=== PATIENT | female | born 1965 | race Caucasian/White ===

== ENCOUNTER → 2017-04-29 11:29 | Outpatient (CLI) | payer BC, SELFPAY ==
[2017-04-29 10:14] VITALS: BP 145/86; BMI 26.0
[2017-04-29 11:47] LABS: Absolute Lymphocyte Count 0.69 X10^3/ul (0.83-4.51); Absolute Neutrophil Count 10.1 X10^3/uL (2.0-7.7); Basophil# 0.04 X10^3/uL; Basophil% 0.4 % (0-1); Eosinophil# 0.02 X10^3/uL; Eosinophils% 0.2 % (0-5); Hematocrit 46.9 % (37-47); Hemoglobin 16.4 g/dl (12.0-15.0); Lymphocyte # 0.69 X10^3/ul (4.0); Lymphocyte % 6.1 % (19-41); Mean Corpuscular Hgb 31.4 pg (27.0-32.0); Mean Corpuscular Volume 89.7 fL (81-99); Mean Platelet Vol. 9.6 fl (6.2-12.0); Monocyte# 0.37 X10^3/uL; Monocyte% 3.3 % (0-10); Neutrophil # 10.08 X10^3/uL (2.7-7.7); Neutrophil % 89.4 % (47-70); Platelet Count 272 K/mm3 (150-450); RBC Distribution Width CV 12.5 % (11.6-14.6); RBC Distribution Width SD 41.2 fl (35.1-43.9); Red Blood Count 5.23 M/mm3 (4.2-5.4); White Blood Count 11.3 K/mm3 (4.4-11.0)
[2017-04-29 11:48] LABS: POSITIVE COUNT NO; POSITIVE DIFFERENTIAL NO; POSITIVE MORPHOLOGY NO
[2017-05-05 14:53] LABS: Immunoglobulin E 17 IU/mL (0-100)
== END ==
LOC: ONC 11:31 → LAB 11:39 → ONC 11:45
PROVIDERS: Family Provider Internal Medicine; PCP Internal Medicine; Visit Provider Internal Medicine Critical Care Medicine
DX: J45.50 Severe persistent asthma, uncomplicated (principal)
CPT/HCPCS: 36415; 82785; 85025

== ENCOUNTER → 2017-11-25 06:25 | Outpatient (CLI) | payer BC, SELFPAY ==
--- NOTE | 2017-11-25 09:35 | STRESSREP ---
Stress Test Report Date: 11/25/2017 Procedure: Exercise tolerance test/imaging study Indications: Chest pain Consent: Per the patient Procedure: The patient exercised on a Jean-Paul protocol for 8 minutes completing Stage II and 2 minutes of Stage III achieving a peak heart rate of 166 bpm (100 % predicted maximal heart rate) with a peak blood pressure 146/74 mmHg and a peak MET capacity of 9 METs. The baseline ECG demonstrated normal sinus rhythm. The peak exercise ECG demonstrated no obvious ECG changes. There were no cardiac dysrhythmias pretest, during exercise, or recovery. The functional capacity was considered good. There was no complaint of chest discomfort during exercise or recovery. The examination was discontinued secondary to leg discomfort. Impression: 1. Technically adequate (percent predicted maximal heart rate greater than 85%) exercise tolerance test 2. Peak exercise ECG demonstrated no obvious ECG changes 3. There were no cardiac dysrhythmias pretest, during exercise, or recovery. 4. Nuclear images pending Myocardial perfusion imaging study: Technique: The patient was injected with 11.3 mCi of technetium 99m Cardiolite and subsequently rest SPECT Cardiolite nuclear imaging was obtained in the horizontal long, vertical long, and short axis views. The patient exercised on a Jean-Paul protocol for 8 minutes completing Stage II and 2 minutes of Stage III achieving a peak heart rate of 166 bpm (100 % predicted maximal heart rate) with a peak blood pressure 146/74 mmHg and a peak MET capacity of 9 METs. The patient was injected with 32.9 mCi of technetium 99m Cardiolite and subsequently stress SPECT Cardiolite nuclear imaging was obtained in the horizontal long, vertical long, and short axis views. A gated Cardiolite study at peak stress was obtained. Interpretation: Rest and stress SPECT Cardiolite nuclear imaging status post realignment, normalization, and attenuation correction, demonstrates the appearance of extracardiac/gastrointestinal tracer uptake near the inferior segments at rest, otherwise, there appears to be relative uniform tracer uptake and myocardial perfusion appearing within normal limits. There is end systolic thickening and brightening. The gated Cardiolite study demonstrates myocardial thickening and inward wall motion. The reported LVEF is 78 %. Impression: 1. Rest and stress SPECT Cardiolite nuclear imaging demonstrate relative uniform tracer uptake and myocardial perfusion appearing within normal limits. 2. The gated Cardiolite study reports an LVEF of 78 %. This note was generated with [employer] software. It may contain incorrect words, spelling, and punctuation that were not noted in checking the note before signing.
== END ==
PROVIDERS: Family Provider Internal Medicine; PCP Internal Medicine; Visit Provider Internal Medicine Cardiovascular Disease
DX: R07.9 Chest pain, unspecified (principal)
CPT/HCPCS: 78452; 93017; 93306; A9500; A4216

== ENCOUNTER → 2018-09-14 | Outpatient (CLI) | payer BC, SELFPAY ==
--- NOTE | 2018-09-14 | LES_PTH ---
PATIENT: JOSE HOOD LOC: [facility] U#:[id number] AGE/SX: 52/F ROOM: RE09/14/[address]: JOSELYN Ortiz : 1965 BED: DIS: 09/14/2018 SPEC #: [id number] RECD: 09/14/18 14:24 STATUS: DONNA REBennie #: [id number] ELIO: 09/14/18 00:[address]: Luann Danielson NP DEPT: SURGICAL PATHOLOGY RECD BY: Aakash Nair ENTERED: 09/14/18 14:24 SP TYPE: Lesion OTHR DR: Dr. Cecilia Potter MD Tissues: Skin appendage, NOS Procedures: Surgery Specimen Level IV HEADER OPERATION: Skin tag removal PRE-OP DIAGNOSIS: Skin tag removal TISSUE SUBMITTED: Skin tag MICROSCOPIC DIAGNOSIS Skin tag, excision: Fibroepithelial papilloma. CE:mena 09/15/18 MICROSCOPIC DESCRIPTION Slides are reviewed. GROSS DESCRIPTION Received in fixative is one container labeled with the patient's name and designated skin tag. The specimen consists of a 0.2 x 0.2 x 0.2 cm portion of gallegos soft tissue/ski. The specimen is totally submitted in one cassette. / CE:mena 09/14/18 TC:1 CPT: 04516
[2018-09-14 10:51] VITALS: BMI 25.3
== END | disposition home or self-care (01) ==
LOC: LABSPEC 13:40
PROVIDERS: Family Provider Internal Medicine; PCP Internal Medicine; Referring Provider Nurse Practitioner Women's Health; Visit Provider Nurse Practitioner Women's Health
DX: L91.8 Other hypertrophic disorders of the skin (principal)
CPT/HCPCS: 88305

== ENCOUNTER 2018-11-13 05:40 | Inpatient (IN) | payer BC, SELFPAY ==
[2018-09-14 10:51] VITALS: BMI 25.3
[2018-11-13] VITALS (11 sets, daily range): BP systolic 121–154; BP diastolic 67–78; PULSE 78–114; RESP 16–24; TEMP 36.6–38.1; O2SAT 94–97; BMI 25.9; BMI 26.0
--- NOTE | 2018-11-13 06:00 | EKG12_ITS ---
Test Reason : CP Blood Pressure : / mmHG Vent. Rate : 106 BPM Atrial Rate : 106 BPM P-R Int : 130 ms QRS Dur : 062 ms QT Int : 312 ms P-R-T Axes : 063 063 069 degrees QTc Int : 414 ms Sinus tachycardia Possible Left atrial enlargement Septal infarct , age undetermined Abnormal ECG Confirmed by TATIANA HILARIO, MADELYN ([id number]), film editor FLACA KENNEDY ([id number]) on 11/15/2018 1:25:59 PM Referred By: MANUEL Confirmed By:MADELYN SIMPSON MD
--- NOTE | 2018-11-13 06:00 | RAD_ITS ---
STUDY: X-RAY CHEST REASON FOR EXAM: Female, 53 years old. Arm pain. Leg pain. Chills. TECHNIQUE: Single AP portable view of the chest. COMPARISON: None. FINDINGS: Ill-defined alveolar opacity is seen in the right lower lobe and right upper lobe suggesting pneumonia. There is no demonstrated pleural abnormality. Normal size heart. Normal mediastinum and fernando. Normal visualized pulmonary arteries. Normal visualized aortic arch and descending thoracic aorta. Normal visualized thoracic spine. Normal visualized ribs, clavicles, and shoulders. There is no demonstrated abnormality of the visualized soft tissue structures of the upper abdomen. RAD/Chest 1 View (Portable) IMPRESSION: Right upper lobe and right lower lobe pneumonia. Electronically Signed: Saira Woods, at 6:44 EDT Tel , Service support ,
--- NOTE | 2018-11-13 06:01 | ED.DCSUM_ITS ---
History of Present Illness Chief Complaint: General Illness Detail of Chief Complaint: chest/back pain Informant: Patient, Significant Other Onset: Hours - 2-3 Context: Sudden Onset - awoke from sleep Timing: Continuous Current Severity: Severe Maximum Severity: Severe Narrative: Patient presents complaining of severe pain throughout her entire back, upper and lower, her left arm, and down both of her legs all the way to her feet, although my feet do not hurt. Her next statement is that Dr. Dutton told her to come right to the emergency room if she ever had chest pain. When asked if she is having chest pain right now, she states yes. She describes it as inferior retrosternal, feels like somebody put something sharp in her and then took it out. She denies tearing sensation. She denies any abdominal pain. Her initial symptom was nausea, followed by the rest of all of these areas hurting simultaneously she thinks. She denies any lightheadedness or near syncope. She denies having any numbness or weakness anywhere. No recent injury. States she saw cardiology recently because of palpitations, she had a stress test that was unremarkable, and then a 30-day Holter monitor, she is due to follow-up after that but knows that PVCs/PACs were found on her stress test. - Past Medical History (1) Acute gastritis without mention of hemorrhage Status: Chronic (2) Benign neoplasm of colon Status: Chronic (3) Interstitial cystitis Status: Chronic (4) Vestibular neuronitis Status: Chronic (5) Anxiety Status: Chronic (6) Asthma Status: Chronic (7) Chronic sinusitis Status: Chronic (8) GERD (gastroesophageal reflux disease) Status: Chronic (9) Hypolipidemia Status: Chronic (10) IBS (irritable bowel syndrome) Status: Chronic (11) Lumbago Status: Chronic (12) Osteopenia Status: Chronic (13) PTSD (post-traumatic stress disorder) Status: Chronic (14) Steroid long-term use Status: Chronic (15) Urethrocele Status: Chronic (16) Xerosis cutis Status: Chronic Past Medical History - Allergies and Home Meds Allergies/Adverse Reactions: Allergies alendronate sodium [From Fosamax] Allergy (Mild, Verified 11/13/18 05:48) Unknown beclomethasone [From Qvar] Allergy (Mild, Verified 11/13/18 05:48) Unknown doxycycline Allergy (Mild, Verified 11/13/18 05:48) unknown epinephrine Allergy (Mild, Verified 11/13/18 05:48) unknown erythromycin base Allergy (Mild, Verified 11/13/18 05:48) Unknown formoterol [From Dulera] Allergy (Mild, Verified 11/13/18 05:48) Unknown Iodine and Iodide Containing Produc Allergy (Mild, Verified 09/14/18 11:00) Unknown levofloxacin [From Levaquin] Allergy (Mild, Verified 11/13/18 05:48) Unknown mometasone furoate [From Dulera] Allergy (Mild, Verified 11/13/18 05:48) Unknown omalizumab [From Xolair] Allergy (Mild, Verified 11/13/18 05:48) Unknown psyllium [From Metamucil] Allergy (Mild, Verified 09/14/18 11:00) Unknown sulfasalazine [From Sulfazine] Allergy (Mild, Verified 09/14/18 11:00) Unknown amoxicillin trihydrate [From Augmentin] Allergy (Verified 09/14/18 11:00) Swelling potassium clavulanate [From Augmentin] Allergy (Verified 09/14/18 11:00) Swelling Sulfa (Sulfonamide Antibiotics) Allergy (Verified 09/14/18 11:00) Hives Primary Care Physician: Cecilia Potter MD [Primary Care Provider] - Lives: Spouse/ Significant Other Smoking Status: Never smoker Drugs: None - No IV drug use Review of Systems General: Reports: Malaise. Denies: Chills, Fever, Sweats Eyes: Denies: Visual changes - bilaterally, Diplopia ENT: Denies: Rhinorrhea, Sore throat Cardiovascular: Reports: Chest pain - Nonpleuritic. Denies: Palpitations Respiratory: Reports: Dyspnea, Cough. Denies: Sputum, Dyspnea on exertion Gastrointestinal: Reports: Nausea. Denies: Abdominal pain, Vomiting, Diarrhea, Melena, Hematochezia Genitourinary: Denies: Dysuria, Hematuria, Frequency Musculoskeletal: Reports: Back pain, Extremity Pain. Denies: Swelling Skin: Denies: Rash, Wounds Neurological: Denies: Headache, Weakness, Numbness Psych: Reports: Anxiety Physical Exam Vital Signs/Narrative: Vital Signs Temp Pulse Resp BP Pulse Ox 11/13/18 05:41 99.0 F 114 H 24 H 154/76 H 97 Inital Vital Signs reviewed: Yes General: Well nourished, Well developed, Acute Distress Head: Normocephalic, Atraumatic Eyes: Perrl, EOMI ENT: Moist mucous membranes, No rhinorrhea Neck: Supple, Nontender Cardiovascular: Regular rate, Regular rhythm, No murmurs, Tachycardia Respiratory: No distress, CTA bilaterally, Chest nontender Abdomen: Soft, Nontender, Nondistended, Normal bowel sounds. Negative for: Pulsatile mass Back: Nontender, Normal Inspection. Negative for: CVA tenderness Extremities: Nontender, No edema Skin: Normal color, No rash, No Trauma Neurological: Alert, Oriented x3, Cranial nerves II-XII grossly intact, Normal Strength, Normal Sensation, - - Antalgic gait, able Psychological: - - Very anxious Diagnostic/Tx/Re-eval Impressions Chest X-Ray 11/13/18 06:00 IMPRESSION: Right upper lobe and right lower lobe pneumonia. Electronically Signed: Saira Woods, at 6:44 EDT Tel , Service support , Abdomen/Pelvis CTA 11/13/18 06:24 IMPRESSION: Normal abdominal aorta without a hemodynamically significant stenosis or dissection. Electronically Signed: Saira Woods, at 8:00 EDT Tel , Service support , Chest CTA 11/13/18 06:24 IMPRESSION: No demonstrated pulmonary embolism or arterial dissection. Right upper lobe pneumonia. Electronically Signed: Saira Woods, at 7:52 EDT Tel , Service support , 11/13/18 06:00 Chest 1 View (Portable) [RAD] Stat 11/13/18 06:24 CT ANGIO ABD&PEL W/O&W/DYE [CT] Stat CTA Chest W/WO Contrast [CT] Stat Laboratory Results 11/13/18 11/13/18 11/13/18 05:40 05:40 07:30 WBC 15.7 H RBC 4.71 Hgb 14.4 Hct 42.3 MCV 89.8 MCH 30.6 MCHC 34.0 RDW Std Deviation 39.8 RDW Coeff of Suresh 12.0 Plt Count 269 MPV 9.9 Immature Gran % (Auto) 0.400 Neut % (Auto) 78.0 H Lymph % (Auto) 15.4 L Wilkinson % (Auto) 4.7 Eos % (Auto) 1.1 Baso % (Auto) 0.4 Absolute Neuts (auto) 12.2 H Absolute Lymphs (auto) 2.41 Nucleated RBC % 0 Sodium 144 Potassium 3.5 Chloride 107 Carbon Dioxide 30.0 Anion Gap 7 BUN 17 Creatinine 1.01 Estim Creat Clear Calc 47.49 Est GFR (MDRD) Af Amer 73 Est GFR (MDRD) Non-Af 61 BUN/Creatinine Ratio 16.8 Glucose 103 Lactic Acid 1.6 Calcium 8.5 Total Bilirubin 0.40 AST 18 ALT 21 Alkaline Phosphatase 97 Troponin I < 0.015 Total Protein 6.7 Albumin 3.4 Globulin 3.3 Albumin/Globulin Ratio 1.0 Lipase 193 - Rhythm Strip Rhythm Strip: Sinus Tach Rate: 110 Ectopy: None - EKG Initial EKG Interpretation: No Acute Injury Pattern, Sinus Tachycardia Prior: Unchanged - Medical Decision Making Portable chest x-ray shows significant right-sided pneumonia, she has a leukocytosis and vital signs to qualify her for sepsis. Her lactate is within normal limits. Given her concerning history I proceeded with CT angiography of her aorta which was unremarkable. There were no other abnormal findings on imaging. Given all of this and her condition, she will be admitted to the hospital. She has a long list of antibiotic allergies. I am very limited with what I can give her to cover her for community-acquired pneumonia. At this time she is getting aztreonam without reaction. She is feeling better. She has allergies to penicillins, macrolides, Levaquin. ED Disposition - Plan for ED Patient: Disposition: Acute Care Hospital [facility] Diagnosis: Sepsis due to pneumonia, Community acquired pneumonia Referrals: Cecilia Potter MD [Primary Care Provider] -
[2018-11-13] MEDS: Morphine 4 MG/ML Syringe IV (06:03)
[2018-11-13] MEDS: Ondansetron 4 MG/2 ML Vial IV (06:04)
[2018-11-13 06:22] LABS: Absolute Lymphocyte Count 2.41 X10^3/uL (0.83-4.51); Absolute Neutrophil Count 12.2 X10^3/uL (2.0-7.7); Basophil# 0.06 X10^3/uL; Basophil% 0.4 % (0-1); Eosinophil# 0.17 X10^3/uL; Eosinophils% 1.1 % (0-5); Hematocrit 42.3 % (37-47); Hemoglobin 14.4 g/dL (12.0-15.0); Lymphocyte # 2.41 X10^3/ul (4.0); Lymphocyte % 15.4 % (19-41); Mean Corpuscular Hgb 30.6 pg (27.0-32.0); Mean Corpuscular Volume 89.8 fL (81-99); Mean Platelet Vol. 9.9 fl (6.2-12.0); Monocyte# 0.74 X10^3/uL; Monocyte% 4.7 % (0-10); NRBC Flagged by Analyzer 0 % (0-5); Neutrophil # 12.22 X10^3/uL (2.7-7.7); Platelet Count 269 K/mm3 (150-450); RBC Distribution Width SD 39.8 fl (35.1-43.9); Red Blood Count 4.71 M/mm3 (4.2-5.4); White Blood Count 15.7 K/mm3 (4.4-11.0)
--- NOTE | 2018-11-13 06:24 | CT_ITS ---
STUDY: CTA OF THE ABDOMINAL AORTA REASON FOR EXAM: Female, 53 years old. CHEST/BACK/BLE PAIN, BACK, LEG, ARM PAIN THAT STARTED AT 2315, 0315 WOKE UP WITH CHILLS RADIATION DOSAGE (If Supplied By Facility): CTDIvol = ( 13.21 ) mGy, DLP = ( 794.91 ) mGycm TECHNIQUE: Axial CT angiography multi-detector data acquisition was obtained from the to the following intravenous administration of 100 ml of Isovue 370 contrast. Axial images and MIP images were reconstructed from the axial data set. Post-processing of the angiographic images was performed, with multiplanar reformation and 3D reconstruction. Individualized dose optimization techniques were used for this CT. TECHNICAL QUALITY: Good COMPARISON: None. Descriptors of Narrowing: None (0%) Mild (< 50%) Moderate (50-70%) Severe (70-90%) Subtotal/Total Occlusion (90-100%) Non-Evaluable (technically non-diagnostic FINDINGS: Abdominal aorta: No demonstrated narrowing. Celiac and superior mesenteric arteries: No demonstrated narrowing. Inferior mesenteric artery: No demonstrated narrowing. Right renal artery(arteries): No demonstrated narrowing. Left renal artery(arteries): No demonstrated narrowing. Right common iliac artery: No demonstrated narrowing. Right external iliac artery: No demonstrated narrowing. Right internal iliac artery: No demonstrated narrowing. Left common iliac artery: No demonstrated narrowing. Left external iliac artery: No demonstrated narrowing. Left internal iliac artery: No demonstrated narrowing. The visualized lung bases are unremarkable. The visualized portions of the heart are within normal limits. Normal liver. There are surgical clips in the gallbladder fossa consistent with a prior cholecystectomy. Normal spleen. Normal pancreas. Normal bilateral adrenal glands. Normal right kidney. Normal left kidney. Normal visualized stomach. Normal small intestine. Normal colon. The appendix is visualized and appears normal. Normal abdominal aorta. Normal inferior vena cava. Normal retroperitoneum. Normal urinary bladder. Normal abdominal wall. There are diffuse degenerative changes of the visualized lumbar spine. CT/CT ANGIO ABD&PEL W/O&W/DYE IMPRESSION: Normal abdominal aorta without a hemodynamically significant stenosis or dissection. Electronically Signed: Saira Woods, at 8:00 EDT Tel , Service support ,
--- NOTE | 2018-11-13 06:24 | CT_ITS ---
STUDY: CTA CHEST REASON FOR EXAM: Female, 53 years old. CHEST/BACK/BLE PAIN, BACK, LEG, ARM PAIN THAT STARTED AT 2315, 0315 WOKE UP WITH CHILLS. RADIATION DOSAGE (If Supplied By Facility): CTDIvol = ( 13.21 ) mGy, DLP = ( 794.91 ) mGycm TECHNIQUE: The examination was performed with the intravenous administration of 100 IV Isovue 370. Post-processing of the angiographic images was performed, with multiplanar reformation and 3D reconstruction. Individualized dose optimization techniques were used for this CT. COMPARISON: None. FINDINGS: There is a nonspecific nodule in the right thyroid lobe measures 1.2 cm. Normal enhancement of the main pulmonary artery and right and left pulmonary arteries. Normal enhancement of the bilateral peripheral pulmonary arteries. There is no demonstrated pulmonary embolism. Normal thoracic aorta and visualized great vessels. There is no demonstrated aortic dissection. Normal heart and pericardium. Normal mediastinum. Normal hilar regions. Normal visualized trachea and bronchi. Confluent alveolar opacities are seen in the right upper lobe anterior segment and posterior segment consistent with pneumonia. Normal pleura. Normal chest wall structures. There are degenerative changes of thoracic spine. Normal visualized upper abdomen. CT/CTA Chest W/WO Contrast IMPRESSION: No demonstrated pulmonary embolism or arterial dissection. Right upper lobe pneumonia. Electronically Signed: Saira Woods, at 7:52 EDT Tel , Service support ,
[2018-11-13 06:45] LABS: AST(SGOT) 18 U/L (15-37); Alanine Aminotransfer ALT/SGPT 21 U/L (13-56); Albumin, Serum 3.4 g/dL (3.2-5.0); Alkaline Phosphatase 97 U/L (45-117); Anion Gap 7 (5-15); BUN 17 mg/dL (7-18); BUN/Creat Ratio 16.8 RATIO (10-20); Calcium,Total 8.5 mg/dL (8.5-10.1); Chloride 107 mmol/L (98-107); Creatinine, Serum 1.01 mg/dL (0.55-1.02); EST Glomerular Filtration Rate 61 mL/min (>60); Est Glom Filt Rate - Afr Amer 73 mL/min (>60); Estimated Creatinine Clearance 47.49 ml/min; Globulin 3.3 g/dL (2.2-4.2); Glucose 103 mg/dL (74-106); Lipase 193 U/L (73-393); Potassium 3.5 mmol/L (3.5-5.1); Protein, Total 6.7 g/dL (6.4-8.2); Sodium Level 144 mmol/L (136-145)
[2018-11-13] MEDS: 0.9% Normal Saline 1,000 ML 999 ML IV (07:30)
[2018-11-13 08:09] LABS: Lactic Acid 1.6 mmol/L (0.4-2.0)
--- NOTE | 2018-11-13 08:27 | PCM.HP.STD ---
Problem List (1) Sepsis due to pneumonia Status: Acute (2) Community acquired pneumonia Status: Acute (3) Chest pain Status: Acute Qualifiers: Chest pain type: unspecified Qualified Code(s): R07.9 - Chest pain, unspecified (4) Asthma Status: Chronic Qualifiers: Asthma severity: severe Asthma persistence: persistent Asthma complication type: uncomplicated Qualified Code(s): J45.50 - Severe persistent asthma, uncomplicated (5) PTSD (post-traumatic stress disorder) Status: Chronic (6) Asthma with COPD Status: Chronic (7) Vestibular neuronitis Status: Chronic (8) Urethrocele Status: Chronic (9) Lumbago Status: Chronic (10) Osteopenia Status: Chronic (11) Interstitial cystitis Status: Chronic (12) Anxiety Status: Chronic (13) IBS (irritable bowel syndrome) Status: Chronic Qualifiers: Irritable bowel syndrome type: unspecified Qualified Code(s): K58.9 - Irritable bowel syndrome without diarrhea (14) GERD (gastroesophageal reflux disease) Status: Chronic (15) Xerosis cutis Status: Chronic (16) Hypolipidemia Status: Chronic (17) Chronic sinusitis Status: Chronic (18) Steroid long-term use Status: Chronic History of Present Illness Date of Admission: 11/13/18 Chief Complaint: Leg back and chest pain The patient is a 53 year old F multiple comorbidities including anxiety disorder, irritable bowel syndrome, bronchial asthma who presented to the emergency department with leg back and chest pain. Patient symptoms started around 2 AM on the morning of her admission. The symptoms were sudden in onset. She however went back to sleep woke up with a feeling of chest discomfort. She states that she thought she had threw up on herself however did not find any vomitus. Patient described not feeling well. She finally presented to the emergency department underwent extensive work-up which revealed presence of right upper lobe pneumonia. Patient was started on antibiotics (Azactam) and admitted to regular nursing floor for further management Past Medical History Past Medical History (Chronic Problems): Chronic Problems (Last Reviewed 09/14/18 @ 10:51 by Carolina Ferrer) Asthma (Chronic) PTSD (post-traumatic stress disorder) (Chronic) Asthma with COPD (Chronic) Vestibular neuronitis (Chronic) Urethrocele (Chronic) Lumbago (Chronic) Osteopenia (Chronic) Interstitial cystitis (Chronic) Anxiety (Chronic) IBS (irritable bowel syndrome) (Chronic) GERD (gastroesophageal reflux disease) (Chronic) Xerosis cutis (Chronic) Hypolipidemia (Chronic) Chronic sinusitis (Chronic) Steroid long-term use (Chronic) Medical History: Medical History (Last Reviewed 11/13/18 @ 10:48 by Harmeet Monk MD) PTSD (post-traumatic stress disorder) (Chronic) F43.10 Asthma with COPD (Chronic) J44.9 Vestibular neuronitis (Chronic) H81.20 Lesion of plantar nerve (Resolved) G57.60 Urethrocele (Chronic) N81.0 Lumbago (Chronic) M54.5 Acute gastritis without mention of hemorrhage (Resolved) K29.00 Osteopenia (Chronic) M85.80 Benign neoplasm of colon (Resolved) D12.6 Interstitial cystitis (Chronic) N30.10 Anxiety (Chronic) F41.9 Abnormal mammogram (Resolved) R92.8 IBS (irritable bowel syndrome) (Chronic) K58.9 GERD (gastroesophageal reflux disease) (Chronic) K21.9 Capsulitis (Resolved) M77.9 Intermittent left lower quadrant abdominal pain (Resolved) R10.32 Xerosis cutis (Chronic) L85.3 Hypolipidemia (Chronic) E78.6 Chronic sinusitis (Chronic) J32.9 Steroid long-term use (Chronic) Lactose intolerance E73.9 History of wisdom tooth extraction K08.409 Diarrhea (Inactive) R19.7 Allergies alendronate sodium [From Fosamax] Allergy (Mild, Verified 11/13/18 05:48) Unknown beclomethasone [From Qvar] Allergy (Mild, Verified 11/13/18 05:48) Unknown doxycycline Allergy (Mild, Verified 11/13/18 05:48) unknown epinephrine Allergy (Mild, Verified 11/13/18 05:48) unknown erythromycin base Allergy (Mild, Verified 11/13/18 05:48) Unknown formoterol [From Dulera] Allergy (Mild, Verified 11/13/18 05:48) Unknown Iodine and Iodide Containing Produc Allergy (Mild, Verified 09/14/18 11:00) Unknown levofloxacin [From Levaquin] Allergy (Mild, Verified 11/13/18 05:48) Unknown mometasone furoate [From Dulera] Allergy (Mild, Verified 11/13/18 05:48) Unknown omalizumab [From Xolair] Allergy (Mild, Verified 11/13/18 05:48) Unknown psyllium [From Metamucil] Allergy (Mild, Verified 09/14/18 11:00) Unknown sulfasalazine [From Sulfazine] Allergy (Mild, Verified 09/14/18 11:00) Unknown amoxicillin trihydrate [From Augmentin] Allergy (Verified 09/14/18 11:00) Swelling potassium clavulanate [From Augmentin] Allergy (Verified 09/14/18 11:00) Swelling Sulfa (Sulfonamide Antibiotics) Allergy (Verified 09/14/18 11:00) Hives Home Medications: Ambulatory Orders Medication Instructions Recorded albuterol sulfate HFA 90 2 puff INHALATION Q2H PRN g 04/19/17 mcg/actuation aerosol inhaler alprazolam 0.5 mg tablet 0.5 mg PO BID PRN tab 04/19/17 amitriptyline 25 mg tablet 50 mg PO QHS tab 04/19/17 omeprazole 40 mg capsule,delayed 40 mg PO ONCE 04/19/17 release promethazine 25 mg rectal 25 mg RC Q6H PRN supp 04/19/17 suppository ranitidine 300 mg tablet 300 mg PO QHS PRN 04/19/17 rizatriptan 10 mg tablet 10 mg PO ONCE PRN 04/19/17 temazepam 7.5 mg capsule 7.5 mg PO QHS 04/19/17 triamcinolone acetonide 55 mcg 2 spray INTRANASAL QDAY 04/19/17 nasal spray aerosol albuterol sulfate 2.5 mg/3 mL 2.5 mg INHALATION Q4H PRN #180 vial 05/03/17 (0.083 %) solution for nebulization ipratropium bromide 0.02 % 0.5 mg INHALATION Q4H PRN #120 vial 05/03/17 solution for inhalation chlordiazepoxide-clidinium 5 4 cap PO QACHS cap 11/18/17 mg-2.5 mg capsule dicyclomine 10 mg capsule 10 mg PO Q6H cap 11/18/17 meclizine 12.5 mg tablet 12.5 mg PO DAILY PRN tab 11/18/17 nefazodone 100 mg tablet 100 mg PO QDAY tab 11/18/17 prednisone 10 mg tablet 10 mg PO DAILY 02/02/18 metoprolol succinate ER 25 mg 25 mg PO DAILY #30 tab 10/28/18 tablet,extended release 24 hr Acetylcysteine [Mucomyst] 800 mg INHALATION Q6H.RT PRN 11/13/18 Surgical History: Surgical History (Last Reviewed 11/13/18 @ 10:48 by Harmeet Monk MD) Dysplasia, cervix uteri N87.9 H/O section Z98.891 History of breast biopsy Z98.890 History of bunionectomy Z98.890 History of cholecystectomy Z90.49 History of colonoscopy Z98.890 History of cystoscopy Z98.890 History of esophagogastroduodenoscopy Z98.890 History of hernia repair Z98.890, Z87.19 History of sigmoidoscopy Z98.890 History of sinus surgery Z98.890 History of tubal ligation Z98.51 History of vaginal hysterectomy Z90.710 Lives: Spouse/ Significant Other Smoking Status: Never smoker Drugs: None - No IV drug use - *Family History Paternal Family History: Family History (Last Reviewed 09/14/18 @ 10:51 by Carolina Ferrer) Father Hypertension Diabetes Seizures Alzheimer disease CAD (coronary artery disease) Myocardial infarction, Onset Age: 35 Mother Hypertension Atrial fibrillation CHF (congestive heart failure) Grandfather CAD (coronary artery disease) Myocardial infarction Grandmother CAD (coronary artery disease) Myocardial infarction Grandfather CAD (coronary artery disease) Myocardial infarction Review of Systems Constitutional: Reports: Malaise HEENT: Denies: Head Aches, Sinus Congestion, Sinus Drainage Cardiovascular: Reports: Chest Pain. Denies: Orthopnea, Palpitations, Paroxysmal Noc. Dyspnea Respiratory: Denies: Shortness of Breath Gastrointestinal: Reports: Abdominal Pain Genitourinary: Denies: Dysuria, Frequency, Hematuria, Urgency Musculoskeletal: Denies: Joint Pain, Joint Tenderness Skin: Denies: Rash Neurological: Denies: Focal weakness, Numbness, Tingling Psychiatric: Reports: Anxiety Hematologic/ Lymphatic: Denies: Easy Bruising, Easy Bleeding VTE Information - Inpt Only VTE Present on Admission: No VTE Mechan Device Prophylaxis: None VTE Pharm Prophylaxis ordered?: Yes Patient Problems: Active and Suspected Problems (Last Reviewed 09/14/18 @ 10:51 by Carolina Ferrer) Sepsis due to pneumonia (Acute) Community acquired pneumonia (Acute) Objective: GENERAL: cooperative HEENT: Atraumatic; EYES; Anicteric, NECK; supple, normal thyroid, RESPIRATORY: Diminished to auscultation CARDIOVASCULAR: Regular S1 S2, GI: soft, non-tender, normoactive bowel sounds, : No Renal angle tenderness; EXTREMITIES: No edema, no clubbing, MUSCULOSKELETAL: No Joint Tenderness; NEURO: Awake; no lateralizing signs. SKIN: Rosacea on the face PSYCH; Normal affect - Physical Exam Vital Signs Temp Pulse Resp BP Pulse Ox 99.0 F 100 17 129/76 H 97 11/13/18 05:41 11/13/18 07:43 11/13/18 07:43 11/13/18 07:43 11/13/18 07:43 Oxygen Delivery Method Room Air Weight: 62.4 kg Body Mass Index (BMI) 25.9 Laboratory Tests Past 24 Hrs 11/13/18 11/13/18 11/13/18 05:40 05:40 07:30 WBC 15.7 H RBC 4.71 Hgb 14.4 Hct 42.3 MCV 89.8 MCH 30.6 MCHC 34.0 RDW Std Deviation 39.8 RDW Coeff of Suresh 12.0 Plt Count 269 MPV 9.9 Immature Gran % (Auto) 0.400 Neut % (Auto) 78.0 H Lymph % (Auto) 15.4 L [place] % (Auto) 4.7 Eos % (Auto) 1.1 Baso % (Auto) 0.4 Absolute Neuts (auto) 12.2 H Absolute Lymphs (auto) 2.41 Nucleated RBC % 0 Sodium 144 Potassium 3.5 Chloride 107 Carbon Dioxide 30.0 Anion Gap 7 BUN 17 Creatinine 1.01 Estim Creat Clear Calc 47.49 Est GFR (MDRD) Af Amer 73 Est GFR (MDRD) Non-Af 61 BUN/Creatinine Ratio 16.8 Glucose 103 Lactic Acid 1.6 Calcium 8.5 Total Bilirubin 0.40 AST 18 ALT 21 Alkaline Phosphatase 97 Troponin I < 0.015 Total Protein 6.7 Albumin 3.4 Globulin 3.3 Albumin/Globulin Ratio 1.0 Lipase 193 Assessment/Plan All Active Problems (Last Reviewed 09/14/18 @ 10:51 by Carolina Ferrer) Sepsis due to pneumonia (Acute) Community acquired pneumonia (Acute) Chest pain (Acute) Lesion of plantar nerve (Resolved) Acute gastritis without mention of hemorrhage (Resolved) Benign neoplasm of colon (Resolved) Abnormal mammogram (Resolved) Capsulitis (Resolved) Intermittent left lower quadrant abdominal pain (Resolved) Patient is a 53-year-old lady with multiple comorbidities presented with pain involving the back legs as well as chest. Underwent extensive work-up in the ED. Her assessment was consistent with sepsis secondary to right upper lobe community-acquired pneumonia. Patient has multiple antibiotic allergies started on Azactam and admitted to regular nursing floor for further management 1. Sepsis secondary to community-acquired pneumonia imaging studies demonstrated right upper lobe infiltrate. Patient was also tachycardic febrile with elevated white cell count. She did receive Azactam in the ER. Upon further interview patient admitted to having used Z-Aries as well as cephalosporins in the past. Was subsequently initiated on Rocephin and p.o. azithromycin. Was also placed on oxygen titrated to keep oxygen saturation greater than 90. Blood and sputum cultures were sent 2. Moderate intermittent asthma patient is on albuterol as well as chronic steroid did continue 3. Irritable bowel syndrome patient is apparently on Librax for that did discuss with patient regarding her medication she is apparently also on temazepam as well as Xanax informed patient via all benzo diazepam she was advised to follow-up with her primary care physician for medication adjustment 4. Vestibular neuronitis patient is on meclizine as needed 5. GERD on PPI 6. Chronic migraine headaches patient is on Maxalt as needed 7. Anxiety disorder patient is on benzos 8. DVT prophylaxis SC Lovenox Clinical Impression(s) from Imaging Studies Chest X-Ray 11/13/18 06:00 IMPRESSION: Right upper lobe and right lower lobe pneumonia. Electronically Signed: Saira Woods, at 6:44 EDT Tel , Service support , Abdomen/Pelvis CTA 11/13/18 06:24 IMPRESSION: Normal abdominal aorta without a hemodynamically significant stenosis or dissection. Electronically Signed: Saira Woods, at 8:00 EDT Tel , Service support , Chest CTA 11/13/18 06:24 IMPRESSION: No demonstrated pulmonary embolism or arterial dissection. Right upper lobe pneumonia. Electronically Signed: Saira Woods, at 7:52 EDT Tel , Service support , Code Visit Inpatient E&M: 10467 Init Hosp L3
[2018-11-13] MEDS: 0.9% Normal Saline 1,000 ML 150 ML IV ×2 (09:35→16:47)
[2018-11-13] MEDS: Enoxaparin 40 MG/0.4 ML Syringe SC (09:42)
[2018-11-13] MEDS: Acetylcysteine 800 MG/4 ML VIAL.NEB. INHALATION ×2 (11:19→20:56)
[2018-11-13] MEDS: Albuterol 2.5 MG/3 ML VIAL.NEB. INHALATION ×2 (11:19→20:55)
[2018-11-13] MEDS: Azithromycin 250 MG Tablet 500 MG PO (12:09)
[2018-11-13] MEDS: Dicyclomine 10 MG Capsule PO ×3 (12:11→22:06)
[2018-11-13] MEDS: Metoprolol(XL)Succ 25 MG Tablet PO (14:55)
[2018-11-13] MEDS: predniSONE 10 MG Tablet PO (14:56)
[2018-11-13] MEDS: Acetaminophen 325 MG Tablet 650 MG PO (14:56)
[2018-11-13] MEDS: Amitriptyline 25 MG Tablet 50 MG PO (22:06)
[2018-11-13] MEDS: Zolpidem Tartrate 5 MG Tablet PO (22:06)
[2018-11-14] VITALS (9 sets, daily range): BP systolic 124–128; BP diastolic 68–74; PULSE 71–89; RESP 16–20; TEMP 36.6–37.7; O2SAT 92–98
[2018-11-14] MEDS: Enoxaparin 40 MG/0.4 ML Syringe SC (05:50)
[2018-11-14] MEDS: Dicyclomine 10 MG Capsule PO ×4 (05:50→21:27)
[2018-11-14 06:15] LABS: Absolute Lymphocyte Count 1.62 X10^3/uL (0.83-4.51); Absolute Neutrophil Count 10.3 X10^3/uL (2.0-7.7); Basophil# 0.05 X10^3/uL; Basophil% 0.4 % (0-1); Eosinophil# 0.15 X10^3/uL; Eosinophils% 1.1 % (0-5); Hematocrit 38.2 % (37-47); Lymphocyte # 1.62 X10^3/ul (4.0); Lymphocyte % 12.2 % (19-41); Mean Corpuscular Hgb 31.1 pg (27.0-32.0); Mean Corpuscular Volume 91.4 fL (81-99); Mean Platelet Vol. 10.1 fl (6.2-12.0); Monocyte# 0.98 X10^3/uL; Monocyte% 7.4 % (0-10); NRBC Flagged by Analyzer 0 % (0-5); Neutrophil # 10.34 X10^3/uL (2.7-7.7); Neutrophil % 78.2 % (47-70); Platelet Count 206 K/mm3 (150-450); RBC Distribution Width CV 12.2 % (11.6-14.6); RBC Distribution Width SD 40.9 fl (35.1-43.9); Red Blood Count 4.18 M/mm3 (4.2-5.4); White Blood Count 13.2 K/mm3 (4.4-11.0)
[2018-11-14 06:29] LABS: Anion Gap 5 (5-15); BUN 11 mg/dL (7-18); BUN/Creat Ratio 13.1 RATIO (10-20); Calcium,Total 8.2 mg/dL (8.5-10.1); Chloride 114 mmol/L (98-107); Creatinine, Serum 0.84 mg/dL (0.55-1.02); EST Glomerular Filtration Rate 75 mL/min (>60); Est Glom Filt Rate - Afr Amer 90 mL/min (>60); Glucose 87 mg/dL (74-106); Magnesium 2.1 mg/dL (1.6-2.6); Potassium 4.1 mmol/L (3.5-5.1); Sodium Level 145 mmol/L (136-145)
[2018-11-14] MEDS: Acetylcysteine 800 MG/4 ML VIAL.NEB. INHALATION ×2 (06:37→12:00)
[2018-11-14] MEDS: Albuterol 2.5 MG/3 ML VIAL.NEB. INHALATION ×3 (06:37→19:49)
[2018-11-14] MEDS: predniSONE 10 MG Tablet PO (09:09)
[2018-11-14] MEDS: Azithromycin 250 MG Tablet 500 MG PO (09:09)
[2018-11-14] MEDS: Metoprolol(XL)Succ 25 MG Tablet PO (09:09)
[2018-11-14] MEDS: 0.9% NaCl Peripheral Flush Adult/Peds IV (09:18)
[2018-11-14] MEDS: Pantoprazole Sodium 40 MG Tablet PO (09:22)
--- NOTE | 2018-11-14 10:20 | CASEMGMT ---
Social Work Note Per civil engineering project manager questions, pt has completed HCPOA and LW but hasn't provided copies to [facility]. Valeria Horan TAX CREDIT LEASING CONSULTANT, PROGRAM PRODUCTION SPECIALIST
--- NOTE | 2018-11-14 11:05 | CASEMGMT ---
RN CM Face to Face with patient for initial transition planning/care coordination assessment. RN CM introduced self and role at [facility]. Patient lying in bed, alert and oriented. Patient willing to participate in assessment and is able to answer all questions appropriately. Care providers, pharmacy, and demographics verified. Patient wishes to discharge home, denies need for home health at this time. Patient states she has no further needs or concerns at this time. CM to follow for discharge planning needs that may arise. PCP: Tariq Specialists: Marija, insert cutter; Calvin, furnace cleaner; Marcanthony, RAILROAD BAG[employer]TER Preferred Pharmacy: [facility] Insurance: [employer] Prescription Benefit: yes Living Will/HPOA: yes, Ramiro Macdonald LNOK: Living Arrangements: Patient lives with in 2 story home. Patient is independent and is able to navigate stairs. Transportation: self/ DME/HHC: Patient states she has grab bars and nebulizer. Denies previous HHC or SNF Disposition Plan: Patient to discharge home with family support and follow-up plans in place. Valeria AKERS, RN, CM
--- NOTE | 2018-11-14 15:34 | PN_ITS ---
Patient Problems: Active and Suspected Problems (Last Reviewed 11/13/18 @ 10:48 by Harmeet Monk MD) Sepsis due to pneumonia (Acute) Community acquired pneumonia (Acute) Subjective: The patient is a 53-year-old female with a past medical history of PTSD, COPD with asthma, vertigo, urethrocele, chronic back pain, interstitial cystitis, irritable bowel syndrome, GERD and long-term steroid use who presented to the emergency room at [facility] on 11/13/2018 planing of leg, back and chest pain. Vital signs at presentation to the emergency room were temperature 99, pulse rate 114, blood pressure 154/76, respiratory rate 24 and she was 97% saturated on room air. CBC was significant for a white blood cell count of 15.7 with 78% neutrophils. CMP was unremarkable and troponin was less than 0.015. A AP chest showed right upper lobe and right lower lobe pneumonia. A CTA scan of the abdomen and pelvis showed a normal abdominal aorta without a hemodynamically significant stenosis or dissection. CTA of the chest showed no demonstrated pulmonary embolism or arterial dissection. There was right upper lobe pneumonia present. She was admitted to the hospital with a diagnosis of sepsis secondary to community-acquired pneumonia and started on Rocephin and azithromycin. Legionella and streptococcal antigens were negative. A sputum Gram stain showed no organisms. There were no white blood cells mentioned. Continues to have low-grade fever with a temp of 99.8 this afternoon. White blood cell count is 13.2 with 78% neutrophils. She is 96 to 97% saturated on room air. She did not cough while I was in the room. cough was not her complaint at admission. The main complaint was back, thigh and chest pain. She describes it as the worst pain she has ever had. W/U is negative for a cause. Denies sore throat, rhinorrhea, itchy watery eyes. she seems very anxious. She is on multiple psychiatric medications. Takes 3 different benzodiazepines....Xanax, Librax and Restoril. In addition to that she is on amitriptyline and nefazodone at night. He also has prescriptions for meclizine, promethazine and Bentyl. She has been taking prednisone 10 mg daily for 25 years for asthma. She follows up with Dr. Jean-Paul Simpson in the office and could not even tolerate decreasing the prednisone to 9 mg daily without complaining of not being able to breathe. I suspect there may be a strong psychosocial component to her sx. - Physical Exam General: Alert, Oriented x3, Cooperative, No apparent distress, - - Pressured speech, very anxious HEENT: Atraumatic, PERRLA, EOMI, Normocephalic Oral: Moist Mucosa, No Gingival or Mucosal Lesions/ Ulcerations Neck: Supple, No JVD Lungs: Clear to auscultation, Normal air movement, No rhonchi, No wheeze, No rales Cardiovascular: Regular rate, Regular Rhythm, Normal S1, Normal S2, No murmurs, No rub noted, No Gallop Abdomen: Bowel Sounds Present, Soft, Non Tender, Non-Distended Extremities: No clubbing, No cyanosis, No edema Skin: No rashes Neurological: Cranial nerves II-XII grossly intact, Neuro grossly intact Psych/Mental Status: Anxious Vital Signs Temp Pulse Resp BP Pulse Ox 99.8 F H 89 20 H 127/73 H 92 11/14/18 09:30 11/14/18 12:00 11/14/18 12:00 11/14/18 09:30 11/14/18 12:00 Oxygen Delivery Method Room Air Weight: 137 lb 5.568 oz Body Mass Index (BMI) 25.9 Intake and Output for Last 24 Hours 11/12/18 11/13/18 11/14/18 23:59 23:59 23:59 Intake Total 2378 / 2378 100 / 100 Output Total 3400 / 3400 1000 / 1000 Balance -1022 / -1022 -900 / -900 Microbiology Past 72 Hours 11/14/18 12:21 Gram Stain - Final Sputum, Expectorated/Coughed 11/13/18 09:30 Streptococcus pneumoniae Antigen (M - Final Urine, Clean Catch 11/13/18 09:30 Legionella Antigen - Final Urine, Clean Catch Laboratory Tests Past 24 Hrs 11/14/18 11/14/18 05:44 05:44 WBC 13.2 H RBC 4.18 L Hgb 13.0 Hct 38.2 MCV 91.4 MCH 31.1 MCHC 34.0 RDW Std Deviation 40.9 RDW Coeff of Suresh 12.2 Plt Count 206 MPV 10.1 Immature Gran % (Auto) 0.700 Neut % (Auto) 78.2 H Lymph % (Auto) 12.2 L [place] % (Auto) 7.4 Eos % (Auto) 1.1 Baso % (Auto) 0.4 Absolute Neuts (auto) 10.3 H Absolute Lymphs (auto) 1.62 Nucleated RBC % 0 Sodium 145 Potassium 4.1 Chloride 114 H Carbon Dioxide 26.0 Anion Gap 5 BUN 11 Creatinine 0.84 Estim Creat Clear Calc 57.10 Est GFR (MDRD) Af Amer 90 Est GFR (MDRD) Non-Af 75 BUN/Creatinine Ratio 13.1 Glucose 87 Calcium 8.2 L Magnesium 2.1 Medical Necessity - Tobacco Use Smoking Status: Never smoker Assessment/Plan All Active Problems (Last Reviewed 11/13/18 @ 10:48 by Harmeet Monk MD) Sepsis due to pneumonia (Acute) Community acquired pneumonia (Acute) Chest pain (Acute) Lesion of plantar nerve (Resolved) Acute gastritis without mention of hemorrhage (Resolved) Benign neoplasm of colon (Resolved) Abnormal mammogram (Resolved) Capsulitis (Resolved) Intermittent left lower quadrant abdominal pain (Resolved) Impressions 1. Community-acquired right upper lobe pneumonia 2. Benzodiazepine dependence 3. PTSD/anxiety 4. Steroid-dependent - not on Vitamin D or calcium. If she has not already had a DEXA she should have one as an OP. 5. Irritable bowel syndrome 6. GERD 7. Chronic sinusitis 8. Vestibular neuronitis 9. Asthma 10. chronic back pain and chest pain......has seen Dr. Dutton for chest pain in the past. she has also had chronic tenderness in her abdomen. She lists 15 different allergies and 12 of them the reaction is unknown. In 2016 she had an EGD that showed erythema in the gastric antrum but was otherwise unremarkable. On colonoscopy she had a normal colon with a 6 mm colonic polyp in the ascending portion which was removed. H&E stains were compatible with H. pylori and she was treated. EKGs in 2016 and 2019 are normal. On physical examination and Dr. Dutton's office she had a grade 2/6 soft midsystolic murmur at the sternal notch. Nuclear stress test and the fall 2017 showed a 78% ejection fraction with no evidence of myocardial perfusion deficits. Echocardiogram showed an EF of 65% with trivial MR, trivial TR, trivial pulmonic valve insufficiency. Right ventricular systolic pressure was estimated to be 28 and this was in October 2017. She had an event monitor that showed the rhythm to be sinus with intermittent sinus tachycardia. There were occasional isolated atrial premature contractions and a few short atrial runs lasting less than 2 seconds with heart rates up to 210 bpm. There was no atrial fibrillation. She had occasional isolated PVCs and there were no pauses noted. She had 30 triggers for sx including rapid heart rate/palpitations/flutter/chest pain/lightheadedness and during these. She had isolated ectopy and short atrial runs but she also had symptoms when she was in sinus rhythm without ectopy. will check a respiratory panel in the AM ambulatory pulse ox on RA in the AM Probable DC in the AM. Check vitamin D levels We did discuss how addictive benzodiazepines are and that you can not suddenly stop them. she is taking a lot of medication at night to help her sleep. Code Visit Inpatient E&M: 66769 Subs Hosp L2
[2018-11-14 17:53] LABS: Vitamin D,25 Hydroxy 12.7 ng/mL (29.95-100.01)
[2018-11-14] MEDS: Amitriptyline 25 MG Tablet 50 MG PO (21:26)
[2018-11-14] MEDS: Temazepam 15 MG Capsule PO (21:29)
[2018-11-15 02:45] VITALS: BP 142/75; PULSE 92; RESP 18; TEMP 37.2; O2SAT 96
[2018-11-15] MEDS: Dicyclomine 10 MG Capsule PO ×2 (05:16→11:45)
[2018-11-15] MEDS: Enoxaparin 40 MG/0.4 ML Syringe SC (05:16)
[2018-11-15 07:18] VITALS: PULSE 87; RESP 16; O2SAT 91
[2018-11-15] MEDS: Albuterol 2.5 MG/3 ML VIAL.NEB. INHALATION ×2 (07:18→11:21)
[2018-11-15] MEDS: predniSONE 10 MG Tablet PO (07:29)
[2018-11-15 08:39] VITALS: O2SAT 97
[2018-11-15 08:41] VITALS: BP 127/77; PULSE 94; RESP 18; TEMP 37.2; O2SAT 98
[2018-11-15 10:03] VITALS: PULSE 94
[2018-11-15] MEDS: Metoprolol(XL)Succ 25 MG Tablet PO (10:03)
[2018-11-15] MEDS: Pantoprazole Sodium 40 MG Tablet PO (10:03)
[2018-11-15] MEDS: 0.9% NaCl Peripheral Flush Adult/Peds IV (10:04)
[2018-11-15] MEDS: Azithromycin 250 MG Tablet 500 MG PO (10:04)
[2018-11-15 11:21] VITALS: PULSE 91; RESP 16
--- NOTE | 2018-11-15 11:54 | PCM.DC ---
- Discharge Diagnoses Current Active Problems: Current Active and Chronic Problems (Last Reviewed 11/13/18 @ 10:48 by Harmeet Monk MD) Sepsis due to pneumonia (Acute) Community acquired pneumonia (Acute) You will use the following diet at home:: Other - no caffeine. I recommend you try a gluten free diet for a few weeks to see if the irritable bowel symtoms improve. Your food should be the consistency of: Regular Your liquids should be the consistency of: Regular/Thin Discharge Activity: - - Avoid exposure to any strong smells such as bleach, cleaning products, strong colognes or perfumes, paint fumes and smoke of any kind. Avoid sudden exposure to cold air because this can cause bronchospasm. You may want to cover your mouth when you go outside in the winter. Avoid exposure to anyone who is sick with a cough or sore throat. Call your doctor if you observe: - - Call your PCP if severe diarrhea ( > 5 stools a day), painful sores in the mouth, painful swallowing, rash or itching. Taking a probiotic such as Lactobacillus or Kefir can help with loose stools while taking antibiotics. Instructions: Your Body's Response to Anxiety, Treating Anxiety Disorders with Therapy, Treating Anxiety Disorders with Medication, Treating Panic Disorder with Medication Additional Instructions: The sputum culture so far as only the normal bacteria that grow in your mouth. the viral panel was negative. You have no fever and you are not wheezing. You Will be fine. you have been on increased prednisone in the hospital and I want you to taper over the next 9 days. . 30 mg daily for 3 days and then 20 mg daily for 3 days and then a5 mg for 3 days and then resume 10 mg daily. I do not think that your severe anxiety is well managed. You are on 3 different Benzodiazepines and these are very addictive. I think you may do better on 1 benzodiazepine called Clonopin.....it is long acting and you take it every 12 hours......scheduled, not as needed. I also think you need to see a psychiatrist to manage the anxiety. You are taking all these meds now and you are still very anxious. Irritable bowel is very closely related to anxiety......so is pain perception. Please consider seeing a psychiatrist and having more therapy. You have been on Prednisone for 25 years......I spoke with Dr. Simpson and we both believe that you get more short of breath when the prednisone is tapered at all because you are anxious about your breathing getting worse. I think you are having panic attacks. I have given you some literature to read about panic attacks and how to manage anxiety with therapy and medication.......the best results are when both modalities are used together. Call me tomorrow afternoon at [phone] and I will give you the final results on the sputum culture. Steroids have many bad side effects......these include but are not limited to osteoporosis, catarracts, avascular necrosis of joints, severe muscle weakness, atherosclerosis, weight gain, high blood pressure, etc. It would be best for you to get off them. Your vitamin D level is low and I have given you a prescription for a Vitamin D supplement. The vitamin D level should be rechecked in 4-6 weeks. You should also be taking a calcium supplement....TUMS 500 mg Twice a day would work. If you have not had a bone density test in the past 2 years then you should ask your PCP about a DEXA to assess the bone density. Allergies/Adverse Reactions: Allergies alendronate sodium [From Fosamax] Allergy (Mild, Verified 11/13/18 05:48) Unknown beclomethasone [From Qvar] Allergy (Mild, Verified 11/13/18 05:48) Unknown doxycycline Allergy (Mild, Verified 11/13/18 05:48) unknown epinephrine Allergy (Mild, Verified 11/13/18 05:48) unknown erythromycin base Allergy (Mild, Verified 11/13/18 05:48) Unknown formoterol [From Dulera] Allergy (Mild, Verified 11/13/18 05:48) Unknown Iodine and Iodide Containing Produc Allergy (Mild, Verified 09/14/18 11:00) Unknown levofloxacin [From Levaquin] Allergy (Mild, Verified 11/13/18 05:48) Unknown mometasone furoate [From Dulera] Allergy (Mild, Verified 11/13/18 05:48) Unknown omalizumab [From Xolair] Allergy (Mild, Verified 11/13/18 05:48) Unknown psyllium [From Metamucil] Allergy (Mild, Verified 09/14/18 11:00) Unknown sulfasalazine [From Sulfazine] Allergy (Mild, Verified 09/14/18 11:00) Unknown amoxicillin trihydrate [From Augmentin] Allergy (Verified 09/14/18 11:00) Swelling potassium clavulanate [From Augmentin] Allergy (Verified 09/14/18 11:00) Swelling Sulfa (Sulfonamide Antibiotics) Allergy (Verified 09/14/18 11:00) Hives Medications to take at Discharge albuterol sulfate HFA 90 mcg/actuation aerosol inhaler 2 puff INHALATION Q2H PRN g 04/19/17 alprazolam 0.5 mg tablet 0.5 mg PO BID PRN tab 04/19/17 amitriptyline 25 mg tablet 50 mg PO QHS tab 04/19/17 omeprazole 40 mg capsule,delayed release 40 mg PO ONCE 04/19/17 promethazine 25 mg rectal suppository 25 mg RC Q6H PRN supp 04/19/17 ranitidine 300 mg tablet 300 mg PO QHS PRN 04/19/17 rizatriptan 10 mg tablet 10 mg PO ONCE PRN 04/19/17 temazepam 7.5 mg capsule 7.5 mg PO QHS 04/19/17 triamcinolone acetonide 55 mcg nasal spray aerosol 2 spray INTRANASAL QDAY 04/19/17 albuterol sulfate 2.5 mg/3 mL (0.083 %) solution for nebulization 2.5 mg INHALATION Q4H PRN #180 vial 05/03/17 ipratropium bromide 0.02 % solution for inhalation 0.5 mg INHALATION Q4H PRN #120 vial 05/03/17 chlordiazepoxide-clidinium 5 mg-2.5 mg capsule 4 cap PO QACHS cap 11/18/17 dicyclomine 10 mg capsule 10 mg PO Q6H cap 11/18/17 meclizine 12.5 mg tablet 12.5 mg PO DAILY PRN tab 11/18/17 nefazodone 100 mg tablet 100 mg PO QDAY tab 11/18/17 prednisone 10 mg tablet 10 mg PO DAILY 02/02/18 metoprolol succinate ER 25 mg tablet,extended release 24 hr 25 mg PO DAILY #30 tab 10/28/18 Acetylcysteine [Mucomyst] 800 mg INHALATION Q6H.RT PRN 11/13/18 Cefdinir [Omnicef [equiv]] 300 mg PO Q12H #8 cap 11/15/18 Cholecalciferol (VIT D3) [Vitamin D] 1,000 unit PO BID #60 tab 11/15/18 The following prescriptions were given: Cefdinir [Omnicef [equiv]] 300 mg PO Q12H #8 cap Transmission Status: Received by [facility] [place] [facility] Cholecalciferol (VIT D3) [Vitamin D] 1,000 unit PO BID #60 tab Transmission Status: Received by [facility] [place] [facility] Primary Care Physician: Cecilia Potter MD [Primary Care Provider] - Please follow up with your Primary Care Physician in: 1 -2 weeks Test Results: Test results from this visit will be discussed in further detail at your follow-up appointment, if applicable. Proposed Discharge Date: 11/15/18
--- NOTE | 2018-11-15 13:17 | CASEMGMT ---
Social Work Note Per physician pt has history of anxiety and PTSD. SW met with pt, introduced self and role at [facility]. Pt's present in room and pt gave this worker permission to speak to her in front of her guest. Pt confirms that she has a history of anxiety, depression and PTSD. Pt states that she is currently taking medications and states that her symptoms are well managed on the medication. Pt states that she used to be in counseling but denied currently receiving counseling services. Pt denied wanting additional resources at this time. Valeria Horan [employer], [employer]
--- NOTE | 2018-11-15 13:27 | PCM.DC.SUM ---
Discharge Date and Diagnosis Date of Admission: 11/13/18 Date of Discharge: 11/15/18 - Primary Discharge Diagnosis Active and Suspected Problems (Last Reviewed 11/13/18 @ 10:48 by Harmeet Monk MD) Community acquired pneumonia (Acute) RUL Chest pain - non-cardiac - Secondary Discharge Diagnosis Chronic Problems (Last Reviewed 11/13/18 @ 10:48 by Harmeet Monk MD) PTSD (post-traumatic stress disorder) (Chronic) Asthma with COPD (Chronic) Vestibular neuronitis (Chronic) Urethrocele (Chronic) Lumbago (Chronic) Osteopenia (Chronic) Interstitial cystitis (Chronic) Generalized anxiety with panic attacks (Chronic) IBS (irritable bowel syndrome) (Chronic) GERD (gastroesophageal reflux disease) (Chronic) Xerosis cutis (Chronic) Hyperlipidemia (Chronic) Chronic sinusitis (Chronic) Steroid long-term use (Chronic) Hospital Course and Treatment Imaging Results: Clinical Impression(s) from Imaging Studies Chest X-Ray 11/13/18 06:00 IMPRESSION: Right upper lobe and right lower lobe pneumonia. Electronically Signed: Saira Woods, at 6:44 EDT Tel , Service support , Abdomen/Pelvis CTA 11/13/18 06:24 IMPRESSION: Normal abdominal aorta without a hemodynamically significant stenosis or dissection. Electronically Signed: Saira Woods, at 8:00 EDT Tel , Service support , Chest CTA 11/13/18 06:24 IMPRESSION: No demonstrated pulmonary embolism or arterial dissection. Right upper lobe pneumonia. Electronically Signed: Saira Woods, at 7:52 EDT Tel , Service support , Laboratory Tests 11/14/18 11/14/18 11/14/18 Range/Units 17:05 05:44 05:44 WBC (4.4-11.0) K/mm3 RBC (4.2-5.4) M/mm3 Hgb (12.0-15.0) g/dL Hct (37-47) % MCV (81-99) fL MCH (27.0-32.0) pg MCHC (32-36) g/dL RDW Std Deviation (35.1-43.9) fl RDW Coeff of Suresh (11.6-14.6) % Plt Count (150-450) K/mm3 MPV (6.2-12.0) fl Immature Gran % (Auto) (0.0-0.9) % Neut % (Auto) (47-70) % Lymph % (Auto) (19-41) % Hudspeth % (Auto) (0-10) % Eos % (Auto) (0-5) % Baso % (Auto) (0-1) % Absolute Neuts (auto) (2.0-7.7) X10^3/uL Absolute Lymphs (auto) (0.83-4.51) X10^3/uL Nucleated RBC % (0-5) % Sodium 145 (136-145) mmol/L Potassium 4.1 (3.5-5.1) mmol/L Chloride 114 H (98-107) mmol/L Carbon Dioxide 26.0 (21.0-32.0) mmol/L Anion Gap 5 (5-15) BUN 11 (7-18) mg/dL Creatinine 0.84 (0.55-1.02) mg/dL Estim Creat Clear Calc 57.10 ml/min Est GFR (MDRD) Af Amer 90 (>60) mL/min Est GFR (MDRD) Non-Af 75 (>60) mL/min BUN/Creatinine Ratio 13.1 (10-20) RATIO Glucose 87 (74-106) mg/dL Lactic Acid (0.4-2.0) mmol/L Calcium 8.2 L (8.5-10.1) mg/dL Magnesium 2.1 (1.6-2.6) mg/dL Total Bilirubin (0.20-1.00) mg/dL AST (15-37) U/L ALT (13-56) U/L Alkaline Phosphatase (45-117) U/L Troponin I (<0.045) ng/mL Total Protein (6.4-8.2) g/dL Albumin (3.2-5.0) g/dL Globulin (2.2-4.2) g/dL Albumin/Globulin Ratio (0.9-2.4) RATIO Lipase (73-393) U/L Vitamin D 25-Hydroxy 12.7 L (29.95-100.01) ng/mL TSH 0.70 (0.358-3.74) uIU/mL 11/14/18 11/13/18 11/13/18 Range/Units 05:44 07:30 05:40 WBC 13.2 H (4.4-11.0) K/mm3 RBC 4.18 L (4.2-5.4) M/mm3 Hgb 13.0 (12.0-15.0) g/dL Hct 38.2 (37-47) % MCV 91.4 (81-99) fL MCH 31.1 (27.0-32.0) pg MCHC 34.0 (32-36) g/dL RDW Std Deviation 40.9 (35.1-43.9) fl RDW Coeff of Suresh 12.2 (11.6-14.6) % Plt Count 206 (150-450) K/mm3 MPV 10.1 (6.2-12.0) fl Immature Gran % (Auto) 0.700 (0.0-0.9) % Neut % (Auto) 78.2 H (47-70) % Lymph % (Auto) 12.2 L (19-41) % Hudspeth % (Auto) 7.4 (0-10) % Eos % (Auto) 1.1 (0-5) % Baso % (Auto) 0.4 (0-1) % Absolute Neuts (auto) 10.3 H (2.0-7.7) X10^3/uL Absolute Lymphs (auto) 1.62 (0.83-4.51) X10^3/uL Nucleated RBC % 0 (0-5) % Sodium 144 (136-145) mmol/L Potassium 3.5 (3.5-5.1) mmol/L Chloride 107 (98-107) mmol/L Carbon Dioxide 30.0 (21.0-32.0) mmol/L Anion Gap 7 (5-15) BUN 17 (7-18) mg/dL Creatinine 1.01 (0.55-1.02) mg/dL Estim Creat Clear Calc 47.49 ml/min Est GFR (MDRD) Af Amer 73 (>60) mL/min Est GFR (MDRD) Non-Af 61 (>60) mL/min BUN/Creatinine Ratio 16.8 (10-20) RATIO Glucose 103 (74-106) mg/dL Lactic Acid 1.6 (0.4-2.0) mmol/L Calcium 8.5 (8.5-10.1) mg/dL Magnesium (1.6-2.6) mg/dL Total Bilirubin 0.40 (0.20-1.00) mg/dL AST 18 (15-37) U/L ALT 21 (13-56) U/L Alkaline Phosphatase 97 (45-117) U/L Troponin I < 0.015 (<0.045) ng/mL Total Protein 6.7 (6.4-8.2) g/dL Albumin 3.4 (3.2-5.0) g/dL Globulin 3.3 (2.2-4.2) g/dL Albumin/Globulin Ratio 1.0 (0.9-2.4) RATIO Lipase 193 (73-393) U/L Vitamin D 25-Hydroxy (29.95-100.01) ng/mL TSH (0.358-3.74) uIU/mL 11/13/18 Range/Units 05:40 WBC 15.7 H (4.4-11.0) K/mm3 RBC 4.71 (4.2-5.4) M/mm3 Hgb 14.4 (12.0-15.0) g/dL Hct 42.3 (37-47) % MCV 89.8 (81-99) fL MCH 30.6 (27.0-32.0) pg MCHC 34.0 (32-36) g/dL RDW Std Deviation 39.8 (35.1-43.9) fl RDW Coeff of Suresh 12.0 (11.6-14.6) % Plt Count 269 (150-450) K/mm3 MPV 9.9 (6.2-12.0) fl Immature Gran % (Auto) 0.400 (0.0-0.9) % Neut % (Auto) 78.0 H (47-70) % Lymph % (Auto) 15.4 L (19-41) % Hudspeth % (Auto) 4.7 (0-10) % Eos % (Auto) 1.1 (0-5) % Baso % (Auto) 0.4 (0-1) % Absolute Neuts (auto) 12.2 H (2.0-7.7) X10^3/uL Absolute Lymphs (auto) 2.41 (0.83-4.51) X10^3/uL Nucleated RBC % 0 (0-5) % Sodium (136-145) mmol/L Potassium (3.5-5.1) mmol/L Chloride (98-107) mmol/L Carbon Dioxide (21.0-32.0) mmol/L Anion Gap (5-15) BUN (7-18) mg/dL Creatinine (0.55-1.02) mg/dL Estim Creat Clear Calc ml/min Est GFR (MDRD) Af Amer (>60) mL/min Est GFR (MDRD) Non-Af (>60) mL/min BUN/Creatinine Ratio (10-20) RATIO Glucose (74-106) mg/dL Lactic Acid (0.4-2.0) mmol/L Calcium (8.5-10.1) mg/dL Magnesium (1.6-2.6) mg/dL Total Bilirubin (0.20-1.00) mg/dL AST (15-37) U/L ALT (13-56) U/L Alkaline Phosphatase (45-117) U/L Troponin I (<0.045) ng/mL Total Protein (6.4-8.2) g/dL Albumin (3.2-5.0) g/dL Globulin (2.2-4.2) g/dL Albumin/Globulin Ratio (0.9-2.4) RATIO Lipase (73-393) U/L Vitamin D 25-Hydroxy (29.95-100.01) ng/mL TSH (0.358-3.74) uIU/mL Microbiology 11/14/18 12:21 Sputum, Expectorated/Coughed Gram Stain - Final 11/14/18 12:21 Sputum, Expectorated/Coughed Respiratory Culture - Final normal respiratory vivian 11/13/18 07:35 Blood Culture (Wb) - Right Hand Blood Culture - Preliminary No growth in 48 hours. 11/13/18 07:30 Blood Culture (Wb) - Anticubital Left Blood Culture - Preliminary No growth in 48 hours. 11/14/18 19:46 Mucosa - Nasopharyngeal Respiratory Panel (PCR) - Final negative 11/13/18 09:30 Urine, Clean Catch Streptococcus pneumoniae Antigen (M - Final negative 11/13/18 09:30 Urine, Clean Catch Legionella Antigen - Final negative none Operations: None Procedures: None Summary of Care Provided: The patient is a 53-year-old female with a past medical history of PTSD, COPD with asthma, vertigo, urethrocele, chronic back pain, interstitial cystitis, irritable bowel syndrome, GERD and long-term (25 years) steroid use who presented to the emergency room at [facility] on 11/13/2018 complaining of leg, back and chest pain. Vital signs at presentation to the emergency room were temperature 99, pulse rate 114, blood pressure 154/76, respiratory rate 24 and she was 97% saturated on room air. The temp later increased to 100.6F. CBC was significant for a white blood cell count of 15.7 with 78% neutrophils, but she is on Prednisone 10 mg daily. CMP was unremarkable and troponin was less than 0.015. A AP chest showed right upper lobe and right lower lobe pneumonia. A CTA scan of the abdomen and pelvis showed a normal abdominal aorta without a hemodynamically significant stenosis or dissection. CTA of the chest showed no demonstrated pulmonary embolism or arterial dissection. There was right upper lobe pneumonia present on the CT chest. Auscultation of her lungs by the hospitalist at admission revealed diminished breath sounds but no wheezes and no rales. She was admitted to the hospital with a diagnosis of sepsis secondary to community-acquired pneumonia and started on Rocephin and azithromycin. She was started on prednisone 20 mg twice daily. On 11/14/2018 at 09:30 she had a temp of 99.8 and thereafter was afebrile. CBC on 11/14 showed a white blood cell count of 13.2, down from 15.7 at admission. Legionella and streptococcal antigens in the urine were negative. Respiratory panel was negative. The sputum Gram stain reported no organisms and no white blood cells. Sputum culture grew normal respiratory vivian. On 11/14/2018 her lungs were clear to auscultation with normal air movement. On my physical examination she had pressured speech and was very anxious and restless. When I mentioned about possibly discharging in the AM she got more anxious and the RR increased. She asked what happens if I get worse at home. On 11/15 she was ambulated in the salas on RA and the pulse ox was 97%. She was not coughing and her lungs were CTA with good air exchange. I spoke to Dr. Simpson about her because she has seen him in the office and he is of the opinion that the anxiety is the cause of a lot of the SOB. When the prednisone was tapered by 0.5 mg she had increased SOB and when it was decreased to 9 mg she got very SOB and went back to 10 mg daily. She was discharged home on Omnicef on 11/15 and was instructed to follow up with Dr. Potter next week. Prior to DC I talked with Mallory and her and suggested that the SOB may improve with better control of her anxiety. I suggested she talk with Dr. Potter about starting Klonopin for better continuous relief of anxiety and she became very anxious. She said I guess I won't be going to my daughter's wedding next year because you are discontinuing my meds. I reassured her that I was not discontinuing any meds....I just made a suggestion and she would need to discuss this with Dr. Potter. I also discussed all the side effects of chronic steroid use and stated that maybe if the anxiety was better controlled she would be less anxious with a very slow prednisone taper and actually be able to get off prednisone. She and her got very upset and said that she had seen multiple psychiatrists and field laboratory operator and nothing helped. She tells me that she can not tolerate bisphosphonates and I asked if she has ever tried Evista or Miacalcin and her informed me that she is very sensitive to medications and most things make her nauseated. She was given a prescription for Omnicef and was placed on a steroid taper. she will need a follow up CXR in 4-6 weeks to document clearing of the PNA. - Physical Exam General: Alert, Oriented x3, Cooperative, No apparent distress, - - Pressured speech, very anxious HEENT: Atraumatic, PERRLA, EOMI, Normocephalic Oral: Moist Mucosa, No Gingival or Mucosal Lesions/ Ulcerations Neck: Supple, No JVD Lungs: Clear to auscultation, Normal air movement, No rhonchi, No wheeze, No rales Cardiovascular: Regular rate, Regular Rhythm, Normal S1, Normal S2, No murmurs, No rub noted, No Gallop Abdomen: Bowel Sounds Present, Soft, Non Tender, Non-Distended Extremities: No clubbing, No cyanosis, No edema Skin: No rashes Neurological: Cranial nerves II-XII grossly intact, Neuro grossly intact Psych/Mental Status: Anxious This note was generated with Intio dictation software. It may contain incorrect words, spelling, and punctuation that were not noted in checking the note before signing. - Physical Exam Vital Signs Temp Pulse Resp BP Pulse Ox 98.9 F 91 16 127/77 H 98 11/15/18 08:41 11/15/18 11:21 11/15/18 11:21 11/15/18 08:41 11/15/18 08:41 Oxygen Delivery Method Room Air Weight: 137 lb 5.568 oz Body Mass Index (BMI) 25.9 Intake and Output for Last 24 Hours 11/13/18 11/14/18 11/15/18 23:59 23:59 23:59 Intake Total 2378 / 2378 100 / 220 180 / 180 Output Total 3400 / 3400 1000 / 1000 Balance -1022 / -1022 -900 / -780 180 / 180 Microbiology Past 72 Hours 11/14/18 12:21 Gram Stain - Final Sputum, Expectorated/Coughed Respiratory Culture - Preliminary Appears to be normal respiratory vivian. Further studies to follow. 11/13/18 07:35 Blood Culture - Preliminary Blood Culture (Wb) - Right Hand No growth in 48 hours. 11/13/18 07:30 Blood Culture - Preliminary Blood Culture (Wb) - Anticubital Left No growth in 48 hours. 11/14/18 19:46 Respiratory Panel (PCR) - Final Mucosa - Nasopharyngeal 11/13/18 09:30 Streptococcus pneumoniae Antigen (M - Final Urine, Clean Catch 11/13/18 09:30 Legionella Antigen - Final Urine, Clean Catch Laboratory Tests Past 24 Hrs 11/14/18 11/14/18 05:44 17:05 Vitamin D 25-Hydroxy 12.7 L TSH 0.70 Discharge Activity: - - Avoid exposure to any strong smells such as bleach, cleaning products, strong colognes or perfumes, paint fumes and smoke of any kind. Avoid sudden exposure to cold air because this can cause bronchospasm. You may want to cover your mouth when you go outside in the winter. Avoid exposure to anyone who is sick with a cough or sore throat. Call your doctor if you observe: - - Call your PCP if severe diarrhea ( > 5 stools a day), painful sores in the mouth, painful swallowing, rash or itching. Taking a probiotic such as Lactobacillus or Kefir can help with loose stools while taking antibiotics. Home Medications: Medications to take at Discharge albuterol sulfate HFA 90 mcg/actuation aerosol inhaler 2 puff INHALATION Q2H PRN g 04/19/17 alprazolam 0.5 mg tablet 0.5 mg PO BID PRN tab 04/19/17 amitriptyline 25 mg tablet 50 mg PO QHS tab 04/19/17 omeprazole 40 mg capsule,delayed release 40 mg PO ONCE 04/19/17 promethazine 25 mg rectal suppository 25 mg RC Q6H PRN supp 04/19/17 ranitidine 300 mg tablet 300 mg PO QHS PRN 04/19/17 rizatriptan 10 mg tablet 10 mg PO ONCE PRN 04/19/17 temazepam 7.5 mg capsule 7.5 mg PO QHS 04/19/17 triamcinolone acetonide 55 mcg nasal spray aerosol 2 spray INTRANASAL QDAY 04/19/17 albuterol sulfate 2.5 mg/3 mL (0.083 %) solution for nebulization 2.5 mg INHALATION Q4H PRN #180 vial 05/03/17 ipratropium bromide 0.02 % solution for inhalation 0.5 mg INHALATION Q4H PRN #120 vial 05/03/17 chlordiazepoxide-clidinium 5 mg-2.5 mg capsule 4 cap PO QACHS cap 11/18/17 dicyclomine 10 mg capsule 10 mg PO Q6H cap 11/18/17 meclizine 12.5 mg tablet 12.5 mg PO DAILY PRN tab 11/18/17 nefazodone 100 mg tablet 100 mg PO QDAY tab 11/18/17 prednisone 10 mg tablet 10 mg PO DAILY 02/02/18 metoprolol succinate ER 25 mg tablet,extended release 24 hr 25 mg PO DAILY #30 tab 10/28/18 Acetylcysteine [Mucomyst] 800 mg INHALATION Q6H.RT PRN 11/13/18 Cefdinir [Omnicef [equiv]] 300 mg PO Q12H #8 cap 11/15/18 Cholecalciferol (VIT D3) [Vitamin D] 1,000 unit PO BID #60 tab 11/15/18 Following Prescrptions Were Given to Patient: Cefdinir [Omnicef [equiv]] 300 mg PO Q12H #8 cap Transmission Status: Received by [facility] [place] [facility]30 Cholecalciferol (VIT D3) [Vitamin D] 1,000 unit PO BID #60 tab Transmission Status: Received by [facility] [place] [facility] Primary Care Physician: Cecilia Potter MD [Primary Care Provider] - Please follow up with your Primary Care Physician in: 1 -2 weeks Patient Instructions: Your Body's Response to Anxiety, Treating Anxiety Disorders with Therapy, Treating Anxiety Disorders with Medication, Treating Panic Disorder with Medication Disposition: Home Minutes spent on discharge:: 40 Patient Condition:: Stable Medical Necessity - Tobacco Use Smoking Status: Never smoker Tobacco Use: Non-smoker Meaningful Use Info Meaningful Use Diagnoses (Choose all that apply): None applicable Code Visit Inpatient E&M: 59537 Disch Hosp
--- NOTE | 2018-11-16 14:10 | CASEMGMT ---
GUSTAVO STORY DC PHONE CALL DC DATE: 11.15.18 DC Disposition: Home Diagnosis on Discharge: Sepsis, pneumonia LACE/STRATA: 12/29 Intro role of CM to patient via phone. Pt states she felt she was released too early. Pt stated she had fever of 101.8 x 2 overnight and this am. Pt made appt for f/u with Dr. Potter for next . Pt is taking antibiotic as prescribed. Pt states she has mild shortness of breath and cough after nebulizer treatment. GUSTAVO STORY recommended patient contact nurse for Dr. Potter's office, review symptoms and have f/u appointment scheduled sooner. Also let pt know if symptoms of shortness of breath or fever worsen prior to seeing PCP, pt should be seen in ER. Pt is agreeable and is able to make call to PCP. Mingo RAEN RN ACM
== END 2018-11-15 14:53 | disposition home or self-care (01) | DRG 871 ==
LOC: ED 08:28 → MS3 11:40
PROVIDERS: Emergency Medicine; Admitting Provider Internal Medicine; Emergency Provider Emergency Medicine; Family Provider Internal Medicine; PCP Internal Medicine; Visit Provider Internal Medicine
DX: A41.9 Sepsis, unspecified organism (principal); J18.1 Lobar pneumonia, unspecified organism; J44.0 Chronic obstructive pulmonary disease with (acute) lower respiratory infection; F13.20 Sedative, hypnotic or anxiolytic dependence, uncomplicated; F43.12 Post-traumatic stress disorder, chronic; H81.20 Vestibular neuronitis, unspecified ear; F41.1 Generalized anxiety disorder; F41.0 Panic disorder [episodic paroxysmal anxiety]; K21.9 Gastro-esophageal reflux disease without esophagitis; Z79.52 Long term (current) use of systemic steroids; Z85.038 Personal history of other malignant neoplasm of large intestine; J45.50 Severe persistent asthma, uncomplicated; E78.6 Lipoprotein deficiency; E78.5 Hyperlipidemia, unspecified; K58.9 Irritable bowel syndrome, unspecified; L85.3 Xerosis cutis; Z79.51 Long term (current) use of inhaled steroids; Z79.899 Other long term (current) drug therapy; G43.909 Migraine, unspecified, not intractable, without status migrainosus; J32.9 Chronic sinusitis, unspecified; G89.29 Other chronic pain; M54.5 Low back pain
CPT/HCPCS: 36415; 71045; 71275; 74174; 80048; 80053; 82306; 83605; 83690; 83735; 84443; 84484; 85025; 87040; 87070; 87205; 87449; 87633; 93005; 94640; 94667; 94668; 99251; 99285; J7030; Q9967; A4216; G0463; J2405

== ENCOUNTER → 2018-12-07 | Outpatient (CLI) | payer BC, SELFPAY ==
[2018-11-22 15:35] VITALS: BMI 25.3
[2018-12-01 14:00] VITALS: BMI 25.3
--- NOTE | 2018-12-07 13:37 | ECHOD_ITS ---
Reason For Study: Chest Pain Procedure This was a 2D Doppler, Color Flow transthoracic echocardiogram. Exam performed in department. Left Ventricle Normal LV size. Left ventricular systolic function is normal. The estimated ejection fraction is 70 %. Transmitral doppler flow suggestive of impaired relaxation of left ventricle. No regional wall motion abnormalities noted. Right Ventricle Normal RV size. Normal systolic function. Atria Normal left atrium. Normal right atrium. No doppler evidence for ASD. Bubble contrast study negative for right to left interatrial shunt. Mitral Valve There is no mitral annular calcification. Normal mitral valve. Trivial mitral valve insufficiency. Tricuspid Valve Normal tricuspid valve. Trivial tricuspid valve insufficiency. Right ventricular systolic pressure estimated to be 26 mmHg. Aortic Valve Trisinus/trileaflet aortic valve. Normal aortic valve. Pulmonic Valve The pulmonic valve is not well visualized. Mild (1+) pulmonic valve insufficiency. Great Vessels Normal sized aortic root. Pericardium/Pleural No pericardial effusion. Medication Performed a rapid injection of agitated mix of 9 cc saline and 1cc air to assess for atrial septal defect. MMode/2D Measurements & Calculations LVIDd: 3.4 cm IVSd: 1.1 cm Ao root diam: 3.0 cm LVIDs: 1.8 cm LVPWd: 0.96 cm RVDd: 1.8 cm FS: 48.2 % LAV(MOD-bp): 18.8 ml LVAd ap4: 17.9 cm2 SV(MOD-sp4): 28.1 ml LAV(MOD-bp) Indexed: 11.8 ml/m2 EDV(MOD-sp4): 38.7 ml LAV(MOD-sp2): 22.9 ml EDV(sp4-el): 39.0 ml LAV(MOD-sp4): 14.9 ml LVAs ap4: 7.8 cm2 ESV(MOD-sp4): 10.6 ml ESV(sp4-el): 9.4 ml EF(MOD-sp4): 72.6 % EF(sp4-el): 75.8 % SV(sp4-el): 29.6 ml LA A4 area: 9.2 cm2 LA dimension(2D): 2.9 cm RA A4 area: 10.1 cm2 Doppler Measurements & Calculations MV E max elia: 57.3 cm/sec Lat Peak E' Elia: 7.6 cm/sec Med Peak E' Elia: 5.7 cm/sec MV A max elia: 88.0 cm/sec E/E' lat: 7.6 E/E' med: 10.0 MV E/A: 0.65 Ao V2 max: 176.3 cm/sec LV V1 max: 135.9 cm/sec PA V2 max: 95.3 cm/sec Ao max P.4 mmHg LV V1 max P.4 mmHg Ao V2 mean: 124.8 cm/sec Ao mean P.8 mmHg Ao V2 VTI: 28.2 cm TR max elia: 233.4 cm/sec TR max P.8 mmHg Interpretation Summary Left ventricular systolic function is normal. The estimated ejection fraction is 70 %. Trivial mitral valve insufficiency. Trivial tricuspid valve insufficiency. Mild (1+) pulmonic valve insufficiency. Right ventricular systolic pressure estimated to be 26 mmHg. Ordering Physician: Aakash Dutton Referring Physician: Cecilia Potter Performed By: Kristin Ramirez, RDCS, RVT
== END | disposition home or self-care (01) ==
PROVIDERS: Family Provider Internal Medicine; PCP Internal Medicine; Referring Provider Internal Medicine Cardiovascular Disease; Visit Provider Internal Medicine Cardiovascular Disease
DX: R06.02 Shortness of breath (principal); R07.9 Chest pain, unspecified; R94.31 Abnormal electrocardiogram [ECG] [EKG]
CPT/HCPCS: 93306; A4216

== ENCOUNTER → 2018-12-09 | Outpatient (CLI) | payer BC, SELFPAY ==
[2018-12-01 14:00] VITALS: BMI 25.3
--- NOTE | 2018-12-09 13:29 | US_ITS ---
STUDY: ULTRASOUND BREAST - LEFT REASON FOR EXAM: Female, 53 years old. Palpable lump left breast. TECHNIQUE: Axial and longitudinal images of the LEFT breast were performed with a high resolution ultrasound transducer. COMPARISON: Comparison is made with prior mammogram done earlier today. FINDINGS: LEFT Breast: The lateral half of the left breast was examined by ultrasound. No solid or cystic mass lesion is seen. US/Breast Limited Unilateral IMPRESSION: Unremarkable ultrasound examination of the lateral aspect of the breast. ASSESSMENT CATEGORY: BIRADS Category 1: Negative. A letter regarding these results will be sent to the patient by the facility within 30 days. Electronically Signed: Sam Gomez, at 15:03 EDT , Service support ,
--- NOTE | 2018-12-09 13:29 | BI_ITS ---
MAMMOGRAPHY - UNILATERAL DIAGNOSTIC: LEFT BREAST REASON FOR EXAM: Female, 53 years old. Left breast lump. PERTINENT HISTORY: Non-contributory. TECHNIQUE: Digital unilateral breast reji (3D mammographic acquisition) in the CC and MLO projections. 2-D mediolateral oblique (MLO) and craniocaudad (CC) views of both breasts were obtained. CAD: Full Field Digital Mammography with Computer Added Detection was performed. COMPARISON: Comparison is made with prior outside examination of June 03, 2018. FINDINGS: Breast Composition: The breasts are heterogeneously dense, which may obscure small masses. There are no dominant masses or suspicious calcifications. No other significant abnormalities are identified. There has been no significant change since the prior study. BI/DIAG MAMM W/CAD, UNILAT IMPRESSION: Stable unilateral diagnostic mammogram. With the patient's history of a palpable abnormality in the left breast, correlation with ultrasound is recommended. ASSESSMENT CATEGORY: BIRADS Category 0: Incomplete. Need additional imaging evaluation. A letter regarding these results will be sent to the patient by the facility within 30 days. Approximately 10% of breast cancers are not detected by mammography. A normal mammogram should not delay biopsy of a clinically suspicious abnormality. Electronically Signed: Sam Gomez, at 15:06 EDT , Service support ,
== END | disposition home or self-care (01) ==
PROVIDERS: Family Provider Internal Medicine; PCP Internal Medicine; Referring Provider Obstetrics & Gynecology; Visit Provider Obstetrics & Gynecology
DX: N63.20 Unspecified lump in the left breast, unspecified quadrant (principal)
CPT/HCPCS: 76642; 77065

== ENCOUNTER → 2019-01-24 | Outpatient (CLI) | payer BC, SELFPAY ==
[2019-01-04 13:51] VITALS: BMI 25.3
--- NOTE | 2019-01-24 09:55 | STRESSREP ---
Stress Test Report Date: 01-24-19 Procedure: Exercise tolerance test/imaging study Indications: Chest pain/shortness of breath/dyspnea Consent: Per the patient Procedure: The patient exercised on a Jean-Paul protocol for 8 minutes completing stage II and 2 minutes of stage III achieving a peak heart rate of 153 bpm (92 % predicted maximal heart rate) with a peak blood pressure 160/82 mmHg and a peak MET capacity of 9 METs. The baseline ECG demonstrated normal sinus rhythm. The peak exercise ECG demonstrated no obvious ECG changes. There were no cardiac dysrhythmias pretest, during exercise, or recovery. The functional capacity was considered good. There was no complaint of chest discomfort during exercise or recovery. The examination was discontinued secondary to dyspnea. Impression: 1. Technically adequate (percent predicted maximal heart rate greater than 85%) exercise tolerance test 2. Peak exercise ECG with no obvious ECG changes 3. There were no cardiac dysrhythmias pretest, during exercise, or recovery 4. Nuclear images pending Myocardial perfusion imaging study: Technique: The patient was injected with 10.0 mCi of technetium 99m Cardiolite and subsequently rest SPECT Cardiolite nuclear imaging was obtained in the horizontal long, vertical long, and short axis views. The patient exercised on a Jean-Paul protocol for 8 minutes completing stage II and 2 minutes of stage III achieving a peak heart rate of 153 bpm (92 % predicted maximal heart rate) with a peak blood pressure 160/82 mmHg and a peak MET capacity of 9 METs. The patient was injected with 35.0 mCi of technetium 99m Cardiolite and subsequently stress SPECT Cardiolite nuclear imaging was obtained in the horizontal long, vertical long, and short axis views. A gated Cardiolite study at peak stress was obtained. Interpretation: Rest and stress SPECT Cardiolite nuclear imaging status post realignment, normalization, and attenuation correction, demonstrates the appearance of relative uniform tracer uptake and myocardial perfusion appearing within normal limits. There is end systolic thickening and brightening. The gated Cardiolite study demonstrates myocardial thickening and inward wall motion. The reported LVEF is 66 %. Impression: 1. Rest and stress SPECT Cardiolite nuclear imaging demonstrate relative uniform tracer uptake and myocardial perfusion appearing within normal limits. 2. The gated Cardiolite study reports an LVEF of 66 %. This note was generated with [employer] software. It may contain incorrect words, spelling, and punctuation that were not noted in checking the note before signing.
== END | disposition home or self-care (01) ==
LOC: CVS 06:23
PROVIDERS: Family Provider Internal Medicine; PCP Internal Medicine; Referring Provider Nurse Practitioner Family; Visit Provider Nurse Practitioner Family
DX: R07.9 Chest pain, unspecified (principal)
CPT/HCPCS: 78452; 93017; A9500; A4216

== ENCOUNTER → 2019-01-31 | Outpatient (CLI) | payer BC, SELFPAY ==
[2018-08-02 12:45] VITALS: BMI 26.0
[2019-01-04 13:51] VITALS: BMI 25.3
--- NOTE | 2019-02-01 08:23 | PFT ---
INTRODUCTION: The patient is a 53-year-old female that presents for pulmonary function studies secondary to a diagnosis of COPD. Respiratory therapy reports good patient effort. Bronchodilators were used during testing. INTERPRETATION: Forced expiration spirometry demonstrates the presence of a mild large airways obstructive ventilatory defect. There was no significant response to aerosolized bronchodilators. Spirograms are of good quality and plateau normally. Body plethysmography was performed and reveals lung volumes to be within normal limits. Diffusing capacity by single breath CO is also within normal limits. When compared to previous pulmonary function studies from August 2016, there has been significant improvement in the patient's FEV1. IMPRESSION: Isolated irreversible mild large airways obstructive ventilatory defect with preserved lung volumes and diffusing capacity. There has been significant improvement in the patient's FEV1 since August 2016.
== END | disposition home or self-care (01) ==
LOC: PSN 12:44
PROVIDERS: Family Provider Internal Medicine; PCP Internal Medicine; Referring Provider Internal Medicine Critical Care Medicine; Visit Provider Internal Medicine Critical Care Medicine
DX: J45.909 Unspecified asthma, uncomplicated (principal)
CPT/HCPCS: 94060; 94726; 94729

== ENCOUNTER → 2019-08-28 | Outpatient (CLI) | payer BC, SELFPAY ==
[2019-08-23 13:26] VITALS: BMI 25.3
--- NOTE | 2019-08-28 08:00 | US_ITS ---
STUDY: ULTRASOUND OF THE FEMALE PELVIS - COMPLETE REASON FOR EXAM: Female, 53 years old. Abd bloating -- s/p hysterectomy TECHNIQUE: Transabdominal and Transvaginal TECHNICAL QUALITY: Adequate. COMPARISON: None. FINDINGS: Post hysterectomy. The right ovary is non-visualized. The left ovary is non-visualized. There is no fluid in the cul-de-sac. The pre void volume of the bladder was 300 ml. US/Pelvic (Non ) IMPRESSION: Status post hysterectomy. The ovaries were not visualized. Electronically Signed: Sam Gomez, at 14:23 EDT , Service support ,
== END | disposition home or self-care (01) ==
LOC: OPUS 08:00
PROVIDERS: PCP Internal Medicine; Referring Provider Nurse Practitioner Women's Health; Visit Provider Nurse Practitioner Women's Health
DX: R14.0 Abdominal distension (gaseous) (principal)
CPT/HCPCS: 76856

== ENCOUNTER → 2019-12-11 | Outpatient (CLI) | payer BC, SELFPAY ==
[2019-08-23 13:26] VITALS: BMI 25.3
[2019-10-18 09:07] VITALS: BMI 26.4
--- NOTE | 2019-12-11 10:06 | BI_ITS ---
MAMMOGRAPHY - BILATERAL SCREENING REASON FOR EXAM: Female, 54 years old. Routine annual screening examination. PERTINENT HISTORY: Mother with breast cancer. Remote left excisional breast biopsy. TECHNIQUE: Digital bilateral breast nick (3D mammographic acquisition) in the CC and MLO projections. 2-D mediolateral oblique (MLO) and craniocaudad (CC) views of both breasts were obtained. CAD: Full Field Digital Mammography with Computer Added Detection was performed. COMPARISON: Comparison is made with prior study dated 06/03/2018. FINDINGS: Breast Composition: The breasts are heterogeneously dense, which may obscure small masses. There are no dominant masses or suspicious calcifications. Stable benign appearing bilateral axillary lymph nodes. No other significant abnormalities are identified. There has been no significant change since the prior study. BI/SCREEN MAMM (CAD) W/NICK BILAT IMPRESSION: Stable bilateral screening mammogram. Yearly follow-up mammogram recommended. (A) ASSESSMENT CATEGORY: BIRADS Category 2: Benign. A letter regarding these results will be sent to the patient by the facility within 30 days. Approximately 10% of breast cancers are not detected by mammography. A normal mammogram should not delay biopsy of a clinically suspicious abnormality. [id number] Electronically Signed: Sam Gomez, at 12:26 EDT , Service support ,
== END | disposition home or self-care (01) ==
LOC: OPBI 10:06
PROVIDERS: PCP Internal Medicine; Referring Provider Nurse Practitioner Women's Health; Visit Provider Nurse Practitioner Women's Health
DX: Z12.31 Encounter for screening mammogram for malignant neoplasm of breast (principal)
CPT/HCPCS: 77063; 77067

== ENCOUNTER → 2020-02-16 18:12 | Outpatient (CLI) | payer BC, SELFPAY | PROVIDERS: PCP Internal Medicine; Visit Provider Physician Assistant | DX: J06.9 Acute upper respiratory infection, unspecified (principal) | CPT/HCPCS: 87635; U0003 ==

== ENCOUNTER → 2020-02-23 | Outpatient (CLI) | payer BC, SELFPAY ==
[2020-02-23 10:24] VITALS: BMI 26.2
== END | disposition home or self-care (01) ==
LOC: LABSPEC 12:19
PROVIDERS: Visit Provider Physician Assistant Surgical
DX: Z20.828 Contact with and (suspected) exposure to other viral communicable diseases (principal)
CPT/HCPCS: 87635; U0003

== ENCOUNTER 2020-06-01 19:56 | Emergency (ER) | payer BC, SELFPAY ==
[2020-05-18 10:34] VITALS: BMI 25.3
[2020-06-01 19:56] VITALS: BP 153/103; PULSE 133; RESP 15; TEMP 36.1; O2SAT 95; BMI 24.7
--- NOTE | 2020-06-01 20:16 | RAD_ITS ---
STUDY: X-RAY - RIGHT HAND, ATTENTION THIRD FINGER REASON FOR EXAM: Female, 54 years old. Injury TECHNIQUE: 3 view(s) of the finger were obtained. COMPARISON: None. FINDINGS: Evaluation is limited as the fingers flexed throughout the examination. There is dislocation of the right middle finger at the level of the proximal interphalangeal joint. There is no fracture identified. RAD/Finger(s) Min 2 Views IMPRESSION: Dislocation of the right middle finger at the level of the proximal interphalangeal joint. Electronically Signed: Cabrera Husain MD at 20:54 EST Tel , Service support ,
[2020-06-01] MEDS: Lidocaine 1% (20 ml mdv) 20 ML Vial 8 ML INFILT (20:37)
--- NOTE | 2020-06-01 20:40 | RAD_ITS ---
STUDY: X-RAY - RIGHT HAND, ATTENTION THIRD FINGER REASON FOR EXAM: Female, 54 years old. Post reduction TECHNIQUE: 3 view(s) of the finger were obtained. COMPARISON: 06/01/20 FINDINGS: The patient is status post reduction of the previously seen dislocation of the middle finger at the level of the proximal interphalangeal joint. The alignment is satisfactory. There is no fracture identified. There are no radiodense foreign bodies. RAD/Finger(s) Min 2 Views IMPRESSION: Status post reduction with satisfactory alignment. Electronically Signed: Cabrera Husain MD at 21:06 EST Tel , Service support ,
--- NOTE | 2020-06-01 20:52 | ED.DCSUM_ITS ---
- ER Visit Summary Date of Service: 06/01/20 Chief Complaint: [Injury to right long finger] History of Present Illness: The patient is a 54 F [presents to the emergency department with an injury to the right long finger. Patient states that she was outdoors with her dog on the porch when the dog noted that there was a raccoon on the porch and the dog chased after that raccoon into the doll down an embankment. The patient ran after the dog and slipped on the embankment and injured her right long finger. Patient unable to extend the finger. She is right-hand dominant. Patient also has an abrasion to her right thigh. Denies any other injuries. Patient last tetanus shot was in 2012.] Physical Examination: [HEENT-PERRLA, EOMI. Cranial nerves II through XII grossly intact. TMs clear. Mucous membranes moist. No adenopathy. Cardiovascular-regular rate and rhythm without murmur or ectopy Lungs-clear to auscultation, chest wall stable without crepitus or subcu emphysema Abdomen-normoactive bowel sounds, soft, nontender, no rebound or rigidity, no peritoneal signs. Extremities-intact ?4, normal range of motion, normal pulses. Right hand- patient does have deformity of the middle finger with the PIP joint being flexed and patient unable to extend. Neurovascular intact distally. No open skin noted. Evaluation of the right thigh does reveal superficial abrasion to the medial portion of the distal thigh without any evidence of any foreign bodies noted within the wound. Nothing that requires sutures.] Test Results: [X-rays of the right long finger obtained showed a dislocation of the PIP joint without evident fracture. 3 views interpreted by myself. Radiology report pending. Post reduction x-rays obtained and patient was noted to have good alignment and good reduction without fractures noted.] Emergency Department Course and Treatment: [Patient was given a digital block using 1% lidocaine total of 8 cc used. Patient had good anesthesia with that. I was able to easily reduce the PIP joint. Every time the patient with flex the digit however the dislocation would recur and I would have to reduce the patient again. She is able to extend the digit once she is reduced. I am gaudalupe spicious of a ligamentous injury causing the joint to be unstable. Case was discussed with orthopedics on-call Dr. Cabrera Moreno who asked that I place patient in extension splint and he will see her in the office.] Patient received Adacel tetanus booster. Treatment Plan: [Patient was placed in aluminum splint and referred to orthopedics for follow-up. Patient advised not to remove the splint.] Disposition: [Discharged home in stable condition] Impression: [Dislocation right long finger PIP joint-reduced Superficial abrasion right thigh] This note was generated with [employer] dictation software. It may contain incorrect words, spelling, and punctuation that were not noted in review of the chart prior to signing ED Disposition - Plan for ED Patient: Referrals: Cecilia Potter MD [Primary Care Provider] -
--- NOTE | 2020-06-01 20:58 | ED.DEP ---
ED Disposition - Plan for ED Patient: Instructions: ED Finger Dislocation Referrals: Cecilia Potter MD [Primary Care Provider] - Cabrera Moreno MD [STAFF PHYSICIAN] - 3-5 Days
[2020-06-01] MEDS: Diphth,Pertuss(Acell),Tet Vac 0.5 ML Vial IM (21:05)
[2020-06-01 21:20] VITALS: BP 135/70; PULSE 68; O2SAT 98
== END 2020-06-01 21:23 | disposition home or self-care (01) ==
PROVIDERS: Emergency Provider Emergency Medicine; PCP Internal Medicine
DX: S63.282A Dislocation of proximal interphalangeal joint of right middle finger, initial encounter (principal); S70.311A Abrasion, right thigh, initial encounter; W01.0XXA Fall on same level from slipping, tripping and stumbling without subsequent striking against object, initial encounter; Y93.02 Activity, running; Y92.89 Other specified places as the place of occurrence of the external cause; Y99.8 Other external cause status
CPT/HCPCS: 26770; 73140; 90471; 90715; 99284

== ENCOUNTER 2020-07-25 08:04 | Outpatient (RCR) | payer BC, SELFPAY | END 2020-09-03 23:59 | LOC: IMMUN 08:04 | PROVIDERS: PCP Internal Medicine; Referring Provider Family Medicine; Visit Provider Family Medicine | DX: Z23 Encounter for immunization (principal) | CPT/HCPCS: 0001A; 0002A; 91300 ==

== ENCOUNTER → 2020-10-17 08:22 | Outpatient (CLI) | payer BC, SELFPAY ==
[2020-10-07 11:04] VITALS: BMI 25.5
[2020-10-11 14:42] VITALS: BMI 25.5
--- NOTE | 2020-10-17 08:27 | US_ITS ---
STUDY: ULTRASOUND OF THE FEMALE PELVIS - COMPLETE REASON FOR EXAM: Female, 55 years old. BLOATING LMP: Post hysterectomy. TECHNIQUE: Transabdominal and Transvaginal TECHNICAL QUALITY: Adequate. COMPARISON: None. FINDINGS: The patient is status post hysterectomy. The right ovary is non-visualized. The left ovary is visualized. The left ovary measures 1.3 cm x 1.3 cm x 0.8 cm. There is no left ovarian cyst or ovarian mass. There is no visualized left adnexal mass or complex lesion. There is normal arterial and normal venous vascularity. There is no fluid in the cul-de-sac. The pre void volume of the bladder was 426 ml. US/Pelvic (Non ) IMPRESSION: Status post hysterectomy. Normal left ovary. Electronically Signed: Sam Gomez MD at 12:06 EDT , Service support ,
== END ==
PROVIDERS: PCP Internal Medicine; Referring Provider Obstetrics & Gynecology; Visit Provider Obstetrics & Gynecology
DX: I49.49 Other premature depolarization (principal); R07.9 Chest pain, unspecified; R14.0 Abdominal distension (gaseous)
CPT/HCPCS: 76856; 93017

== ENCOUNTER → 2020-10-18 09:24 | Outpatient (CLI) | payer BC, SELFPAY ==
[2020-10-11 14:42] VITALS: BMI 25.5
--- NOTE | 2020-10-17 12:56 | STRESSREP ---
Stress Test Report Date: 10-17-2020 Procedure: Exercise tolerance test Indications: Chest pain; shortness of breath/dyspnea; cardiac ectopy Consent: Per the patient Procedure: The patient exercised on a Jean-Paul protocol for 4 minutes and 5 seconds completing Stage I and 1 minute and 5 seconds of Stage II achieving a peak heart rate of 139 bpm (85% predicted maximal heart rate) with a peak blood pressure 174/80 mmHg and a peak MET capacity of approximately 6 MET's. The baseline ECG demonstrated normal sinus rhythm. The peak exercise ECG demonstrated no obvious ECG changes. There were no cardiac dysrhythmias pretest, during exercise, or recovery. The functional capacity was considered decreased. The patient had no complaint of chest discomfort during exercise or recovery. The examination was discontinued secondary to dyspnea, audible wheezing, and fatigue. Impression: 1. Technically adequate (percent predicted maximal heart rate greater than 85%) exercise tolerance test 2. Peak exercise ECG with no obvious ECG changes 3. There were no cardiac dysrhythmias during exercise or recovery This note was generated with [employer] software. It may contain incorrect words, spelling, and punctuation that were not noted in checking the note before signing.
--- NOTE | 2020-10-18 09:29 | US_ITS ---
STUDY: ULTRASOUND BREAST - LEFT REASON FOR EXAM: Female, 55 years old. Left axillary pain and palpable abnormality. History of recent Covid vaccination. TECHNIQUE: Axial and longitudinal images of the LEFT breast were performed with a high resolution ultrasound transducer. # OF IMAGES: 56 COMPARISON: Comparison is made with prior mammogram done earlier today. FINDINGS: LEFT Breast: The axillary region of the left breast was examined. There is a 2.4 cm x 1.5 cm x 1.1 cm hypoechoic lobulated nodular density in the axillary region. A similar appearing nodule is also seen measuring 1.6 cm x 1.1 cm x 0.7 cm. These are not typical lymph nodes. There are 2 subcentimeter nodules with a similar appearance. Correlation with MRI is recommended. US/Breast Complete Unilateral IMPRESSION: Findings suggestive of but enlarged lymph nodes in the axillary region of the left breast although these don''t appear to be completely normal in architecture. Correlation with MRI is recommended. ASSESSMENT CATEGORY: BIRADS Category 0: Incomplete. Need additional imaging evaluation. A letter regarding these results will be sent to the patient by the facility within 30 days. Electronically Signed: Sam Gomez MD at 15:09 EDT , Service support ,
--- NOTE | 2020-10-18 09:29 | BI_ITS ---
MAMMOGRAPHY - BILATERAL DIAGNOSTIC REASON FOR EXAM: Female, 55 years old. Increased density in the lateral aspect of the left breast. Left facial swelling. PERTINENT HISTORY: Mother with breast cancer. Remote left excisional breast biopsy. TECHNIQUE: Digital bilateral breast reji (3D mammographic acquisition) in the CC and MLO projections. 2-D mediolateral oblique (MLO) and craniocaudad (CC) views of both breasts were obtained. CAD: Full Field Digital Mammography with Computer Added Detection was performed. COMPARISON: Comparison is made with prior study dated 12/11/2019 and 12/09/2018. FINDINGS: Breast Composition: The breasts are heterogeneously dense, which may obscure small masses. There are no dominant masses or suspicious calcifications. Stable small benign-appearing bilateral axillary lymph nodes. No other significant abnormalities are identified. There has been no significant change since the prior study. BI/DIAG MAMM W/CAD, BILAT IMPRESSION: Stable bilateral diagnostic mammogram. With the patient''s history of increased density in the lateral aspect of the left breast, correlation with ultrasound recommended. ASSESSMENT CATEGORY: BIRADS Category 0: Incomplete. Need additional imaging evaluation. A letter regarding these results will be sent to the patient by the facility within 30 days. Approximately 10% of breast cancers are not detected by mammography. A normal mammogram should not delay biopsy of a clinically suspicious abnormality. Electronically Signed: Sam Gomez MD at 11:01 EDT , Service support ,
== END ==
PROVIDERS: PCP Internal Medicine; Referring Provider Obstetrics & Gynecology; Visit Provider Obstetrics & Gynecology
DX: N63.25 Unspecified lump in the left breast, overlapping quadrants (principal)
CPT/HCPCS: 76641; 77062; 77066; G0279

== ENCOUNTER 2020-10-30 11:00 | Outpatient (RCR) | payer BC, SELFPAY ==
--- NOTE | 2020-07-19 08:01 | HP.OTEVAL_ITS ---
Patient's Visit Information JOSE HOOD is a 54 year old F, referred to Occupational Therapy by JEREMY JEONG, with a diagnosis of right MF PIP volar dislocation. Date of Evaluation: 07/18/20 Occupational Therapist: Che Ruano, OTMaria Elena/Gracie, CHT - Subjective This 54 year old female was seen for OT eval with dx of a right MF dislocation on 06/01/20. pt had finger dislocation from walking dog. pt states she started off with therapy about a weak after she had the dislocation- states therapist really pushed on her finger which caused nausea and made her sick to her stomach- pt states she did 6 weeks of therapy but finger wans't moving- she had MRI and was refered to Dr. Parra-. Dr. Parra has orders for aggressive PROM, AROM and AAROM- night ext. orthosis for PIP - Pain right MF 4 Pain Intensity Range: 0, 4 - ROM MP: right MF +15/70 left +10//85 PIP: right MF -15/70 left +/10/110 DIP: right MF -15/10 left +10/55 ROM Comments: pt demo with limited right MF PIP and DIP motion at this time - Strength Assistant: right 25# left 60# Lateral Pinch: right 18# left 12# Tripod Pinch: right unable left 16# - Edema PIP: right MF 6.5 left 5.5 - Goals Goal:: pt will demo a increase in right shuttlecock feather trimmer strength by 20# to increase pts ind. with ADls and IADLS by d/c Goal:: pt will demo the ability to perform a composite fist demo a increase in PIP ROM -5/95 and DIP at 0/40* to increrase pts ind. with ADLs and IADL by d/c Goal:: pt will demo a reduction in edema to right MF PIP by .5cm by d/c Goal:: pt will demo understanding of orthosis use by end of 2nd session. pt will demo understanding of skin care and precautions with use of orthosis by 2nd visit - Rehabilitation General Assessment: pt is currently 6 weeks and 5 days from voloar right MF PIP dislocation- pt demo with slight PIP flex and hyper ext. of DIP at rest. pt demo with tight ORL and minimal flex of DIP and limited PIP flex. pts finger is swollen and painful with activity- Due to pt limited ROM she is limited with her ind. with ADLs and IADls at this time- pt would benefit from skilled OT services 1-2x week for 8 weeks to assist pt in reaching functional return of a composite fist for ADls and IADLs. Pt will need PIP ext. orthosis for night use- and orthosis horace. to improve tendon glides- to increase pts ROM- pt agree to POC Rehabilitation Potential: Good - Anticipated Interventions A/AAROM/PROM, Strengthening, Triggerpoint Release, Modalities, Orthoses - Visit Plan Frequency: 1-2x /Week Duration: 2 Months TEXT: Thank you for the opportunity to evaluate your patient. For Medicare and Medicare HMO plans, please review the plan of care and approve it. It will need to be FAXED BACK to us at [phone] for Medicare purposes. Please let me know if there are questions or concerns regarding this plan of care. Physician Signature: Date:
--- NOTE | 2020-08-20 11:39 | OTREVAL_ITS ---
JEREMY JEONG, It has been my pleasure to treat JOSE HOOD over the last 6 visits for right MF PIP volar dislocation. Please see the progress note below for an update on the occupational therapy plan of care! Subjective: pt arrives to session states she was planting plants and her finger started having sharp shooting pain-not lasting long- did dishes without difficulty- pt continues to perform exercise and using meche orthosis daily. Objective/Function: pts finger integrity is looking better- pt continues to have a decrease in PIP ext of -15* and flexion has gained ROM to 90*. DIP flexion has gained to 40*. pt continues to demonstrate a limited composite fist as other PIP joint flexion measures at 110*. Therapy is using AROM , blocking for PIP flex and revers blocking for PIP extension. as pt is making gains with flexion - therapy will address PIP ext with use of LMB. Plan Frequency: Every Other Week Duration: 2 Months Plan: cont to improve pts end range of motion of right MF. Goals - Goals Patient Goals: Regain Mobility, Decrease Pain, Decrease Swelling/Stiffness, Use Hand/Wrist/Arm Normally Again Goal:: pt will demo a increase in right putty worker strength by 20# to increase pts ind. with ADls and IADLS by d/c Goal:: pt will demo the ability to perform a composite fist demo a increase in PIP ROM -5/95 and DIP at 0/40* to increrase pts ind. with ADLs and IADL by d/c Goal:: pt will demo a reduction in edema to right MF PIP by .5cm by d/c Goal:: pt will demo understanding of orthosis use by end of 2nd session. pt will demo understanding of skin care and precautions with use of orthosis by 2nd visit Anticipated Interventions Anticipated Interventions: A/AAROM/PROM, Strengthening, Triggerpoint Release, Modalities, Orthoses Please do not hesitate to contact me at [phone] by phone or if you have questions or concerns regarding this new plan of care! Sincerely, Che Ruano, OTR/L, CHT
--- NOTE | 2020-10-30 11:46 | HP.OTDCSUM_ITS ---
It has been my pleasure to treat JOSE HOOD under orders from JEREMY JEONG, for the diagnosis of right MF PIP volar dislocation for a total of 11 visit(s). Please see the following information for a summary of their discharge status. % Improvement: 90 Objective/Function: right MF ROM -15/90. right dentistry professor strength 45#. right tripod 12#. pt has maintained her range of motion. pt is dc at this time Patient Goals: Regain Mobility, Decrease Pain, Decrease Swelling/Stiffness, Use Hand/Wrist/Arm Normally Again Goal:: pt will demo a increase in right dentistry professor strength by 20# to increase pts ind. with ADls and IADLS by d/c Goal:: pt will demo the ability to perform a composite fist demo a increase in PIP ROM -5/95 and DIP at 0/40* to increrase pts ind. with ADLs and IADL by d/c Goal:: pt will demo a reduction in edema to right MF PIP by .5cm by d/c Goal:: pt will demo understanding of orthosis use by end of 2nd session. pt will demo understanding of skin care and precautions with use of orthosis by 2nd visit Plan: D/C Discharge Comments: pt has made gains with ROM, strength and returned to her ADLs and IADls at a IND. level. Pt has met goals and will continue with HEP to maintain her ROM. pt agree to POC. If there are questions or concerns regarding this patient's occupational therapy, please fell free to call me at [phone]. Thank you for the referral of this patient. Sincerely, Che Ruano, OTR/L, CHT
== END 2020-10-30 19:00 | disposition home or self-care (01) ==
LOC: OT 11:00
PROVIDERS: PCP Internal Medicine
DX: S63.289D Dislocation of proximal interphalangeal joint of unspecified finger, subsequent encounter (principal); X58.XXXD Exposure to other specified factors, subsequent encounter
CPT/HCPCS: 97110; 97140; 97166; 97530

== ENCOUNTER → 2020-11-11 12:26 | Outpatient (CLI) | payer BC, SELFPAY ==
[2020-10-11 14:42] VITALS: BMI 25.5
--- NOTE | 2020-11-11 12:27 | MRI_ITS ---
STUDY: BILATERAL BREAST MR WITHOUT AND WITH CONTRAST REASON FOR EXAM: Female, 55 years old. Mother with breast cancer. Remote left excisional breast biopsy. He is in the attending radiologist TECHNIQUE: Multi-sequence multi-echo imaging of both breasts was performed with a dedicated breast coil. T1-weighted and T2-weighted images were performed before the administration of contrast. T1-weighted images were also performed after the administration of IV dotarem 12ml without complications. COMPARISON: Targeted left breast ultrasound dated 02 18 2021. Bilateral mammogram dated the 2020. FINDINGS: RIGHT BREAST: The breast tissue is heterogeneously dense with minimal background enhancement. There are no abnormal enhancing masses or areas of non-mass enhancement in the right breast. LEFT BREAST: The breast tissue is heterogeneously dense with minimal background enhancement. There are no abnormal enhancing masses or areas of non-mass enhancement in the left breast. The lymph nodes in both axillary show fatty fernando and do not have an abnormal MRI appearance. There is no abnormality in the visualized regions of the chest or liver. MRI/Breast Bilateral W/O and W IMPRESSION: No abnormality on the breast MRI examination with contrast. Lymph nodes in both axillae have a normal appearance by MRI scanning. Six-month follow-up left breast ultrasound with particular attention to the axillary region would be appropriate, given the ultrasound findings. CATEGORY: BIRADS Category 3: Probably Benign - Short-Interval Follow-up Suggested. A letter regarding these results will be sent to the patient by the facility within 30 days. Electronically Signed: Terry Quiñonez MD at 16:20 EDT , Service support ,
== END ==
PROVIDERS: PCP Internal Medicine; Referring Provider Obstetrics & Gynecology; Visit Provider Obstetrics & Gynecology
DX: R92.8 Other abnormal and inconclusive findings on diagnostic imaging of breast (principal)
CPT/HCPCS: 77049; A9575; A4216; C8908

== ENCOUNTER 2021-04-01 09:51 | Outpatient (CLI) | payer BC, SELFPAY ==
--- NOTE | 2021-04-01 09:54 | US_ITS ---
STUDY: ULTRASOUND BREAST - LEFT REASON FOR EXAM: Female, 55 years old. 6 month follow-up examination for left axillary lymph nodes. TECHNIQUE: Axial and longitudinal images of the LEFT breast were performed with a high resolution ultrasound transducer. # OF IMAGES: 63 COMPARISON: Comparison is made with prior sonogram of the left breast dated 10/18/2020. FINDINGS: LEFT Breast: The previously seen 2.4 cm x 1.5 cm x 1.1 cm lobulated nodular density in the axillary region has decreased in size. It presently measures 1.7cm x 1.7 cm x 0.8 cm. A similar appearing lymph node measuring 1.2 cm x 2 signed by 1.1 cm is seen. US/Breast Limited Unilateral IMPRESSION: Interval decrease in size of the left axillary lymph nodes. ASSESSMENT CATEGORY: BIRADS Category 2: Benign. A letter regarding these results will be sent to the patient by the facility within 30 days. Electronically Signed: Sam Gomez MD at 15:33 EST , Service support ,
== END 2021-04-01 23:59 | disposition short-term general hospital (02) ==
LOC: OPUS 09:52
PROVIDERS: PCP Internal Medicine; Referring Provider Surgery; Visit Provider Surgery
DX: N63.25 Unspecified lump in the left breast, overlapping quadrants (principal)
CPT/HCPCS: 76642

== ENCOUNTER 2021-09-25 11:30 | Outpatient (RCR) | payer BC, SELFPAY ==
--- NOTE | 2021-07-02 10:55 | HP.PTEVAL ---
Patient's Visit Information JOSE HOOD is a 55 year old F referred to Physical Therapy by Out of Town Doctor with a diagnosis of L plantarfasiitis. Date of Evaluation: 07/02/21 Physical Therapist: Berry Kellogg, ADENIKET, OCS, CSCS - Visit Plan Frequency: 2-3x /Week Duration: 4-6 Weeks Plan: 3x/week for 2-4 week for. 1. US nonthermal to R PF origin. 2. Graston to PF R and STM foot R. 3. Ensure stretching of PF R and instruct in foot intrinsic strength and ankle strength. 4. Consider dry needling if not helpful in two weeks. - Subjective Dr. Nesbitt sent her over here. Plantar fasciitis is two years old but this episode is 4 months old. Not sure why it returned. Bottom of feet starated burning getting up at night. Then heel started hurting in r foot and pain got worse for no apparent reason. Wore boot two years ago at night and it helped. Has seen doctor for the last month. Worked at it herself for the first two months. Is in boot for 3 weeks now all day and night boot at night. Has orthotics she wore previously. May have heard a snap at the [employer] one time and doctor thinks she tore it. he offered the EPAT but insurance will not cover it. Is doing wall stretch and tennis ball roll and gastroc stretch daily. Feeling better much of time but still feels it in her heal much of time and full foot at times. Has been up to 10/10 when doing these around house normal activity. 1/10 at rest currently. allergies prevent injection. - Pain R heel Pain Intensity (Out of 10): 1 Pain Intensity Range: 0, 10 - Objective R heel tender to touch medially and plantar surface minimally. sensation LE WNL to gross light touch. reflexes patella and achilles 2/3. Walks with boot on I, dons and doffs I. More painful to walk without it and avoids heel strike, holds foot tight in DF. AROM ankle 7 DF, 60 PF, 25 inv and 22 eversion, similar to L foot. No pain increase. Strength ankles 4/5 B without pain. Metatarsals move well B, big toe strength 4+ B and painfree. Good arthro kinematic movement calcaneus B in all planes. - Balance/Special Test Scores Lower Extremity Functional Score: 60 - Goals Goal 1:: Pt feel pain in foot is 75% better and 2/10 at worst Goal Time Frame: 2-4 Weeks Goal 2:: I approp managment of condition with HEP Goal Time Frame: 2-4 Weeks Goal 3:: Ambulate without antalgia without boot 250 feet Goal Time Frame: 2-4 Weeks - Rehabilitation Potential Physical Therapy Diagnosis: L plantarfasciitis. Rehabilitation Potential: Fair - Anticipated Interventions Patient/Client Instruction: Educate patient on: Condition, Plan of Care For the Purpose of:: To increase ROM, To improve muscle performance and motor function, To increase tolerance to activity/condition/position, To improve ability of physical actions for home/community/work/leisure Therapeutic Exercise to Include: Strength training, Flexibilty training, Passive ROM, Active ROM For the Purpose of:: To decrease pain, To improve muscle performance and motor function, To increase tolerance to activity/condition/position, To improve ability of physical actions for home/community/work/leisure, To improve health of tissue Manual Therapy Techniques to Include: Mobilization, Passive ROM, Soft tissue mobilization Comment: graston, dry needle if desired/appropriate. For the Purpose of:: To decrease pain, To decrease swelling/inflammation, To improve nutrient delivery to tissue, To improve muscle performance and motor function Cryotherapy (ice pack, ice massage): Yes For the Purpose of:: To decrease swelling/inflammation Thank you for the opportunity to evaluate your patient. For Medicare and Medicare HMO plans, please review the plan of care and approve it. It will need to be FAXED BACK to us at [phone] for Medicare purposes. For Medicare only, by signing this I certify the plan of care. Please let me know if there are questions or concerns regarding this plan of care. Physician Signature: Date:
--- NOTE | 2021-07-23 11:34 | HP.PTREVAL ---
Dr. Emigdio Nesbitt, DPM, It has been my pleasure to treat JOSE HOOD over the last 7 visits for R plantarfasiitis. Please see the progress note below for an update on the physical therapy plan of care! Subjective: We are getting there. Not going into arch as much. More local on the heel. 1-2/10 daily and intermittent. To doctor next week. Still in day and night boot. Objective/Function: AROM B ankles WFL , tender R medial heel slightly but much improved today. Strength R ankle 4+/5 in all 4 directions. Walks normal today and steps reciprocal. Overall doing very well. Plan Plan: f/u two weeks to ensure progress, prior if worsens, may cancel after doc visit if doing great. Balance/Gait/Functional tests - Balance/Special Test Scores Lower Extremity Functional Score: 48 Goals Goal 1:: Pt feel pain in foot is 75% better and 2/10 at worst Goal Time Frame: 2-4 Weeks Goal Progress: Goal Met Goal 2:: I approp managment of condition with HEP Goal Time Frame: 2-4 Weeks Goal Progress: Goal Met Goal 3:: Ambulate without antalgia without boot 250 feet Goal Time Frame: 2-4 Weeks Goal Progress: Goal Met Goal 4:: Ensure pain continues to improve without therapy regularly Goal Time Frame: 2 Weeks Goal Progress: NEW GOAL Anticipated Interventions Patient/Client Instruction: Educate patient on: Condition, Plan of Care For the Purpose of:: To increase ROM, To improve muscle performance and motor function, To increase tolerance to activity/condition/position, To improve ability of physical actions for home/community/work/leisure Therapeutic Exercise to Include: Strength training, Flexibilty training, Passive ROM, Active ROM For the Purpose of:: To decrease pain, To improve muscle performance and motor function, To increase tolerance to activity/condition/position, To improve ability of physical actions for home/community/work/leisure, To improve health of tissue Manual Therapy Techniques to Include: Mobilization, Passive ROM, Soft tissue mobilization Comment: bill de [place] torre if desired/appropriate. For the Purpose of:: To decrease pain, To decrease swelling/inflammation, To improve nutrient delivery to tissue, To improve muscle performance and motor function Cryotherapy (ice pack, ice massage): Yes For the Purpose of:: To decrease swelling/inflammation Please do not hesitate to contact me at [phone] by phone or if you have questions or concerns regarding this new plan of care! Sincerely, Berry Kellogg, DPT, OCS, CSCS
--- NOTE | 2021-08-06 11:03 | HP.PTREVAL ---
Dr. Emigdio Nesbitt, DPM, It has been my pleasure to treat JOSE HOOD over the last 8 visits for R plantarfasiitis. Please see the progress note below for an update on the physical therapy plan of care! Subjective: Was doing good but then got worse again as she started to do more things and got more sore. Wearing boot a little more. Sees doctor next week. Not sure what other options are.Worsening due to in shoes more and more volume of activity. Exercises at home are Ok and wearing night boot nightly. Still doing all of HEP with band and stretching etc. Objective/Function: Limping on R today. Tender in PF body R mildly. AROM and strength same as last session and doing pretty well. Educated on options with ionto and continued STM, US and start DN. Plan Plan: 3x/week fro 2-4 weeks for Dry needling consult with Kahlil or Marisol and continued US and STM unless doctor has other options. Reviewed ionto options and epat options but not covered by insurance. Pt wants to try DN, US and STM for a month unless doctor has better otpions. Balance/Gait/Functional tests - Balance/Special Test Scores Lower Extremity Functional Score: 48 Goals Goal 1:: Pt feel pain in foot is 75% better and 2/10 at worst Goal Time Frame: 2-4 Weeks Goal Progress: Goal Met Goal 2:: I approp managment of condition with HEP Goal Time Frame: 2-4 Weeks Goal Progress: Goal Met Goal 3:: Ambulate without antalgia without boot 250 feet Goal Time Frame: 2-4 Weeks Goal Progress: antalgic todday Goal 4:: Ensure pain continues to improve without therapy regularly Goal Time Frame: 2 Weeks Goal Progress: NEW GOAL Anticipated Interventions Patient/Client Instruction: Educate patient on: Condition, Plan of Care For the Purpose of:: To increase ROM, To improve muscle performance and motor function, To increase tolerance to activity/condition/position, To improve ability of physical actions for home/community/work/leisure Therapeutic Exercise to Include: Strength training, Flexibilty training, Passive ROM, Active ROM For the Purpose of:: To decrease pain, To improve muscle performance and motor function, To increase tolerance to activity/condition/position, To improve ability of physical actions for home/community/work/leisure, To improve health of tissue Manual Therapy Techniques to Include: Mobilization, Passive ROM, Soft tissue mobilization Comment: britt, dry needle if desired/appropriate. For the Purpose of:: To decrease pain, To decrease swelling/inflammation, To improve nutrient delivery to tissue, To improve muscle performance and motor function Cryotherapy (ice pack, ice massage): Yes For the Purpose of:: To decrease swelling/inflammation Please do not hesitate to contact me at [phone] by phone or if you have questions or concerns regarding this new plan of care! Sincerely, Berry Kellogg, DPT, OCS, CSCS
--- NOTE | 2021-08-19 10:18 | HP.PTEVAL2 ---
Patient's Visit Information JOSE HOOD is a 55 year old F referred to Physical Therapy by Dr. Emigdio Nesbitt DPM with a diagnosis of Aiden Cannon. Date of Evaluation: 08/19/21 Physical Therapist: SANDRA Reyes - Visit Plan Frequency: 2-3x /Week Duration: 6 Weeks Plan: 2-3X/ week for 4-6 weeks to work on decreasing inflammation of the c-spine (US, E-stim, MT), mid trap and levator/scapular region and c-spine parasinals for couple of weeks to be able to decrease the inflammation to be able to find a direction of preferance, postural exercises, with HEP - Subjective Subjective: Pt reports a couple months ago and slept wrong and her L arm was tingling and got better throughout the day and then it happened more and more. She then got a sore spot in her L shoulder blade and into L shoulder and then it got do bad a top of shoulder down to the fingers and they are numb and tingling. She went to urgent care one day cause it was so bad. She is in a time crunch cause her daughter is having a baby August 31. Did an x-ray with lidocane patch and flexeril did nothing other than makes her sleepy. They did an x-ray and showed a pinched nerve. She can not pull her arm clear up to her face and takes a moment to move her hand up to her face. She is R handed. She saw [facility] and they sent her here. MRI is scheduled for later August. - Pain C-spine Intensity: 7 L arm pain Intensity: 2 L shoulder blade pain Intensity: 1 - Objective Objective: C-spine AROM:flex 100% (increase pain), Ext 50%, SB B 75%, Rot R 1005 and ROt L 75%. R handed R 50# and L 22#. Bicep reflex 2+/3 B. Full B shoulder AROM but painful with elevation of the L shoulder. Attempted chin tucks in sitting and increase tingling and pain in the hands and forearm, attempted chin tucks with 1 towel roll but increase pain in forearm and hand, attempted 2 towel rolls chin tucks but not change in arm or finger tingling/pain, attempted Sidebending B directions with no change in arm or hand pain/numbness and tingling, forward flexion helps to slighly decrease her symptoms but only temp. Attempted some light traction and pt had very slight relief but as soon as traction was slowly released and the pain in the forearm and the hand sx came back. Posture: sits with rounded shoulders. Head position: R SB and slightly fw. Tender over the L mid trap and scapular/levator area..... - Goals Goal 1:: I HEP Goal Time Frame: 4-6 Weeks Goal 2:: Be able to calm inflammation and find a direction of [place]fr[place]. Goal Time Frame: 4-6 Weeks Goal 3:: Be able to sit with upright posture during the day and treatment session Goal Time Frame: 4-6 Weeks Goal 4:: Abolish L am radicular symptoms Goal Time Frame: 4-6 Weeks - Rehabilitation Potential Rehabilitation Potential: Fair - Anticipated Interventions Thank you for the opportunity to evaluate your patient. For Medicare and Medicare HMO plans, please review the plan of care and approve it. It will need to be FAXED BACK to us at [phone] for Medicare purposes. For Medicare only, by signing this I certify the plan of care. Please let me know if there are questions or concerns regarding this plan of care. Physician Signature: Date:
--- NOTE | 2021-10-31 07:24 | HP.PTDCSUM_ITS ---
It has been my pleasure to treat JOSE HOOD referred by Dr. Emigdio Nesbitt, DPM, with the diagnosis of R plantarfasiitis for a total of 12 visit(s). Discharge Date: 09/25/21 Please see the following information for a summary of their discharge status. Subjective: Pt states was 90% better prior to travelling for grandchild but now worse pain again 3-41/0 R and L heel making her miserable. hesitant to do epat with doctor but only other option form doctor is therapy. R heel Pain Intensity (Out of 10): 2 R arch Pain Intensity (Out of 10): 2 L heel pain Pain Intensity (Out of 10): 3 L arch pain Pain Intensity (Out of 10): 3 % Improvement: 25 Objective/Function: AROM feet and ankles WFL. only abnormality is in gait, using boot and tender to B arches. Walking boot on R foot today. I let patient feel shockwave on foot in order to decrease stress and encourage treatment at doctor's office. covering machine tender in r PF origin. Mild antalgia not in boot today. lLots of hesitation to commit to shockwave at doctor office or dry needle. Goal 1:: Pt feel pain in foot is 75% better and 2/10 at worst Goal Progress: backslid Goal 2:: I approp managment of condition with HEP Goal Progress: Goal Met Goal 3:: Ambulate without antalgia without boot 250 feet Goal Progress: not today Goal 4:: Ensure pain continues to improve without therapy regularly Goal Progress: Not Progressing Plan: d/c. Pt to think about optionbs and let doctor know her decision for chockwave if she wishes or further therapy to include L foot if ordered by doctor. Discharge Comments: Pt to cotnact doctor for epat or script for more therapy based on her desires. Pt was much better when consistent with PT but has gotten worse quickly despite continuing HEP If there are questions or concerns regarding this patient's physical therapy, please feel free to call me at [phone]. Thank you for the referral of this patient. Sincerely, Berry Kellogg, DPT, OCS, CSCS Balance/Gait/Functional tests - Balance/Special Test Scores Oswestry Low Back Score: 5 Lower Extremity Functional Score: 51
== END 2021-09-25 19:00 | disposition home or self-care (01) ==
LOC: PT 11:30
PROVIDERS: PCP Internal Medicine; Referring Provider Podiatrist; Visit Provider Podiatrist
DX: M72.2 Plantar fascial fibromatosis (principal); M48.02 Spinal stenosis, cervical region; M47.22 Other spondylosis with radiculopathy, cervical region; M50.321 Other cervical disc degeneration at C4-C5 level
CPT/HCPCS: 97035; 97110; 97140; 97161; 97162; 97164; 97530

== ENCOUNTER → 2021-10-17 | Outpatient (CLI) | payer BC, SELFPAY ==
--- NOTE | 2021-10-17 14:17 | US_ITS ---
STUDY: ULTRASOUND BREAST - LEFT REASON FOR EXAM: Female, 56 years old. Fullness/tenderness in the axillary region of the left breast. TECHNIQUE: Axial and longitudinal images of the LEFT breast were performed with a high resolution ultrasound transducer. # OF IMAGES: 60 COMPARISON: Comparison is made with prior mammogram done earlier in the day as well as prior sonogram of the left breast dated 04/01/2021. FINDINGS: LEFT Breast: There is a 1.3 cm x 1.6 cm x 1 cm benign-appearing lymph node. Adjacent to this, a similar appearing lymph node measuring 9 mm x 7 mm x 6 mm is seen. These have decreased in size as compared to prior study. US/Breast Limited Unilateral IMPRESSION: Further decrease in size of the left axillary lymph nodes. ASSESSMENT CATEGORY: BIRADS Category 2: Benign. A letter regarding these results will be sent to the patient by the facility within 30 days. Electronically Signed: Sam Gomez MD at 8:30 EDT ,
--- NOTE | 2021-10-17 14:17 | BI_ITS ---
MAMMOGRAPHY - BILATERAL DIAGNOSTIC REASON FOR EXAM: Female, 56 years old. Fullness/tenderness in the upper outer quadrant of the left breast. PERTINENT HISTORY: Mother with breast cancer. Remote left excisional breast biopsy. TECHNIQUE: Digital bilateral breast reji (3D mammographic acquisition) in the CC and MLO projections. 2-D mediolateral oblique (MLO) and craniocaudad (CC) views of both breasts were obtained. CAD: Full Field Digital Mammography with Computer Added Detection was performed. COMPARISON: Comparison is made with prior study dated 10/18/2020 and 12/11/2019. FINDINGS: Breast Composition: The breasts are heterogeneously dense, which may obscure small masses. There are no dominant masses or suspicious calcifications. Stable small benign appearing bilateral axillary lymph nodes. No other significant abnormalities are identified. There has been no significant change since the prior study. BI/DIAG MAMM W/CAD, BILAT IMPRESSION: Stable bilateral diagnostic mammogram. Correlation with ultrasound of the upper-outer quadrant of the left breast is recommended for further evaluation. ASSESSMENT CATEGORY: BIRADS Category 0: Incomplete. Need additional imaging evaluation. A letter regarding these results will be sent to the patient by the facility within 30 days. Approximately 10% of breast cancers are not detected by mammography. A normal mammogram should not delay biopsy of a clinically suspicious abnormality. Electronically Signed: Sam Gomez MD at 15:11 EDT ,
== END | disposition home or self-care (01) ==
PROVIDERS: PCP Internal Medicine; Referring Provider Nurse Practitioner Women's Health; Visit Provider Nurse Practitioner Women's Health
DX: N64.4 Mastodynia (principal); R92.2 Inconclusive mammogram
CPT/HCPCS: 76642; 77062; 77066; G0279

== ENCOUNTER → 2021-10-23 | Outpatient (CLI) | payer BC, SELFPAY ==
[2021-10-23] VITALS (7 sets, daily range): BP systolic 146–162; BP diastolic 79–89; PULSE 66–94; RESP 14–16; O2SAT 94–99; BMI 23.6
--- NOTE | 2021-10-23 13:32 | CT_ITS ---
STUDY: CT CHEST WITHOUT CONTRAST REASON FOR EXAM: Female, 56 years old. CHEST PAIN. Overread examination. RADIATION DOSAGE (If Supplied By Facility): CTDIvol = ( 26.96 ) mGy, DLP = ( 1069.51 ) mGycm TECHNIQUE: Transaxial imaging was performed without the administration of intravenous contrast material. Individualized dose optimization techniques were used for this CT. Comparison is made with prior study dated 11/13/2018. COMPARISON: No relevant priors. FINDINGS: CHEST Mild degree of linear scarring in the lingular segment of the left upper lobe. There is no demonstrated pleural abnormality. Normal heart and pericardium. No significant coronary artery calcification is seen. Normal mediastinum. Normal hilar regions. Normal unenhanced pulmonary arteries. Normal aorta arch and descending thoracic aorta. Normal osseous structures. There is no demonstrated abnormality of the visualized upper abdomen. CT/Limited Chest CT Cardiac Only IMPRESSION: Mild scarring in the lingular segment of the left upper lobe. Electronically Signed: Sam Gomez MD at 15:07 EDT ,
[2021-10-23] MEDS: Metoprolol Tartrate 5 MG/5 ML Vial IV ×3 (13:34→13:44)
[2021-10-23 13:56] LABS: CREATININE FINGERSTICK < 0.9 mg/dL (0.55-1.02); EGFR FINGERSTICK > 60.0000 mL/min (>60)
[2021-10-23] MEDS: Nitroglycerin SL (ED/IMG/CATH) 0.4 MG TABLET SL (14:00)
--- NOTE | 2021-10-23 18:12 | CCTA.WCONT ---
CCTA w/Cont Coronary Arteries Date of Study:: 10/23/21 Chest Pain Consent:: Per Patient The patient underwent cardiac CTA with particular attention to the coronary arteries for subsequent coronary analysis. The patient appeared to tolerate the procedure well without obvious complications. LEFT MAIN CORONARY ARTERY: The left main coronary artery appears to be a large vessel giving rise to the left anterior descending and left circumflex coronary arteries. It appears to be patent with no obvious angiographically significant appearing stenosis. LEFT ANTERIOR DESCENDING CORONARY ARTERY: The left anterior descending coronary artery appears to be a large vessel which courses to the LV apex. It appears to be coming smaller vessel as it courses to the LV apex. It appears to be patent with no obvious angiographically significant appearing stenosis. LEFT CIRCUMFLEX CORONARY ARTERY: The left circumflex coronary artery appears to be a nondominant vessel giving rise to an obtuse marginal branch. It appears to be patent with no obvious angiographically significant appearing stenosis. RIGHT CORONARY ARTERY: The right coronary artery appears to be a large dominant vessel giving rise to a right PDA system. It appears to be patent with no obvious angiographically significant appearing stenosis. THORACIC AORTA: The thoracic aorta appears to be patent with no obvious atherosclerotic disease appreciated. PULMONARY ARTERY: The main pulmonary artery and proximal portions of the right and left pulmonary artery appear to be patent without obvious filling defects. LEFT ATRIUM/APPENDAGE: The left atrial appendage appears to be without obvious filling defects MITRAL VALVE: The mitral valve appears to be bileaflet structure. AORTIC VALVE: The aortic valve appears to be a trileaflet structure. LEFT VENTRICLE: The left ventricle appears to demonstrate grossly normal left ventricular size, wall motion, and systolic function. The reported LVEF is 71%. CORONARY CALCIUM SCORE: A coronary calcium score was not obtained. This note was generated using a voice recognition system and there may be incorrect words, spelling or punctuation that were not noted when reviewing the office note prior to saving.
== END | disposition home or self-care (01) ==
PROVIDERS: PCP Internal Medicine; Referring Provider Internal Medicine Cardiovascular Disease; Visit Provider Internal Medicine Cardiovascular Disease
DX: R07.9 Chest pain, unspecified (principal); I10 Essential (primary) hypertension; I49.49 Other premature depolarization
CPT/HCPCS: 75574; 76380; Q9967; A4216

== ENCOUNTER → 2022-11-04 | Outpatient (CLI) | payer BC, SELFPAY ==
--- NOTE | 2022-11-04 14:16 | BI_ITS ---
MAMMOGRAPHY - BILATERAL DIAGNOSTIC REASON FOR EXAM: Female, 57 years old. Left breast enlargement. PERTINENT HISTORY: Mother with breast cancer. Prior left breast aspirations. TECHNIQUE: Digital bilateral breast reji (3D mammographic acquisition) in the CC and MLO projections. 2-D mediolateral oblique (MLO) and craniocaudad (CC) views of both breasts were obtained. CAD: Full Field Digital Mammography with Computer Added Detection was performed. COMPARISON: Comparison is made with prior study dated October 17, 2021 and October 18, 2020. FINDINGS: Breast Composition: The breasts are heterogeneously dense, which may obscure small masses. There are no dominant masses or suspicious calcifications. Stable small benign-appearing bilateral axillary lymph nodes. No other significant abnormalities are identified. There has been no significant change since the prior study. BI/DIAG MAMM W/CAD, BILAT IMPRESSION: Stable bilateral diagnostic mammogram. One year follow-up recommended. (A) ASSESSMENT CATEGORY: BIRADS Category 2: Benign. A letter regarding these results will be sent to the patient by the facility within 30 days. Approximately 10% of breast cancers are not detected by mammography. A normal mammogram should not delay biopsy of a clinically suspicious abnormality. Electronically Signed: Sam Gomez MD at 15:15 EDT ,
== END | disposition home or self-care (01) ==
LOC: OPBI 14:14
PROVIDERS: PCP Internal Medicine; Referring Provider Obstetrics & Gynecology; Visit Provider Obstetrics & Gynecology
DX: N64.4 Mastodynia (principal)
CPT/HCPCS: 77062; 77066; G0279

== ENCOUNTER → 2023-05-11 | Outpatient (CLI) | payer BC, SELFPAY ==
[2023-05-11 16:52] LABS: Absolute Lymphocyte Count 1.17 X10^3/uL (0.83-4.51); Absolute Neutrophil Count 6.3 X10^3/uL (2.0-7.7); Basophil# 0.06 X10^3/uL; Basophil% 0.7 % (0-1); Eosinophil# 0.02 X10^3/uL; Eosinophils% 0.2 % (0-5); Hematocrit 44.6 % (37-47); Hemoglobin 15.2 g/dL (12.0-15.0); Lymphocyte # 1.17 X10^3/ul (0.83-4.51); Lymphocyte % 14.4 % (19-41); Mean Corp Hgb Conc 34.1 g/dL (32-36); Mean Corpuscular Volume 90.8 fL (81-99); Mean Platelet Vol. 9.5 fl (6.2-12.0); Monocyte# 0.55 X10^3/uL; Monocyte% 6.8 % (0-10); NRBC Flagged by Analyzer 0 % (0-5); Neutrophil # 6.29 X10^3/uL (2.7-7.7); Neutrophil % 77.3 % (47-70); Platelet Count 312 K/mm3 (150-450); RBC Distribution Width SD 39.9 fl (35.1-43.9); Red Blood Count 4.91 M/mm3 (4.2-5.4); White Blood Count 8.1 K/mm3 (4.4-11.0)
[2023-05-11 17:16] LABS: BNP,B-Type NATRIURETIC PEPTIDE 47.7 pg/mL (0-100)
[2023-05-11 17:25] LABS: Anion Gap 5 (5-15); BUN 14 mg/dL (7-18); BUN/Creat Ratio 15.6 RATIO (10-20); Chloride 114 mmol/L (98-107); EST Glomerular Filtration Rate 68 mL/min (>60); Est Glom Filt Rate - Afr Amer 82 mL/min (>60); Free T3 2.7 pg/mL (2.18-3.98); Glucose 104 mg/dL (74-106); Magnesium 2.7 mg/dL (1.6-2.6); Potassium 3.9 mmol/L (3.5-5.1); Sodium Level 146 mmol/L (136-145)
--- OUTSIDE RECORDS SUMMARY | 2023-05-11 20:16 | XMS RPT_ITS | CCD ---
Author Name Unknown Address [address] [place] [address] Organization [facility] Care Team Providers Care Group Contract Analyst Name Role Phone ConorLucy Gracie Unavailable Unavailable Lucy Putnam LPN Unavailable Unavaila ble Barb Cole Unavailable Opal Orozco Unavailable Unavailable JAGJIT JR., FLAKITA N Unavailable Unavailable HIRSCH, OCTAVIA S Unavailable Unavailable TALAMPAS, BRIAN Unavailable Unavailable JAGJIT JR., FLAKITA N Unavailable Unavailable HIRSCH, OCTAVIA S Unavailable Unavailable TALAMPAS, BRIAN Unavailable Unavailable JAGJIT JR., FLAKITA N Unavailable Unavailable JAGJIT JR., FLAKITA N Unavailable Unavailable TALAMPAS, BRIAN Unavailable Unavailable KEVIN GUARDADO Unavailable Unavailable HIRSCH, OCTAVIA S Unavailable Unavailable TALAMPAS, BRIAN Unavailable Unavailable JAGJIT JR., FLAKITA N Unavailable Unavailable JAGJIT JR., FLAKITA N Unavailable Unavailable TALAMPAS, BRIAN Unavailable Unavailable RODRIGUEZENZO P Unavailable Unavailable SELF, SELF Unavailable Unavailable TALAMPAS, BRIAN Unavailable Unavailable Opal Orozco Unavailable Unavailable Opal Orozco Unavailable Unavailable Barb Cole Unavailable Ladonna BAXTER Randa A Unavailable Unavailab jan Dougherty LPN Randa A Unavailable Unavailab Brian Tejeda MD Primary Care Provider Brian Owens MD Primary Care Provider JOSE CORDOVA Attending Unavailable JAILYN LUBIN Referring Unavailable BRIAN OWENS Primary Care Unavailable Brian Owens MD Primary Care Provider BRIAN OWENS Primary Care Unavailable BRIAN OWENS Attending Unavailable BRIAN OWENS Primary Care Unavailable LAURA ARMENTA Attending Unavaila ble TALAMPAS, BRIAN D Primary Care Unavailable TALAMPAS, BRIAN D Referring Unavailable CARNES, JOSE LUIS Referring Unavailable TALAMPAS, BRIAN D Primary Care Unavailable CARNES, JOSE LUIS Attending Unavailable TALAMPAS, BRIAN D Primary Care Unavailable LAURA ARMENTA Attending Unavaila ble TALAMPAS, BRIAN D Primary Care Unavailable TALAMPAS, BRIAN D Referring Unavailable TALAMPAS, BRIAN D Primary Care Unavailable LAURA ARMENTA Attending Unavaila ble TALAMPAS, BRIAN D Referring Unavailable TALAMPAS, BRIAN D Primary Care Unavailable TALAMPAS, BRIAN D Attending Unavailable TALAMPAS, BRIAN D Referring Unavailable TALAMPAS, BRIAN D Primary Care Unavailable TALAMPAS, BRIAN D Referring Unavailable TALAMPAS, BRIAN D Referring Unavailable TALAMPAS, BRIAN D Primary Care Unavailable TALAMPAS, BRIAN D Primary Care Unavailable ATHYTAY R Referring Unavailable TALAMPAS, BRIAN D Primary Care Unavailable TALAMPAS, BRIAN D Primary Care Unavailable CARNES, JOSE LUIS Referring Unavailable TALAMPAS, BRIAN D Primary Care Unavailable TALAMPAS, BRIAN D Referring Unavailable TALAMPAS, BRIAN D Attending Unavailable TALAMPAS, BRIAN D Primary Care Unavailable TALAMPAS, BRIAN D Primary Care Unavailable TALAMPAS, BRIAN D Referring Unavailable TALAMPAS, BRIAN D Primary Care Unavailable EMIGDIO PRESLEY Referring Unavailable TALAMPAS, BRIAN D Primary Care Unavailable DIVINA DEL ROSARIO Attending Unavailable TALAMPAS, BRIAN D Primary Care Unavailable TALAMPAS, BRIAN D Primary Care Unavailable TALAMPAS, BRIAN D Attending Unavailable TALAMPAS, BRIAN D Primary Care Unavailable TALAMPAS, BRIAN D Referring Unavailable TALAMPAS, BRIAN D Attending Unavailable TALAMPAS, BRIAN D Primary Care Unavailable TALAMPAS, BRIAN D Referring Unavailable LAURA ARMENTA Attending Unavaila ble TALAMPAS, BRIAN D Referring Unavailable TALAMPAS, BRIAN D Primary Care Unavailable Allergies Allergy Classification Reported Allergen(s) Allergy Type Date of Onset Reaction(s) Facility (9 sources) alendronate drug allergy 06-18-19 17 GI upset [facility] Work Phone: (9 sources) amoxicillin / clavulanate drug allergy 06-18-19 17 Throat tight [facility] Phone: (9 sources) beclomethasone drug allergy 06-18-19 17 GI upset [facility] Work Phone: (9 sources) doxycycline drug allergy 06-18-19 17 Vomiting [facility] Phone: (20 sources) erythromycin drug allergy 11-06-19 07 GI Upset [facility] Work Phone: (9 sources) formoterol / mometasone drug allergy 06-18-19 17 Dizzy/spinning ; vertigo [facility] Phone: (4 sources) levoFLOXacin drug allergy 06-18-19 17 Dizzy/Loopy [facility] Phone: (9 sources) omalizumab drug allergy 06-18-19 17 Vomiting [facility] Work Phone: (9 sources) psyllium drug allergy 06-18-19 17 Diarrhea with fibers [facility] Phone: (9 sources) sulfaSALAzine drug allergy 06-18-19 17 Hives [facility] Work Phone: (9 sources) IODINE TINCTURE drug allergy 06-18-19 17 SOB [facility] Phone: (5 sources) levoFLOXacin Drug Allergy 06-18-19 17 Dizzy/Loopy [facility] Work Phone: (20 sources) Alendronate; Translations: [ALENDRONATE SODIUM] Drug Allergy 09-04-19 15 GI Upset [facility] (20 sources) Amoxicillin / Clavulanate; Translations: [AMOXICILLIN-POT CLAVULANATE] Drug Allergy 12-12-19 05 Intolerance [facility] Work Phone: (20 sources) atorvastatin; Translations: [ATORVASTATIN] Drug Allergy 06-18-19 17 GI Upset [facility] Work Phone: (20 sources) Beclomethasone; Translations: [BECLOMETHASONE DIPROPIONATE] Drug Allergy 09-01-19 14 GI Upset [facility] (20 sources) Doxycycline; Translations: [DOXYCYCLINE] Drug Allergy 11-25-19 07 Vomiting [facility] Work Phone: (20 sources) Dust; Translations: [DUST] Propensity to adverse reactions 04-29-19 06 [facility] Work Phone: (20 sources) EPINEPHrine; Translations: [EPINEPHRINE] Drug Allergy 09-15-19 19 Other: See Comments [facility] (20 sources) formoterol / Mometasone; Translations: [MOMETASONE-FORMOT MARGARITO] Drug Allergy 09-01-19 14 Mental Status Change [facility] (20 sources) Iodine; Translations: [IODINE] Drug Allergy 01-11-20 10 Shortness of Breath, Other: See Comments [facility] (20 sources) levoFLOXacin; Translations: [LEVOFLOXACIN] Drug Allergy 11-06-19 07 Mental Status Change [facility] Work Phone: (20 sources) omalizumab; Translations: [OMALIZUMAB] Drug Allergy 11-06-19 10 GI Upset [facility] (20 sources) Psyllium; Translations: [PSYLLIUM] Drug Allergy 06-18-19 17 Diarrhea [facility] Work Phone: (20 sources) Sulfonamides (Antibiotic); Translations: [SULFA (SULFONAMIDE ANTIBIOTICS)] Drug Allergy 12-12-19 05 Hives [facility] Work Phone: (20 sources) traZODone; Translations: [TRAZODONE] Drug Allergy 05-30-19 21 Swelling [facility] Work Phone: (2 sources) Erythromycin; Translations: [ERYTHROMYCIN] Drug Allergy 11-06-19 07 [facility] Other [place] [facility] (20 sources) Budesonide / formoterol; Translations: [BUDESONIDE-FORMOT MARGARITO] Drug Allergy 04-13-19 23 GI Upset, Vomiting [facility] Work Phone: (20 sources) Macadamia Nut Oil; Translations: [MACADAMIA NUT OIL] Propensity to adverse reactions to drug 08-13-19 Vomiting [facility] (20 sources) Albuterol; Translations: [ALBUTEROL] Drug Allergy 09-23-19 GI Upset [facility] Medications Current Medications Medication Drug Class(es) Dates Sig (Normalized) Sig (Original) amoxicillin 500 mg oral capsule (3 sources) Penicillin-class Antibacterial Start: 09-15-2022 End: 09-29-2022 take 1 capsule by mouth three times daily amoxicillin (AMOXIL) 500 mg capsule Indications: Tick bite of other part of neck, initial encounter Take 1 capsule by mouth three times daily for 14 days. 42 capsule 0 09/15/2022 09/29/2022 Active Completed/Discontinued Medications Medication Drug Class(es) Dates Sig (Normalized) Sig (Original) acetylcysteine 100 mg/ml inhalation solution (20 sources) Antidote, Mucolytic, Antidote for Acetaminophen Overdose Start: 04-08-2021 End: 01-27-2023 take 4 mL by inhalation twice daily as needed acetylcysteine (MUCOMYST) 100 mg/mL (10 %) solution Indications: Asthma with chronic obstructive pulmonary disease (COPD) Inhale 4 mL as instructed two times a day as needed. 240 mL 5 01/27/2023 Active Problems Active Problems Problem Classification Problem Date Documented Da te Episodic/Chronic Allergic reactions (1 source) Contact dermatitis due to plants; Translations: [Unspecified contact dermatitis due to plants, except food] Episodic Anxiety disorders (20 sources) Anxiety; Translations: [Anxiety disorder, unspecified] Onset: 1 07-06-2016 Chronic Asthma (20 sources) Asthma; Translations: [Asthma-chronic obstructive pulmonary disease overlap syndrome] Onset: 6 01-09-2015 Chronic Asthma (1 source) Asthma Onset: 8 Cardiac dysrhythmias (1 source) Paroxysmal supraventricular tachycardia; Translations: [Supraventricular tachycardia] Chronic Chronic obstructive pulmonary disease and bronchiectasis (20 sources) Chronic obstructive pulmonary disease, unspecified; Translations: [Acute exacerbation of chronic obstructive airways disease with asthma] Onset: 6 07-06-2016 Chronic Chronic obstructive pulmonary disease and bronchiectasis (1 source) Bronchitis; Translations: [Bronchitis, not specified as acute or chronic] 05-06-2023 Episodic Chronic obstructive pulmonary disease and bronchiectasis (2 sources) Chronic obstructive pulmonary disease and bronchiectasis; Translations: [Asthma with chronic obstructive pulmonary disease (COPD)] Onset: 5 Disorders of lipid metabolism (20 sources) Hyperlipidemia; Translations: [Mixed hyperlipidemia] Onset: 4 07-06-2016 Chronic Esophageal disorders (12 sources) Gastroesophageal reflux disease; Translations: [Gastroesophageal reflux disease without esophagitis] Onset: 1 07-06-2016 Chronic Essential hypertension (20 sources) Essential hypertension; Translations: [Essential (primary) hypertension] Onset: 1 01-28-2021 Chronic Miscellaneous mental health disorders (7 sources) Psychophysiologic insomnia; Translations: [Psychophysiologic insomnia] Onset: 3 Chronic Mood disorders (20 sources) Recurrent major depression in partial remission; Translations: [Major depressive disorder, recurrent, in partial remission] Onset: 7 08-10-2016 Chronic Nutritional deficiencies (20 sources) Vitamin D deficiency; Translations: [Vitamin D deficiency, unspecified] Onset: 8 Chronic Osteoporosis (1 source) Senile osteoporosis; Translations: [Age-related osteoporosis without current pathological fracture] Chronic Other aftercare (4 sources) Patient encounter status; Translations: [Other exterminator helper termite (current) drug therapy] Episodic Other and unspecified benign neoplasm (2 sources) History of polyp of colon; Translations: [Personal history of colonic polyps] Episodic Other and unspecified benign neoplasm (1 source) Lipoma of trunk; Translations: [Benign lipomatous neoplasm of skin and subcutaneous tissue of trunk] Episodic Other and unspecified benign neoplasm (1 source) Personal history of colonic polyps; Translations: [Personal history of colonic polyps] Onset: 2 Episodic Other connective tissue disease (1 source) Plantar fasciitis of right foot; Translations: [Plantar fascial fibromatosis] Episodic Other connective tissue disease (1 source) Pain in left arm; Translations: [Pain in left arm] Episodic Other connective tissue disease (1 source) Bilateral plantar fasciitis; Translations: [Plantar fascial fibromatosis] Episodic Other connective tissue disease (1 source) Tendinitis; Translations: [Enthesopathy, unspecified] Episodic Other connective tissue disease (1 source) Trochanteric bursitis; Translations: [Trochanteric bursitis, left hip] Episodic Other gastrointestinal disorders (20 sources) Irritable bowel syndrome; Translations: [Irritable bowel syndrome without diarrhea] Onset: 1 07-06-2016 Chronic Other gastrointestinal disorders (13 sources) Irritable bowel syndrome with diarrhea; Translations: [Irritable bowel syndrome with diarrhea] Chronic Other gastrointestinal disorders (1 source) Irritable bowel syndrome with diarrhea; Translations: [Irritable bowel syndrome with diarrhea] Onset: 1 Chronic Other lower respiratory disease (1 source) Cough; Translations: [Cough in adult] 02-01-2023 Episodic Other lower respiratory disease (1 source) Wheezing; Translations: [Wheezing] Onset: 4 Episodic Other nervous system disorders (9 sources) Plantar nerve lesion; Translations: [Lesion of plantar nerve, unspecified lower limb] Onset: 8 07-06-2016 Chronic Other screening for suspected conditions (not mental disorders or infectious disease) (1 source) Encounter for screening for malignant neoplasm of colon; Translations: [Special screening for malignant neoplasms, colon] Onset: 2 Episodic Other skin disorders (1 source) Vesicular hand eczema; Translations: [Dyshidrosis [pompholyx]] Episodic Other skin disorders (1 source) Skin lesion; Translations: [Disorder of the skin and subcutaneous tissue, unspecified] 10-13-2022 Episodic Other upper respiratory infections (9 sources) Chronic sinusitis; Translations: [Chronic sinusitis, unspecified] Onset: 4 07-06-2016 Chronic Residual codes; unclassified (1 source) Pain; Translations: [Pain, unspecified] Episodic Residual codes; unclassified (1 source) Postmenopausal state; Translations: [Asymptomatic menopausal state] 05-04-2022 Episodic Superficial injury; contusion (2 sources) Tick bite; Translations: [Insect bite of other specified part of neck, initial encounter] Episodic Unclassified (4 sources) General examination of patient ; Translations: [Encounter for other general examination] Onset: 5 07-06-2016 Unclassified (4 sources) Administration of steroid; Translations: [exterminator helper termite (current) use of systemic steroids] Onset: 7 07-23-2016 Unclassified (1 source) Breathing Problem / 17() Onset: 05-14-201 8 Unclassified (1 source) Cough in adult; Translations: [Cough in adult] Onset: 3 Urinary tract infections (9 sources) Chronic interstitial cystitis; Translations: [Interstitial cystitis (chronic) without hematuria] Onset: 0 07-06-2016 Chronic Viral infection (15 sources) Epidemic vertigo; Translations: [Disease caused by 2019-nCoV] Onset: 6 07-06-2016 Episodic Past or Other Problems Problem Classification Problem Date Documented Da te Episodic/Chronic Abdominal pain (9 sources) Left lower quadrant pain; Translations: [Left lower quadrant pain] Onset: 08-18-2011 07-06-2016 Episodic Cardiac dysrhythmias (20 sources) Palpitations; Translations: [Palpitations] Onset: 01-28-2021 01-28-2021 Episodic Diseases of mouth; excluding dental (2 sources) Xerostomia; Translations: [Dry mouth, unspecified] Onset: 08-11-2022 Episodic Gastritis and duodenitis (9 sources) Acute gastritis; Translations: [Acute gastritis without bleeding] Onset: 12-31-2008 07-06-2016 Episodic Genitourinary symptoms and ill-defined conditions (5 sources) Dysuria; Translations: [Dysuria] Onset: 08-07-2022 Episodic Nonmalignant breast conditions (9 sources) Mammography abnormal; Translations: [Other abnormal and inconclusive findings on diagnostic imaging of breast] Onset: 05-27-2010 07-06-2016 Episodic Nutritional deficiencies (1 source) Deficiency of other specified B group vitamins; Translations: [B12 deficiency] Onset: 10-27-2022 Episodic Other aftercare (20 sources) Long-term current use of systemic steroid; Translations: [exterminator helper termite (current) use of systemic steroids] Onset: 05-23-2017 05-23-2017 Episodic Other aftercare (1 source) Other exterminator helper termite (current) drug therapy; Translations: [Encounter for long-term current use of medication] Onset: 05-18-2022 Episodic Other and unspecified benign neoplasm (9 sources) Benign neoplasm of colon; Translations: [Benign neoplasm of colon, unspecified] Onset: 11-12-2009 07-06-2016 Episodic Other bone disease and musculoskeletal deformities (20 sources) Osteopenia; Translations: [Other specified disorders of bone density and structure, unspecified site] Onset: 10-10-2009 07-06-2016 Episodic Other connective tissue disease (9 sources) Capsulitis; Translations: [Enthesopathy, unspecified] Onset: 05-25-2011 07-06-2016 Episodic Other diseases of bladder and urethra (9 sources) Prolapse of urethra; Translations: [Urethrocele] Onset: 12-12-2007 07-06-2016 Episodic Other gastrointestinal disorders (9 sources) Diarrhea; Translations: [Diarrhea, unspecified] Onset: 11-12-2009 07-06-2016 Episodic Other skin disorders (9 sources) Asteatosis cutis; Translations: [Xerosis cutis] Onset: 10-20-2011 07-06-2016 Episodic Other skin disorders (1 source) Disorder of the skin and subcutaneous tissue, unspecified; Translations: [Skin lesion] Onset: 10-13-2022 Episodic Spondylosis; intervertebral disc disorders; other back problems (9 sources) Low back pain; Translations: [Low back pain] Onset: 09-21-2008 07-06-2016 Episodic Unclassified (1 source) Breathing Problem; Translations: [Breathing Problem] Onset: 08-09-2017 Results Test Name Value Interpretation Reference Range Facil ity Vital Signs Date Time Vital Sign Value Performing Clinician Facility 05-06-2023 14:58-0500 Body temperature 99.19 [degF] Tay Athy PA-C Work Phone: [facility] 05-06-2023 14:58-0500 Body weight 55.34 kg Tay Athy PA-C Work Phone: [facility] 05-06-2023 14:58-0500 Diastolic blood pressure 98 mm[Hg] Tay Athy PA-C Work Phone: [facility] 05-06-2023 14:58-0500 Heart rate 108 /min Tay Athy PA-C Work Phone: [facility] 05-06-2023 14:58-0500 Respiratory rate 20 /min Tay Athy PA-C Work Phone: [facility] 05-06-2023 14:58-0500 SaO2% (BldA) [Mass fraction] 99 % Tay Athy PA-C Work Phone: [facility] 05-06-2023 14:58-0500 Systolic blood pressure 186 mm[Hg] Tay FARRELL-C Work Phone: [facility] 02-22-2023 08:55-0500 Diastolic blood pressure 92 mm[Hg] Divina Lana LICENSED PHYSICAL THERAPIST ASSISTANT.CUSTODIAN MANAGER Work Phone: [facility] 02-22-2023 08:55-0500 Systolic blood pressure 134 mm[Hg] Divina Lana LICENSED PHYSICAL THERAPIST ASSISTANT.CUSTODIAN MANAGER Work Phone: [facility] 02-22-2023 08:53-0500 Body weight 52.62 kg Divina Lana LICENSED PHYSICAL THERAPIST ASSISTANT.CUSTODIAN MANAGER Work Phone: [facility] 02-22-2023 08:53-0500 Heart rate 100 /min Divina Lana LICENSED PHYSICAL THERAPIST ASSISTANT.CUSTODIAN MANAGER Work Phone: [facility] 02-22-2023 08:53-0500 SaO2% (BldA) [Mass fraction] 98 % Divina Lana LICENSED PHYSICAL THERAPIST ASSISTANT.CUSTODIAN MANAGER Work Phone: [facility] 02-01-2023 19:01-0500 Body temperature 98.49 [degF] Emigdio Pendlebury LICENSED PHYSICAL THERAPIST ASSISTANT.CUSTODIAN MANAGER Work Phone: [facility] 02-01-2023 19:01-0500 Body weight 54.98 kg Emigdio Pendlebury LICENSED PHYSICAL THERAPIST ASSISTANT.CUSTODIAN MANAGER Work Phone: [facility] 02-01-2023 19:01-0500 Diastolic blood pressure 92 mm[Hg] Emigdio Pendlebury LICENSED PHYSICAL THERAPIST ASSISTANT.CUSTODIAN MANAGER Work Phone: [facility] 02-01-2023 19:01-0500 Heart rate 94 /min Emigdio Pendlebury LICENSED PHYSICAL THERAPIST ASSISTANT.CUSTODIAN MANAGER Work Phone: [facility] 02-01-2023 19:01-0500 Respiratory rate 21 /min Emigdio Pendlebury LICENSED PHYSICAL THERAPIST ASSISTANT.CUSTODIAN MANAGER Work Phone: [facility] 02-01-2023 19:01-0500 SaO2% (BldA) [Mass fraction] 97 % Emigdio Pendlebury LICENSED PHYSICAL THERAPIST ASSISTANT.CUSTODIAN MANAGER Work Phone: [facility] 02-01-2023 19:01-0500 Systolic blood pressure 142 mm[Hg] Emigdio Presley LICENSED PHYSICAL THERAPIST ASSISTANT.CUSTODIAN MANAGER Work Phone: [facility] 12-21-2022 13:29-0400 Body temperature 99.1 [degF] Brian Owens MD Work Phone: [facility] 12-21-2022 13:290400 Body weight 53.16 kg Brian Owens MD Work Phone: [facility] 12-21-2022 13:290400 Diastolic blood pressure 73 mm[Hg] Brian Owens MD Work Phone: [facility] 12-21-2022 13:29-0400 Heart rate 95 /min Brian Owens MD Work Phone: [facility] 12-21-2022 13:29-0400 Respiratory rate 18 /min Brian Owens MD Work Phone: [facility] 12-21-2022 13:29-0400 SaO2% (BldA) [Mass fraction] 97 % Brian Owens MD Work Phone: [facility] 12-21-2022 13:29-0400 Systolic blood pressure 125 mm[Hg] Brian Owens MD Work Phone: [facility] 09-15-2022 15:08-0400 Body height 154.9 cm Michelle Delaney LICENSED PHYSICAL THERAPIST ASSISTANT.CUSTODIAN MANAGER Work Phone: [facility] 09-15-2022 15:08-0400 Body temperature 98.4 [degF] Michelle Prashannenler-Nicholas LICENSED PHYSICAL THERAPIST ASSISTANT.CUSTODIAN MANAGER Work Phone: [facility] 09-15-2022 15:08-0400 Body weight 53.98 kg Michelle Martinez-Nicholas LICENSED PHYSICAL THERAPIST ASSISTANT.CUSTODIAN MANAGER Work Phone: [facility] 09-15-2022 15:08-0400 Diastolic blood pressure 80 mm[Hg] Michelle Prashannenler-Nicholas LICENSED PHYSICAL THERAPIST ASSISTANT.CUSTODIAN MANAGER Work Phone: [facility] 09-15-2022 15:08-0400 Heart rate 90 /min Michelle Praisler-Wood LICENSED PHYSICAL THERAPIST ASSISTANT.CUSTODIAN MANAGER Work Phone: [facility] 09-15-2022 15:08-0400 Respiratory rate 16 /min Michelle Praisler-Wood LICENSED PHYSICAL THERAPIST ASSISTANT.CUSTODIAN MANAGER Work Phone: [facility] 09-15-2022 15:08-0400 Systolic blood pressure 138 mm[Hg] Michelle Praisler-Wood LICENSED PHYSICAL THERAPIST ASSISTANT.CUSTODIAN MANAGER Work Phone: [facility] 08-12-2022 14:34-0400 Body temperature 99.1 [degF] Brian Owens MD Work Phone: [facility] 08-12-2022 14:34-0400 Body weight 54.25 kg Brian Owens MD Work Phone: [facility] 08-12-2022 14:34-0400 Diastolic blood pressure 62 mm[Hg] Brian Owens MD Work Phone: [facility] 08-12-2022 14:34-0400 Heart rate 77 /min Brian Owens MD Work Phone: [facility] 08-12-2022 14:34-0400 Respiratory rate 18 /min Brian Owens MD Work Phone: [facility] 08-12-2022 14:34-0400 SaO2% (BldA) [Mass fraction] 99 % Brian Owens MD Work Phone: [facility] 08-12-2022 14:34-0400 Systolic blood pressure 112 mm[Hg] Brian Owens MD Work Phone: [facility] 07-17-2022 12:09-0400 Body weight 54.43 kg Jose Luis Carnes LICENSED PHYSICAL THERAPIST ASSISTANT.WOOD LATHE OPERATOR Work Phone: [facility] 07-17-2022 12:09-0400 Diastolic blood pressure 82 mm[Hg] Jose Luis Carnes LICENSED PHYSICAL THERAPIST ASSISTANT.WOOD LATHE OPERATOR Work Phone: [facility] 07-17-2022 12:09-0400 Heart rate 88 /min Jose Luis Carnes LICENSED PHYSICAL THERAPIST ASSISTANT.WOOD LATHE OPERATOR Work Phone: [facility] 07-17-2022 12:09-0400 Respiratory rate 14 /min Jose Luis Carnes LICENSED PHYSICAL THERAPIST ASSISTANT.WOOD LATHE OPERATOR Work Phone: [facility] 07-17-2022 12:09-0400 Systolic blood pressure 144 mm[Hg] Jose Luis Carnes LICENSED PHYSICAL THERAPIST ASSISTANT.WOOD LATHE OPERATOR Work Phone: [facility] 06-12-2022 13:52-0400 Body temperature 99.61 [degF] Brian Owens MD Work Phone: [facility] 06-12-2022 13:52-0400 Body weight 55.34 kg Brian Owens MD Work Phone: [facility] 06-12-2022 13:52-0400 Diastolic blood pressure 96 mm[Hg] Brian Owens MD Work Phone: [facility] 06-12-2022 13:52-0400 Heart rate 103 /min Brian Owens MD Work Phone: [facility] 06-12-2022 13:52-0400 Respiratory rate 18 /min Brian Owens MD Work Phone: [facility] 06-12-2022 13:52-0400 Systolic blood pressure 144 mm[Hg] Brian Owens MD Work Phone: [facility] 02-16-2022 14:41-0500 Body weight 55.34 kg Brian Owens MD Work Phone: [facility] 02-16-2022 14:41-0500 Diastolic blood pressure 88 mm[Hg] Brian Owens MD Work Phone: [facility] 02-16-2022 14:41-0500 Heart rate 100 /min Brian Owens MD Work Phone: [facility] 02-16-2022 14:41-0500 Systolic blood pressure 142 mm[Hg] Brian Owens MD Work Phone: [facility] 01-15-2022 13:47-0400 Body height 154.9 cm Spencer Neri MD Work Phone: [facility] 01-15-2022 13:47-0400 Body temperature 98.01 [degF] Spencer Neri MD Work Phone: [facility] 01-15-2022 13:47-0400 Body weight 56.7 kg Spencer Neri MD Work Phone: [facility] 01-15-2022 13:47-0400 Diastolic blood pressure 78 mm[Hg] Spencer Neri MD Work Phone: [facility] 01-15-2022 13:47-0400 Heart rate 139 /min Spencer Neri MD Work Phone: [facility] 01-15-2022 13:47-0400 SaO2% (BldA) [Mass fraction] 95 % Spencer Neri MD Work Phone: [facility] 01-15-2022 13:47-0400 Systolic blood pressure 138 mm[Hg] Spencer Neri MD Work Phone: [facility] 01-05-2022 08:33-0400 Diastolic blood pressure 82 mm[Hg] Spencer Neri MD Work Phone: [facility] 01-05-2022 08:33-0400 Heart rate 68 /min Spencer Neri MD Work Phone: [facility] 01-05-2022 08:33-0400 Respiratory rate 16 /min Spencer Neri MD Work Phone: [facility] 01-05-2022 08:33-0400 SaO2% (BldA) [Mass fraction] 99 % Specner Neri MD Work Phone: [facility] 01-05-2022 08:33-0400 Systolic blood pressure 140 mm[Hg] Spencer Neri MD Work Phone: [facility] 01-05-2022 08:02-0400 Body temperature 97 [degF] Spencer Neri MD Work Phone: [facility] 01-05-2022 06:30-0400 Body height 154.9 cm Spencer Neri MD Work Phone: [facility] 01-05-2022 06:30-0400 Body weight 56.25 kg Spencer Neri MD Work Phone: [facility] 12-19-2021 13:41-0400 Body temperature 97.59 [degF] Brian Owens MD Work Phone: [facility] 12-19-2021 13:41-0400 Body weight 56.43 kg Brian Owens MD Work Phone: [facility] 12-19-2021 13:41-0400 Diastolic blood pressure 80 mm[Hg] Brian Owens MD Work Phone: [facility] 12-19-2021 13:41-0400 Heart rate 104 /min Brian Owens MD Work Phone: [facility] 12-19-2021 13:41-0400 Respiratory rate 16 /min Brian Owens MD Work Phone: [facility] 12-19-2021 13:41-0400 SaO2% (BldA) [Mass fraction] 97 % Brian Owens MD Work Phone: [facility] 12-19-2021 13:41-0400 Systolic blood pressure 146 mm[Hg] Brian Owens MD Work Phone: [facility] 10-20-2021 14:33-0400 Diastolic blood pressure 78 mm[Hg] Brian Owens MD Work Phone: [facility] 10-20-2021 14:33-0400 Systolic blood pressure 128 mm[Hg] Brian Owens MD Work Phone: [facility] 10-20-2021 13:46-0400 Body height 153.7 cm Brian Owens MD Work Phone: [facility] 10-20-2021 13:46-0400 Body weight 58.06 kg Brian Owens MD Work Phone: [facility] 10-20-2021 13:46-0400 Heart rate 99 /min Brian Owens MD Work Phone: [facility] 10-20-2021 13:46-0400 SaO2% (BldA) [Mass fraction] 96 % Brian Owens MD Work Phone: [facility] 08-18-2021 13:42-0400 Body weight 59.88 kg Brian Owens MD Work Phone: [facility] 08-18-2021 13:42-0400 Diastolic blood pressure 92 mm[Hg] Brian Owens MD Work Phone: [facility] 08-18-2021 13:42-0400 Heart rate 102 /min Brian Owens MD Work Phone: [facility] 08-18-2021 13:42-0400 Systolic blood pressure 150 mm[Hg] Brian Owens MD Work Phone: [facility] 08-09-2021 11:21-0400 Body temperature 97.7 [degF] Lisette Raza APRN.CUSTODIAN MANAGER Work Phone: [facility] 08-09-2021 11:21-0400 Body weight 61.87 kg Lisette Raza APRN.CUSTODIAN MANAGER Work Phone: [facility] 08-09-2021 11:21-0400 Diastolic blood pressure 84 mm[Hg] Lisette Raza APRN.CUSTODIAN MANAGER Work Phone: [facility] 08-09-2021 11:21-0400 Heart rate 93 /min Lisette Raza APRN.CUSTODIAN MANAGER Work Phone: [facility] 08-09-2021 11:21-0400 Respiratory rate 18 /min Lisette Raaz APRN.CUSTODIAN MANAGER Work Phone: [facility] 08-09-2021 11:21-0400 SaO2% (BldA) [Mass fraction] 96 % Lisette Raza APRN.CUSTODIAN MANAGER Work Phone: [facility] 08-09-2021 11:21-0400 Systolic blood pressure 136 mm[Hg] Lisette Raza APRN.CUSTODIAN MANAGER Work Phone: [facility] 06-16-2021 13:45-0400 Diastolic blood pressure 84 mm[Hg] Brian Owens MD Work Phone: [facility] 06-16-2021 13:45-0400 Heart rate 100 /min Brian Owens MD Work Phone: [facility] 06-16-2021 13:45-0400 Systolic blood pressure 138 mm[Hg] Brian Owens MD Work Phone: [facility] 01-19-2017 07:19-0400 BMI (Body Mass Index) 25.51 kg/m2 Opal Orozco [facility] Work Phone: 01-19-2017 07:19-0400 Body Temperature 97.3 [degF] Opal Ernesto [facility] Work Phone: 01-19-2017 07:19-0400 BP Diastolic 88 mm[Hg] Opal Ernesto [facility] Work Phone: 01-19-2017 07:19-0400 BP Systolic 121 mm[Hg] Opal Ernesto [facility] Work Phone: 01-19-2017 07:19-0400 Height 154.94 cm Opal Ernesto [facility] Work Phone: 01-19-2017 07:19-0400 Pulse (Heart Rate) 96 /min Opal Orozco [facility] Work Phone: 01-19-2017 07:19-0400 Respiratory Rate 22 /min Opal Ernesto [facility] Work Phone: 01-19-2017 07:19-0400 Weight 61.24 kg Opal Orozco [facility] [place] Work Phone: 10-14-2016 10:34-0400 BMI (Body Mass Index) 25.32 kg/m2 Randa Becerraho STAMPING PRESS OPERATOR [facility] Work Phone: 10-14-2016 10:34-0400 Body Temperature 98.1 [degF] Randa Hernanho STAMPING PRESS OPERATOR [facility] Work Phone: 10-14-2016 10:34-0400 BP Diastolic 86 mm[Hg] Randa Hernanho STAMPING PRESS OPERATOR [facility] Work Phone: 10-14-2016 10:34-0400 BP Systolic 130 mm[Hg] Randa Hernanho STAMPING PRESS OPERATOR [facility] Work Phone: 10-14-2016 10:34-0400 Height 154.94 cm Randa Hernanho STAMPING PRESS OPERATOR [facility] Work Phone: 10-14-2016 10:34-0400 Pulse (Heart Rate) 96 /min Randa Becerraho STAMPING PRESS OPERATOR [facility] Work Phone: 10-14-2016 10:34-0400 Respiratory Rate 18 /min Randa Hernanho STAMPING PRESS OPERATOR [facility] Work Phone: 10-14-2016 10:34-0400 Weight 60.78 kg Randa Hernanho STAMPING PRESS OPERATOR [facility] Work Phone: 08-03-2016 11:02-0400 BMI (Body Mass Index) 25.69 kg/m2 Lucy Putnam LPN [facility] Work Phone: 08-03-2016 11:02-0400 Body Temperature 98.6 [degF] Lucy Putnam LPN [facility] Work Phone: 08-03-2016 11:02-0400 BP Diastolic 91 mm[Hg] Lucy Putnam LPN [facility] Work Phone: 08-03-2016 11:02-0400 BP Systolic 143 mm[Hg] Lucy Putnam STAMPING PRESS OPERATOR [facility] Work Phone: 08-03-2016 11:02-0400 Height 154.94 cm Lucy Putnam STAMPING PRESS OPERATOR [facility] Work Phone: 08-03-2016 11:02-0400 Pulse (Heart Rate) 91 /min Lucy Putnam STAMPING PRESS OPERATOR [facility] Work Phone: 08-03-2016 11:02-0400 Pulse Oximetry 97 % Lucy Putnam STAMPING PRESS OPERATOR [facility] Work Phone: 08-03-2016 11:02-0400 Respiratory Rate 18 /min Lucy Putnam STAMPING PRESS OPERATOR [facility] Work Phone: 08-03-2016 11:02-0400 Weight 61.69 kg Lucy Jersey STAMPING PRESS OPERATOR [facility] Work Phone: Encounters Encounter Date Encounter Type Care Provider Facility Start: 05-06-2023 End: 05-06-2023 ambulatory BRIAN OWENS Facility:[facility] Start: 05-06-2023 End: 05-06-2023 Patient encounter procedure Tay Green PA-C Work Phone: [facility] Procedures Date Procedure Procedure Detail Performing Clinician Start: 08-11-2022 Lipid 1996 panel - Serum or Plasma Brian Owens MD Work Phone: Start: 07-17-2022 Urnls dip stick/tablet rgnt auto w/o microscopy Jose Luis Carnes LICENSED PHYSICAL THERAPIST ASSISTANT.WOOD LATHE OPERATOR Work Phone: Start: 05-04-2022 Dxa bone density study 1/> sites axial skel Brian Owens MD Work Phone: Start: 01-05-2022 Colonoscopy flx dx w/collj spec when pfrmd Jailyn Lubin PA-C Work Phone: Start: 01-05-2022 Colonoscopy Brian Owens MD Work Phone: Start: 10-18-2020 Mammography Brian Owens MD Work Phone: Start: 07-22-2016 Administration of steroid Steroid use, exterminator helper termite Opal garcia Start: 07-22-2016 End: 07-23-2016 Demo&/eval of pt utiliz aersl gen/neb/inhlr/ip Jean-Paul Simpson Work Phone: Start: 07-22-2016 Administration of steroid Steroid use, exterminator helper termite Barb [facility] Start: 07-22-2016 End: 07-23-2016 Evaluate pt use of inhaler Jean-Paul Ruano r Work Phone: Start: 12-04-2015 Colonoscopy Brian Owens MD Work Phone: Start: 01-09-2015 General examination of patient Health maintenance exam Opal Orozco Start: 01-09-2015 General examination of patient Health maintenance exam Barb Cole Plan of Treatment Date Care Activity Detail Author Start: 06-01-2030 Urine microalbumin profile [facility] Start: 08-12-2027 Lipid 1996 panel - S delilah or Plasma Lipid Screening [facility] Start: 08-12-2027 Lipid panel Lipid Screening [facility] Start: 08-12-2027 LIPID SCREEN LIPID SCREEN [facility] Start: 05-18-2027 LIPID SCREEN LIPID SCREEN [facility] Start: 01-05-2027 Colonoscopy COLONOSCOPY [facility] Start: 01-05-2027 COLORECTAL CANCER SCREENING COLORECTAL CANCER SCREENING [facility] Start: 01-05-2027 Screening for malign ant neoplasm of colon [facility] Start: 09-01-2026 LIPID SCREEN LIPID SCREEN [facility] Start: 06-27-2026 LIPID SCREEN LIPID SCREEN [facility] Start: 08-11-2025 DIABETES SCREEN DIABETES SCREEN [facility] Start: 08-11-2025 Diabetes Screening Diabetes Screenin g [facility] Start: 05-18-2025 DIABETES SCREEN DIABETES SCREEN [facility] Start: 09-01-2024 DIABETES SCREEN DIABETES SCREEN [facility] Start: 06-27-2024 DIABETES SCREEN DIABETES SCREEN [facility] Start: 02-27-2024 Annual PCP Team Safety Advisor kaylie Disease Visit Annual PCP Team Chronic Disease Visit [facility] Start: 02-27-2024 BP Controlled (<130/80) BP Controlle d (<130/80) [facility] Start: 02-23-2024 Annual PCP Team Safety Advisor kaylie Disease Visit Annual PCP Team Chronic Disease Visit [facility] Start: 12-22-2023 Annual PCP Team Safety Advisor kaylie Disease Visit Annual PCP Team Chronic Disease Visit [facility] Start: 12-22-2023 BP Controlled (<130/80) BP Controlle d (<130/80) [facility] Start: 10-20-2023 ANNUAL PCP TEAM MEDICAL RECEPTIONIST ASSISTANT KAYLIE DISEASE VISIT ANNUAL PCP TEAM CHRONIC DISEASE VISIT [facility] Start: 10-20-2023 BP CONTROLLED (<130/80) BP CONTROLLE D (<130/80) [facility] Start: 10-20-2023 SHINGRIX VACCINE (1 of 2) MALIK GRIX VACCINE (1 of 2) [facility] Immunizations Immunization Date Immunization Notes Care Provider Fa rachel 08-15-2020 COVID-19 vaccine, ag e 12+ yr (PFIZER-BIONTECH - PURPLE TOP) Brian Owens MD Work Phone: [facility] 07-25-2020 COVID-19 vaccine, ag e 12+ yr (PFIZER-BIONTECH - PURPLE TOP) Brian Owens MD Work Phone: [facility] 06-01-2020 tetanus toxoid, redu izaiah diphtheria toxoid, and acellular pertussis vaccine, adsorbed Brian Owens MD Work Phone: [facility] 01-05-2018 influenza virus vacc ine, unspecified formulation Brian wOens MD Work Phone: [facility] 12-20-2012 influenza virus vacc ine, unspecified formulation Brian Owens MD Work Phone: [facility] 12-20-2012 tetanus toxoid, redu izaiah diphtheria toxoid, and acellular pertussis vaccine, adsorbed Brian Owens MD Work Phone: [facility] 03-31-2012 influenza virus vacc ine, unspecified formulation Brian Owens MD Work Phone: [facility] 02-25-2011 influenza virus vacc ine, unspecified formulation Brian Owens MD Work Phone: [facility] 01-27-2010 influenza virus vacc ine, unspecified formulation Brian Owens MD Work Phone: [facility] 02-05-2009 novel influenza-H1N1 -09, all formulations Brian Owens MD Work Phone: [facility] Work Phone: 01-21-2009 influenza virus vacc ine, unspecified formulation Brian Owens MD Work Phone: [facility] Work Phone: 12-27-2007 pneumococcal polysaccharide vaccine, 23 valent Brian Owens MD Work Phone: [facility] Work Phone: 02-21-2007 influenza virus vacc ine, unspecified formulation Brian Owens MD Work Phone: [facility] Work Phone: 02-04-2006 influenza virus vacc ine, unspecified formulation Brian Owens MD Work Phone: [facility] Work Phone: 11-24-2002 tetanus and diphther ia toxoids, adsorbed, preservative free, for adult use (2 Lf of tetanus toxoid and 2 Lf of diphtheria toxoid) Brian Owens MD Work Phone: [facility] Work Phone: 01-27-2001 pneumococcal polysaccharide vaccine, 23 valent Brian Owens MD Work Phone: [facility] Work Phone: Payers Date Payer Category Payer Unknown [id number] 2009 Unknown [employer] PPO OOS [id number] 2009-Present [phone] [address] [place] [address] PPO [id number] 2009 Unknown [employer] PPO OOS [id number] 2009-Present [phone] [address] [place] [address] [facility] [id number] Social History Date Type Detail Facility Start: 06-16-2013 End: 12-19-2021 Tobacco smoking status NHIS Never smoked tobacco [facility] Start: 04-15-2021 End: 05-06-2023 Alcohol intake Current non-drinker of alcohol (finding) [facility] Start: 09-22-2019 End: 04-06-2022 History SDOH Alcohol Frequency 1 [facility] Start: 09-22-2019 End: 04-06-2022 History SDOH Social Connections Phone 5 [facility] Start: 09-22-2019 End: 04-06-2022 History SDOH Social Connections Muslim 3 [facility] Start: 09-22-2019 History SDOH Physica l Activity DPW 6 [facility] Start: 09-21-2019 End: 04-06-2022 History SDOH Financial 4 [facility] Start: 09-21-2019 End: 04-06-2022 History SDOH Food Scarcity 2 [facility] Start: 07-20-2019 Education 12 [facility] Start: 06-16-2013 End: 12-19-2021 Tobacco Comment Father used pipe in childhood home. Spouse does not smoke. [facility] Start: 1965 Sex Assigned At Female C [facility] Start: 06-17-2021 End: 02-16-2022 Exposure to SARS-CoV-2 (event) Not sure [facility] Start: 06-16-2013 End: 12-19-2021 Tobacco use and exposure Smokeless tobacco non-user [facility] Work Phone: Start: 11-24-2021 End: 04-06-2022 History SDOH Alcohol Std Drinks 0 [facility] Start: 11-24-2021 End: 04-06-2022 History SDOH Physical Activity DPW 7 [facility] Start: 11-14-2021 End: 11-24-2021 Exposure to SARS-CoV-2 (event) Yes [facility] Start: 04-06-2022 History SDOH Social Connections Get Together 98 [facility] Start: 04-06-2022 End: 08-12-2022 History of Social function [facility] Start: 04-06-2022 End: 08-12-2022 Social connection and isolation panel [facility] How often do you get together with friends or relatives? Patient refused [facility] Are you now , , , , never or living with a partner? [facility] How often to you hav e a drink containing alcohol? Never [facility] How hard is it for y ou to pay for the very basics like food, housing, medical care, and heating Not very hard [facility] Do you feel stress - tense, restless, nervous, or anxious, or unable to sleep at night because your mind is troubled all the time - these days [OSQ] To some extent [facility] (I/We) worried wheth er (my/our) food would run out before (I/we) got money to buy more. Never true [facility] In the past 12 month s, was there a time when you were not able to pay the mortgage or rent on time? No [facility] Start: 01-23-2020 Gender identity Identifies as female gender (finding) [facility] Start: 01-23-2020 Sexual orientation Heterosexual (fin ding) [facility] Goals Date Patient Goal Desired Activity /State Personal health goal Clinical Notes 01-09-2015 to 05-06-2023 Tay Green PA-C - 05/06/2023 3:53 PM ESTPatient InstructionsTelephone Encounter - Diane Maciel LPN - 04/22/2023 4:59 PM ESTTelephone Encounter - Jailyn Hernandez RN - 03/03/2023 9:30 AM EST Note Date & Type Note Facility 05-06-2023 Note HNO ID: [id number] Author: TAY GREEN PA-C Service: ? Author Type: Physician Outside Sales Representative Insurance Type: Progress Notes Filed: 05/06/2023 15:55 Note Text: This note was created using [employer]. Subjective Mallory Macdonald is a 57 year old female. HPI Presents with a chief complaint of cough wheezing and shortness of breath. She has had nasal congestion that started about a week ago. States that it started in her chest. She been coughing up green. She does have a history of asthma with COPD. She is on 10 mg prednisone daily. She did not notice a fever at home, temp here 99.2. Blood pressure was noted to be elevated. She is taking her blood pressure medicines as prescribed. She does have a PCP appointment in 2 weeks. Review of Systems Constitutional: Positive for fatigue. HENT: Positive for congestion. Negative for ear pain, sinus pressure and sinus pain. Respiratory: Positive for cough, chest tightness, shortness of breath and wheezing. Cardiovascular: Negative. Gastrointestinal: Negative. Genitourinary: Negative. Musculoskeletal: Negative. All other systems reviewed and are negative. 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 90 capsule 0 Miscellaneous Medical Supply Metronidazole and Aloe compounded ointment for rosacea triamcinolone acetonide (KENALOG) 0.1 % cream Apply 1 application to affected area three times a day as needed (rash on back and leg). Apply sparingly to area for rash/itching. Up to 14 days per rash 45 g 0 VENTOLIN HFA 90 mcg/actuation inhaler Inhale 2 Puffs as instructed every 4 hours as needed for wheezing/shortness of breath. 1 Each 1 desoximetasone (TOPICORT LP) 0.05 % cream APPLY TO HANDS EVERY DAY AT NIGHT, WHEN FLARED COVER WITH COTTON GLOVES OVERNIGHT albuterol (PROVENTIL) 2.5 mg /3 mL (0.083 %) nebulizer solution Use 3 mL via nebulizer every 4 hours as needed for wheezing/shortness of breath. Use over 5-15minutes. 150 mL 1 acetylcysteine (MUCOMYST) 100 mg/mL (10 %) solution Inhale 4 mL as instructed two times a day as needed. 240 mL 5 ipratropium (ATROVENT) 0.02 % nebulizer solution Inhale by nebulizer over 5-15 minutes four (4) times a day as needed for wheezing and shortness of breath 250 mL 2 predniSONE (DELTASONE) 20 mg tablet Take 10 mg by mouth once daily. promethazine (PHENERGAN) 25 mg suppository 1 Suppository by RECTAL route every 6 hours as needed. 10 Suppository 4 amitriptyline (ELAVIL) 25 mg tablet Take 3 tablets by mouth daily at bedtime. 270 tablet 3 ALPRAZolam (XANAX) 0.5 mg tablet Take 1 tablet by mouth twice daily as needed for anxiety for up to 90 days. 90 tablet 0 amLODIPine (NORVASC) 2.5 mg tablet Take 1 tablet by mouth once daily. 90 tablet 3 meclizine (ANTIVERT) 12.5 mg tab Take 1 tablet by mouth four times daily as needed. 100 tablet 1 predniSONE (DELTASONE) 5 mg tablet Take 2 tablets by mouth once daily. Adjust dose for flare up as needed 120 tablet 12 chlordiazePOXIDE-clidinium (LIBRAX) 5-2.5 mg per capsule Take 1 capsule by mouth before meals and at bedtime. 120 capsule 3 omeprazole (PRILOSEC) 40 mg capsule Take 1 capsule by mouth once daily. 90 capsule 3 metoprolol succinate ER (TOPROL XL) 25 mg 24 hr tablet Take 1 tablet by mouth once daily. 90 tablet 3 rizatriptan (MAXALT) 10 mg tablet Take 1 tablet by mouth as needed (for headaches). May repeat in 2 hours if needed 12 tablet 11 dicyclomine (BENTYL) 10 mg capsule Take one(1) tablet three(3) times daily before meals and Take one(1) tablet daily at bedtime. 120 capsule 12 triamcinolone acetonide (NASACORT) 55 mcg nasal inhaler Use 2 Sprays in the nose once daily. famotidine (PEPCID) 20 mg tablet Take 1 tablet by mouth at bedtime as needed. azithromycin (ZITHROMAX Z-CESIA) 250 mg tablet Take 2 tablets day one, then, 1 tablet daily until gone. 6 tablet 0 pregabalin (LYRICA) 100 mg capsule Take 1 capsule by mouth three times a day for 30 days. As directed 90 capsule 0 predniSONE (DELTASONE) 10 mg tablet Take 10 mg by mouth once daily. Dosing depending upon how patient is feeling (Patient not taking: Reported on 12/21/2022) B1/B2/NIACIN/B12/PROTEASE (VITAMINS [id number] ORAL) Take by mouth. (Patient not taking: Reported on 02/22/2023) No current facility-ad (more content not included)... [facility] 05-06-2023 Note HNO ID: [id number] Author: PRECIOUS RAY RT(R) Service: ? Author Type: Verification Lead Type: Progress Notes Filed: 05/06/2023 15:25 Note Text: Radiology Service Progress Note PATIENT NAME: Mallory Macdonald DATE OF SERVICE: May 06, 2023 TIME: 3:17 PM PATIENT IDENTITY VERIFICATION COMPLETED USING TWO (2) IDENTIFIERS: Name and Date of confirmed by patient verbally. FALL SCREENING: Has the patient had 2 falls in the last year or 1 fall with injury or currently using an Ambulatory Assistive Device (Walker, Cane, Wheelchair, Crutches, etc.)? No PATIENT GENDER DATA: Female. status: : No status: NO. PATIENT RELEVANT IMPLANT DATA REVIEWED: Yes PATIENT PRESENTS WITH AN IMPLANTABLE OR ATTACHED HOME IMPROVEMENT CONTRACTOR: No RADIOLOGY DEPARTMENT: General X-ray: Exam(s) Completed: Chest X-Ray PERIPHERAL IV DATA: Not applicable SIGNED BY: RT Rhianna(R) May 06, 2023 3:17 PM [facility] 05-06-2023 Note HNO ID: [id number] Author: LAURA ARMENTA PSYD Service: ? Author Type: Psychologist Type: Progress Notes Filed: 05/07/2023 11:37 Note Text: [facility] Progress Note THIS IS A ZOOM VISIT Mallory Macdonald 05/05/2023 [id number] Provider: Laura Cisneros PSYD Time: Approximately 45 minutes was spent in therapy. Parties Present: Patient Patient Presentation/Concerns: Albina indicated still being in pain from shingles. She reported that she stopped the pain pills. She reported some additional energy and has begun cleaning things out again, as her family has requested. This is difficult for her to let go of things. Her daughter is still not speaking to her. We spoke about strategies for communicating with her. She stated lacking purpose not working recently or seeing her grandson. We spoke about refocusing on the positives. She stated having some issues with Afib/heart and states having sinus issues. She will be contacting her doctor tomorrow. . Mental Status: Mood: neutral Affect: mood-congruent Thoughts/Associations:goal directed Suicidal/Homicidal Ideation: None expressed or evidenced Patient denies any suicidal or homicidal ideation, plan or intent at this time. Other Observations: None Therapy Focus Self-care and Stress management MEDICATIONS: Per medical record: Current Outpatient Medications Medication Sig temazepam (RESTORIL) 7.5 mg capsule Take 1 capsule by mouth daily at bedtime for 90 days. pregabalin (LYRICA) 100 mg capsule Take 1 capsule by mouth three times a day for 30 days. As directed [employer] Metronidazole and Aloe compounded ointment for rosacea triamcinolone acetonide (KENALOG) 0.1 % cream Apply 1 application to affected area three times a day as needed (rash on back and leg). Apply sparingly to area for rash/itching. Up to 14 days per rash VENTOLIN HFA 90 mcg/actuation inhaler Inhale 2 Puffs as instructed every 4 hours as needed for wheezing/shortness of breath. desoximetasone (TOPICORT LP) 0.05 % cream APPLY TO HANDS EVERY DAY AT NIGHT, WHEN FLARED COVER WITH COTTON GLOVES OVERNIGHT albuterol (PROVENTIL) 2.5 mg /3 mL (0.083 %) nebulizer solution Use 3 mL via nebulizer every 4 hours as needed for wheezing/shortness of breath. Use over 5-15minutes. acetylcysteine (MUCOMYST) 100 mg/mL (10 %) solution Inhale 4 mL as instructed two times a day as needed. ipratropium (ATROVENT) 0.02 % nebulizer solution Inhale by nebulizer over 5-15 minutes four (4) times a day as needed for wheezing and shortness of breath predniSONE (DELTASONE) 20 mg tablet Take 10 mg by mouth once daily. (Patient not taking: Reported on 02/01/2023) promethazine (PHENERGAN) 25 mg suppository 1 Suppository by RECTAL route every 6 hours as needed. amitriptyline (ELAVIL) 25 mg tablet Take 3 tablets by mouth daily at bedtime. ALPRAZolam (XANAX) 0.5 mg tablet Take 1 tablet by mouth twice daily as needed for anxiety for up to 90 days. amLODIPine (NORVASC) 2.5 mg tablet Take 1 tablet by mouth once daily. meclizine (ANTIVERT) 12.5 mg tab Take 1 tablet by mouth four times daily as needed. predniSONE (DELTASONE) 5 mg tablet Take 2 tablets by mouth once daily. Adjust dose for flare up as needed chlordiazePOXIDE-clidinium (LIBRAX) 5-2.5 mg per capsule Take 1 capsule by mouth before meals and at bedtime. omeprazole (PRILOSEC) 40 mg capsule Take 1 capsule by mouth once daily. metoprolol succinate ER (TOPROL XL) 25 mg 24 hr tablet Take 1 tablet by mouth once daily. predniSONE (DELTASONE) 10 mg tablet Take 10 mg by mouth once daily. Dosing depending upon how patient is feeling (Patient not taking: Reported on 12/21/2022) rizatriptan (MAXALT) 10 mg tablet Take 1 tablet by mouth as needed (for headaches). May repeat in 2 hours if needed dicyclomine (BENTYL) 10 mg capsule Take one(1) tablet three(3) times daily before meals and Take one(1) tablet daily at bedtime. triamcinolone acetonide (NASACORT) 55 mcg nasal inhaler Use 2 Sprays in the nose once daily. famotidine (PEPCID) 20 mg tablet Take 1 tablet by mouth at bedtime as needed. B1/B2/NIACIN/B12/PROTEASE (VITAMINS [id number] ORAL) Take by mouth. (Patient not taking: Reported on 02/22/2023) No current facility-administered medications for this visit. Psychiatric Medication Issues: No change from previous appointment DIAGNOSIS: Depression Treatment Modality/Interventions: Cognitive Behavioral TREATMENT ASSESSMENT/PROGRESS: Stable TREATMENT PLAN/GOALS: Continue in therapy focusing on stress management and affect management. CBT for anxiety. Mindful eating. Next appointment: 2 weeks Laura Cisneros PSYD [facility] 05-06-2023 History of Present illness Narrative This note was created using NoteWriter. Subjective Mallory Macdonald is a 57 year old female. HPI Presents with a chief complaint of cough wheezing and shortness of breath. She has had nasal congestion that started about a week ago. States that it started in her chest. She been coughing up green. She does have a history of asthma with COPD. She is on 10 mg prednisone daily. She did not notice a fever at home, temp here 99.2. Blood pressure was noted to be elevated. She is taking her blood pressure medicines as prescribed. She does have a PCP appointment in 2 weeks. Review of Systems Constitutional: Positive for fatigue. HENT: Positive for congestion. Negative for ear pain, sinus pressure and sinus pain. Respiratory: Positive for cough, chest tightness, shortness of breath and wheezing. Cardiovascular: Negative. Gastrointestinal: Negative. Genitourinary: Negative. Musculoskeletal: Negative. All other systems reviewed and are negative. 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 90 capsule 0 [employer] Metronidazole and Aloe compounded ointment for rosacea triamcinolone acetonide (KENALOG) 0.1 % cream Apply 1 application to affected area three times a day as needed (rash on back and leg). Apply sparingly to area for rash/itching. Up to 14 days per rash 45 g 0 VENTOLIN HFA 90 mcg/actuation inhaler Inhale 2 Puffs as instructed every 4 hours as needed for wheezing/shortness of breath. 1 Each 1 desoximetasone (TOPICORT LP) 0.05 % cream APPLY TO HANDS EVERY DAY AT NIGHT, WHEN FLARED COVER WITH COTTON GLOVES OVERNIGHT albuterol (PROVENTIL) 2.5 mg /3 mL (0.083 %) nebulizer solution Use 3 mL via nebulizer every 4 hours as needed for wheezing/shortness of breath. Use over 5-15minutes. 150 mL 1 acetylcysteine (MUCOMYST) 100 mg/mL (10 %) solution Inhale 4 mL as instructed two times a day as needed. 240 mL 5 ipratropium (ATROVENT) 0.02 % nebulizer solution Inhale by nebulizer over 5-15 minutes four (4) times a day as needed for wheezing and shortness of breath 250 mL 2 predniSONE (DELTASONE) 20 mg tablet Take 10 mg by mouth once daily. promethazine (PHENERGAN) 25 mg suppository 1 Suppository by RECTAL route every 6 hours as needed. 10 Suppository 4 amitriptyline (ELAVIL) 25 mg tablet Take 3 tablets by mouth daily at bedtime. 270 tablet 3 ALPRAZolam (XANAX) 0.5 mg tablet Take 1 tablet by mouth twice daily as needed for anxiety for up to 90 days. 90 tablet 0 amLODIPine (NORVASC) 2.5 mg tablet Take 1 tablet by mouth once daily. 90 tablet 3 meclizine (ANTIVERT) 12.5 mg tab Take 1 tablet by mouth four times daily as needed. 100 tablet 1 predniSONE (DELTASONE) 5 mg tablet Take 2 tablets by mouth once daily. Adjust dose for flare up as needed 120 tablet 12 chlordiazePOXIDE-clidinium (LIBRAX) 5-2.5 mg per capsule Take 1 capsule by mouth before meals and at bedtime. 120 capsule 3 omeprazole (PRILOSEC) 40 mg capsule Take 1 capsule by mouth once daily. 90 capsule 3 metoprolol succinate ER (TOPROL XL) 25 mg 24 hr tablet Take 1 tablet by mouth once daily. 90 tablet 3 rizatriptan (MAXALT) 10 mg tablet Take 1 tablet by mouth as needed (for headaches). May repeat in 2 hours if needed 12 tablet 11 dicyclomine (BENTYL) 10 mg capsule Take one(1) tablet three(3) times daily before meals and Take one(1) tablet daily at bedtime. 120 capsule 12 triamcinolone acetonide (NASACORT) 55 mcg nasal inhaler Use 2 Sprays in the nose once daily. famotidine (PEPCID) 20 mg tablet Take 1 tablet by mouth at bedtime as needed. azithromycin (ZITHROMAX Z-CESIA) 250 mg tablet Take 2 tablets day one, then, 1 tablet daily until gone. 6 tablet 0 pregabalin (LYRICA) 100 mg capsule Take 1 capsule by mouth three times a day for 30 days. As directed 90 capsule 0 predniSONE (DELTASONE) 10 mg tablet Take 10 mg by mouth once daily. Dosing depending upon how patient is feeling (Patient not taking: Reported on 12/21/2022) B1/B2/NIACIN/B12/PROTEASE (VITAMINS [id number] ORAL) Take by mouth. (Patient not taking: Reported on 02/22/2023) No current facility-administered medications for this visit. PAST SURGICAL HISTORY Procedure Laterality Date BIOPSY BREAST OPEN INCISIONAL Bx of breast, incisional CAUTERY CERVIX CRYOCAUTERY INITIAL/REPEAT Done in 1988 and paps since DELIVERY ONLY , low cervical COLONOSCOPY FLX DX W/COLLJ SPEC WHEN PFRMD 07/20/2000 Colonoscopy COLONOSCOPY FLX DX W/COLLJ SPEC WHEN PFRMD 09/15/2012 Colonoscopy COLONOSCOPY FLX DX W/COLLJ SPEC WHEN PFRMD 12/04/2015 Colonoscopy (MAC) COLONOSCOPY SCREENING 12/2021 COLPOSCOPY CERVIX UPPER/ADJACENT VAGINA 1988 Colposcopy COLSC FLX W/RMVL OF TUMOR POLYP LESION SNARE TQ 11/12/2009 CORRECT BUNION,SIMPLE Bunion CYSTOURETHROSCOPY Cystoscopy/BLADDER STRETCHING CYSTOURETHROSCOPY [address] Stout [facility] EGD 12/21/2008 ESOPHAGOGASTRODUODENOSCOPY TRANSORAL DIAGNOSTIC 09/15/2012 EGD ESOPHAGOGASTRODUODENOSCOPY TRANSORAL DIAGNOSTIC 12/04/2015 EGD (MAC) LAPAROSCOPY SURG CHOLECYSTECTOMY Cholecystectomy, lap - before 2007 LIG/TRNSXJ FLP TUBE ABDL/VAG APPR UNI/BI Tubal ligation PAST SURGICAL HISTORY OF Hernia repair, umbilical PAST SURGICAL HISTORY OF sinus surgery x 2 PAST SURGICAL HISTORY OF wisdom teeth extraction SIGMOIDOSCOPY FLX DX W/COLLJ SPEC BR/WA IF PFRMD 10/08/2006 with sedation VAGINAL HYSTERECTOMY UTERUS 250 GM/< 07/2005 Hysterectomy, vaginal/ovaries remain FAMILY HISTORY Problem Relation Age of Onset Hypertension Mother Heart Mother atrial fib/CHF COPD Mother Emphysema Mother other (KIDNEY STONES) Mother other (PAH) Mother Heart Father CO at age 35 Hypertension Father Diabetes Father Seizures Father Alzheimer's Disease Father Hypertension Brother other (Still Born) Brother Cancer Maternal Grandmother COLON Cancer Maternal Grandfather COLON Seizures Maternal Grandfather Heart Maternal Grandfather 2- CO's Heart Paternal Grandmother CO Heart Paternal Grandfather CO Social History Tobacco Use Smoking status: Never Smokeless tobacco: Never Tobacco comments: Father used pipe in childhood home. Spouse does not smoke. Vaping Use Vaping Use: Never used Substance Use Topics Alcohol use: No Drug use: No Objective BP 186/98 Pulse 108 Temp 37.3 C (99.2 F) Resp 20 Wt 55.3 kg (122 lb) LMP 05/04/2005 SpO2 99% BMI 23.05 kg/m Physical Exam Vitals reviewed. Constitutional: Appearance: Normal appearance. HENT: Head: Normocephalic and atraumatic. Right Ear: Tympanic membrane, ear canal and external ear normal. Left Ear: Tympanic membrane, ear canal and external ear normal. Nose: Congestion present. Mouth/Throat: Mouth: Mucous membranes are moist. Pharynx: Oropharynx is clear. Cardiovascular: Rate and Rhythm: Normal rate and regular rhythm. Heart sounds: Normal heart sounds. Pulmonary: Effort: Pulmonary effort is normal. No respiratory distress. Breath sounds: Wheezing and rhonchi present. No rales. Musculoskeletal: Cervical back: Neck supple. Skin: General: Skin is warm and dry. Neurological: Mental Status: She is alert. Assessment and Plan ASSESSMENT/PLAN: 1. Bronchitis - ICD9: 490, ICD10: J40 Chest x-ray shows no pneumonia. Will treat for bronchitis in the setting of COPD. Given prescription for Zithromax. Discussed doing a 5-day burst of 40 mg prednisone. She states she has plenty at home to up that for 5 days. She does have a PCP appointment in 2 weeks. Blood pressure did come down upon rechecking. She is not symptomatic. - XR CHEST 2V FRONTAL/LAT Tay Green PA-C documented in this encounter [facility] 05-06-2023 Instructions Tay Green PA-C - 05/06/2023 3:40 PM EST Increase prednisone to 40mg daily for 5 days, then can drop back to normal daily 10 mg documented in this encounter [facility] 04-22-2023 Miscellaneous Notes Patient calling she had said she had 30 Lyrica left but did not realize she has bottle of 90 that she has not even started yet. She wanted to make sure note was sent. documented in this encounter [facility] 04-20-2023 Note HNO ID: [id number] Author: LAURA ARMENTA PSYD Service: ? Author Type: Psychologist Type: Progress Notes Filed: 04/25/2023 21:53 Note Text: [facility] Progress Note THIS IS A ZOOM VISIT Mallory Macdonald 04/20/2023 [id number] Provider: Laura Cisneros PSYD Time: Approximately 45 minutes was spent in therapy. Parties Present: Patient Patient Presentation/Concerns: Albina reported feeling sad and anxious. She recently had an outbreak of shingles which left her in pain. She has been taking pain medication. Her daughter is concerned about her use of pain medication and refuses to speak to her. We spoke about ways of communicating to her daughter and a plan for weaning of medication with her doctor. Her also has cancer and treatments. She indicated being ready to get back out of the house since her illness. I asked her to check in as needed and contact me if symptoms/mood worsen. . Mental Status: Mood: neutral Affect: mood-congruent Thoughts/Associations:goal directed Suicidal/Homicidal Ideation: None expressed or evidenced Patient denies any suicidal or homicidal ideation, plan or intent at this time. Other Observations: None Therapy Focus Self-care and Stress management MEDICATIONS: Per medical record: Current Outpatient Medications Medication Sig temazepam (RESTORIL) 7.5 mg capsule Take 1 capsule by mouth daily at bedtime for 90 days. pregabalin (LYRICA) 100 mg capsule Take 1 capsule by mouth three times a day for 30 days. As directed [employer] Metronidazole and Aloe compounded ointment for rosacea triamcinolone acetonide (KENALOG) 0.1 % cream Apply 1 application to affected area three times a day as needed (rash on back and leg). Apply sparingly to area for rash/itching. Up to 14 days per rash VENTOLIN HFA 90 mcg/actuation inhaler Inhale 2 Puffs as instructed every 4 hours as needed for wheezing/shortness of breath. desoximetasone (TOPICORT LP) 0.05 % cream APPLY TO HANDS EVERY DAY AT NIGHT, WHEN FLARED COVER WITH COTTON GLOVES OVERNIGHT albuterol (PROVENTIL) 2.5 mg /3 mL (0.083 %) nebulizer solution Use 3 mL via nebulizer every 4 hours as needed for wheezing/shortness of breath. Use over 5-15minutes. acetylcysteine (MUCOMYST) 100 mg/mL (10 %) solution Inhale 4 mL as instructed two times a day as needed. ipratropium (ATROVENT) 0.02 % nebulizer solution Inhale by nebulizer over 5-15 minutes four (4) times a day as needed for wheezing and shortness of breath predniSONE (DELTASONE) 20 mg tablet Take 10 mg by mouth once daily. (Patient not taking: Reported on 02/01/2023) promethazine (PHENERGAN) 25 mg suppository 1 Suppository by RECTAL route every 6 hours as needed. amitriptyline (ELAVIL) 25 mg tablet Take 3 tablets by mouth daily at bedtime. ALPRAZolam (XANAX) 0.5 mg tablet Take 1 tablet by mouth twice daily as needed for anxiety for up to 90 days. amLODIPine (NORVASC) 2.5 mg tablet Take 1 tablet by mouth once daily. meclizine (ANTIVERT) 12.5 mg tab Take 1 tablet by mouth four times daily as needed. predniSONE (DELTASONE) 5 mg tablet Take 2 tablets by mouth once daily. Adjust dose for flare up as needed chlordiazePOXIDE-clidinium (LIBRAX) 5-2.5 mg per capsule Take 1 capsule by mouth before meals and at bedtime. omeprazole (PRILOSEC) 40 mg capsule Take 1 capsule by mouth once daily. metoprolol succinate ER (TOPROL XL) 25 mg 24 hr tablet Take 1 tablet by mouth once daily. predniSONE (DELTASONE) 10 mg tablet Take 10 mg by mouth once daily. Dosing depending upon how patient is feeling (Patient not taking: Reported on 12/21/2022) rizatriptan (MAXALT) 10 mg tablet Take 1 tablet by mouth as needed (for headaches). May repeat in 2 hours if needed dicyclomine (BENTYL) 10 mg capsule Take one(1) tablet three(3) times daily before meals and Take one(1) tablet daily at bedtime. triamcinolone acetonide (NASACORT) 55 mcg nasal inhaler Use 2 Sprays in the nose once daily. famotidine (PEPCID) 20 mg tablet Take 1 tablet by mouth at bedtime as needed. B1/B2/NIACIN/B12/PROTEASE (VITAMINS [id number] ORAL) Take by mouth. (Patient not taking: Reported on 02/22/2023) No current facility-administered medications for this visit. Psychiatric Medication Issues: No change from previous appointment DIAGNOSIS: Depression Treatment Modality/Interventions: Cognitive Behavioral TREATMENT ASSESSMENT/PROGRESS: Stable TREATMENT PLAN/GOALS: Continue in therapy focusing on stress management and affect management. CBT for anxiety. Mindful eating. Next appointment: 2 weeks Laura Cisneros PSYD [facility] 03-03-2023 Miscellaneous Notes Patient notified of recommendations, verbalizes understanding of instructions. Kelsea Rodriguez LPN Please let her know that she does not need to wait a specific time between advil and Lyrica, the two are actually ok to take together if needed. I will increase the dose to 100 mg three times daily. I sent a new script but ok to take 2 pills of the 50 mg dose to use those up. Pt called and is notified of providers message and instructions. Pt voices understanding. Pt asking how long to wait after the Lyrica to take the Advil. Pt would also like the provider to increase the dose on the Lyrica and send it to [facility] in [place]. Jailyn Hernandez, RN It is okay to take Advil between the Lyrica doses. She is on a very low dose, we can increase the Lyrica too if she would like to try a higher dose. Patient calling with question, she wakes up at 3 to 4 am each night with severe shingles pain. Patient asking if she can take advil between times of the Pregabalin doses? She said the Pregabalin is not doing a whole lot for the pain. Please advise documented in this encounter [facility] 02-26-2023 Note HNO ID: [id number] Author: BRIAN OWENS MD Service: ? Author Type: Physician Type: Progress Notes Filed: 04/01/2023 23:23 Note Text: This note was created using [employer]. Subjective Mallory Macdonald is a 57 year old female. Patient presents with: 2 month Follow up SUBJECTIVE: Mallory Macdonald is a 57 year old year old lady here today for 2 month follow up appointment for review of medical conditions. Since last seen, had to see EC then pulmonology. Shingles got worse sine saw Divina Wednesday AM. Prior to rash starting had woken up at 3AM with severe left leg pain. Had to take Advil. Not itchy. Just painful. Tolerated valacyclovir. Pregabalin helping for the nerve pain. Knows when wearing off. Still getting new blisters. Red patches. Noted had issues with hearing and voice after was on plane right home. Cough got worse after that. Negative for COVID. Past month on compounded metronidazole/Aloe by Dr. Prince for rosacea. Not helping much. PAST MEDICAL HISTORY Diagnosis Date Asthma with chronic obstructive pulmonary disease (COPD) 04/15/2005 Benign neoplasm of colon Dysplasia of cervix, unspecified mild in past GERD (gastroesophageal reflux disease) 12/02/2010 IBS (irritable bowel syndrome) 10/31/2010 Interstitial cystitis 01/29/2010 PMH - PAST MEDICAL HISTORY OF GASTRITIS PMH - PAST MEDICAL HISTORY OF BILIARY DYSKINESIA PMH - PAST MEDICAL HISTORY OF POST TRAUMATIC STRESS DISORDER PMH - PAST MEDICAL HISTORY OF OSTEOPOROSIS Unspecified hemorrhoids without mention of complication Hemorrhoids Current Outpatient Medications Medication Sig pregabalin (LYRICA) 50 mg capsule Take 1 capsule by mouth two times a day for 14 days. valACYclovir (VALTREX) 1 gram tablet Take 1 tablet by mouth three times a day for 7 days. VENTOLIN HFA 90 mcg/actuation inhaler Inhale 2 Puffs as instructed every 4 hours as needed for wheezing/shortness of breath. desoximetasone (TOPICORT LP) 0.05 % cream APPLY TO HANDS EVERY DAY AT NIGHT, WHEN FLARED COVER WITH COTTON GLOVES OVERNIGHT albuterol (PROVENTIL) 2.5 mg /3 mL (0.083 %) nebulizer solution Use 3 mL via nebulizer every 4 hours as needed for wheezing/shortness of breath. Use over 5-15minutes. acetylcysteine (MUCOMYST) 100 mg/mL (10 %) solution Inhale 4 mL as instructed two times a day as needed. ipratropium (ATROVENT) 0.02 % nebulizer solution Inhale by nebulizer over 5-15 minutes four (4) times a day as needed for wheezing and shortness of breath promethazine (PHENERGAN) 25 mg suppository 1 Suppository by RECTAL route every 6 hours as needed. temazepam (RESTORIL) 7.5 mg capsule Take 1 capsule by mouth daily at bedtime for 90 days. amitriptyline (ELAVIL) 25 mg tablet Take 3 tablets by mouth daily at bedtime. ALPRAZolam (XANAX) 0.5 mg tablet Take 1 tablet by mouth twice daily as needed for anxiety for up to 90 days. amLODIPine (NORVASC) 2.5 mg tablet Take 1 tablet by mouth once daily. meclizine (ANTIVERT) 12.5 mg tab Take 1 tablet by mouth four times daily as needed. predniSONE (DELTASONE) 5 mg tablet Take 2 tablets by mouth once daily. Adjust dose for flare up as needed chlordiazePOXIDE-clidinium (LIBRAX) 5-2.5 mg per capsule Take 1 capsule by mouth before meals and at bedtime. omeprazole (PRILOSEC) 40 mg capsule Take 1 capsule by mouth once daily. metoprolol succinate ER (TOPROL XL) 25 mg 24 hr tablet Take 1 tablet by mouth once daily. rizatriptan (MAXALT) 10 mg tablet Take 1 tablet by mouth as needed (for headaches). May repeat in 2 hours if needed dicyclomine (BENTYL) 10 mg capsule Take one(1) tablet three(3) times daily before meals and Take one(1) tablet daily at bedtime. triamcinolone acetonide (NASACORT) 55 mcg nasal inhaler Use 2 Sprays in the nose once daily. famotidine (PEPCID) 20 mg tablet Take 1 tablet by mouth at bedtime as needed. predniSONE (DELTASONE) 20 mg tablet Take 10 mg by mouth once daily. (Patient not taking: Reported on 02/01/2023) predniSONE (DELTASONE) 10 mg tablet Take 10 mg by mouth once daily. Dosing depending upon how patient is feeling (Patient not taking: Reported on 12/21/2022) B1/B2/NIACIN/B12/PROTEASE (VITAMINS [id number] ORAL) Take by mouth. (Patient not taking: Reported on 02/22/2023) No current facility-administered medications for this visit. Review of Systems Objective BP 122/68 Pulse 97 Temp 36.8 ?C (98.2 ?F) Resp 18 Wt 53.4 kg (117 lb 12.8 oz) LMP 05/04/2005 SpO2 98% BMI 22.26 kg/m? Physical Exam Musculoskeletal: Comments: No pitting edema. Skin: Assessment and Plan Encounter Diagnosis ICD-10-CM 1. Herpes zoster without complication B02.9 DISCONTINUED: pregabalin (LYRICA) 50 mg capsule Lumbar dermatomes on left. Finish antiviral; add topical steroid. Continue Lyrica--may increase dose to TID. 2. Asthma with chronic obstructive pulmonary disease (COPD) J44.89 Exacerbation improved. Continue present management 3. (more content not included)... [facility] 02-22-2023 Miscellaneous Notes Seen in office for appointment today. documented in this encounter [facility] 02-22-2023 Note HNO ID: [id number] Author: Divina Del Rosario APRN.MIGUELINA Service: ? Author Type: Nurse Practitioner Type: Progress Notes Filed: 02/22/2023 9:52 AM Note Text: SUBJECTIVE Mallory Macdonald is a 57 year old female here today for acute concern. Chief Complaint Patient presents with: Rash: lower mid back and pain that radiated down into left leg symptoms started Th evening. HPI Mallory Macdonald is a 57 year old female. She is an established patient of Brian Owens MD. She is here today acutely for concerns of a rash to her lower back. Onset was evening with noticing some pain (4-5 days ago) but no rash. The rash is painful and pain radiates in to the left leg. Tried taking Advil. Helped a little bit. Rash was first seen last night, blistered. Pain was what first started. Pain jackman. Her medications were reviewed today and her list is now up to date. Medications Current Outpatient Medications Medication Sig VENTOLIN HFA 90 mcg/actuation inhaler Inhale 2 Puffs as instructed every 4 hours as needed for wheezing/shortness of breath. desoximetasone (TOPICORT LP) 0.05 % cream APPLY TO HANDS EVERY DAY AT NIGHT, WHEN FLARED COVER WITH COTTON GLOVES OVERNIGHT albuterol (PROVENTIL) 2.5 mg /3 mL (0.083 %) nebulizer solution Use 3 mL via nebulizer every 4 hours as needed for wheezing/shortness of breath. Use over 5-15minutes. acetylcysteine (MUCOMYST) 100 mg/mL (10 %) solution Inhale 4 mL as instructed two times a day as needed. ipratropium (ATROVENT) 0.02 % nebulizer solution Inhale by nebulizer over 5-15 minutes four (4) times a day as needed for wheezing and shortness of breath promethazine (PHENERGAN) 25 mg suppository 1 Suppository by RECTAL route every 6 hours as needed. temazepam (RESTORIL) 7.5 mg capsule Take 1 capsule by mouth daily at bedtime for 90 days. amitriptyline (ELAVIL) 25 mg tablet Take 3 tablets by mouth daily at bedtime. ALPRAZolam (XANAX) 0.5 mg tablet Take 1 tablet by mouth twice daily as needed for anxiety for up to 90 days. amLODIPine (NORVASC) 2.5 mg tablet Take 1 tablet by mouth once daily. meclizine (ANTIVERT) 12.5 mg tab Take 1 tablet by mouth four times daily as needed. chlordiazePOXIDE-clidinium (LIBRAX) 5-2.5 mg per capsule Take 1 capsule by mouth before meals and at bedtime. omeprazole (PRILOSEC) 40 mg capsule Take 1 capsule by mouth once daily. metoprolol succinate ER (TOPROL XL) 25 mg 24 hr tablet Take 1 tablet by mouth once daily. rizatriptan (MAXALT) 10 mg tablet Take 1 tablet by mouth as needed (for headaches). May repeat in 2 hours if needed dicyclomine (BENTYL) 10 mg capsule Take one(1) tablet three(3) times daily before meals and Take one(1) tablet daily at bedtime. triamcinolone acetonide (NASACORT) 55 mcg nasal inhaler Use 2 Sprays in the nose once daily. famotidine (PEPCID) 20 mg tablet Take 1 tablet by mouth at bedtime as needed. pregabalin (LYRICA) 50 mg capsule Take 1 capsule by mouth two times a day for 14 days. valACYclovir (VALTREX) 1 gram tablet Take 1 tablet by mouth three times a day for 7 days. predniSONE (DELTASONE) 20 mg tablet Take 10 mg by mouth once daily. (Patient not taking: Reported on 02/01/2023) predniSONE (DELTASONE) 5 mg tablet Take 2 tablets by mouth once daily. Adjust dose for flare up as needed predniSONE (DELTASONE) 10 mg tablet Take 10 mg by mouth once daily. Dosing depending upon how patient is feeling (Patient not taking: Reported on 12/21/2022) B1/B2/NIACIN/B12/PROTEASE (VITAMINS [id number] ORAL) Take by mouth. (Patient not taking: Reported on 02/22/2023) No current facility-administered medications for this visit. ALLERGIES Allergen Reactions Macadamia Nut Oil Vomiting Macadamia NUTS Symbicort [Budesoni* GI Upset, Vomiting Severe nausea and vomiting Trazodone Swelling tongue swelled Albuterol GI Upset Headache Augmentin [Amoxicil* Intolerance Throat tight but no swelling, wheezing, shortness of breath. Doxycycline Vomiting Dulera [Mometasone-* Mental Status Change dizzy/spinning vertigo; also severe headaches Dust Erythromycin GI Upset nausea Fosamax [Alendronat* GI Upset GI upset with 70 mg once weekly tablet. Pt is able to take daily tablet Iodine Shortness of Breath, Other: See Comments Warmth felt in throat/chest. Tightness in chest. Levaquin [Levofloxa* Mental Status Change Loopy and dizzy. Can take cipro Lipitor [Atorvastat* GI Upset Nausea Metamucil [Psyllium] Diarrhea Diarrhea with fibers Qvar [Beclomethason* GI Upset Sulfa (Sulfonamide * Hives Xolair [Omalizumab] GI Upset vomit, not help breathing Epinephrine Other: See Comments Dizzy, lightheaded ACTIVE PROBLEM LIST Primary Hypertension - 01/28/2021 Palpitations - 01/28/2021 Vitamin D Deficiency - 09/01/2017 Current Chronic Use of Systemic Steroids - 05/23/2017 Recurrent Major Depressive Disorder, in Partial Remission (Hcc) - 08/10/2016 Hld (Hyper (more content not included)... [facility] 02-22-2023 History of Present illness Narrative Images from the original note were not included. SUBJECTIVE Mallory Macdonald is a 57 year old female here today for acute concern. Chief Complaint Patient presents with: Rash: lower mid back and pain that radiated down into left leg symptoms started Thday evening. HPI Mallory Macdonald is a 57 year old female. She is an established patient of Brian Owens MD. She is here today acutely for concerns of a rash to her lower back. Onset was Thursday evening with noticing some pain (4-5 days ago) but no rash. The rash is painful and pain radiates in to the left leg. Tried taking Advil. Helped a little bit. Rash was first seen last night, blistered. Pain was what first started. Pain jackman. Her medications were reviewed today and her list is now up to date. Medications Current Outpatient Medications Medication Sig VENTOLIN HFA 90 mcg/actuation inhaler Inhale 2 Puffs as instructed every 4 hours as needed for wheezing/shortness of breath. desoximetasone (TOPICORT LP) 0.05 % cream APPLY TO HANDS EVERY DAY AT NIGHT, WHEN FLARED COVER WITH COTTON GLOVES OVERNIGHT albuterol (PROVENTIL) 2.5 mg /3 mL (0.083 %) nebulizer solution Use 3 mL via nebulizer every 4 hours as needed for wheezing/shortness of breath. Use over 5-15minutes. acetylcysteine (MUCOMYST) 100 mg/mL (10 %) solution Inhale 4 mL as instructed two times a day as needed. ipratropium (ATROVENT) 0.02 % nebulizer solution Inhale by nebulizer over 5-15 minutes four (4) times a day as needed for wheezing and shortness of breath promethazine (PHENERGAN) 25 mg suppository 1 Suppository by RECTAL route every 6 hours as needed. temazepam (RESTORIL) 7.5 mg capsule Take 1 capsule by mouth daily at bedtime for 90 days. amitriptyline (ELAVIL) 25 mg tablet Take 3 tablets by mouth daily at bedtime. ALPRAZolam (XANAX) 0.5 mg tablet Take 1 tablet by mouth twice daily as needed for anxiety for up to 90 days. amLODIPine (NORVASC) 2.5 mg tablet Take 1 tablet by mouth once daily. meclizine (ANTIVERT) 12.5 mg tab Take 1 tablet by mouth four times daily as needed. chlordiazePOXIDE-clidinium (LIBRAX) 5-2.5 mg per capsule Take 1 capsule by mouth before meals and at bedtime. omeprazole (PRILOSEC) 40 mg capsule Take 1 capsule by mouth once daily. metoprolol succinate ER (TOPROL XL) 25 mg 24 hr tablet Take 1 tablet by mouth once daily. rizatriptan (MAXALT) 10 mg tablet Take 1 tablet by mouth as needed (for headaches). May repeat in 2 hours if needed dicyclomine (BENTYL) 10 mg capsule Take one(1) tablet three(3) times daily before meals and Take one(1) tablet daily at bedtime. triamcinolone acetonide (NASACORT) 55 mcg nasal inhaler Use 2 Sprays in the nose once daily. famotidine (PEPCID) 20 mg tablet Take 1 tablet by mouth at bedtime as needed. pregabalin (LYRICA) 50 mg capsule Take 1 capsule by mouth two times a day for 14 days. valACYclovir (VALTREX) 1 gram tablet Take 1 tablet by mouth three times a day for 7 days. predniSONE (DELTASONE) 20 mg tablet Take 10 mg by mouth once daily. (Patient not taking: Reported on 02/01/2023) predniSONE (DELTASONE) 5 mg tablet Take 2 tablets by mouth once daily. Adjust dose for flare up as needed predniSONE (DELTASONE) 10 mg tablet Take 10 mg by mouth once daily. Dosing depending upon how patient is feeling (Patient not taking: Reported on 12/21/2022) B1/B2/NIACIN/B12/PROTEASE (VITAMINS [id number] ORAL) Take by mouth. (Patient not taking: Reported on 02/22/2023) No current facility-administered medications for this visit. ALLERGIES Allergen Reactions Macadamia Nut Oil Vomiting Macadamia NUTS Symbicort [Budesoni* GI Upset, Vomiting Severe nausea and vomiting Trazodone Swelling tongue swelled Albuterol GI Upset Headache Augmentin [Amoxicil* Intolerance Throat tight but no swelling, wheezing, shortness of breath. Doxycycline Vomiting Dulera [Mometasone-* Mental Status Change dizzy/spinning vertigo; also severe headaches Dust Erythromycin GI Upset nausea Fosamax [Alendronat* GI Upset GI upset with 70 mg once weekly tablet. Pt is able to take daily tablet Iodine Shortness of Breath, Other: See Comments Warmth felt in throat/chest. Tightness in chest. Levaquin [Levofloxa* Mental Status Change Loopy and dizzy. Can take cipro Lipitor [Atorvastat* GI Upset Nausea Metamucil [Psyllium] Diarrhea Diarrhea with fibers Qvar [Beclomethason* GI Upset Sulfa (Sulfonamide * Hives Xolair [Omalizumab] GI Upset vomit, not help breathing Epinephrine Other: See Comments Dizzy, lightheaded ACTIVE PROBLEM LIST Primary Hypertension - 01/28/2021 Palpitations - 01/28/2021 Vitamin D Deficiency - 09/01/2017 Current Chronic Use of Systemic Steroids - 05/23/2017 Recurrent Major Depressive Disorder, in Partial Remission (Hcc) - 08/10/2016 Hld (Hyperlipidemia) - 12/01/2013 Ibs (Irritable Bowel Syndrome) - 10/31/2010 Anxiety - 04/01/2010 Osteopenia - 10/10/2009 Comment: BMD 09/07/09 Asthma With Chronic Obstructive Pulmonary Disease (Copd) - 04/15/2005 Social History Tobacco Use Smoking status: Never Smokeless tobacco: Never Tobacco comments: Father used pipe in childhood home. Spouse does not smoke. Vaping Use Vaping Use: Never used Substance Use Topics Alcohol use: No Drug use: No Review of Systems Respiratory: Negative. Cardiovascular: Negative. Skin: Positive for rash. OBJECTIVE BP 134/92 Pulse 100 Wt 116 lb (52.6kg) SpO2 98% LMP 05/04/2005 Physical Exam Vitals and nursing note reviewed. Constitutional: General: She is awake. She is not in acute distress. Appearance: Normal appearance. She is well-developed and well-groomed. She is not ill-appearing, toxic-appearing or diaphoretic. HENT: Head: Normocephalic. Right Ear: External ear normal. Left Ear: External ear normal. Nose: Nose normal. Eyes: General: Vision grossly intact. Conjunctiva/sclera: Conjunctivae normal. Pupils: Pupils are equal, round, and reactive to light. Neck: Vascular: No JVD. Trachea: Trachea normal. Pulmonary: Effort: Pulmonary effort is normal. No accessory muscle usage, prolonged expiration or respiratory distress. Musculoskeletal: Cervical back: Neck supple. Skin: General: Skin is warm and dry. Capillary Refill: Capillary refill takes less than 2 seconds. Findings: Rash present. Rash is vesicular. Comments: Areas of light erythema with small vesicular lesions Neurological: General: No focal deficit present. Mental Status: She is alert and oriented to person, place, and time. Mental status is at baseline. Psychiatric: Attention and Perception: Attention and perception normal. Mood and Affect: Mood and affect normal. Speech: Speech normal. Behavior: Behavior normal. Behavior is cooperative. Thought Content: Thought content normal. Cognition and Memory: Cognition and memory normal. Judgment: Judgment normal. ASSESSMENT/PLAN: 1. Disseminated herpes zoster - ICD9: 053.79, ICD10: B02.7 Since rash has just appeared we can try antiviral therapy to try and help shorten the course. Rx for Valtrex, on prednisone chronically and finishing a taper, can give Lyrica for pain that occurs at night and for use x1 dose during the day for the next 2 weeks for pain. Will opt for Lyrica since she had nausea with gabapentin and might tolerate this better. Discussed course of shingles, contagiousness, etiology. - PREGABALIN 50 MG CAPSULE - VALACYCLOVIR 1 GRAM TABLET Portions of this note have been entered by ancillary staff. I have reviewed and when necessary edited, so that they are an adequate record of my encounter with this patient Please note that parts of this document were created using voice recognition software and therefore may contain grammatical errors. Patient verbalizes understanding of instructions from today's visit and in agreement with treatment plan. Questions answered. Agrees to call the office if questions, concerns of issues with acute symptoms not improving or if they worsen. See diagnoses and orders for additional plan(s). Allergies and medications were reviewed, list was updated, and refills given if needed. Past medical, surgical, social, and family history reviewed and updated as appropriate. Encouraged proper diet & exercise as well as compliance with taking medications. Age-appropriate health preventative measures were discussed. Return if symptoms worsen or fail to improve, for Keep next scheduled appointment.. Divina Del Rosario APRN-MIGUELINA documented in this encounter [facility] 02-19-2023 Miscellaneous Notes Last office visit: 12/21/22 Next appointment scheduled: 02/26/23 Patient phones requesting refills as follows: Requested Prescriptions Pending Prescriptions Disp Refills VENTOLIN HFA 90 mcg/actuation inhaler 1 Each 1 Sig: Inhale 2 Puffs as instructed every 4 hours as needed for wheezing/shortness of breath. Please review and advise. Dottie Ospina LPN documented in this encounter [facility] 02-03-2023 Miscellaneous Notes Prior Authorization History chlordiazePOXIDE-clidinium (LIBRAX) 5-2.5 mg per capsule Approval Details Authorized from February 12, 2023 to February 13, 2024 Information received electronically from payer [facility] for 30 days. Pharmacy notified. documented in this encounter [facility] 02-01-2023 Note HNO ID: [id number] Author: Katarzyna Rick RT(R) Service: Radiology Author Type: Technologist Type: Progress Notes Filed: 02/01/2023 7:23 PM Note Text: Radiology Service Progress Note PATIENT NAME: Mallory Macdonald DATE OF SERVICE: February 01, 2023 TIME: 7:16 PM PATIENT IDENTITY VERIFICATION COMPLETED USING TWO (2) IDENTIFIERS: Name and Date of confirmed by patient verbally. FALL SCREENING: Has the patient had 2 falls in the last year or 1 fall with injury or currently using an Ambulatory Assistive Device (Walker, Cane, Wheelchair, Crutches, etc.)? No PATIENT GENDER DATA: Female. status: : No status: NO. PATIENT RELEVANT IMPLANT DATA REVIEWED: Not Applicable RADIOLOGY DEPARTMENT: General X-ray: Exam(s) Completed: Chest X-Ray PERIPHERAL IV DATA: Not applicable SIGNED BY: RT Daniel(R) February 01, 2023 7:16 PM [facility] 02-01-2023 Note HNO ID: [id number] Author: Emigdio Presley APRN.CUSTODIAN MANAGER Service: ? Author Type: Nurse Practitioner Type: Progress Notes Filed: 02/01/2023 7:49 PM Note Text: Subjective HPI Nontoxic-appearing female presents urgent care chief complaint cough nasal congestion ear discomfort. States ear discomfort started on a flight home from [place] 2 weeks ago. Nasal congestion cough developed shortly after. Has been using OTC medications this helps some. No known sick contacts. Denies any significant discomfort. No loss of hearing or otorrhea or ear trauma. History of asthma. Feels like shortness of breath has slightly worsened. Has had a recent increase sputum production with cough. Risk factors asthma with COPD. Denies any fevers nausea vomiting abdominal pain chest pain hemoptysis change in bowel or bladder habits. Past medical history prescription medication use allergies reviewed. BP 142/92 Pulse 94 Temp 36.9 ?C (98.5 ?F) Resp 21 Wt 55 kg (121 lb 3.2 oz) LMP 05/04/2005 SpO2 97% BMI 22.90 kg/m? 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 PMH - PAST MEDICAL HISTORY OF OSTEOPOROSIS Unspecified hemorrhoids without mention of complication Hemorrhoids PAST SURGICAL HISTORY Procedure Laterality Date BIOPSY BREAST OPEN INCISIONAL Bx of breast, incisional CAUTERY CERVIX CRYOCAUTERY INITIAL/REPEAT Done in 1988 and paps since DELIVERY ONLY , low cervical COLONOSCOPY FLX DX W/COLLJ SPEC WHEN PFRMD 07/20/2000 Colonoscopy COLONOSCOPY FLX DX W/COLLJ SPEC WHEN PFRMD 09/15/2012 Colonoscopy COLONOSCOPY FLX DX W/COLLJ SPEC WHEN PFRMD 12/04/2015 Colonoscopy (MAC) COLONOSCOPY SCREENING 12/2021 COLPOSCOPY CERVIX UPPER/ADJACENT VAGINA 1988 Colposcopy COLSC FLX W/RMVL OF TUMOR POLYP LESION SNARE TQ 11/12/2009 CORRECT BUNION,SIMPLE Bunion CYSTOURETHROSCOPY Cystoscopy/BLADDER STRETCHING CYSTOURETHROSCOPY [address] Stout [facility] EGD 12/21/2008 ESOPHAGOGASTRODUODENOSCOPY TRANSORAL DIAGNOSTIC 09/15/2012 EGD ESOPHAGOGASTRODUODENOSCOPY TRANSORAL DIAGNOSTIC 12/04/2015 EGD (MAC) LAPAROSCOPY SURG CHOLECYSTECTOMY Cholecystectomy, lap - before 2007 LIG/TRNSXJ FLP TUBE ABDL/VAG APPR UNI/BI Tubal ligation PAST SURGICAL HISTORY OF Hernia repair, umbilical PAST SURGICAL HISTORY OF sinus surgery x 2 PAST SURGICAL HISTORY OF wisdom teeth extraction SIGMOIDOSCOPY FLX DX W/COLLJ SPEC BR/WA IF PFRMD 10/08/2006 with sedation VAGINAL HYSTERECTOMY UTERUS 250 GM/< 07/2005 Hysterectomy, vaginal/ovaries remain ALLERGIES Macadamia Nut Oil, Symbicort [Budesonide-Formoterol], Trazodone, Albuterol, Augmentin [Amoxicillin-Pot Clavulanate], Doxycycline, Dulera [Mometasone-Formoterol], Dust, Erythromycin, Fosamax [Alendronate Sodium], Iodine, Levaquin [Levofloxacin], Lipitor [Atorvastatin], Metamucil [Psyllium], Qvar [Beclomethasone Dipropionate], Sulfa (Sulfonamide Antibiotics), Xolair [Omalizumab], and Epinephrine MEDICATIONS albuterol (PROVENTIL) 2.5 mg /3 mL (0.083 %) nebulizer solution Use 3 mL via nebulizer every 4 hours as needed for wheezing/shortness of breath. Use over 5-15minutes. acetylcysteine (MUCOMYST) 100 mg/mL (10 %) solution Inhale 4 mL as instructed two times a day as needed. ipratropium (ATROVENT) 0.02 % nebulizer solution Inhale by nebulizer over 5-15 minutes four (4) times a day as needed for wheezing and shortness of breath predniSONE (DELTASONE) 20 mg tablet Take 10 mg by mouth once daily. promethazine (PHENERGAN) 25 mg suppository 1 Suppository by RECTAL route every 6 hours as needed. temazepam (RESTORIL) 7.5 mg capsule Take 1 capsule by mouth daily at bedtime for 90 days. amitriptyline (ELAVIL) 25 mg tablet Take 3 tablets by mouth daily at bedtime. ALPRAZolam (XANAX) 0.5 mg tablet Take 1 tablet by mouth twice daily as needed for anxiety for up to 90 days. amLODIPine (NORVASC) 2.5 mg tablet Take 1 tablet by mouth once daily. meclizine (ANTIVERT) 12.5 mg tab Take 1 tablet by mouth four times daily as needed. VENTOLIN HFA 90 mcg/actuation inhaler Inhale 2 Puffs as instructed every 4 hours as needed for wheezing/shortness of breath. predniSONE (DELTASONE) 5 mg tablet Take 2 tablets by mouth once daily. Adjust dose for flare up as needed chlordiazePOXIDE-clidinium (LIBRAX) 5-2.5 mg per capsule Take 1 capsule by mouth before meals and at bedtime. omeprazole (PRILOSEC) 40 mg capsule Take 1 capsule by mo (more content not included)... [facility] 02-01-2023 History of Present illness Narrative Subjective HPI Nontoxic-appearing female presents urgent care chief complaint cough nasal congestion ear discomfort. States ear discomfort started on a flight home from [place] 2 weeks ago. Nasal congestion cough developed shortly after. Has been using OTC medications this helps some. No known sick contacts. Denies any significant discomfort. No loss of hearing or otorrhea or ear trauma. History of asthma. Feels like shortness of breath has slightly worsened. Has had a recent increase sputum production with cough. Risk factors asthma with COPD. Denies any fevers nausea vomiting abdominal pain chest pain hemoptysis change in bowel or bladder habits. Past medical history prescription medication use allergies reviewed. 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 PMH - PAST MEDICAL HISTORY OF OSTEOPOROSIS Unspecified hemorrhoids without mention of complication Hemorrhoids PAST SURGICAL HISTORY Procedure Laterality Date BIOPSY BREAST OPEN INCISIONAL Bx of breast, incisional CAUTERY CERVIX CRYOCAUTERY INITIAL/REPEAT Done in 1988 and paps since DELIVERY ONLY , low cervical COLONOSCOPY FLX DX W/COLLJ SPEC WHEN PFRMD 07/20/2000 Colonoscopy COLONOSCOPY FLX DX W/COLLJ SPEC WHEN PFRMD 09/15/2012 Colonoscopy COLONOSCOPY FLX DX W/COLLJ SPEC WHEN PFRMD 12/04/2015 Colonoscopy (MAC) COLONOSCOPY SCREENING 12/2021 COLPOSCOPY CERVIX UPPER/ADJACENT VAGINA 1988 Colposcopy COLSC FLX W/RMVL OF TUMOR POLYP LESION SNARE TQ 11/12/2009 CORRECT BUNION,SIMPLE Bunion CYSTOURETHROSCOPY Cystoscopy/BLADDER STRETCHING CYSTOURETHROSCOPY [address] Stout [facility] EGD 12/21/2008 ESOPHAGOGASTRODUODENOSCOPY TRANSORAL DIAGNOSTIC 09/15/2012 EGD ESOPHAGOGASTRODUODENOSCOPY TRANSORAL DIAGNOSTIC 12/04/2015 EGD ([facility]) LAPAROSCOPY SURG CHOLECYSTECTOMY Cholecystectomy, lap - before 2007 LIG/TRNSXJ FLP TUBE ABDL/VAG APPR UNI/BI Tubal ligation PAST SURGICAL HISTORY OF Hernia repair, umbilical PAST SURGICAL HISTORY OF sinus surgery x 2 PAST SURGICAL HISTORY OF wisdom teeth extraction SIGMOIDOSCOPY FLX DX W/COLLJ SPEC BR/WA IF PFRMD 10/08/2006 with sedation VAGINAL HYSTERECTOMY UTERUS 250 GM/< 07/2005 Hysterectomy, vaginal/ovaries remain ALLERGIES Macadamia Nut Oil, Symbicort [Budesonide-Formoterol], Trazodone, Albuterol, Augmentin [Amoxicillin-Pot Clavulanate], Doxycycline, Dulera [Mometasone-Formoterol], Dust, Erythromycin, Fosamax [Alendronate Sodium], Iodine, Levaquin [Levofloxacin], Lipitor [Atorvastatin], Metamucil [Psyllium], Qvar [Beclomethasone Dipropionate], Sulfa (Sulfonamide Antibiotics), Xolair [Omalizumab], and Epinephrine MEDICATIONS albuterol (PROVENTIL) 2.5 mg /3 mL (0.083 %) nebulizer solution Use 3 mL via nebulizer every 4 hours as needed for wheezing/shortness of breath. Use over 5-15minutes. acetylcysteine (MUCOMYST) 100 mg/mL (10 %) solution Inhale 4 mL as instructed two times a day as needed. ipratropium (ATROVENT) 0.02 % nebulizer solution Inhale by nebulizer over 5-15 minutes four (4) times a day as needed for wheezing and shortness of breath predniSONE (DELTASONE) 20 mg tablet Take 10 mg by mouth once daily. promethazine (PHENERGAN) 25 mg suppository 1 Suppository by RECTAL route every 6 hours as needed. temazepam (RESTORIL) 7.5 mg capsule Take 1 capsule by mouth daily at bedtime for 90 days. amitriptyline (ELAVIL) 25 mg tablet Take 3 tablets by mouth daily at bedtime. ALPRAZolam (XANAX) 0.5 mg tablet Take 1 tablet by mouth twice daily as needed for anxiety for up to 90 days. amLODIPine (NORVASC) 2.5 mg tablet Take 1 tablet by mouth once daily. meclizine (ANTIVERT) 12.5 mg tab Take 1 tablet by mouth four times daily as needed. VENTOLIN HFA 90 mcg/actuation inhaler Inhale 2 Puffs as instructed every 4 hours as needed for wheezing/shortness of breath. predniSONE (DELTASONE) 5 mg tablet Take 2 tablets by mouth once daily. Adjust dose for flare up as needed chlordiazePOXIDE-clidinium (LIBRAX) 5-2.5 mg per capsule Take 1 capsule by mouth before meals and at bedtime. omeprazole (PRILOSEC) 40 mg capsule Take 1 capsule by mouth once daily. metoprolol succinate ER (TOPROL XL) 25 mg 24 hr tablet Take 1 tablet by mouth once daily. predniSONE (DELTASONE) 10 mg tablet Take 10 mg by mouth once daily. Dosing depending upon how patient is feeling (Patient not taking: Reported on 12/21/2022) rizatriptan (MAXALT) 10 mg tablet Take 1 tablet by mouth as needed (for headaches). May repeat in 2 hours if needed dicyclomine (BENTYL) 10 mg capsule Take one(1) tablet three(3) times daily before meals and Take one(1) tablet daily at bedtime. triamcinolone acetonide (NASACORT) 55 mcg nasal inhaler Use 2 Sprays in the nose once daily. famotidine (PEPCID) 20 mg tablet Take 1 tablet by mouth at bedtime as needed. B1/B2/NIACIN/B12/PROTEASE (VITAMINS [id number] ORAL) Take by mouth. (Patient not taking: Reported on 12/21/2022) FAMILY HISTORY Problem Relation Age of Onset Hypertension Mother Heart Mother atrial fib/CHF COPD Mother Emphysema Mother other (KIDNEY STONES) Mother other (PAH) Mother Heart Father CO at age 35 Hypertension Father Diabetes Father Seizures Father Alzheimer's Disease Father Hypertension Brother other (Still Born) Brother Cancer Maternal Grandmother COLON Cancer Maternal Grandfather COLON Seizures Maternal Grandfather Heart Maternal Grandfather 2- CO's Heart Paternal Grandmother CO Heart Paternal Grandfather CO Social History Tobacco Use Smoking status: Never Smokeless tobacco: Never Tobacco comments: Father used pipe in childhood home. Spouse does not smoke. Vaping Use Vaping Use: Never used Substance Use Topics Alcohol use: No Drug use: No Review of Systems Constitutional: Negative for chills, fever and malaise/fatigue. HENT: Positive for congestion, ear pain and sinus pain. Negative for ear discharge and sore throat. Eyes: Negative for blurred vision, pain, discharge and redness. Respiratory: Positive for cough. Negative for hemoptysis, sputum production, shortness of breath, wheezing and stridor. Cardiovascular: Negative for chest pain. Gastrointestinal: Negative for abdominal pain, diarrhea, nausea and vomiting. Musculoskeletal: Negative for myalgias. Skin: Negative for itching and rash. Neurological: Negative for dizziness and headaches. Objective Physical Exam Constitutional: General: She is not in acute distress. Appearance: She is not diaphoretic. HENT: Head: Normocephalic. Jaw: No trismus, tenderness, swelling or pain on movement. Right Ear: Tympanic membrane, ear canal and external ear normal. Left Ear: Tympanic membrane, ear canal and external ear normal. Nose: Congestion present. Right Sinus: Maxillary sinus tenderness present. Left Sinus: Maxillary sinus tenderness present. Mouth/Throat: Mouth: Mucous membranes are moist. Pharynx: Oropharynx is clear. Uvula midline. No pharyngeal swelling, oropharyngeal exudate, posterior oropharyngeal erythema or uvula swelling. Eyes: Conjunctiva/sclera: Conjunctivae normal. Pupils: Pupils are equal, round, and reactive to light. Cardiovascular: Rate and Rhythm: Normal rate and regular rhythm. Heart sounds: Normal heart sounds. Pulmonary: Effort: Pulmonary effort is normal. No tachypnea, accessory muscle usage or respiratory distress. Breath sounds: No stridor. Wheezing present. No rhonchi or rales. Abdominal: General: There is no distension. Palpations: Abdomen is soft. Tenderness: There is no abdominal tenderness. There is no guarding or rebound. Musculoskeletal: Cervical back: Normal range of motion and neck supple. No edema, erythema, rigidity or tenderness. No pain with movement. Normal range of motion. Lymphadenopathy: Cervical: No cervical adenopathy. Skin: General: Skin is warm and dry. Neurological: Mental Status: She is alert and oriented to person, place, and time. ASSESSMENT/PLAN: 1. Cough in adult - ICD9: 786.2, ICD10: R05.9 (primary diagnosis) - XR CHEST 2V FRONTAL/LAT 2. Asthma with COPD with exacerbation ([facility]) - ICD9: 493.22, ICD10: J44.1, J45.901 IMPRESSION: Stable exam with no acute radiographic abnormality. No acute findings noted on chest x-ray. Treat for acute asthma exacerbation. Patient will increase prednisone as instructed by PCP. Will use azithromycin due to COPD exacerbation with productive cough. Has tolerated this antibiotic in the past. Follow-up PCP 2 to 3 days reevaluation. Patient was educated on supportive therapies. Patient was instructed to immediately proceed to emergency room for any new, worsening, or symptoms lasting longer than anticipated. The patient's clinical presentation is otherwise unremarkable at this time. Based on exam and clinical finding, the patient is stable for discharge. Plan of care was discussed with patient. Patient verbalizes understanding and agrees to plan of care. This note was generated using [employer] software. It may contain errors in wording, punctuation, or spelling. Emigdio Presley APRN.CUSTODIAN MANAGER documented in this encounter [facility] 01-27-2023 Miscellaneous Notes Patient has been identified by name and date of : Yes Patient phones for refill(s): Requested Prescriptions Pending Prescriptions Disp Refills albuterol (PROVENTIL) 2.5 mg /3 mL (0.083 %) nebulizer solution Sig: Use 3 mL via nebulizer every 4 hours as needed for wheezing/shortness of breath. Use over 5-15minutes. Date of last office visit in primary care: 12/21/2022 Date of next office visit in primary care: 01/27/2023 Last 2 Encounter Wt Readings: Date: Wt: 12/21/2022 53.2 kg (117 lb 3.2 oz) 10/19/2022 53.1 kg (117 lb) Previous labs/tests for medication: Not applicable Please advise. Thank you. Yris Kunz LPN. documented in this encounter [facility] 01-27-2023 Miscellaneous Notes Patient has been identified by name and date of : Yes Patient phones for refill(s): Requested Prescriptions Pending Prescriptions Disp Refills acetylcysteine (MUCOMYST) 100 mg/mL (10 %) solution 240 mL 5 Sig: Inhale 4 mL as instructed two times a day as needed. Date of last office visit in primary care: 12/21/2022 Date of next office visit in primary care: 01/27/2023 Last 2 Encounter Wt Readings: Date: Wt: 12/21/2022 53.2 kg (117 lb 3.2 oz) 10/19/2022 53.1 kg (117 lb) Previous labs/tests for medication: Not applicable Please advise. Thank you. Yris Kunz LPN. documented in this encounter [facility] 01-27-2023 Miscellaneous Notes Patient has been identified by name and date of : Yes Patient phones for refill(s): Requested Prescriptions Pending Prescriptions Disp Refills ipratropium (ATROVENT) 0.02 % nebulizer solution 250 mL 2 Sig: Inhale by nebulizer over 5-15 minutes four (4) times a day as needed for wheezing and shortness of breath Date of last office visit in primary care: 12/21/2022 Date of next office visit in primary care: 02/26/2023 Last 2 Encounter Wt Readings: Date: Wt: 12/21/2022 53.2 kg (117 lb 3.2 oz) 10/19/2022 53.1 kg (117 lb) Previous labs/tests for medication: Not applicable Please advise. Thank you. Yris Kunz LPN. documented in this encounter [facility] 01-13-2023 Note HNO ID: [id number] Author: Quiana Goodson LPN Service: ? Author Type: ? Type: Progress Notes Filed: 01/13/2023 10:05 AM Note Text: Patient presents for waist circumference measurement; needed for her wellness form. Denies any additional issues/problems. Completed measurement and documented on her form (31.75in). Pt alert and oriented. Quiana Goodson LPN [facility] 01-13-2023 Miscellaneous Notes Patient brought form in to nurse visit appt. Completed waist circumference and documented results. No further needs at this time. Quiana Goodson LPN Noted. Did not know was required or that was not done. No waist circumference documented for 2022. Patient aware and scheduled a nurse visit to have waist circumference measured and documented. Once completed will fax form. Patient calling to say her waist circumference and 2021 total Mets risk factors were not documented her physical forms. She is asking if this information can be added to the forms and re-faxed because they are required. Mimi Garcia RN documented in this encounter [facility] 01-13-2023 History of Present illness Narrative Patient presents for waist circumference measurement; needed for her wellness form. Denies any additional issues/problems. Completed measurement and documented on her form (31.75in). Pt alert and oriented. Quiana Goodson LPN documented in this encounter [facility] 01-04-2023 Miscellaneous Notes Form was faxed . Patient aware and will roll picker copy in Medical records. Shanthi Marshall LPN PCP has form to fill out. Shanthi Marshall LPN Patient calls to let provider office know that she is dropping off forms for insurance that need to be completed prior to end of December. Patient forgot to bring them to appointment on 12/21/2022. Patient will drop them off today or tomorrow. Patient reports for any questions please contact her at [phone]. Abi Berger RN documented in this encounter [facility] 12-21-2022 Note HNO ID: [id number] Author: Brian Owens MD Service: ? Author Type: Physician Type: Progress Notes Filed: 01/24/2023 11:10 PM Note Text: This note was created using [employer]. Subjective Mallory Macdonald is a 57 year old female. Patient presents with: 2 month follow up SUBJECTIVE: Mallory Macdonald is a 57 year old year old lady here today for follow up appointment for review of medical conditions. Noted tick bite back in August. Agness it bite so was not attached for more than 48 hours. Worried that might have Lyme's because of nonspecific symptoms. Started drinking milk from [employer] on her cereal and finishes it. Trying getting spinach every other day. Tried taking Vitamin D but caused stomach cramping. Also trying dried foods. Forgetfulness noted. Forgetting recipes that had done from memory for a long time. Forgets where had put bowl. Discussed plans for flying. Prefers to use meclizine. Noted had nausea last night after supper but no vertigo. Had diarrhea after that. Low grade temp 99.7 (normal 97.5). Slept around 2. Mild headache today. Was ill 2 weeks ago. Same GI symptoms. Tested negative for COVID last time and this time. Ventolin HFA namebrand effective without adverse effects. 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 VENTOLIN HFA 90 mcg/actuation inhaler Inhale 2 Puffs as instructed every 4 hours as needed for wheezing/shortness of breath. predniSONE (DELTASONE) 5 mg tablet Take 2 tablets by mouth once daily. Adjust dose for flare up as needed chlordiazePOXIDE-clidinium (LIBRAX) 5-2.5 mg per capsule Take 1 capsule by mouth before meals and at bedtime. temazepam (RESTORIL) 7.5 mg capsule Take 1 capsule by mouth daily at bedtime for 90 days. omeprazole (PRILOSEC) 40 mg capsule Take 1 capsule by mouth once daily. metoprolol succinate ER (TOPROL XL) 25 mg 24 hr tablet Take 1 tablet by mouth once daily. amitriptyline (ELAVIL) 25 mg tablet Take 3 tablets by mouth daily at bedtime. promethazine (PHENERGAN) 25 mg suppository 1 Suppository by RECTAL route every 6 hours as needed. amLODIPine (NORVASC) 2.5 mg tablet Take 2.5 mg by mouth once daily. meclizine (ANTIVERT) 12.5 mg tab Take 1 tablet by mouth four times daily as needed. ipratropium (ATROVENT) 0.02 % nebulizer solution Inhale by nebulizer over 5-15 minutes four (4) times a day as needed for wheezing and shortness of breath albuterol (PROVENTIL) 2.5 mg /3 mL (0.083 %) nebulizer solution Use 3 mL via nebulizer every 4 hours as needed for wheezing/shortness of breath. Use over 5-15minutes. acetylcysteine (MUCOMYST) 100 mg/mL (10 %) nebulizer solution Inhale 4 mL as instructed twice daily as needed. rizatriptan (MAXALT) 10 mg tablet Take 1 tablet by mouth as needed (for headaches). May repeat in 2 hours if needed dicyclomine (BENTYL) 10 mg capsule Take one(1) tablet three(3) times daily before meals and Take one(1) tablet daily at bedtime. triamcinolone acetonide (NASACORT) 55 mcg nasal inhaler Use 2 Sprays in the nose once daily. famotidine (PEPCID) 20 mg tablet Take 1 tablet by mouth at bedtime as needed. predniSONE (DELTASONE) 10 mg tablet Take 10 mg by mouth once daily. Dosing depending upon how patient is feeling (Patient not taking: Reported on 12/21/2022) ALPRAZolam (XANAX) 0.5 mg tablet Take 1 tablet by mouth twice daily as needed for anxiety for up to 90 days. Do not start before September 14, 2021. B1/B2/NIACIN/B12/PROTEASE (VITAMINS [id number] ORAL) Take by mouth. (Patient not taking: Reported on 12/21/2022) No current facility-administered medications for this visit. Review of Systems Objective BP 125/73 Pulse 95 Temp 37.3 ?C (99.1 ?F) Resp 18 Wt 53.2 kg (117 lb 3.2 oz) LMP 05/04/2005 SpO2 97% BMI 22.14 kg/m? Last 5 Encounter Wt Readings: Date: Wt: 12/21/2022 53.2 kg (117 lb 3.2 oz) 10/19/2022 53.1 kg (117 lb) 09/15/2022 54 kg (119 lb) 08/12/2022 54.3 kg (119 lb 9.6 oz) 07/17/2022 54.4 kg (120 lb) Last 1 Waist Readings: Date: Waist: 08/28/11 34 (86 cm.) Estimated body mass index is 22.14 kg/m? as calculated from the following: Height as of 09/15/22: 154.9 cm (5' 1 ). Weight as of this encounter: 53.2 kg (117 lb 3.2 oz). Last 5 Encounter BP Readings: Date: BP: 12/21/2022 125 (more content not included)... [facility] 12-21-2022 History of Present illness Narrative This note was created using NoteWriter. Subjective Mallory Macdonald is a 57 year old female. Patient presents with: 2 month follow up SUBJECTIVE: Mallory Macdonald is a 57 year old year old lady here today for follow up appointment for review of medical conditions. Noted tick bite back in August. Agness it bite so was not attached for more than 48 hours. Worried that might have Lyme's because of nonspecific symptoms. Started drinking milk from [employer] on her cereal and finishes it. Trying getting spinach every other day. Tried taking Vitamin D but caused stomach cramping. Also trying dried foods. Forgetfulness noted. Forgetting recipes that had done from memory for a long time. Forgets where had put bowl. Discussed plans for flying. Prefers to use meclizine. Noted had nausea last night after supper but no vertigo. Had diarrhea after that. Low grade temp 99.7 (normal 97.5). Slept around 2. Mild headache today. Was ill 2 weeks ago. Same GI symptoms. Tested negative for COVID last time and this time. Ventolin HFA namebrand effective without adverse effects. 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 VENTOLIN HFA 90 mcg/actuation inhaler Inhale 2 Puffs as instructed every 4 hours as needed for wheezing/shortness of breath. predniSONE (DELTASONE) 5 mg tablet Take 2 tablets by mouth once daily. Adjust dose for flare up as needed chlordiazePOXIDE-clidinium (LIBRAX) 5-2.5 mg per capsule Take 1 capsule by mouth before meals and at bedtime. temazepam (RESTORIL) 7.5 mg capsule Take 1 capsule by mouth daily at bedtime for 90 days. omeprazole (PRILOSEC) 40 mg capsule Take 1 capsule by mouth once daily. metoprolol succinate ER (TOPROL XL) 25 mg 24 hr tablet Take 1 tablet by mouth once daily. amitriptyline (ELAVIL) 25 mg tablet Take 3 tablets by mouth daily at bedtime. promethazine (PHENERGAN) 25 mg suppository 1 Suppository by RECTAL route every 6 hours as needed. amLODIPine (NORVASC) 2.5 mg tablet Take 2.5 mg by mouth once daily. meclizine (ANTIVERT) 12.5 mg tab Take 1 tablet by mouth four times daily as needed. ipratropium (ATROVENT) 0.02 % nebulizer solution Inhale by nebulizer over 5-15 minutes four (4) times a day as needed for wheezing and shortness of breath albuterol (PROVENTIL) 2.5 mg /3 mL (0.083 %) nebulizer solution Use 3 mL via nebulizer every 4 hours as needed for wheezing/shortness of breath. Use over 5-15minutes. acetylcysteine (MUCOMYST) 100 mg/mL (10 %) nebulizer solution Inhale 4 mL as instructed twice daily as needed. rizatriptan (MAXALT) 10 mg tablet Take 1 tablet by mouth as needed (for headaches). May repeat in 2 hours if needed dicyclomine (BENTYL) 10 mg capsule Take one(1) tablet three(3) times daily before meals and Take one(1) tablet daily at bedtime. triamcinolone acetonide (NASACORT) 55 mcg nasal inhaler Use 2 Sprays in the nose once daily. famotidine (PEPCID) 20 mg tablet Take 1 tablet by mouth at bedtime as needed. predniSONE (DELTASONE) 10 mg tablet Take 10 mg by mouth once daily. Dosing depending upon how patient is feeling (Patient not taking: Reported on 12/21/2022) ALPRAZolam (XANAX) 0.5 mg tablet Take 1 tablet by mouth twice daily as needed for anxiety for up to 90 days. Do not start before September 14, 2021. B1/B2/NIACIN/B12/PROTEASE (VITAMINS [id number] ORAL) Take by mouth. (Patient not taking: Reported on 12/21/2022) No current facility-administered medications for this visit. Review of Systems Objective BP 125/73 Pulse 95 Temp 37.3 C (99.1 F) Resp 18 Wt 53.2 kg (117 lb 3.2 oz) LMP 05/04/2005 SpO2 97% BMI 22.14 kg/m Last 5 Encounter Wt Readings: Date: Wt: 12/21/2022 53.2 kg (117 lb 3.2 oz) 10/19/2022 53.1 kg (117 lb) 09/15/2022 54 kg (119 lb) 08/12/2022 54.3 kg (119 lb 9.6 oz) 07/17/2022 54.4 kg (120 lb) Last 1 Waist Readings: Date: Waist: 08/28/11 34 (86 cm.) Estimated body mass index is 22.14 kg/m as calculated from the following: Height as of 09/15/22: 154.9 cm (5' 1 ). Weight as of this encounter: 53.2 kg (117 lb 3.2 oz). Last 5 Encounter BP Readings: Date: BP: 12/21/2022 125/73 10/19/2022 136/82 09/15/2022 138/80 08/12/2022 112/62 07/17/2022 144/82 Physical Exam Component Latest Ref Rng & Units 05/18/2022 06/12/2022 08/11/2022 10/13/2022 10/27/2022 Protein, Total 6.3 - 8.0 g/dL 6.6 6.7 Albumin 3.9 - 4.9 g/dL 4.1 4.2 Calcium 8.5 - 10.2 mg/dL 9.3 9.8 Bilirubin, Total 0.2 - 1.3 mg/dL 0.2 0.4 Alkaline Phosphatase 34 - 123 U/L 96 92 AST 13 - 35 U/L 20 23 ALT 7 - 38 U/L 18 17 Glucose 74 - 99 mg/dL 93 83 BUN 7 - 21 mg/dL 14 15 Creatinine 0.58 - 0.96 mg/dL 0.87 0.94 Sodium 136 - 144 mmol/L 144 145 (H) Potassium 3.7 - 5.1 mmol/L 4.0 3.7 Chloride 97 - 105 mmol/L 107 (H) 105 CO2 22 - 30 mmol/L 27 29 Anion Gap 9 - 18 mmol/L 10 11 eGFR >=60 mL/min/1.73m 77 70 WBC 3.70 - 11.00 k/uL 9.67 7.04 RBC 3.90 - 5.20 m/uL 4.85 5.09 Hemoglobin 11.5 - 15.5 g/dL 14.8 15.7 (H) Hematocrit 36.0 - 46.0 % 44.8 48.4 (H) MCV 80.0 - 100.0 fL 92.4 95.1 MCH 26.0 - 34.0 pg 30.5 30.8 MCHC 30.5 - 36.0 g/dL 33.0 32.4 RDW-CV 11.5 - 15.0 % 12.2 12.2 Platelet Count 150 - 400 k/uL 275 283 MPV 9.0 - 12.7 fL 10.3 10.4 Absolute nRBC <0.01 k/uL <0.01 <0.01 Cholesterol, Total <200 mg/dL 273 (H) Triglyceride <150 mg/dL 164 (H) HDL Cholesterol >39 mg/dL 71 Non HDL Cholesterol <130 mg/dL 202 (H) Fasting Time hrs 11 VLDL Cholesterol <30 mg/dL 33 (H) TC:HDL Ratio <5.10 3.85 LDL Cholesterol <100 mg/dL 169 (H) LDL:HDL Ratio <2.54 2.38 Total Cholesterol, Nonfasting <200 mg/dL 282 (H) Triglycerides, Nonfasting <150 mg/dL 220 (H) HDL Cholesterol, Nonfasting >39 mg/dL 69 LDL Cholesterol, Nonfasting <100 mg/dL 169 (H) Non HDL Cholesterol, Nonfasting <130 mg/dL 213 (H) VLDL Cholesterol, Nonfasting <30 mg/dL 44 (H) Total Chol/HDL Ratio, Nonfasting <5.10 mg/dL 4.09 LDL/HDL Ratio, Nonfasting <2.54 mg/dL 2.45 Anti-SSA <1.0 AI <0.2 Anti-SSB <1.0 AI <0.2 SSA Antibody Qual Negative Negative SSB Antibody Qual Negative Negative Magnesium 1.7 - 2.3 mg/dL 2.4 (H) Vitamin D 25 Hydroxy 31.0 - 80.0 ng/mL 23.4 (L) 27.0 (L) 23.7 (L) SAPPHIRE Negative Negative Rheumatoid Factor <16 IU/mL <10 Vitamin A 0.30 - 1.20 mg/L 0.48 Vitamin B12 232 - 1,245 pg/mL 218 (L) 240 Vitamin B6, Plasma 20.0 - 125.0 nmol/L 53.9 Folate >4.7 ng/mL 11.5 MMA 79 - 376 nmol/L 272 Homocysteine, Serum <15.1 umol/L 12.2 Intrinsic Factor Blocking Antibody Negative Negative Alpha 1 Antitrypsin 90 - 200 mg/dL 138 The 10-year ASCVD risk score (Lesley MCKEON, et al., 2019) is: 4.1% Values used to calculate the score: Age: 57 years Sex: Female Is Non- : No Diabetic: No Tobacco smoker: No Systolic Blood Pressure: 125 mmHg Is BP treated: Yes HDL Cholesterol: 71 mg/dL Total Cholesterol: 273 mg/dL Assessment and Plan Encounter Diagnosis ICD-10-CM 1. Psychophysiological insomnia F51.04 temazepam (RESTORIL) 7.5 mg capsule 2. Irritable bowel syndrome with diarrhea K58.0 amitriptyline (ELAVIL) 25 mg tablet 3. Viral syndrome B34.9 Appears to be resolving. Diarrhea appears settled down. COVID test negative. 4. Recurrent major depressive disorder, in partial remission (HCC) F33.41 amitriptyline (ELAVIL) 25 mg tablet 5. Anxiety F41.9 ALPRAZolam (XANAX) 0.5 mg tablet Above issues addressed with patient. Patient involved in shared decision making for management of medical issues. History and medications reviewed. Epic updated as needed Refills and/or prescriptions taken care of and meds adjusted as indicated after reviewed history, exam and labs. Health Maintenance reviewed. Updated record and/or ordered tests as recorded. Encouraged on efforts at healthy diet and regular exercise and adequate sleep. I spent a total of 40 minutes on the date of the service which included [id number] patient care, completing clinical documentation, performing a medically appropriate examination, counseling and educating the patient/family/caregiver, and ordering medications, tests, or procedures. Brian Owens MD documented in this encounter [facility] 12-21-2022 Miscellaneous Notes PATIENT NOTIFIED OF SAME. Proventil HFA and apparently ProAir HFA discontinued. The following approved medication requests have been transmitted electronically. Requested Prescriptions Signed Prescriptions Disp Refills VENTOLIN HFA 90 mcg/actuation inhaler 1 Each 1 Sig: Inhale 2 Puffs as instructed every 4 hours as needed for wheezing/shortness of breath. Authorizing Provider: BRIAN OWENS MD Will see if tolerates Ventolin namebrand inhaler. Wrote for every 4 hours as needed instead of how was prescribed Proventil HFA and for 1 since might need prior authorization for higher dose and 2 inhalers at a time Patient calls and states that she went to go an roll picker Proventil HfA and was told that medication is no longer being made and that no one has medication. Patient is needing an inhaler. Patient states that there are a lot of inhalers that give her migraines. Patient asking what else can be prescribed? Patient has appointment on Wednesday however patient does not have enough medication. Please review and advise, Bozena Hardin RN documented in this encounter [facility] 11-26-2022 Miscellaneous Notes The following approved medication requests have been transmitted electronically. Requested Prescriptions Signed Prescriptions Disp Refills chlordiazePOXIDE-clidinium (LIBRAX) 5-2.5 mg per capsule 120 capsule 3 Sig: Take 1 capsule by mouth before meals and at bedtime. Authorizing Provider: BRIAN OWENS MD Patient has been identified by name and date of : Yes, Patient phones for refill(s): Requested Prescriptions Pending Prescriptions Disp Refills chlordiazePOXIDE-clidinium (LIBRAX) 5-2.5 mg per capsule 120 capsule 1 Sig: Take 1 capsule by mouth before meals and at bedtime. Date of last office visit in primary care: 10/19/2022 2 month follow-up: 12/21/2022 Last 2 Encounter Wt Readings: Date: Wt: 10/19/2022 53.1 kg (117 lb) 09/15/2022 54 kg (119 lb) Previous labs/tests for medication: Not applicable Please advise. Thank you. Yris Kunz LPN documented in this encounter [facility] 10-28-2022 Note Patient Outreach (IN [facility]) MALLORY MACDONALD ([id number]) 1965 F Date Time Provider Department 10/28/22 BRIAN OWENS During your visit today, we recorded the following information about you: Allergies As of Date: 10/28/2022 Noted Allergy Reaction MACADAMIA NUT OIL 08/12/2022 11 - Vomiting Comments: Macadamia NUTS SYMBICORT (BUDESONIDE-FORMOTEROL) 04/13/2022 8 - GI Upset 11 - Vomiting Comments: Severe nausea and vomiting TRAZODONE 05/29/2020 7 - Swelling Comments: tongue swelled ALBUTEROL 09/22/2022 8 - GI Upset Comments: Headache AUGMENTIN (AMOXICILLIN-POT CLAVUL*12/11/2004 5 - Intolerance Comments: Throat tight but no swelling, wheezing, shortness of breath. DOXYCYCLINE 11/24/2006 11 - Vomiting DULERA (MOMETASONE-FORMOTEROL) 08/31/2013 1 - Mental Status Change Comments: dizzy/spinning vertigo; also severe headaches DUST 04/29/2005 ERYTHROMYCIN 11/05/2006 8 - GI Upset Comments: nausea FOSAMAX (ALENDRONATE SODIUM) 09/03/2014 8 - GI Upset Comments: GI upset with 70 mg once weekly tablet. Pt is able to take daily tablet IODINE 01/10/2010 12 - Shortness of Breath 14 - Other: See Comments Comments: Warmth felt in throat/chest. Tightness in chest. LEVAQUIN (LEVOFLOXACIN) 11/05/2006 1 - Mental Status Change Comments: Loopy and dizzy. Can take cipro LIPITOR (ATORVASTATIN) 06/17/2016 8 - GI Upset Comments: Nausea METAMUCIL (PSYLLIUM) 06/17/2016 6 - Diarrhea Comments: Diarrhea with fibers QVAR (BECLOMETHASONE DIPROPIONATE)08/31/2013 8 - GI Upset SULFA (SULFONAMIDE ANTIBIOTICS) 12/11/2004 4 - Hives XOLAIR (OMALIZUMAB) 11/05/2009 8 - GI Upset Comments: vomit, not help breathing EPINEPHRINE 09/14/2018 14 - Other: See Comments Comments: Dizzy, lightheaded Date Reviewed: 10/19/2022 Reviewed by: Shanthi Marshall LPN - Fully Assessed Visit Diagnosis:Encounter for screening mammogram for breast cancer [Z12.31] Order(s):[facility] SCRE[facility] [[id number]] Order #: [id number] FUTURE Prescriptions as of 11/02/2022 - chlordiazePOXIDE-clidinium (LIBRAX) 5-2.5 mg per capsule Take 1 capsule by mouth before meals and at bedtime. - temazepam (RESTORIL) 7.5 mg capsule Take 1 capsule by mouth daily at bedtime for 90 days. - PROVENTIL HFA 90 mcg/actuation inhaler Inhale 2 Puffs as instructed five times daily. and q2hour prn wheezing FREDI with Proventil HFA DO NOT DISPENSE GENERIC - omeprazole (PRILOSEC) 40 mg capsule Take 1 capsule by mouth once daily. - metoprolol succinate ER (TOPROL XL) 25 mg 24 hr tablet Take 1 tablet by mouth once daily. - predniSONE (DELTASONE) 10 mg tablet Take 10 mg by mouth once daily. Dosing depending upon how patient is feeling - amitriptyline (ELAVIL) 25 mg tablet Take 3 tablets by mouth daily at bedtime. - promethazine (PHENERGAN) 25 mg suppository 1 Suppository by RECTAL route every 6 hours as needed. - amLODIPine (NORVASC) 2.5 mg tablet Take 2.5 mg by mouth once daily. - predniSONE (DELTASONE) 5 mg tablet Take 2 tablets by mouth once daily. Adjust dose for flare up as needed - meclizine (ANTIVERT) 12.5 mg tab Take 1 tablet by mouth four times daily as needed. - ALPRAZolam (XANAX) 0.5 mg tablet Take 1 tablet by mouth twice daily as needed for anxiety for up to 90 days. Do not start before September 14, 2021. - ipratropium (ATROVENT) 0.02 % nebulizer solution Inhale by nebulizer over 5-15 minutes four (4) times a day as needed for wheezing and shortness of breath - albuterol (PROVENTIL) 2.5 mg /3 mL (0.083 %) nebulizer solution Use 3 mL via nebulizer every 4 hours as needed for wheezing/shortness of breath. Use over 5-15minutes. - acetylcysteine (MUCOMYST) 100 mg/mL (10 %) nebulizer solution Inhale 4 mL as instructed twice daily as needed. - rizatriptan (MAXALT) 10 mg tablet Take 1 tablet by mouth as needed (for headaches). May repeat in 2 hours if needed - dicyclomine (BENTYL) 10 mg capsule Take one(1) tablet three(3) times daily before meals and Take one(1) tablet daily at bedtime. - triamcinolone acetonide (NASACORT) 55 mcg nasal inhaler Use 2 Sprays in the nose once daily. - famotidine (PEPCID) 20 mg tablet Take 1 tablet by mouth at bedtime as needed. - B1/B2/NIACIN/B12/PROTEASE (VITAMINS E1-H1-J5-Q55-[id number] ORAL) Take by mouth. 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 [facility] 10-19-2022 Note HNO ID: [id number] Author: Brian Owens MD Service: ? Author Type: Physician Type: Progress Notes Filed: 10/19/2022 11:47 PM Note Text: This note was created using [employer]. Subjective Mallory Macdonald is a 57 year old female. Patient presents with: Follow up 2 month: Labs prior SUBJECTIVE: Mallory Macdonald is a 57 year old year old lady here today for 2 month follow up appointment for review of medical conditions. Ongoing IBS-D issues. Limits eating before goes out. Still sensitive to lotions and oils affecting IBS-D. BP sometimes up to 140s. Has IHB at those times (irregular heart beat) Prior event monitor showed PACs and PVCs. 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 PROVENTIL HFA 90 mcg/actuation inhaler Inhale 2 Puffs as instructed five times daily. and q2hour prn wheezing FREDI with Proventil HFA DO NOT DISPENSE GENERIC chlordiazePOXIDE-clidinium (LIBRAX) 5-2.5 mg per capsule Take 1 capsule by mouth before meals and at bedtime. omeprazole (PRILOSEC) 40 mg capsule Take 1 capsule by mouth once daily. metoprolol succinate ER (TOPROL XL) 25 mg 24 hr tablet Take 1 tablet by mouth once daily. predniSONE (DELTASONE) 10 mg tablet Take 10 mg by mouth once daily. Dosing depending upon how patient is feeling amitriptyline (ELAVIL) 25 mg tablet Take 3 tablets by mouth daily at bedtime. promethazine (PHENERGAN) 25 mg suppository 1 Suppository by RECTAL route every 6 hours as needed. amLODIPine (NORVASC) 2.5 mg tablet Take 2.5 mg by mouth once daily. predniSONE (DELTASONE) 5 mg tablet Take 2 tablets by mouth once daily. Adjust dose for flare up as needed meclizine (ANTIVERT) 12.5 mg tab Take 1 tablet by mouth four times daily as needed. ALPRAZolam (XANAX) 0.5 mg tablet Take 1 tablet by mouth twice daily as needed for anxiety for up to 90 days. Do not start before September 14, 2021. ipratropium (ATROVENT) 0.02 % nebulizer solution Inhale by nebulizer over 5-15 minutes four (4) times a day as needed for wheezing and shortness of breath albuterol (PROVENTIL) 2.5 mg /3 mL (0.083 %) nebulizer solution Use 3 mL via nebulizer every 4 hours as needed for wheezing/shortness of breath. Use over 5-15minutes. acetylcysteine (MUCOMYST) 100 mg/mL (10 %) nebulizer solution Inhale 4 mL as instructed twice daily as needed. rizatriptan (MAXALT) 10 mg tablet Take 1 tablet by mouth as needed (for headaches). May repeat in 2 hours if needed dicyclomine (BENTYL) 10 mg capsule Take one(1) tablet three(3) times daily before meals and Take one(1) tablet daily at bedtime. triamcinolone acetonide (NASACORT) 55 mcg nasal inhaler Use 2 Sprays in the nose once daily. famotidine (PEPCID) 20 mg tablet Take 1 tablet by mouth at bedtime as needed. B1/B2/NIACIN/B12/PROTEASE (VITAMINS X2-O9-T5-B25-YMHMPROX ORAL) Take by mouth. No current facility-administered medications for this visit. OBJECTIVE: Review of Systems Objective BP 136/82 Pulse 83 Temp 37.4 ?C (99.4 ?F) Resp 18 Wt 53.1 kg (117 lb) LMP 05/04/2005 SpO2 99% BMI 22.11 kg/m? Physical Exam Component Latest Ref Rng AND Units 05/18/2022 08/11/2022 10/13/2022 Protein, Total 6.3 - 8.0 g/dL 6.6 6.7 Albumin 3.9 - 4.9 g/dL 4.1 4.2 Calcium 8.5 - 10.2 mg/dL 9.3 9.8 Bilirubin, Total 0.2 - 1.3 mg/dL 0.2 0.4 Alkaline Phosphatase 34 - 123 U/L 96 92 AST 13 - 35 U/L 20 23 ALT 7 - 38 U/L 18 17 Glucose 74 - 99 mg/dL 93 83 BUN 7 - 21 mg/dL 14 15 Creatinine 0.58 - 0.96 mg/dL 0.87 0.94 Sodium 136 - 144 mmol/L 144 145 (H) Potassium 3.7 - 5.1 mmol/L 4.0 3.7 Chloride 97 - 105 mmol/L 107 (H) 105 CO2 22 - 30 mmol/L 27 29 Anion Gap 9 - 18 mmol/L 10 11 eGFR >=60 mL/min/1.73mA? 77 70 WBC 3.70 - 11.00 k/uL 9.67 7.04 RBC 3.90 - 5.20 m/uL 4.85 5.09 Hemoglobin 11.5 - 15.5 g/dL 14.8 15.7 (H) Hematocrit 36.0 - 46.0 % 44.8 48.4 (H) MCV 80.0 - 100.0 fL 92.4 95.1 MCH 26.0 - 34.0 pg 30.5 30.8 MCHC 30.5 - 36.0 g/dL 33.0 32.4 RDW-CV 11.5 - 15.0 % 12.2 12.2 Platelet Count 150 - 400 k/uL 275 283 MPV 9.0 - 12.7 fL 10.3 10.4 Absolute nRBC <0.01 k/uL <0.01 <0.01 Cholesterol, Total <200 mg/dL 273 (H) Triglyceride <150 mg/dL 164 (H) HDL Cholesterol >39 mg/dL 71 Non HDL Cholesterol <130 mg/dL 202 (H) Fasting Time hrs 11 VLDL Cholesterol <30 mg/dL 33 (H) (more content not included)... [facility] 10-15-2022 Note HNO ID: [id number] Author: Laura Armenta PSYD Service: ? Author Type: Psychologist Type: Progress Notes Filed: 10/19/2022 4:50 PM Note Text: [facility] Progress Note THIS IS A ZOOM VISIT Mallory Macdonald 10/14/2022 [id number] Provider: Laura Cisneros PSYD Time: Approximately 45 minutes was spent in therapy. Parties Present: Patient Patient Presentation/Concerns: Albina reported she has lost weight. She is at 114lbs. She doesn't seem to be absorbing food per her report. She was busy this summer and wasn't able to stay with safe foods that do not cause a GI reaction. She has low Vitamin B. She is waiting for Vitamin A and B results. She indicated that her skin is peeling off her foot. She is continuing to do testing/bloodwork and consulting about these concerns. She stated working through her anxiety of traveling and being away from home. Her grandson has motivated her to be away from home for extended periods of time. . Mental Status: Mood: neutral Affect: mood-congruent Thoughts/Associations:goal directed Suicidal/Homicidal Ideation: None expressed or evidenced Patient denies any suicidal or homicidal ideation, plan or intent at this time. Other Observations: None Therapy Focus Self-care and Stress management MEDICATIONS: Per medical record: Current Outpatient Medications Medication Sig temazepam (RESTORIL) 7.5 mg capsule Take 1 capsule by mouth daily at bedtime for 90 days. PROVENTIL HFA 90 mcg/actuation inhaler Inhale 2 Puffs as instructed five times daily. and q2hour prn wheezing FREDI with Proventil HFA DO NOT DISPENSE GENERIC chlordiazePOXIDE-clidinium (LIBRAX) 5-2.5 mg per capsule Take 1 capsule by mouth before meals and at bedtime. omeprazole (PRILOSEC) 40 mg capsule Take 1 capsule by mouth once daily. metoprolol succinate ER (TOPROL XL) 25 mg 24 hr tablet Take 1 tablet by mouth once daily. predniSONE (DELTASONE) 10 mg tablet Take 10 mg by mouth once daily. Dosing depending upon how patient is feeling amitriptyline (ELAVIL) 25 mg tablet Take 3 tablets by mouth daily at bedtime. promethazine (PHENERGAN) 25 mg suppository 1 Suppository by RECTAL route every 6 hours as needed. amLODIPine (NORVASC) 2.5 mg tablet Take 2.5 mg by mouth once daily. predniSONE (DELTASONE) 5 mg tablet Take 2 tablets by mouth once daily. Adjust dose for flare up as needed meclizine (ANTIVERT) 12.5 mg tab Take 1 tablet by mouth four times daily as needed. ALPRAZolam (XANAX) 0.5 mg tablet Take 1 tablet by mouth twice daily as needed for anxiety for up to 90 days. Do not start before September 14, 2021. ipratropium (ATROVENT) 0.02 % nebulizer solution Inhale by nebulizer over 5-15 minutes four (4) times a day as needed for wheezing and shortness of breath albuterol (PROVENTIL) 2.5 mg /3 mL (0.083 %) nebulizer solution Use 3 mL via nebulizer every 4 hours as needed for wheezing/shortness of breath. Use over 5-15minutes. acetylcysteine (MUCOMYST) 100 mg/mL (10 %) nebulizer solution Inhale 4 mL as instructed twice daily as needed. rizatriptan (MAXALT) 10 mg tablet Take 1 tablet by mouth as needed (for headaches). May repeat in 2 hours if needed dicyclomine (BENTYL) 10 mg capsule Take one(1) tablet three(3) times daily before meals and Take one(1) tablet daily at bedtime. triamcinolone acetonide (NASACORT) 55 mcg nasal inhaler Use 2 Sprays in the nose once daily. famotidine (PEPCID) 20 mg tablet Take 1 tablet by mouth at bedtime as needed. B1/B2/NIACIN/B12/PROTEASE (VITAMINS L3-X7-W7-S79-[id number] ORAL) Take by mouth. No current facility-administered medications for this visit. Psychiatric Medication Issues: No change from previous appointment DIAGNOSIS: Depression Treatment Modality/Interventions: Cognitive Behavioral TREATMENT ASSESSMENT/PROGRESS: Stable TREATMENT PLAN/GOALS: Continue in therapy focusing on stress management and affect management. CBT for anxiety. Mindful eating. Next appointment: 2 weeks [facility] 10-13-2022 Miscellaneous Notes noted Patient notified of providers message and verbalized understanding but she is lactose intolerance so is unable to get vitamin D through diet with dairy products such as milk. States she is getting out into the sun and it has gone up a little. If she cannot take supplemental vitamin D she can try getting it through diet with dairy products such as milk. Call placed to patient. Patient has tried Vitamin D 800 international unit(s) supplement several times over the last month and a half. Each time she has tried it it has caused severe abdominal cramping and diarrhea. She continues to try with no success. Patient sees Dr. Nesbitt. Requested OV notes be faxed to provider's office at [phone]. Spoke to Jenny. Abi Berger, RN Do we have office note from community health director for diagnosis? Would be helpful to have this. Obtain if able to. Vitamin D level was a bit low with last labs. Would recommend vitamin D3 800 IU daily OTC if not currently taking supplemental. OK for requested labs. Patient calls to report that she was seeing a community health director for plantar fascitis and her feet were noted to have patches of skin that just peals. Fire Chief'S Aide wants to do a biopsy. Patient heard that deficiency in vitamin A and B could also cause this. She is wondering if she could have labs drawn prior to next appointment so could be discussed with provider on 10/19/2022. Pended. Needs diagnosis. Please call patient at [phone] with provider response to request for labs. Please review and advise, Abi Berger RN documented in this encounter [facility] 09-22-2022 Miscellaneous Notes PA approved and patient was notified Damaris Perkins Ma Electronic PA submitted for Nilda Perkins Ma Medication for Prior Authorization: albuterol HFA (Proventil HFA) 90 mcg/actuation inhaler FREDI, no generic. Brand product not on formulary. Other formulary meds available : n/a Insurance Company: [employer] phone number: [phone] Patient insurance ID number: [id number] Please advise pt when completed. Liliam Jonas LPN documented in this encounter [facility] 09-22-2022 Miscellaneous Notes Patient has been identified by name and date of : Yes, Provider Dr. Owens Date 09/22/22 Time 7:45 am Patient phones for refill(s): Requested Prescriptions Pending Prescriptions Disp Refills temazepam (RESTORIL) 7.5 mg capsule 90 capsule 0 Sig: Take 1 capsule by mouth daily at bedtime for 90 days. Date of last office visit in primary care: 08/12/22 next apt 10/19/22 Last 2 Encounter Wt Readings: Date: Wt: 09/15/2022 54 kg (119 lb) 08/12/2022 54.3 kg (119 lb 9.6 oz) Previous labs/tests for medication: Not applicable Please advise. Thank you. Liliam Jonas LPN documented in this encounter [facility] 09-16-2022 Miscellaneous Notes Spoke with pt and information listed below given. Pt verbalizes understanding. No PA needed per the pharmacy for medication. Liliam Jonas LPN The following approved medication requests have been transmitted electronically. Requested Prescriptions Signed Prescriptions Disp Refills chlordiazePOXIDE-clidinium (LIBRAX) 5-2.5 mg per capsule 120 capsule 1 Sig: Take 1 capsule by mouth before meals and at bedtime. Authorizing Provider: BRIAN OWENS MD Patient has been identified by name and date of : Yes, Patient phones for refill(s): Requested Prescriptions Pending Prescriptions Disp Refills chlordiazePOXIDE-clidinium (LIBRAX) 5-2.5 mg per capsule 120 capsule 1 Sig: Take 1 capsule by mouth before meals and at bedtime. Date of last office visit in primary care: 08/12/2022 2 month follow-up: 10/19/2022 Last 2 Encounter Wt Readings: Date: Wt: 08/12/2022 54.3 kg (119 lb 9.6 oz) 07/17/2022 54.4 kg (120 lb) Previous labs/tests for medication: Not applicable Please advise. Thank you. Yris Kunz LPN documented in this encounter [facility] 09-15-2022 Note HNO ID: [id number] Author: iMchelle Delaney APRN.CUSTODIAN MANAGER Service: ? Author Type: Nurse Practitioner Type: Progress Notes Filed: 09/15/2022 3:31 PM Note Text: Subjective HPI Mallory Macdonald is a 56 year old female who presents with a tick bite on her neck. She found the tick today. States she had a haircut last night and her unhairer did not see it so she believes it was attached for less than 24 hours. She has some stinging at the site where the tick was attached. She does not have a fever today. She has the tick with her today. It appears to be a solid black nymph, is flat, still alive in a plastic bag. Review of Systems Constitutional: Negative for fever. Musculoskeletal: Negative for joint pain and myalgias. Skin: Negative for itching and rash. BP 138/80 Pulse 90 Temp 36.9 ?C (98.4 ?F) Resp 16 Ht 154.9 cm (5' 1 ) Wt 54 kg (119 lb) LMP 05/04/2005 BMI 22.48 kg/m? PAST MEDICAL HISTORY Diagnosis Date Asthma with chronic obstructive pulmonary disease (COPD) ([facility]) 04/15/2005 Benign neoplasm of colon Dysplasia of cervix, unspecified mild in past GERD (gastroesophageal reflux disease) 12/02/2010 IBS (irritable bowel syndrome) 10/31/2010 Interstitial cystitis 01/29/2010 PMH - PAST MEDICAL HISTORY OF GASTRITIS PMH - PAST MEDICAL HISTORY OF BILIARY DYSKINESIA PMH - PAST MEDICAL HISTORY OF POST TRAUMATIC STRESS DISORDER PMH - PAST MEDICAL HISTORY OF OSTEOPOROSIS Unspecified hemorrhoids without mention of complication Hemorrhoids PAST SURGICAL HISTORY Procedure Laterality Date BIOPSY BREAST OPEN INCISIONAL Bx of breast, incisional CAUTERY CERVIX CRYOCAUTERY INITIAL/REPEAT Done in 1988 and paps since DELIVERY ONLY , low cervical COLONOSCOPY FLX DX W/COLLJ SPEC WHEN PFRMD 07/20/2000 Colonoscopy COLONOSCOPY FLX DX W/COLLJ SPEC WHEN PFRMD 09/15/2012 Colonoscopy COLONOSCOPY FLX DX W/COLLJ SPEC WHEN PFRMD 12/04/2015 Colonoscopy (MAC) COLONOSCOPY SCREENING 12/2021 COLPOSCOPY CERVIX UPPER/ADJACENT VAGINA 1988 Colposcopy COLSC FLX W/RMVL OF TUMOR POLYP LESION SNARE TQ 11/12/2009 CORRECT BUNION,SIMPLE Bunion CYSTOURETHROSCOPY Cystoscopy/BLADDER STRETCHING CYSTOURETHROSCOPY [address] Stout [facility] EGD 12/21/2008 ESOPHAGOGASTRODUODENOSCOPY TRANSORAL DIAGNOSTIC 09/15/2012 EGD ESOPHAGOGASTRODUODENOSCOPY TRANSORAL DIAGNOSTIC 12/04/2015 EGD (MAC) LAPAROSCOPY SURG CHOLECYSTECTOMY Cholecystectomy, lap - before 2007 LIG/TRNSXJ FLP TUBE ABDL/VAG APPR UNI/BI Tubal ligation PAST SURGICAL HISTORY OF Hernia repair, umbilical PAST SURGICAL HISTORY OF sinus surgery x 2 PAST SURGICAL HISTORY OF wisdom teeth extraction SIGMOIDOSCOPY FLX DX W/COLLJ SPEC BR/WA IF PFRMD 10/08/2006 with sedation VAGINAL HYSTERECTOMY UTERUS 250 GM/< 07/2005 Hysterectomy, vaginal/ovaries remain ALLERGIES Macadamia Nut Oil, Symbicort [Budesonide-Formoterol], Trazodone, Augmentin [Amoxicillin-Pot Clavulanate], Doxycycline, Dulera [Mometasone-Formoterol], Dust, Erythromycin, Fosamax [Alendronate Sodium], Iodine, Levaquin [Levofloxacin], Lipitor [Atorvastatin], Metamucil [Psyllium], Qvar [Beclomethasone Dipropionate], Sulfa (Sulfonamide Antibiotics), Xolair [Omalizumab], and Epinephrine MEDICATIONS albuterol HFA (PROVENTIL HFA) 90 mcg/actuation inhaler Inhale 2 Puffs as instructed five times daily. and q2hour prn wheezing FREDI with Proventil HFA DO NOT DISPENSE GENERIC amoxicillin (AMOXIL) 500 mg capsule Take 1 capsule by mouth three times daily for 14 days. mupirocin (BACTROBAN) 2 % ointment Apply 1 application to affected area three times daily for 10 days. omeprazole (PRILOSEC) 40 mg capsule Take 1 capsule by mouth once daily. temazepam (RESTORIL) 7.5 mg capsule Take 1 capsule by mouth daily at bedtime for 90 days. chlordiazePOXIDE-clidinium (LIBRAX) 5-2.5 mg per capsule Take 1 capsule by mouth before meals and at bedtime. metoprolol succinate ER (TOPROL XL) 25 mg 24 hr tablet Take 1 tablet by mouth once daily. predniSONE (DELTASONE) 10 mg tablet Take 10 mg by mouth once daily. Dosing depending upon how patient is feeling amitriptyline (ELAVIL) 25 mg tablet Take 3 tablets by mouth daily at bedtime. promethazine (PHENERGAN) 25 mg suppository 1 Suppository by RECTAL route every 6 hours as needed. amLODIPine (NORVASC) 2.5 mg tablet Take 2.5 mg by mouth once daily. predniSONE (DELTASONE) 5 mg tablet Take 2 tablets by mouth once daily. Adjust dose for flare up as needed meclizine (ANTIVERT) 12.5 mg tab Take 1 tablet by mouth four times daily as needed. ALPRAZolam (XANAX) 0.5 mg tablet Take 1 tablet by mouth twice daily as needed for anxiety for up to 90 days. Do not start before September 14, 2021. ipratropium (ATROVENT) 0.02 % nebulizer solution Inhale by nebulizer over 5-15 minutes four (4) times a day as needed for wheezing and shortness of breath albuterol (PROVENTIL) 2.5 mg /3 mL (0.083 %) nebul (more content not included)... [facility] 09-15-2022 Instructions Michelle Delaney APRN.MIGUELINA - 09/15/2022 3:30 PM EDT ASSESSMENT/PLAN: 1. Insect bite of other part of neck, initial encounter - ICD9: 910.4, E906.4, ICD10: S10.86XA, W57.XXXA (primary diagnosis) - keep clean and dry, may apply antibiotic ointment to site. 2. Tick bite of other part of neck, initial encounter - ICD9: 910.4, E906.4, ICD10: S10.86XA, W57.XXXA - discussed with patient low risk of Lyme disease when tick is attached for less than 24 hours. She cannot take doxycycline, states it makes her violently ill . - AMOXICILLIN 500 MG CAPSULE - MUPIROCIN 2 % TOPICAL OINTMENT - Follow-up with your PCP in 3-5 days if symptoms have not improved or sooner if symptoms worsen - Discussed red flags and need for immediate medical evaluation if any occur. - Discussed supportive care treatment with fluids, rest and analgesia. - Discussed expected course of illness Michelle Delaney APRN.MIGUELINA Avoiding Tick Bites How can I avoid tick bites? If you are planning an outdoor activity, especially those in a heavily wooded area, it is important to follow a few simple precautions to protect yourself from tick bites. Wear long sleeved, light-colored clothing, with tightly woven fabric. This gives ticks less area to target and allows you to see ticks on your clothing. When traveling through the doll or grassy [place], stay near the center of the trails. At home, make sure that you keep your lawn mowed and bushes and trees trimmed as short as possible. If you choose to apply tick repellents, such as those containing DEET, try to avoid spraying them directly to your bare skin. (high concentrations of DEET may have harmful effects on the nervous system.) Apply the spray to your clothing, socks, shoes, tents and backpacks. When returning from the outdoors, check for ticks. Be especially observant of hair, body folds, ears, underarms and the back. Check your clothes and gear for ticks and wash these items immediately. What if I have been bitten by a tick? If you discover a tick, remove it immediately. The longer the tick feeds, the greater chance that it can transmit its bacteria to you. The easiest removal method is to use a pair of tweezers, grasp the tick as close to your skin as possible, and gently pull the tick off. Then, thoroughly wash your hands and the bite area with rubbing alcohol to prevent transmission to other areas of your body. When should I call the doctor? It is best to wait and see whether you develop any signs or symptoms. If a large red malcom forms around the tick bite or if you develop fever, flu-like symptoms, rash, or more severe illness, contact your doctor right away. Your doctor can determine whether these symptoms might be caused by a tick-borne disease, and whether antibiotics will be needed. Is there a vaccine for preventing tick-borne disease in humans? Currently there are vaccines being tested, but there are no guarantees that they will be effective. The best option is to take precautions so that tick bites do not occur in the first place. Early Signs and Symptoms (3 to 30 days after tick bite) Fever, chills, headache, fatigue, muscle and joint aches, and swollen lymph nodes Erythema migrans (EM) rash: Occurs in approximately 70 to 80 percent of infected persons Begins at the site of a tick bite after a delay of 3 to 30 days (average is about 7 days) Expands gradually over a period of days reaching up to 12 inches or more (30 cm) across May feel warm to the touch but is rarely itchy or painful Sometimes clears as it enlarges, resulting in a target or bull's-eye appearance May appear on any area of the body Later Signs and Symptoms (days to months after tick bite) Severe headaches and neck stiffness Additional EM rashes on other areas of the body Arthritis with severe joint pain and swelling, particularly the knees and other large joints. Facial or Martinez's palsy (loss of muscle tone or droop on one or both sides of the face) Intermittent pain in tendons, muscles, joints, and bones Heart palpitations or an irregular heart beat (Lyme carditis) Episodes of dizziness or shortness of breath Inflammation of the brain and spinal cord Nerve pain Shooting pains, numbness, or tingling in the hands or feet Problems with short-term memory documented in this encounter [facility] 09-15-2022 History of Present illness Narrative Images from the original note were not included. Subjective HPI Mallory Macdonald is a 56 year old female who presents with a tick bite on her neck. She found the tick today. States she had a haircut last night and her unhairer did not see it so she believes it was attached for less than 24 hours. She has some stinging at the site where the tick was attached. She does not have a fever today. She has the tick with her today. It appears to be a solid black nymph, is flat, still alive in a plastic bag. Review of Systems Constitutional: Negative for fever. Musculoskeletal: Negative for joint pain and myalgias. Skin: Negative for itching and rash. BP 138/80 Pulse 90 Temp 36.9 C (98.4 F) Resp 16 Ht 154.9 cm (5' 1 ) Wt 54 kg (119 lb) LMP 05/04/2005 BMI 22.48 kg/m PAST MEDICAL HISTORY Diagnosis Date Asthma with chronic obstructive pulmonary disease (COPD) ([facility]) 04/15/2005 Benign neoplasm of colon Dysplasia of cervix, unspecified mild in past GERD (gastroesophageal reflux disease) 12/02/2010 IBS (irritable bowel syndrome) 10/31/2010 Interstitial cystitis 01/29/2010 PMH - PAST MEDICAL HISTORY OF GASTRITIS PMH - PAST MEDICAL HISTORY OF BILIARY DYSKINESIA PMH - PAST MEDICAL HISTORY OF POST TRAUMATIC STRESS DISORDER PMH - PAST MEDICAL HISTORY OF OSTEOPOROSIS Unspecified hemorrhoids without mention of complication Hemorrhoids PAST SURGICAL HISTORY Procedure Laterality Date BIOPSY BREAST OPEN INCISIONAL Bx of breast, incisional CAUTERY CERVIX CRYOCAUTERY INITIAL/REPEAT Done in 1988 and paps since DELIVERY ONLY , low cervical COLONOSCOPY FLX DX W/COLLJ SPEC WHEN PFRMD 07/20/2000 Colonoscopy COLONOSCOPY FLX DX W/COLLJ SPEC WHEN PFRMD 09/15/2012 Colonoscopy COLONOSCOPY FLX DX W/COLLJ SPEC WHEN PFRMD 12/04/2015 Colonoscopy (MAC) COLONOSCOPY SCREENING 12/2021 COLPOSCOPY CERVIX UPPER/ADJACENT VAGINA 1988 Colposcopy COLSC FLX W/RMVL OF TUMOR POLYP LESION SNARE TQ 11/12/2009 CORRECT BUNION,SIMPLE Bunion CYSTOURETHROSCOPY Cystoscopy/BLADDER STRETCHING CYSTOURETHROSCOPY [address] Stout [facility] EGD 12/21/2008 ESOPHAGOGASTRODUODENOSCOPY TRANSORAL DIAGNOSTIC 09/15/2012 EGD ESOPHAGOGASTRODUODENOSCOPY TRANSORAL DIAGNOSTIC 12/04/2015 EGD (MAC) LAPAROSCOPY SURG CHOLECYSTECTOMY Cholecystectomy, lap - before 2007 LIG/TRNSXJ FLP TUBE ABDL/VAG APPR UNI/BI Tubal ligation PAST SURGICAL HISTORY OF Hernia repair, umbilical PAST SURGICAL HISTORY OF sinus surgery x 2 PAST SURGICAL HISTORY OF wisdom teeth extraction SIGMOIDOSCOPY FLX DX W/COLLJ SPEC BR/WA IF PFRMD 10/08/2006 with sedation VAGINAL HYSTERECTOMY UTERUS 250 GM/< 07/2005 Hysterectomy, vaginal/ovaries remain ALLERGIES Macadamia Nut Oil, Symbicort [Budesonide-Formoterol], Trazodone, Augmentin [Amoxicillin-Pot Clavulanate], Doxycycline, Dulera [Mometasone-Formoterol], Dust, Erythromycin, Fosamax [Alendronate Sodium], Iodine, Levaquin [Levofloxacin], Lipitor [Atorvastatin], Metamucil [Psyllium], Qvar [Beclomethasone Dipropionate], Sulfa (Sulfonamide Antibiotics), Xolair [Omalizumab], and Epinephrine MEDICATIONS albuterol HFA (PROVENTIL HFA) 90 mcg/actuation inhaler Inhale 2 Puffs as instructed five times daily. and q2hour prn wheezing FREDI with Proventil HFA DO NOT DISPENSE GENERIC amoxicillin (AMOXIL) 500 mg capsule Take 1 capsule by mouth three times daily for 14 days. mupirocin (BACTROBAN) 2 % ointment Apply 1 application to affected area three times daily for 10 days. omeprazole (PRILOSEC) 40 mg capsule Take 1 capsule by mouth once daily. temazepam (RESTORIL) 7.5 mg capsule Take 1 capsule by mouth daily at bedtime for 90 days. chlordiazePOXIDE-clidinium (LIBRAX) 5-2.5 mg per capsule Take 1 capsule by mouth before meals and at bedtime. metoprolol succinate ER (TOPROL XL) 25 mg 24 hr tablet Take 1 tablet by mouth once daily. predniSONE (DELTASONE) 10 mg tablet Take 10 mg by mouth once daily. Dosing depending upon how patient is feeling amitriptyline (ELAVIL) 25 mg tablet Take 3 tablets by mouth daily at bedtime. promethazine (PHENERGAN) 25 mg suppository 1 Suppository by RECTAL route every 6 hours as needed. amLODIPine (NORVASC) 2.5 mg tablet Take 2.5 mg by mouth once daily. predniSONE (DELTASONE) 5 mg tablet Take 2 tablets by mouth once daily. Adjust dose for flare up as needed meclizine (ANTIVERT) 12.5 mg tab Take 1 tablet by mouth four times daily as needed. ALPRAZolam (XANAX) 0.5 mg tablet Take 1 tablet by mouth twice daily as needed for anxiety for up to 90 days. Do not start before September 14, 2021. ipratropium (ATROVENT) 0.02 % nebulizer solution Inhale by nebulizer over 5-15 minutes four (4) times a day as needed for wheezing and shortness of breath albuterol (PROVENTIL) 2.5 mg /3 mL (0.083 %) nebulizer solution Use 3 mL via nebulizer every 4 hours as needed for wheezing/shortness of breath. Use over 5-15minutes. acetylcysteine (MUCOMYST) 100 mg/mL (10 %) nebulizer solution Inhale 4 mL as instructed twice daily as needed. rizatriptan (MAXALT) 10 mg tablet Take 1 tablet by mouth as needed (for headaches). May repeat in 2 hours if needed dicyclomine (BENTYL) 10 mg capsule Take one(1) tablet three(3) times daily before meals and Take one(1) tablet daily at bedtime. triamcinolone acetonide (NASACORT) 55 mcg nasal inhaler Use 2 Sprays in the nose once daily. famotidine (PEPCID) 20 mg tablet Take 1 tablet by mouth at bedtime as needed. B1/B2/NIACIN/B12/PROTEASE (VITAMINS [id number] ORAL) Take by mouth. FAMILY HISTORY Problem Relation Age of Onset Hypertension Mother Heart Mother atrial fib/CHF COPD Mother Emphysema Mother other (KIDNEY STONES) Mother other (PAH) Mother Heart Father CO at age 35 Hypertension Father Diabetes Father Seizures Father Alzheimer's Disease Father Hypertension Brother other (Still Born) Brother Cancer Maternal Grandmother COLON Cancer Maternal Grandfather COLON Seizures Maternal Grandfather Heart Maternal Grandfather 2- CO's Heart Paternal Grandmother CO Heart Paternal Grandfather CO Social History Tobacco Use Smoking status: Never Smokeless tobacco: Never Tobacco comments: Father used pipe in childhood home. Spouse does not smoke. Vaping Use Vaping Use: Never used Substance Use Topics Alcohol use: No Drug use: No Objective Physical Exam Vitals and nursing note reviewed. Constitutional: Appearance: Normal appearance. Neck: Skin: General: Skin is warm and dry. Capillary Refill: Capillary refill takes less than 2 seconds. Findings: Erythema present. No rash. Neurological: Mental Status: She is alert. ASSESSMENT/PLAN: 1. Insect bite of other part of neck, initial encounter - ICD9: 910.4, E906.4, ICD10: S10.86XA, W57.XXXA (primary diagnosis) - keep clean and dry, may apply antibiotic ointment to site. 2. Tick bite of other part of neck, initial encounter - ICD9: 910.4, E906.4, ICD10: S10.86XA, W57.XXXA - discussed with patient low risk of Lyme disease when tick is attached for less than 24 hours. She cannot take doxycycline, states it makes her violently ill . - AMOXICILLIN 500 MG CAPSULE - MUPIROCIN 2 % TOPICAL OINTMENT - Follow-up with your PCP in 3-5 days if symptoms have not improved or sooner if symptoms worsen - Discussed red flags and need for immediate medical evaluation if any occur. - Discussed supportive care treatment with fluids, rest and analgesia. - Discussed expected course of illness Michelle Delaney APRN.MIGUELINA documented in this encounter [facility] 09-15-2022 Miscellaneous Notes Patient has been identified by name and date of : Ray Patient phones for refill(s): Requested Prescriptions Pending Prescriptions Disp Refills albuterol HFA (PROVENTIL HFA) 90 mcg/actuation inhaler 2 Each 11 Sig: Inhale 2 Puffs as instructed five times daily. and q2hour prn wheezing FREDI with Proventil HFA DO NOT DISPENSE GENERIC Date of last office visit in primary care: 08/12/2022 2 month follow-up: 10/19/2022 Last 2 Encounter Wt Readings: Date: Wt: 08/12/2022 54.3 kg (119 lb 9.6 oz) 07/17/2022 54.4 kg (120 lb) Previous labs/tests for medication: Not applicable Please advise. Thank you. Yris Kunz LPN documented in this encounter [facility] 08-12-2022 Note HNO ID: [id number] Author: Brian Owens MD Service: ? Author Type: Physician Type: Progress Notes Filed: 09/13/2022 11:31 PM Note Text: This note was created using [employer]. Subjective Mallory Macdonald is a 56 year old female. SUBJECTIVE: Mallory Macdonald is a 56 year old year old lady here today for follow up appointment for review of medical conditions. Still with anxiety issues. Second cousin from cancer recently. Was close. Lots of driving for family visits noted. Stopped using MARIBEL. using gloves. Hands better. PAST MEDICAL HISTORY Diagnosis Date Asthma with chronic obstructive pulmonary disease (COPD) ([facility]) 04/15/2005 Benign neoplasm of colon Dysplasia of cervix, unspecified mild in past GERD (gastroesophageal reflux disease) 12/02/2010 IBS (irritable bowel syndrome) 10/31/2010 Interstitial cystitis 01/29/2010 PMH - PAST MEDICAL HISTORY OF GASTRITIS PMH - PAST MEDICAL HISTORY OF BILIARY DYSKINESIA PMH - PAST MEDICAL HISTORY OF POST TRAUMATIC STRESS DISORDER PMH - PAST MEDICAL HISTORY OF OSTEOPOROSIS Unspecified hemorrhoids without mention of complication Hemorrhoids Current Outpatient Medications Medication Sig omeprazole (PRILOSEC) 40 mg capsule Take 1 capsule by mouth once daily. temazepam (RESTORIL) 7.5 mg capsule Take 1 capsule by mouth daily at bedtime for 90 days. chlordiazePOXIDE-clidinium (LIBRAX) 5-2.5 mg per capsule Take 1 capsule by mouth before meals and at bedtime. metoprolol succinate ER (TOPROL XL) 25 mg 24 hr tablet Take 1 tablet by mouth once daily. predniSONE (DELTASONE) 10 mg tablet Take 10 mg by mouth once daily. Dosing depending upon how patient is feeling amitriptyline (ELAVIL) 25 mg tablet Take 3 tablets by mouth daily at bedtime. promethazine (PHENERGAN) 25 mg suppository 1 Suppository by RECTAL route every 6 hours as needed. amLODIPine (NORVASC) 2.5 mg tablet Take 2.5 mg by mouth once daily. predniSONE (DELTASONE) 5 mg tablet Take 2 tablets by mouth once daily. Adjust dose for flare up as needed meclizine (ANTIVERT) 12.5 mg tab Take 1 tablet by mouth four times daily as needed. ALPRAZolam (XANAX) 0.5 mg tablet Take 1 tablet by mouth twice daily as needed for anxiety for up to 90 days. Do not start before September 14, 2021. albuterol HFA (PROVENTIL HFA) 90 mcg/actuation inhaler Inhale 2 Puffs as instructed five times daily. and q2hour prn wheezing FREDI with Proventil HFA DO NOT DISPENSE GENERIC ipratropium (ATROVENT) 0.02 % nebulizer solution Inhale by nebulizer over 5-15 minutes four (4) times a day as needed for wheezing and shortness of breath albuterol (PROVENTIL) 2.5 mg /3 mL (0.083 %) nebulizer solution Use 3 mL via nebulizer every 4 hours as needed for wheezing/shortness of breath. Use over 5-15minutes. acetylcysteine (MUCOMYST) 100 mg/mL (10 %) nebulizer solution Inhale 4 mL as instructed twice daily as needed. rizatriptan (MAXALT) 10 mg tablet Take 1 tablet by mouth as needed (for headaches). May repeat in 2 hours if needed dicyclomine (BENTYL) 10 mg capsule Take one(1) tablet three(3) times daily before meals and Take one(1) tablet daily at bedtime. triamcinolone acetonide (NASACORT) 55 mcg nasal inhaler Use 2 Sprays in the nose once daily. famotidine (PEPCID) 20 mg tablet Take 1 tablet by mouth at bedtime as needed. B1/B2/NIACIN/B12/PROTEASE (VITAMINS [id number] ORAL) Take by mouth. No current facility-administered medications for this visit. Review of Systems Objective BP 112/62 Pulse 77 Temp 37.3 ?C (99.1 ?F) Resp 18 Wt 54.3 kg (119 lb 9.6 oz) LMP 05/04/2005 SpO2 99% BMI 22.60 kg/m? Last 5 Encounter Wt Readings: Date: Wt: 08/12/2022 54.3 kg (119 lb 9.6 oz) 07/17/2022 54.4 kg (120 lb) 06/12/2022 55.3 kg (122 lb) 04/13/2022 55.8 kg (123 lb) 02/16/2022 55.3 kg (122 lb) Last 1 Waist Readings: Date: Waist: 08/28/11 34 (86 cm.) Estimated body mass index is 22.6 kg/m? as calculated from the following: Height as of 01/15/22: 154.9 cm (5' 1 ). Weight as of this encounter: 54.3 kg (119 lb 9.6 oz). Last 5 Encounter BP Readings: Date: BP: 08/12/2022 112/62 07/17/2022 144/82 06/12/2022 144/96 04/13/2022 134/82 02/16/2022 142/88 Physical Exam Constitutional: Appearance: Normal appearance. HENT: Head: Normocephalic. Eyes: Conjunctiva/sclera: Conjunctivae normal. Cardiovascular: Rate and Rhythm: Normal rate and regular rhythm. Heart sounds: Normal heart sounds. Pulmonary: Effort: Pulmonary effort is normal. Breath sounds: Normal breath sounds. Skin: General: Skin is warm and dry. Comments: Hands much improved. Still with dry and cracking on tip of thumb Neurological: General: No focal deficit present. Mental Status: She is alert and oriented to person, place, and time. Psychiatric: Mood and Affect: Mood normal. Behavior: Behavior normal. Thought Content: Thought content normal. Judgment: Judgment normal. [place] (more content not included)... [facility] 08-12-2022 History of Present illness Narrative This note was created using [employer] X[employer]. Subjective Mallory Macdonald is a 56 year old female. SUBJECTIVE: Mallory Macdonald is a 56 year old year old lady here today for follow up appointment for review of medical conditions. Still with anxiety issues. Second cousin from cancer recently. Was close. Lots of driving for family visits noted. Stopped using MARIBEL. using gloves. Hands better. PAST MEDICAL HISTORY Diagnosis Date Asthma with chronic obstructive pulmonary disease (COPD) ([facility]) 04/15/2005 Benign neoplasm of colon Dysplasia of cervix, unspecified mild in past GERD (gastroesophageal reflux disease) 12/02/2010 IBS (irritable bowel syndrome) 10/31/2010 Interstitial cystitis 01/29/2010 PMH - PAST MEDICAL HISTORY OF GASTRITIS PMH - PAST MEDICAL HISTORY OF BILIARY DYSKINESIA PMH - PAST MEDICAL HISTORY OF POST TRAUMATIC STRESS DISORDER PMH - PAST MEDICAL HISTORY OF OSTEOPOROSIS Unspecified hemorrhoids without mention of complication Hemorrhoids Current Outpatient Medications Medication Sig omeprazole (PRILOSEC) 40 mg capsule Take 1 capsule by mouth once daily. temazepam (RESTORIL) 7.5 mg capsule Take 1 capsule by mouth daily at bedtime for 90 days. chlordiazePOXIDE-clidinium (LIBRAX) 5-2.5 mg per capsule Take 1 capsule by mouth before meals and at bedtime. metoprolol succinate ER (TOPROL XL) 25 mg 24 hr tablet Take 1 tablet by mouth once daily. predniSONE (DELTASONE) 10 mg tablet Take 10 mg by mouth once daily. Dosing depending upon how patient is feeling amitriptyline (ELAVIL) 25 mg tablet Take 3 tablets by mouth daily at bedtime. promethazine (PHENERGAN) 25 mg suppository 1 Suppository by RECTAL route every 6 hours as needed. amLODIPine (NORVASC) 2.5 mg tablet Take 2.5 mg by mouth once daily. predniSONE (DELTASONE) 5 mg tablet Take 2 tablets by mouth once daily. Adjust dose for flare up as needed meclizine (ANTIVERT) 12.5 mg tab Take 1 tablet by mouth four times daily as needed. ALPRAZolam (XANAX) 0.5 mg tablet Take 1 tablet by mouth twice daily as needed for anxiety for up to 90 days. Do not start before September 14, 2021. albuterol HFA (PROVENTIL HFA) 90 mcg/actuation inhaler Inhale 2 Puffs as instructed five times daily. and q2hour prn wheezing FREDI with Proventil HFA DO NOT DISPENSE GENERIC ipratropium (ATROVENT) 0.02 % nebulizer solution Inhale by nebulizer over 5-15 minutes four (4) times a day as needed for wheezing and shortness of breath albuterol (PROVENTIL) 2.5 mg /3 mL (0.083 %) nebulizer solution Use 3 mL via nebulizer every 4 hours as needed for wheezing/shortness of breath. Use over 5-15minutes. acetylcysteine (MUCOMYST) 100 mg/mL (10 %) nebulizer solution Inhale 4 mL as instructed twice daily as needed. rizatriptan (MAXALT) 10 mg tablet Take 1 tablet by mouth as needed (for headaches). May repeat in 2 hours if needed dicyclomine (BENTYL) 10 mg capsule Take one(1) tablet three(3) times daily before meals and Take one(1) tablet daily at bedtime. triamcinolone acetonide (NASACORT) 55 mcg nasal inhaler Use 2 Sprays in the nose once daily. famotidine (PEPCID) 20 mg tablet Take 1 tablet by mouth at bedtime as needed. B1/B2/NIACIN/B12/PROTEASE (VITAMINS S2-Q7-[id number]-[id number] ORAL) Take by mouth. No current facility-administered medications for this visit. Review of Systems Objective BP 112/62 Pulse 77 Temp 37.3 C (99.1 F) Resp 18 Wt 54.3 kg (119 lb 9.6 oz) LMP 05/04/2005 SpO2 99% BMI 22.60 kg/m Last 5 Encounter Wt Readings: Date: Wt: 08/12/2022 54.3 kg (119 lb 9.6 oz) 07/17/2022 54.4 kg (120 lb) 06/12/2022 55.3 kg (122 lb) 04/13/2022 55.8 kg (123 lb) 02/16/2022 55.3 kg (122 lb) Last 1 Waist Readings: Date: Waist: 08/28/11 34 (86 cm.) Estimated body mass index is 22.6 kg/m as calculated from the following: Height as of 01/15/22: 154.9 cm (5' 1 ). Weight as of this encounter: 54.3 kg (119 lb 9.6 oz). Last 5 Encounter BP Readings: Date: BP: 08/12/2022 112/62 07/17/2022 144/82 06/12/2022 144/96 04/13/2022 134/82 02/16/2022 142/88 Physical Exam Constitutional: Appearance: Normal appearance. HENT: Head: Normocephalic. Eyes: Conjunctiva/sclera: Conjunctivae normal. Cardiovascular: Rate and Rhythm: Normal rate and regular rhythm. Heart sounds: Normal heart sounds. Pulmonary: Effort: Pulmonary effort is normal. Breath sounds: Normal breath sounds. Skin: General: Skin is warm and dry. Comments: Hands much improved. Still with dry and cracking on tip of thumb Neurological: General: No focal deficit present. Mental Status: She is alert and oriented to person, place, and time. Psychiatric: Mood and Affect: Mood normal. Behavior: Behavior normal. Thought Content: Thought content normal. Judgment: Judgment normal. Component Latest Ref Rng & Units 09/01/2021 05/18/2022 08/11/2022 Protein, Total 6.3 - 8.0 g/dL 7.0 6.6 6.7 Albumin 3.9 - 4.9 g/dL 4.3 4.1 4.2 Calcium 8.5 - 10.2 mg/dL 9.5 9.3 9.8 Bilirubin, Total 0.2 - 1.3 mg/dL 0.4 0.2 0.4 Alkaline Phosphatase 34 - 123 U/L 88 96 92 AST 13 - 35 U/L 25 20 23 ALT 7 - 38 U/L 19 18 17 Glucose 74 - 99 mg/dL 93 93 83 BUN 7 - 21 mg/dL 14 14 15 Creatinine 0.58 - 0.96 mg/dL 1.01 (H) 0.87 0.94 Sodium 136 - 144 mmol/L 143 144 145 (H) Potassium 3.7 - 5.1 mmol/L 3.8 4.0 3.7 Chloride 97 - 105 mmol/L 106 (H) 107 (H) 105 CO2 22 - 30 mmol/L 23 27 29 Anion Gap 9 - 18 mmol/L 14 10 11 eGFR >=60 mL/min/1.73m 65 77 70 WBC 3.70 - 11.00 k/uL 9.87 9.67 7.04 RBC 3.90 - 5.20 m/uL 4.91 4.85 5.09 Hemoglobin 11.5 - 15.5 g/dL 15.0 14.8 15.7 (H) Hematocrit 36.0 - 46.0 % 44.9 44.8 48.4 (H) MCV 80.0 - 100.0 fL 91.4 92.4 95.1 MCH 26.0 - 34.0 pg 30.5 30.5 30.8 MCHC 30.5 - 36.0 g/dL 33.4 33.0 32.4 RDW-CV 11.5 - 15.0 % 12.5 12.2 12.2 Platelet Count 150 - 400 k/uL 263 275 283 MPV 9.0 - 12.7 fL 10.3 10.3 10.4 Absolute nRBC <0.01 k/uL <0.01 <0.01 <0.01 Cholesterol, Total <200 mg/dL 273 (H) Triglyceride <150 mg/dL 164 (H) HDL Cholesterol >39 mg/dL 71 Non HDL Cholesterol <130 mg/dL 202 (H) Fasting Time hrs 11 VLDL Cholesterol <30 mg/dL 33 (H) TC:HDL Ratio <5.10 3.85 LDL Cholesterol <100 mg/dL 169 (H) LDL:HDL Ratio <2.54 2.38 Total Cholesterol, Nonfasting <200 mg/dL 280 (H) 282 (H) Triglycerides, Nonfasting <150 mg/dL 145 220 (H) HDL Cholesterol, Nonfasting >39 mg/dL 68 69 LDL Cholesterol, Nonfasting <100 mg/dL 183 (H) 169 (H) Non HDL Cholesterol, Nonfasting <130 mg/dL 212 (H) 213 (H) VLDL Cholesterol, Nonfasting <30 mg/dL 29 44 (H) Total Chol/HDL Ratio, Nonfasting <5.10 mg/dL 4.12 4.09 LDL/HDL Ratio, Nonfasting <2.54 mg/dL 2.69 (H) 2.45 Magnesium 1.7 - 2.3 mg/dL 2.2 2.4 (H) Vitamin D 25 Hydroxy 31.0 - 80.0 ng/mL 19.9 (L) 23.4 (L) 27.0 (L) The 10-year ASCVD risk score (Lesley MCKEON, et al., 2019) is: 3% Values used to calculate the score: Age: 56 years Sex: Female Is Non- : No Diabetic: No Tobacco smoker: No Systolic Blood Pressure: 112 mmHg Is BP treated: Yes HDL Cholesterol: 71 mg/dL Total Cholesterol: 273 mg/dL Assessment and Plan Encounter Diagnosis ICD-10-CM 1. Anxiety F41.9 Stressors noted. Overall, better controlled the past year or so. Continue present management 2. 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 Stopped using Maribel dish soap that had been washing things by hand with. Continues present management 3. Vitamin D deficiency E55.9 Continue taking supplement as able and titrate up dose as needed as tolerated 4. Primary hypertension I10 Controlled. Continues present med(s) 5. Mixed hyperlipidemia E78.2 Stable on present management Above issues addressed with patient. Patient involved in shared decision making for management of medical issues. History and medications reviewed. Epic updated as needed Refills and/or prescriptions taken care of and meds adjusted as indicated after reviewed history, exam and labs. Health Maintenance reviewed. Updated record and/or ordered tests as recorded. Encouraged on efforts at healthy diet and regular exercise and adequate sleep. Brian Owens MD documented in this encounter [facility] 08-06-2022 Miscellaneous Notes Patient has been identified by name and date of : Yes, Provider Tariq Date 11/06/22 Time 8:16am Patient phones for refill(s): Requested Prescriptions Pending Prescriptions Disp Refills omeprazole (PRILOSEC) 40 mg capsule 90 capsule 3 Sig: Take 1 capsule by mouth once daily. Date of last office visit in primary care: 07/17/22 Last 2 Encounter Wt Readings: Date: Wt: 07/17/2022 54.4 kg (120 lb) 06/12/2022 55.3 kg (122 lb) Please advise. Thank you. Mallory Coles LPN documented in this encounter [facility] 08-03-2022 Note HNO ID: [id number] Author: Laura Mays PSYD Service: ? Author Type: Psychologist Type: Progress Notes Filed: 08/05/2022 5:26 AM Note Text: [facility] Progress Note THIS IS A ZOOM VISIT Mallory K Fox 07/28/2022 [id number] Provider: Laura Cisneros PSYD Time: Approximately 45 minutes was spent in therapy. Parties Present: Patient Patient Presentation/Concerns: Albina indicated that she lost 25lbs with mindful eating. She stated high levels of anxiety due to travel to her daughter's home/being out of a routine. Her daughter is moving to [place], which will requiring getting ready emotionally to travel by plane. She reported taking 6 bag of trash out of her home a week as she continues to work on letting go of things/hoarding behavior. She indicated a recent increase in GI problems which are unexplained. She is not sure if it is anxiety or food related. . Mental Status: Mood: neutral Affect: mood-congruent Thoughts/Associations:goal directed Suicidal/Homicidal Ideation: None expressed or evidenced Patient denies any suicidal or homicidal ideation, plan or intent at this time. Other Observations: None Therapy Focus Self-care and Stress management MEDICATIONS: Per medical record: Current Outpatient Medications Medication Sig temazepam (RESTORIL) 7.5 mg capsule Take 1 capsule by mouth daily at bedtime for 90 days. chlordiazePOXIDE-clidinium (LIBRAX) 5-2.5 mg per capsule Take 1 capsule by mouth before meals and at bedtime. metoprolol succinate ER (TOPROL XL) 25 mg 24 hr tablet Take 1 tablet by mouth once daily. predniSONE (DELTASONE) 10 mg tablet Take 10 mg by mouth once daily. Dosing depending upon how patient is feeling amitriptyline (ELAVIL) 25 mg tablet Take 3 tablets by mouth daily at bedtime. promethazine (PHENERGAN) 25 mg suppository 1 Suppository by RECTAL route every 6 hours as needed. amLODIPine (NORVASC) 2.5 mg tablet Take 2.5 mg by mouth once daily. predniSONE (DELTASONE) 5 mg tablet Take 2 tablets by mouth once daily. Adjust dose for flare up as needed meclizine (ANTIVERT) 12.5 mg tab Take 1 tablet by mouth four times daily as needed. ALPRAZolam (XANAX) 0.5 mg tablet Take 1 tablet by mouth twice daily as needed for anxiety for up to 90 days. Do not start before September 14, 2021. albuterol HFA (PROVENTIL HFA) 90 mcg/actuation inhaler Inhale 2 Puffs as instructed five times daily. and q2hour prn wheezing FREDI with Proventil HFA DO NOT DISPENSE GENERIC omeprazole (PRILOSEC) 40 mg capsule Take 1 capsule by mouth once daily. ipratropium (ATROVENT) 0.02 % nebulizer solution Inhale by nebulizer over 5-15 minutes four (4) times a day as needed for wheezing and shortness of breath albuterol (PROVENTIL) 2.5 mg /3 mL (0.083 %) nebulizer solution Use 3 mL via nebulizer every 4 hours as needed for wheezing/shortness of breath. Use over 5-15minutes. acetylcysteine (MUCOMYST) 100 mg/mL (10 %) nebulizer solution Inhale 4 mL as instructed twice daily as needed. rizatriptan (MAXALT) 10 mg tablet Take 1 tablet by mouth as needed (for headaches). May repeat in 2 hours if needed dicyclomine (BENTYL) 10 mg capsule Take one(1) tablet three(3) times daily before meals and Take one(1) tablet daily at bedtime. triamcinolone acetonide (NASACORT) 55 mcg nasal inhaler Use 2 Sprays in the nose once daily. famotidine (PEPCID) 20 mg tablet Take 1 tablet by mouth at bedtime as needed. B1/B2/NIACIN/B12/PROTEASE (VITAMINS [id number] ORAL) Take by mouth. No current facility-administered medications for this visit. Psychiatric Medication Issues: No change from previous appointment DIAGNOSIS: Depression Treatment Modality/Interventions: Cognitive Behavioral TREATMENT ASSESSMENT/PROGRESS: Stable TREATMENT PLAN/GOALS: Continue in therapy focusing on stress management and affect management. CBT for anxiety. Next appointment: 2 weeks Laura Cisneros PSYD [facility] 07-17-2022 Note HNO ID: [id number] Author: Jose Luis Carnes APRN.WO[employer] LATHE OPERATOR Service: ? Author Type: Nurse Specialist Type: Progress Notes Filed: 07/17/2022 12:33 PM Note Text: Subjective HPI Mallory Macdonald is a 56 year old female. PMH significant for ACTIVE PROBLEM LIST Asthma With Chronic Obstructive Pulmonary Disease (Copd) (Hcc) Osteopenia Anxiety Ibs (Irritable Bowel Syndrome) Hld (Hyperlipidemia) Recurrent Major Depressive Disorder, in Partial Remission (Hcc) Current Chronic Use of Systemic Steroids Vitamin D Deficiency Primary Hypertension Palpitations Presents today regarding UTI symptoms. She reports dysuria and blood noted on toilet paper last weekend. No further blood was noted however continues with dysuria back pain and fever for 1 day. Dysuria: yes Frequency: no Urgency: no Fever: 99.6F one day, now cleared Back pain, hurts . Review of Systems Constitutional: Negative. Objective BP 144/82 Pulse 88 Resp 14 Wt 54.4 kg (120 lb) LMP 05/04/2005 BMI 22.67 kg/m? Physical Exam Vitals and nursing note reviewed. Constitutional: Appearance: Normal appearance. HENT: Head: Normocephalic and atraumatic. Eyes: Conjunctiva/sclera: Conjunctivae normal. Cardiovascular: Rate and Rhythm: Normal rate. Pulmonary: Effort: Pulmonary effort is normal. Abdominal: General: Bowel sounds are normal. Palpations: Abdomen is soft. Skin: General: Skin is warm and dry. Neurological: Mental Status: She is alert. ALLERGIES Allergen Reactions Symbicort [Budesoni* GI Upset, Vomiting Severe nausea and vomiting Trazodone Swelling tongue swelled Augmentin [Amoxicil* Intolerance Throat tight but no swelling, wheezing, shortness of breath. Doxycycline Vomiting Dulera [Mometasone-* Mental Status Change dizzy/spinning vertigo; also severe headaches Dust Erythromycin GI Upset nausea Fosamax [Alendronat* GI Upset GI upset with 70 mg once weekly tablet. Pt is able to take daily tablet Iodine Shortness of Breath, Other: See Comments Warmth felt in throat/chest. Tightness in chest. Levaquin [Levofloxa* Mental Status Change Loopy and dizzy. Can take cipro Lipitor [Atorvastat* GI Upset Nausea Metamucil [Psyllium] Diarrhea Diarrhea with fibers Qvar [Beclomethason* GI Upset Sulfa (Sulfonamide * Hives Xolair [Omalizumab] GI Upset vomit, not help breathing Epinephrine Other: See Comments Dizzy, lightheaded Current Outpatient Medications Medication Sig nitrofurantoin monohydrate and macrocrystal (MACROBID) 100 mg capsule Take 1 capsule by mouth twice daily with meals for 7 days. temazepam (RESTORIL) 7.5 mg capsule Take 1 capsule by mouth daily at bedtime for 90 days. chlordiazePOXIDE-clidinium (LIBRAX) 5-2.5 mg per capsule Take 1 capsule by mouth before meals and at bedtime. metoprolol succinate ER (TOPROL XL) 25 mg 24 hr tablet Take 1 tablet by mouth once daily. predniSONE (DELTASONE) 10 mg tablet Take 10 mg by mouth once daily. Dosing depending upon how patient is feeling amitriptyline (ELAVIL) 25 mg tablet Take 3 tablets by mouth daily at bedtime. promethazine (PHENERGAN) 25 mg suppository 1 Suppository by RECTAL route every 6 hours as needed. amLODIPine (NORVASC) 2.5 mg tablet Take 2.5 mg by mouth once daily. predniSONE (DELTASONE) 5 mg tablet Take 2 tablets by mouth once daily. Adjust dose for flare up as needed meclizine (ANTIVERT) 12.5 mg tab Take 1 tablet by mouth four times daily as needed. ALPRAZolam (XANAX) 0.5 mg tablet Take 1 tablet by mouth twice daily as needed for anxiety for up to 90 days. Do not start before September 14, 2021. albuterol HFA (PROVENTIL HFA) 90 mcg/actuation inhaler Inhale 2 Puffs as instructed five times daily. and q2hour prn wheezing FREDI with Proventil HFA DO NOT DISPENSE GENERIC omeprazole (PRILOSEC) 40 mg capsule Take 1 capsule by mouth once daily. ipratropium (ATROVENT) 0.02 % nebulizer solution Inhale by nebulizer over 5-15 minutes four (4) times a day as needed for wheezing and shortness of breath albuterol (PROVENTIL) 2.5 mg /3 mL (0.083 %) nebulizer solution Use 3 mL via nebulizer every 4 hours as needed for wheezing/shortness of breath. Use over 5-15minutes. acetylcysteine (MUCOMYST) 100 mg/mL (10 %) nebulizer solution Inhale 4 mL as instructed twice daily as needed. rizatriptan (MAXALT) 10 mg tablet Take 1 tablet by mouth as needed (for headaches). May repeat in 2 hours if needed dicyclomine (BENTYL) 10 mg capsule Take one(1) tablet three(3) times daily before meals and Take one(1) tablet daily at bedtime. triamcinolone acetonide (NASACORT) 55 mcg nasal inhaler Use 2 Sprays in the nose once daily. famotidine (PEPCID) 20 mg tablet Take 1 tablet by mouth at bedtime as needed. B1/B2/NIACIN/B12/PROTEASE (VITAMINS [id number] ORAL) Take by mouth. No current facility-administered medications for this visit. PAST MEDICAL HISTORY Diagnosis Date Asthma with chronic o (more content not included)... [facility] 07-17-2022 History of Present illness Narrative Subjective HPI Mallory Macdonald is a 56 year old female. PMH significant for ACTIVE PROBLEM LIST Asthma With Chronic Obstructive Pulmonary Disease (Copd) (Hcc) Osteopenia Anxiety Ibs (Irritable Bowel Syndrome) Hld (Hyperlipidemia) Recurrent Major Depressive Disorder, in Partial Remission (Hcc) Current Chronic Use of Systemic Steroids Vitamin D Deficiency Primary Hypertension Palpitations Presents today regarding UTI symptoms. She reports dysuria and blood noted on toilet paper last weekend. No further blood was noted however continues with dysuria back pain and fever for 1 day. Dysuria: yes Frequency: no Urgency: no Fever: 99.6F one day, now cleared Back pain, hurts . Review of Systems Constitutional: Negative. Objective BP 144/82 Pulse 88 Resp 14 Wt 54.4 kg (120 lb) LMP 05/04/2005 BMI 22.67 kg/m Physical Exam Vitals and nursing note reviewed. Constitutional: Appearance: Normal appearance. HENT: Head: Normocephalic and atraumatic. Eyes: Conjunctiva/sclera: Conjunctivae normal. Cardiovascular: Rate and Rhythm: Normal rate. Pulmonary: Effort: Pulmonary effort is normal. Abdominal: General: Bowel sounds are normal. Palpations: Abdomen is soft. Skin: General: Skin is warm and dry. Neurological: Mental Status: She is alert. ALLERGIES Allergen Reactions Symbicort [Budesoni* GI Upset, Vomiting Severe nausea and vomiting Trazodone Swelling tongue swelled Augmentin [Amoxicil* Intolerance Throat tight but no swelling, wheezing, shortness of breath. Doxycycline Vomiting Dulera [Mometasone-* Mental Status Change dizzy/spinning vertigo; also severe headaches Dust Erythromycin GI Upset nausea Fosamax [Alendronat* GI Upset GI upset with 70 mg once weekly tablet. Pt is able to take daily tablet Iodine Shortness of Breath, Other: See Comments Warmth felt in throat/chest. Tightness in chest. Levaquin [Levofloxa* Mental Status Change Loopy and dizzy. Can take cipro Lipitor [Atorvastat* GI Upset Nausea Metamucil [Psyllium] Diarrhea Diarrhea with fibers Qvar [Beclomethason* GI Upset Sulfa (Sulfonamide * Hives Xolair [Omalizumab] GI Upset vomit, not help breathing Epinephrine Other: See Comments Dizzy, lightheaded Current Outpatient Medications Medication Sig nitrofurantoin monohydrate and macrocrystal (MACROBID) 100 mg capsule Take 1 capsule by mouth twice daily with meals for 7 days. temazepam (RESTORIL) 7.5 mg capsule Take 1 capsule by mouth daily at bedtime for 90 days. chlordiazePOXIDE-clidinium (LIBRAX) 5-2.5 mg per capsule Take 1 capsule by mouth before meals and at bedtime. metoprolol succinate ER (TOPROL XL) 25 mg 24 hr tablet Take 1 tablet by mouth once daily. predniSONE (DELTASONE) 10 mg tablet Take 10 mg by mouth once daily. Dosing depending upon how patient is feeling amitriptyline (ELAVIL) 25 mg tablet Take 3 tablets by mouth daily at bedtime. promethazine (PHENERGAN) 25 mg suppository 1 Suppository by RECTAL route every 6 hours as needed. amLODIPine (NORVASC) 2.5 mg tablet Take 2.5 mg by mouth once daily. predniSONE (DELTASONE) 5 mg tablet Take 2 tablets by mouth once daily. Adjust dose for flare up as needed meclizine (ANTIVERT) 12.5 mg tab Take 1 tablet by mouth four times daily as needed. ALPRAZolam (XANAX) 0.5 mg tablet Take 1 tablet by mouth twice daily as needed for anxiety for up to 90 days. Do not start before September 14, 2021. albuterol HFA (PROVENTIL HFA) 90 mcg/actuation inhaler Inhale 2 Puffs as instructed five times daily. and q2hour prn wheezing FREDI with Proventil HFA DO NOT DISPENSE GENERIC omeprazole (PRILOSEC) 40 mg capsule Take 1 capsule by mouth once daily. ipratropium (ATROVENT) 0.02 % nebulizer solution Inhale by nebulizer over 5-15 minutes four (4) times a day as needed for wheezing and shortness of breath albuterol (PROVENTIL) 2.5 mg /3 mL (0.083 %) nebulizer solution Use 3 mL via nebulizer every 4 hours as needed for wheezing/shortness of breath. Use over 5-15minutes. acetylcysteine (MUCOMYST) 100 mg/mL (10 %) nebulizer solution Inhale 4 mL as instructed twice daily as needed. rizatriptan (MAXALT) 10 mg tablet Take 1 tablet by mouth as needed (for headaches). May repeat in 2 hours if needed dicyclomine (BENTYL) 10 mg capsule Take one(1) tablet three(3) times daily before meals and Take one(1) tablet daily at bedtime. triamcinolone acetonide (NASACORT) 55 mcg nasal inhaler Use 2 Sprays in the nose once daily. famotidine (PEPCID) 20 mg tablet Take 1 tablet by mouth at bedtime as needed. B1/B2/NIACIN/B12/PROTEASE (VITAMINS [id number] ORAL) Take by mouth. No current facility-administered medications for this visit. PAST MEDICAL HISTORY Diagnosis Date Asthma with chronic obstructive pulmonary disease (COPD) ([facility]) 04/15/2005 Benign neoplasm of colon Dysplasia of cervix, unspecified mild in past GERD (gastroesophageal reflux disease) 12/02/2010 IBS (irritable bowel syndrome) 10/31/2010 Interstitial cystitis 01/29/2010 PMH - PAST MEDICAL HISTORY OF GASTRITIS PMH - PAST MEDICAL HISTORY OF BILIARY DYSKINESIA PMH - PAST MEDICAL HISTORY OF POST TRAUMATIC STRESS DISORDER PMH - PAST MEDICAL HISTORY OF OSTEOPOROSIS Unspecified hemorrhoids without mention of complication Hemorrhoids Social History Tobacco Use Smoking status: Never Smokeless tobacco: Never Tobacco comments: Father used pipe in childhood home. Spouse does not smoke. Vaping Use Vaping Use: Never used Substance Use Topics Alcohol use: No Drug use: No Assessment and Plan ASSESSMENT/PLAN: 1. UTI symptoms - ICD9: 788.99, ICD10: R39.9 (primary diagnosis) 2. Microscopic hematuria - ICD9: 599.72, ICD10: R31.29 - UA DIP, URINE (POC) - URINE CULTURE - URINALYSIS, WITH MICROSCOPIC - NITROFURANTOIN MONOHYDRATE & MACROCRYSTAL 100 MG ORAL CAP Jose Luis Carnes APRN.CNS Medical Decision Making: Problems: Low: Acute, uncomplicated illness or injury Data: Unique test(s) ordered: 3+ Risk: Moderate: Drug management Medical Decision Making Level: 4 - Moderate documented in this encounter [facility] 07-03-2022 Miscellaneous Notes Pt called and is notified of providers message. Pt voices understanding. Jailyn Hernandez RN Refill sent, can let patient know Pt called in and reports [facility] told her they didn't have the prescription for her Librax. It was ordered 04/13/22 and said please keep on file for June with a start date of 07/06/22. The [facility] Pharmacist didn't see the hold until June until after I told her about it and it had been filled for April and May. The last Librax refill before this was ordered on 02/26/22, which the Pt picked up the and then again on 03/21/22. Pt does not have a the refill in there for this month or next because the pharmacists did not see the small script saying to [facility] for June, but she wouldn't have had any refills for the last two months then. Patient has been identified by name and date of : Yes, Provider Dr Owens Date 07/01/22 Time 1536. Patient phones for refill(s): Requested Prescriptions Pending Prescriptions Disp Refills chlordiazePOXIDE-clidinium (LIBRAX) 5-2.5 mg per capsule 120 capsule 1 Sig: Take 1 capsule by mouth before meals and at bedtime. Date of last office visit in primary care: 06/12/22 Future visit: 08/12/22 Last 2 Encounter Wt Readings: Date: Wt: 06/12/2022 55.3 kg (122 lb) 04/13/2022 55.8 kg (123 lb) Previous labs/tests for medication: Blood Pressure: BUN (mg/dL) Date Value 05/18/2022 14 10/02/2020 15 Sodium (mmol/L) Date Value 05/18/2022 144 10/02/2020 140 Last 1 Encounter BP Readings: Date: BP: 06/12/2022 144/96 Liver Function: ALT (U/L) Date Value 05/18/2022 18 10/02/2020 13 AST (U/L) Date Value 05/18/2022 20 10/02/2020 20 Please advise. Thank you. Jailyn Hernandez RN documented in this encounter [facility] 06-12-2022 Note HNO ID: [id number] Author: Brian Owens MD Service: ? Author Type: Physician Type: Progress Notes Filed: 07/09/2022 7:58 PM Note Text: This note was created using [employer]. Subjective Mallory Macdonald is a 56 year old female. Patient presents with: 2 month F/U SUBJECTIVE: Mallory Macdonald is a 56 year old year old lady here today for 2 month follow up appointment for review of medical conditions. At home BP 140s over 80s or 90s. Pulse can go up to 178 on her FitBit Reviewed Zio. Episodes of SVT noted but not when had symptoms. Symptoms happened did not have SVT. Reviewed bone density. Osteoporosis. Told to take Fish Oil by Annamarie Mancilla ([facility]) fpr eye issues. Still really dry eyes. To use eye drops every 2 hours. PAST MEDICAL HISTORY Diagnosis Date Asthma with chronic obstructive pulmonary disease (COPD) ([facility]) 04/15/2005 Benign neoplasm of colon Dysplasia of cervix, unspecified mild in past GERD (gastroesophageal reflux disease) 12/02/2010 IBS (irritable bowel syndrome) 10/31/2010 Interstitial cystitis 01/29/2010 PMH - PAST MEDICAL HISTORY OF GASTRITIS PMH - PAST MEDICAL HISTORY OF BILIARY DYSKINESIA PMH - PAST MEDICAL HISTORY OF POST TRAUMATIC STRESS DISORDER PMH - PAST MEDICAL HISTORY OF OSTEOPOROSIS Unspecified hemorrhoids without mention of complication Hemorrhoids Current Outpatient Medications Medication Sig metoprolol succinate ER (TOPROL XL) 25 mg 24 hr tablet Take 1 tablet by mouth once daily. predniSONE (DELTASONE) 10 mg tablet Take 10 mg by mouth once daily. Dosing depending upon how patient is feeling amitriptyline (ELAVIL) 25 mg tablet Take 3 tablets by mouth daily at bedtime. [START ON 07/06/2022] chlordiazePOXIDE-clidinium (LIBRAX) 5-2.5 mg per capsule Take 1 capsule by mouth before meals and at bedtime. temazepam (RESTORIL) 7.5 mg capsule Take 1 capsule by mouth daily at bedtime for 90 days. promethazine (PHENERGAN) 25 mg suppository 1 Suppository by RECTAL route every 6 hours as needed. amLODIPine (NORVASC) 2.5 mg tablet Take 2.5 mg by mouth once daily. predniSONE (DELTASONE) 5 mg tablet Take 2 tablets by mouth once daily. Adjust dose for flare up as needed meclizine (ANTIVERT) 12.5 mg tab Take 1 tablet by mouth four times daily as needed. ALPRAZolam (XANAX) 0.5 mg tablet Take 1 tablet by mouth twice daily as needed for anxiety for up to 90 days. Do not start before September 14, 2021. albuterol HFA (PROVENTIL HFA) 90 mcg/actuation inhaler Inhale 2 Puffs as instructed five times daily. and q2hour prn wheezing FREDI with Proventil HFA DO NOT DISPENSE GENERIC omeprazole (PRILOSEC) 40 mg capsule Take 1 capsule by mouth once daily. ipratropium (ATROVENT) 0.02 % nebulizer solution Inhale by nebulizer over 5-15 minutes four (4) times a day as needed for wheezing and shortness of breath albuterol (PROVENTIL) 2.5 mg /3 mL (0.083 %) nebulizer solution Use 3 mL via nebulizer every 4 hours as needed for wheezing/shortness of breath. Use over 5-15minutes. acetylcysteine (MUCOMYST) 100 mg/mL (10 %) nebulizer solution Inhale 4 mL as instructed twice daily as needed. rizatriptan (MAXALT) 10 mg tablet Take 1 tablet by mouth as needed (for headaches). May repeat in 2 hours if needed dicyclomine (BENTYL) 10 mg capsule Take one(1) tablet three(3) times daily before meals and Take one(1) tablet daily at bedtime. triamcinolone acetonide (NASACORT) 55 mcg nasal inhaler Use 2 Sprays in the nose once daily. famotidine (PEPCID) 20 mg tablet Take 1 tablet by mouth at bedtime as needed. B1/B2/NIACIN/B12/PROTEASE (VITAMINS W6-U5-[id number]-[id number] ORAL) Take by mouth. diclofenac (VOLTAREN) 1 % topical gel Use as directed for elbow and bursitis. 2 gram up to 4 times daily for upper extremity joint as needed. 4 grams up to 4 times daily for lower extremity joint as needed (Patient not taking: No sig reported) No current facility-administered medications for this visit. Review of Systems Objective BP 144/96 Pulse 103 Temp 37.6 ?C (99.6 ?F) Resp 18 Wt 55.3 kg (122 lb) LMP 05/04/2005 BMI 23.05 kg/m? Last 5 Encounter Wt Readings: Date: Wt: 06/12/2022 55.3 kg (122 lb) 04/13/2022 55.8 kg (123 lb) 02/16/2022 55.3 kg (122 lb) 01/15/2022 56.7 kg (125 lb) 01/05/2022 56.2 kg (124 lb) Last 1 Waist Readings: Date: Waist: 08/28/11 34 (86 cm.) Estimated body mass index is 23.05 kg/m? as calculated from the following: Height as of 01/15/22: 154.9 cm (5' 1 ). Weight as of this encounter: 55.3 kg (122 lb). Last 5 Encounter BP Readings: Date: BP: 06/12/2022 144/96 04/13/2022 134/82 02/16/2022 142/88 01/15/2022 138/78 01/05/2022 122/62 Physical Exam Constitutional: Appearance: Normal appearance. HENT: Head: Normocephalic. Eyes: Conjunctiva/sclera: Conjunctivae normal. Cardiovascular: Rate and Rhythm: Normal rate and regular rhythm. Heart sounds: Normal heart sounds. Pulmonary: Effort: Pulmo (more content not included)... [facility] 06-12-2022 Instructions Brian Owens MD - 06/12/2022 2:38 PM EDT Very few foods naturally contain vitamin D; the main food source is oil-rich fish (such as salmon, mackerel, and johnson), liver and organ meats, and egg yolk. Few of these natural dietary sources are typically consumed by children consistently. The vitamin D content of breast milk is also low (see 'Exclusive ' below). Thus, dermal synthesis is the major natural source of the vitamin. Individuals who do not have sufficient sun exposure, especially infants, require supplemental vitamin D from fortified foods or supplements. (See 'Prevention' below.) In the [place], milk, formula, breakfast cereals, and some other foods are fortified with vitamin D. In other parts of the world, cereals and bread products are often fortified with vitamin D. (See Overview of vitamin D .) documented in this encounter [facility] 06-12-2022 History of Present illness Narrative This note was created using [employer]. Subjective Mallory Macdonald is a 56 year old female. Patient presents with: 2 month F/U SUBJECTIVE: Mallory Macdonald is a 56 year old year old lady here today for 2 month follow up appointment for review of medical conditions. At home BP 140s over 80s or 90s. Pulse can go up to 178 on her FitBit Reviewed Zio. Episodes of SVT noted but not when had symptoms. Symptoms happened did not have SVT. Reviewed bone density. Osteoporosis. Told to take Fish Oil by Annamarie Mancilla ([facility]) fpr eye issues. Still really dry eyes. To use eye drops every 2 hours. PAST MEDICAL HISTORY Diagnosis Date Asthma with chronic obstructive pulmonary disease (COPD) ([facility]) 04/15/2005 Benign neoplasm of colon Dysplasia of cervix, unspecified mild in past GERD (gastroesophageal reflux disease) 12/02/2010 IBS (irritable bowel syndrome) 10/31/2010 Interstitial cystitis 01/29/2010 PMH - PAST MEDICAL HISTORY OF GASTRITIS PMH - PAST MEDICAL HISTORY OF BILIARY DYSKINESIA PMH - PAST MEDICAL HISTORY OF POST TRAUMATIC STRESS DISORDER PMH - PAST MEDICAL HISTORY OF OSTEOPOROSIS Unspecified hemorrhoids without mention of complication Hemorrhoids Current Outpatient Medications Medication Sig metoprolol succinate ER (TOPROL XL) 25 mg 24 hr tablet Take 1 tablet by mouth once daily. predniSONE (DELTASONE) 10 mg tablet Take 10 mg by mouth once daily. Dosing depending upon how patient is feeling amitriptyline (ELAVIL) 25 mg tablet Take 3 tablets by mouth daily at bedtime. [START ON 07/06/2022] chlordiazePOXIDE-clidinium (LIBRAX) 5-2.5 mg per capsule Take 1 capsule by mouth before meals and at bedtime. temazepam (RESTORIL) 7.5 mg capsule Take 1 capsule by mouth daily at bedtime for 90 days. promethazine (PHENERGAN) 25 mg suppository 1 Suppository by RECTAL route every 6 hours as needed. amLODIPine (NORVASC) 2.5 mg tablet Take 2.5 mg by mouth once daily. predniSONE (DELTASONE) 5 mg tablet Take 2 tablets by mouth once daily. Adjust dose for flare up as needed meclizine (ANTIVERT) 12.5 mg tab Take 1 tablet by mouth four times daily as needed. ALPRAZolam (XANAX) 0.5 mg tablet Take 1 tablet by mouth twice daily as needed for anxiety for up to 90 days. Do not start before September 14, 2021. albuterol HFA (PROVENTIL HFA) 90 mcg/actuation inhaler Inhale 2 Puffs as instructed five times daily. and q2hour prn wheezing FREDI with Proventil HFA DO NOT DISPENSE GENERIC omeprazole (PRILOSEC) 40 mg capsule Take 1 capsule by mouth once daily. ipratropium (ATROVENT) 0.02 % nebulizer solution Inhale by nebulizer over 5-15 minutes four (4) times a day as needed for wheezing and shortness of breath albuterol (PROVENTIL) 2.5 mg /3 mL (0.083 %) nebulizer solution Use 3 mL via nebulizer every 4 hours as needed for wheezing/shortness of breath. Use over 5-15minutes. acetylcysteine (MUCOMYST) 100 mg/mL (10 %) nebulizer solution Inhale 4 mL as instructed twice daily as needed. rizatriptan (MAXALT) 10 mg tablet Take 1 tablet by mouth as needed (for headaches). May repeat in 2 hours if needed dicyclomine (BENTYL) 10 mg capsule Take one(1) tablet three(3) times daily before meals and Take one(1) tablet daily at bedtime. triamcinolone acetonide (NASACORT) 55 mcg nasal inhaler Use 2 Sprays in the nose once daily. famotidine (PEPCID) 20 mg tablet Take 1 tablet by mouth at bedtime as needed. B1/B2/NIACIN/B12/PROTEASE (VITAMINS [id number] ORAL) Take by mouth. diclofenac (VOLTAREN) 1 % topical gel Use as directed for elbow and bursitis. 2 gram up to 4 times daily for upper extremity joint as needed. 4 grams up to 4 times daily for lower extremity joint as needed (Patient not taking: No sig reported) No current facility-administered medications for this visit. Review of Systems Objective BP 144/96 Pulse 103 Temp 37.6 C (99.6 F) Resp 18 Wt 55.3 kg (122 lb) LMP 05/04/2005 BMI 23.05 kg/m Last 5 Encounter Wt Readings: Date: Wt: 06/12/2022 55.3 kg (122 lb) 04/13/2022 55.8 kg (123 lb) 02/16/2022 55.3 kg (122 lb) 01/15/2022 56.7 kg (125 lb) 01/05/2022 56.2 kg (124 lb) Last 1 Waist Readings: Date: Waist: 08/28/11 34 (86 cm.) Estimated body mass index is 23.05 kg/m as calculated from the following: Height as of 01/15/22: 154.9 cm (5' 1 ). Weight as of this encounter: 55.3 kg (122 lb). Last 5 Encounter BP Readings: Date: BP: 06/12/2022 144/96 04/13/2022 134/82 02/16/2022 142/88 01/15/2022 138/78 01/05/2022 122/62 Physical Exam Constitutional: Appearance: Normal appearance. HENT: Head: Normocephalic. Eyes: Conjunctiva/sclera: Conjunctivae normal. Cardiovascular: Rate and Rhythm: Normal rate and regular rhythm. Heart sounds: Normal heart sounds. Pulmonary: Effort: Pulmonary effort is normal. Breath sounds: Wheezing (Still good air movement) present. Skin: General: Skin is warm and dry. Neurological: General: No focal deficit present. Mental Status: She is alert and oriented to person, place, and time. Psychiatric: Mood and Affect: Mood normal. Behavior: Behavior normal. Thought Content: Thought content normal. Judgment: Judgment normal. Component Latest Ref Rng & Units 09/01/2021 05/18/2022 Protein, Total 6.3 - 8.0 g/dL 7.0 6.6 Albumin 3.9 - 4.9 g/dL 4.3 4.1 Calcium 8.5 - 10.2 mg/dL 9.5 9.3 Bilirubin, Total 0.2 - 1.3 mg/dL 0.4 0.2 Alkaline Phosphatase 34 - 123 U/L 88 96 AST 13 - 35 U/L 25 20 ALT 7 - 38 U/L 19 18 Glucose 74 - 99 mg/dL 93 93 BUN 7 - 21 mg/dL 14 14 Creatinine 0.58 - 0.96 mg/dL 1.01 (H) 0.87 Sodium 136 - 144 mmol/L 143 144 Potassium 3.7 - 5.1 mmol/L 3.8 4.0 Chloride 97 - 105 mmol/L 106 (H) 107 (H) CO2 22 - 30 mmol/L 23 27 Anion Gap 9 - 18 mmol/L 14 10 eGFR >=60 mL/min/1.73m 65 77 WBC 3.70 - 11.00 k/uL 9.87 9.67 RBC 3.90 - 5.20 m/uL 4.91 4.85 Hemoglobin 11.5 - 15.5 g/dL 15.0 14.8 Hematocrit 36.0 - 46.0 % 44.9 44.8 MCV 80.0 - 100.0 fL 91.4 92.4 MCH 26.0 - 34.0 pg 30.5 30.5 MCHC 30.5 - 36.0 g/dL 33.4 33.0 RDW-CV 11.5 - 15.0 % 12.5 12.2 Platelet Count 150 - 400 k/uL 263 275 MPV 9.0 - 12.7 fL 10.3 10.3 Absolute nRBC <0.01 k/uL <0.01 <0.01 Total Cholesterol, Nonfasting <200 mg/dL 280 (H) 282 (H) Triglycerides, Nonfasting <150 mg/dL 145 220 (H) HDL Cholesterol, Nonfasting >39 mg/dL 68 69 LDL Cholesterol, Nonfasting <100 mg/dL 183 (H) 169 (H) Non HDL Cholesterol, Nonfasting <130 mg/dL 212 (H) 213 (H) VLDL Cholesterol, Nonfasting <30 mg/dL 29 44 (H) Total Chol/HDL Ratio, Nonfasting <5.10 mg/dL 4.12 4.09 LDL/HDL Ratio, Nonfasting <2.54 mg/dL 2.69 (H) 2.45 Magnesium 1.7 - 2.3 mg/dL 2.2 2.4 (H) Vitamin D 25 Hydroxy 31.0 - 80.0 ng/mL 19.9 (L) 23.4 (L) Assessment and Plan Encounter Diagnosis ICD-10-CM 1. PSVT (paroxysmal supraventricular tachycardia) ([facility]) I47.1 2. Age-related osteoporosis without current pathological fracture M81.0 3. Vitamin D deficiency E55.9 VITAMIN D 25 HYDROXY 4. Primary hypertension I10 COMP METABOLIC PANEL CBC 5. Mixed hyperlipidemia E78.2 LIPID PANEL BASIC 6. Dry mouth R68.2 SAPPHIRE BY IFA SCREEN RHEUMATOID FACTOR BL SJOGREN ABS SSA/SSB COMP METABOLIC PANEL CBC 7. Asthma with chronic obstructive pulmonary disease (COPD) ([facility]) J44.9 Above issues addressed with patient. Patient involved in shared decision making for management of medical issues. History and medications reviewed. Epic updated as needed Refills and/or prescriptions taken care of and meds adjusted as indicated after reviewed history, exam and labs. Health Maintenance reviewed. Updated record and/or ordered tests as recorded. Encouraged on efforts at healthy diet and regular exercise and adequate sleep. I spent a total of 43 minutes on the date of the service which included [id number] patient care, completing clinical documentation, performing a medically appropriate examination, counseling and educating the patient/family/caregiver, and ordering medications, tests, or procedures. Brian Owens MD documented in this encounter [facility] 06-03-2022 Miscellaneous Notes Last office visit: 04/13/22 Next appointment scheduled: 06/12/22 Last labs: 05/18/22 Patient phones requesting refills as follows: Requested Prescriptions Pending Prescriptions Disp Refills metoprolol succinate ER (TOPROL XL) 25 mg 24 hr tablet 90 tablet 3 Sig: Take 1 tablet by mouth once daily. Please review and advise. Dottie Ospina LPN documented in this encounter [facility] 05-04-2022 History of Present illness Narrative Radiology Service Progress Note PATIENT NAME: Mallory Macdonald DATE OF SERVICE: May 04, 2022 TIME: 12:34 PM PATIENT IDENTITY VERIFICATION COMPLETED USING TWO (2) IDENTIFIERS: Name and Date of confirmed by patient verbally. FALL SCREENING: Has the patient had 2 falls in the last year or 1 fall with injury or currently using an Ambulatory Assistive Device (Walker, Cane, Wheelchair, Crutches, etc.)? No PATIENT GENDER DATA: Female. status: : No status: NO. PATIENT RELEVANT IMPLANT DATA REVIEWED: Not Applicable RADIOLOGY DEPARTMENT: Bone Density PERIPHERAL IV DATA: Not applicable SIGNED BY: RT Brittany(R) May 04, 2022 12:34 PM documented in this encounter [facility] 04-24-2022 Miscellaneous Notes Monitor placed by [place] nurse. Shanthi Marshall LPN My chart message to pt. Per pre cert dept. Patient is approved, NPCR, and the referral has been updated. Spoke to financial/insurance approval department at the number provided by the company providing the [employer] heart monitor at 9:02am on Wednesday04/14/2022. The office was not open on Wednesday04/13/2022 due to the holiday. Patient's insurance information given to [employer] staff and after waiting a few minutes, was informed that patient is needing a Prior approval for the monitor and it would be covered 100% by her insurance company. Nursing was told information would be faxed to our office to assist in completing the PA. The [employer] staff member suggested having the patient take the monitor with her on her trip out of town the rest of the week, so can apply it when the approval is in place. The patient agreed and did take the ZioXT monitor, and will not open until instructed by nursing. Shanthi Marshall LPN documented in this encounter [facility] 04-21-2022 Miscellaneous Notes Order on providers desk for signature. I printed an order for this, please fax to [facility] and let patient know when sent. Thanks! documented in this encounter [facility] 04-08-2022 Miscellaneous Notes PDMP website checked and validated. All prescriptions have been APPROPRIATELY filled. No suspicious activity was identified. 04/08/2022 by Divina Del Rosario APRN.MIGUELINA Patient has been identified by name and date of : Yes Patient phones for refill(s): Requested Prescriptions Pending Prescriptions Disp Refills temazepam (RESTORIL) 7.5 mg capsule 90 capsule 0 Sig: Take 1 capsule by mouth daily at bedtime for 90 days. Date of last office visit in primary care: 02/16/2022 2 month follow-up: 04/13/2022 Last 2 Encounter Wt Readings: Date: Wt: 02/16/2022 55.3 kg (122 lb) 01/15/2022 56.7 kg (125 lb) Previous labs/tests for medication: Not applicable Please advise. Thank you. Yris Kunz LPN documented in this encounter [facility] 02-16-2022 History of Present illness Narrative This note was created using [employer]. Subjective Mallory Macdonald is a 56 year old female. Patient presents with: Follow Up SUBJECTIVE: Mallory Macdonald is a 56 year old year old lady here today for 2 month follow up appointment for review of medical conditions. Things overall doing better. Better outlook noted since working with Dr. Bradford Mays. Anxiety and depression symptoms much better controlled. Deep (grandson) and family coming Thanksgiving. Things did well with Mosque[employer] purse. Did get Librax covered. Does not need 4 every day. Some days will need that many though. Adjusts diet as needed. PAST MEDICAL HISTORY Diagnosis Date Asthma with chronic obstructive pulmonary disease (COPD) (HCC) 04/15/2005 Benign neoplasm of colon Dysplasia of cervix, unspecified mild in past GERD (gastroesophageal reflux disease) 12/02/2010 IBS (irritable bowel syndrome) 10/31/2010 Interstitial cystitis 01/29/2010 PMH - PAST MEDICAL HISTORY OF GASTRITIS PMH - PAST MEDICAL HISTORY OF BILIARY DYSKINESIA PMH - PAST MEDICAL HISTORY OF POST TRAUMATIC STRESS DISORDER PMH - PAST MEDICAL HISTORY OF OSTEOPOROSIS Unspecified hemorrhoids without mention of complication Hemorrhoids Current Outpatient Medications Medication Sig temazepam (RESTORIL) 7.5 mg capsule Take 1 capsule by mouth daily at bedtime for 90 days. chlordiazePOXIDE-clidinium (LIBRAX) 5-2.5 mg per capsule Take 1 capsule by mouth before meals and at bedtime. diclofenac (VOLTAREN) 1 % topical gel Use as directed for elbow and bursitis. 2 gram up to 4 times daily for upper extremity joint as needed. 4 grams up to 4 times daily for lower extremity joint as needed (Patient not taking: Reported on 01/15/2022) promethazine (PHENERGAN) 25 mg suppository 1 Suppository by RECTAL route every 6 hours as needed. amLODIPine (NORVASC) 2.5 mg tablet Take 2.5 mg by mouth once daily. predniSONE (DELTASONE) 5 mg tablet Take 2 tablets by mouth once daily. Adjust dose for flare up as needed meclizine (ANTIVERT) 12.5 mg tab Take 1 tablet by mouth four times daily as needed. ALPRAZolam (XANAX) 0.5 mg tablet Take 1 tablet by mouth twice daily as needed for anxiety for up to 90 days. Do not start before September 14, 2021. amitriptyline (ELAVIL) 25 mg tablet Take 3 tablets by mouth daily at bedtime. albuterol HFA (PROVENTIL HFA) 90 mcg/actuation inhaler Inhale 2 Puffs as instructed five times daily. and q2hour prn wheezing FREDI with Proventil HFA DO NOT DISPENSE GENERIC omeprazole (PRILOSEC) 40 mg capsule Take 1 capsule by mouth once daily. ipratropium (ATROVENT) 0.02 % nebulizer solution Inhale by nebulizer over 5-15 minutes four (4) times a day as needed for wheezing and shortness of breath metoprolol succinate ER (TOPROL XL) 25 mg 24 hr tablet Take 1 tablet by mouth once daily. albuterol (PROVENTIL) 2.5 mg /3 mL (0.083 %) nebulizer solution Use 3 mL via nebulizer every 4 hours as needed for wheezing/shortness of breath. Use over 5-15minutes. acetylcysteine (MUCOMYST) 100 mg/mL (10 %) nebulizer solution Inhale 4 mL as instructed twice daily as needed. rizatriptan (MAXALT) 10 mg tablet Take 1 tablet by mouth as needed (for headaches). May repeat in 2 hours if needed dicyclomine (BENTYL) 10 mg capsule Take one(1) tablet three(3) times daily before meals and Take one(1) tablet daily at bedtime. triamcinolone acetonide (NASACORT) 55 mcg nasal inhaler Use 2 Sprays in the nose once daily. famotidine (PEPCID) 20 mg tablet Take 1 tablet by mouth at bedtime as needed. B1/B2/NIACIN/B12/PROTEASE (VITAMINS [id number] ORAL) Take by mouth. No current facility-administered medications for this visit. Review of Systems Objective BP 142/88 Pulse 100 Wt 55.3 kg (122 lb) LMP 05/04/2005 BMI 23.05 kg/m Last 5 Encounter Wt Readings: Date: Wt: 02/16/2022 55.3 kg (122 lb) 01/15/2022 56.7 kg (125 lb) 01/05/2022 56.2 kg (124 lb) 12/19/2021 56.4 kg (124 lb 6.4 oz) 10/20/2021 58.1 kg (128 lb) Last 1 Waist Readings: Date: Waist: 08/28/11 34 (86 cm.) Estimated body mass index is 23.05 kg/m as calculated from the following: Height as of 01/15/22: 154.9 cm (5' 1 ). Weight as of this encounter: 55.3 kg (122 lb). Last 5 Encounter BP Readings: Date: BP: 02/16/2022 142/88 01/15/2022 138/78 01/05/2022 122/62 01/05/2022 140/82 12/19/2021 146/80 Physical Exam Constitutional: Appearance: Normal appearance. HENT: Head: Normocephalic. Eyes: Conjunctiva/sclera: Conjunctivae normal. Cardiovascular: Rate and Rhythm: Normal rate and regular rhythm. Heart sounds: Normal heart sounds. Pulmonary: Effort: Pulmonary effort is normal. Breath sounds: Normal breath sounds. Skin: General: Skin is warm and dry. Neurological: General: No focal deficit present. Mental Status: She is alert and oriented to person, place, and time. Psychiatric: Mood and Affect: Mood normal. Behavior: Behavior normal. Thought Content: Thought content normal. Judgment: Judgment normal. Assessment and Plan Encounter Diagnosis ICD-10-CM 1. Irritable bowel syndrome with diarrhea K58.0 chlordiazePOXIDE-clidinium (LIBRAX) 5-2.5 mg per capsule Improved since she's been able to stay at home more. Medications still effective. 2. Primary hypertension I10 Some white coat hypertension issues noted 3. Vitamin D deficiency E55.9 Discussed need to try at least low dose replacement since did not tolerate higher doses; level still low when checked in August Above issues addressed with patient. Patient involved in shared decision making for management of medical issues. History and medications reviewed. Epic updated as needed Refills and/or prescriptions taken care of and meds adjusted as indicated after reviewed history, exam and labs. Health Maintenance reviewed. Updated record and/or ordered tests as recorded. Encouraged on efforts at healthy diet and regular exercise and adequate sleep. Continue present meds.Continue present management.Further evaluation and treatment as indicated. Brian Owens MD documented in this encounter [facility] 02-12-2022 Miscellaneous Notes See current MyChart and telephone encounters. Done Patient phoned to check on PA. Please advise. Rec'd and to pcp to review. Chanell called from [employer] insurance. She is attempting to get pt's medication Librax covered. Chanell is faxing a Coverage Exemption Form to office, she is asking if provider will include on paperwork that pt has tried & failed other medications. The other meds that are formulary alternatives are alprazolam, chlordiazepoxide, lorazepam & dicyclomine. Pt relayed to Oakley that she has already tried alprazolam, chlordiazepoxide & dicyclomine. She will also send the original PA that declined coverage. Oakley requesting chart note that discuss the previous meds were tried & failed. Oakley can be reached at [phone] with further questions. Luna Rodriguez LPN documented in this encounter [facility] 02-11-2022 Miscellaneous Notes Rec'd approval from 02/11/22 to 02/11/2023. Pharmacy notified. Faxed to the number on the form. Print her progress note and fax forms. Let patient know when forms have been faxed documented in this encounter [facility] 01-21-2022 Miscellaneous Notes Noted This again has been denied. See denial fax rec'd. PA completed again. MALLORY MACDONALD Rawls: [id number] - JAMI - Rx #: [id number] help? Call us at Status Sent to [facility] chlordiazePOXIDE-Clidinium 5-2.5MG capsules Form [facility] Commercial Electronic PA Form (2017 WAPDP) Original Claim Info 70 RX NOT COVEREDNON-FORMULARY DRUG, CONTACT PRESCRIBER Pt is in need of mediation Librax almost out. Provider has decreased the qty. Please try prior authorization again. Medication for Prior Authorization: Chlordiazepoxide/Clidinium Br (Librax) Other formulary meds available : NO Insurance Company: [facility] [employer] Company phone number: [phone] Patient insurance ID number: [id number] Liliam VALLE Pt has tried 2 different medications did not take care of the IBS. If qty is a issue she will take less at a time. Please advise pt and call with any questions. Call her on her cell phone: [phone]. Meds tried, Librium, Pt taking Xanax and Elavil for other reasons not helping the IBS. (Pt almost out of medication Please advise pt she is waiting to hear back. Liliam Jonas LPN documented in this encounter [facility] 01-15-2022 History of Present illness Narrative FOLLOW UP VISIT - ENDOSCOPY & LIPOMA NAME: Mallory Juarez [facility] NO.: [id number] DATE OF SERVICE: 01/15/2022 : 1965 REFERRING PHYSICIAN: Brian Owens MD Mallory is a patient I am following for screening colonoscopy for personal history of colon polyp. I performed lower endoscopy on January 05, 2022. The patient is found of an unremarkable colonoscopy except for very small polyp in the rectum.. Pathology demonstrated: Hyperplastic polyp The patient notes no colon complaints since the procedure. She did forget to ask about 2 subcutaneous nodules she notes in her lower back one on the lateral right one on the lateral left side. These are minimally tender but she can appreciate them when she feels them. They do not see be growing. VITALS: Blood pressure 138/78, pulse (!) 139, temperature 36.7 C (98 F), height 154.9 cm (5' 1 ), weight 56.7 kg (125 lb), last menstrual period 05/04/2005, SpO2 95 %. On examination, the abdomen is benign. The areas of question were palpated and felt to be subcutaneous and mobile consistent with lipomas. Intraoffice ultrasound was performed both appear to be consistent with benign lipomas. Assessment IMPRESSION: Unremarkable colonoscopy, back lipomas PLAN: If the patient does wish to have these lipomas removed. She should return and they can be reviewed in the office. I reassured her that the chance of these being malignant was minimal. They were causing increasing pain or growing then she should return for removal in any event. You were found to have a hyperplastic colon polyp. I recommend you undergo repeat endoscopy in 10 years. If you note bleeding, change in bowel habits, or other suspicious colon related symptoms before that time, those symptoms should be evaluated as necessary. The patient does have a second-degree family history of both maternal grandmother and maternal grandfather having colon cancer at a later age. She would most likely be most comfortable having follow-up colonoscopy maintained at 5 years. I felt that was reasonable If you have any difficulties or concerns, you should contact our office immediately. Diagnoses: (D17.1) Lipoma of torso (primary encounter diagnosis) Return to Clinic: The patient is instructed to follow-up with me as needed. Spencer Neri MD REVIEW OF SYSTEMS: General: The patient notes fatigue, denies weight loss, denies weight gain, notes feeling hot, and denies feelings of cold. Eyes: The patient denies glaucoma, denies eye injury/surgery, wears glasses or contacts. Ear/Nose/Throat: The patient notes allergies, denies hayfever, denies ear infections, and denies bloody noses. Cardiovascular: The patient notes chest pain, denies heart disease, notes high blood pressure,denies cardiac stent, denies prior heart attack, denies irregular heart beat, denies high cholesterol, denies poor circulation, denies heart failure, other cardiac issues, denies claudication, denies cold feet, denies peripheral arterial stent. Respiratory: The patient denies tuberculosis, denies pneumonia, denies frequent cough, denies pulmonary embolism, notes shortness of breath, and denies coughing up blood, notes other lung problems Gastrointestinal: The patient denies difficulty swallowing, notes acid reflux, denies ulcers, denies vomiting, denies jaundice/hepatitis, denies gallbladder problems, denies black or tarry stools, denies hemorrhoids, denies bleeding from rectum, denies diverticulitis, denies constipation, notes diarrhea, denies loss of stool control, and denies hernias. Kidney/Bladder: The patient denies kidney stones, notes urine infections, and denies bloody urine. Skin: The patient denies a history of skin cancer, denies bleeding/changing moles, and notes a history of skin rash. Neurologic: The patient denies a history of epilepsy/convulsions, notes headaches, denies head/spinal injuries, and denies stroke/TIA. Psychiatric: The patient denies psychiatric medications, denies depression, and denies voices, denies substance abuse. Endocrine: The patient denies thyroid disorders, denies diabetes, and denies hormonal problems. Hematologic: The patient notes a history of bruising, denies bleeding, and denies anemia, denies blood clots. Infections: The patient denies a history of measles and mumps, denies rheumatic fever, and denies sexually transmitted diseases. Musculoskeletal: The patient denies back pain/injury, denies back problems, denies sciatica, notes knee/foot trouble, denies arthritis, or denies gout. When was patient's last Mammogram screening? 2021 Last Colonoscopy: 2021 Sherry Mcpherson LPN documented in this encounter [facility] 01-14-2022 Miscellaneous Notes Images from the original note were not included. Patient called in regards to the below. Gave patient message from Dr. Neri below and she verbalized understanding. Transferred to [facility] to schedule evaluation with Dr. Neri. Transferred to [facility] to schedule. Shara Jimenez RN [facility] Specialty Pool 23 hours ago (10:03 AM) RA Please schedule patient an evaluation with Dr. Neri for mole check. Thank you MD Jailyn Albert PA-C; [facility] General Surgery Pool Yesterday (6:50 AM) I would have her come in for evaluation Please let patient know path showed benign hyperplastic polyp. Repeat colonoscopy recommended in 5 years based on prior history of adenomatous polyp. Please update HM and surgical history, and generate recall letter for 5 years. Will defer question regarding to lower back probable lipoma to Dr. Neri-he may wish to see patient back in office again prior to scheduling procedure. Spoke with patient and advised of information per path result. Not sure when she needs to follow up with next colonoscopy and if she needs to make a follow up appt? Please advise and call patient back with recommendation? [phone] (home) [phone] (cell) Patient also wonders about two spots on her back and if Dr Neri could do those in the office? ( Saw Jailyn Lubin Last March) Would like to make an appointment in the [place] office to have these removed. Please call her to make an appointment. Patient was instructed to call the following week of her colonoscopy for the results but there was no mention of scheduling an in person visit. She also had additional questions for the provider. Please contact the patient to advise. documented in this encounter [facility] 01-06-2022 Miscellaneous Notes The following approved medication requests have been transmitted electronically. Requested Prescriptions Signed Prescriptions Disp Refills temazepam (RESTORIL) 7.5 mg capsule 90 capsule 0 Sig: Take 1 capsule by mouth daily at bedtime for 90 days. Authorizing Provider: TALBRIAN ALCANTARA MD Patient has been identified by name and date of : Yes Patient phones for refill(s): Requested Prescriptions Pending Prescriptions Disp Refills temazepam (RESTORIL) 7.5 mg capsule 90 capsule 0 Sig: Take 1 capsule by mouth daily at bedtime for 90 days. Date of last office visit in primary care: Last 2 Encounter Wt Readings: Date: Wt: 01/05/2022 56.2 kg (124 lb) 12/19/2021 56.4 kg (124 lb 6.4 oz) Please advise. Thank you. Mallory Coles LPN documented in this encounter [facility] 01-06-2022 Miscellaneous Notes Noted Try filling for 60 pills now and let patient know reason (trying to get under QL) The following approved medication requests have been transmitted electronically. Requested Prescriptions Signed Prescriptions Disp Refills chlordiazePOXIDE-clidinium (LIBRAX) 5-2.5 mg per capsule 60 capsule 1 Sig: Take 1 capsule by mouth before meals and at bedtime. Authorizing Provider: BRIAN OWENS MD From previous encounter it looks like this is covered but qty of 120 is the issue. Per refills dates she clearly doesn't take it routinely. Can you send a new rx with less? PRIOR AUTHORIZATION Medication for Prior Authorization: Chlordiazepoxide/Clidinium Br (Librax) Other formulary meds available : NO Insurance Company: [employer] phone number: [phone] Patient insurance ID number: [id number] Liliam Kiara Sumi LPM Pt has tried 2 different medications did not take care of the IBS. If qty is a issue she will take less at a time. Please advise pt and call with any questions. Call her on her cell phone: [phone]. Meds tried, Librium, Pt taking Xanax and Elavil for other reasons not helping the IBS. (Pt almost out of medication). Liliam Jonas LPN documented in this encounter [facility] 01-05-2022 Miscellaneous Notes Refill requested addressed in another encounter documented in this encounter [facility] 01-05-2022 History and physical note UPDATED PROCEDURAL SEDATION HISTORY AND PHYSICAL EXAMINATION SERVICE DATE: 01/05/2022 SERVICE TIME: 7:29 AM PHYSICAL EXAM MUST BE COMPLETED ON ADMISSION PROCEDURE: Procedure Indications: The History and Physical (completed in the past 30 days) has been reviewed and the patient has been examined. The contents accurately reflect the patient's condition with the following additions or revisions since the H&P was completed. ASA Class: ASA Class:: Patient with mild systemic disease Examination indicates no changes. AIRWAY: Airway Visualization of Uvula: Yes Mouth opening greater than 2 fingerbreadths: Yes Neck Full Range of Motion: Yes LUNGS: Lungs clear to auscultation CARDIAC: Regular rhythm,Regular rate Provisional Diagnosis/Treatment Plan: screening colonscopy SEDATION GOAL: Moderate This H&P can be found in the attached. SIGNATURE: Spencer Neri MD PATIENT NAME: Mallory Macdonald DATE: January 05, 2022 TIME: 7:29 AM Source Note - Spencer Neri MD - 01/05/2022 7:30 AM EDT Images from the original note were not included. HISTORY AND PHYSICAL Mallory Macdonald 1965 REFERRING PHYSICIAN: Self CHIEF COMPLAINT: Consult (colonoscopy) HPI: The patient is a 55 year old female referred for endoscopy. Mallory notes no colon complaints. Patient denies any change in bowel habits, weight changes, blood in stools, black tarry stools or abdominal pain. Notes family history of colon cancer in second-degree relatives on mother's side. The patient notes no upper GI complaints. Mallory has undergone prior endoscopy. Most recent colonoscopy 12/04/[address] Forde under Monitored Anesthetic Care with removal of adenomatous polyp, 5 year follow-up recommended. Patient's past medical history is significant for asthma, IBS, depression, anxiety. Patient follows with Dr. Owens in primary care for her chronic medical conditions. Patient notes separate issue today of feeling small lumps in lower back area, states these give her some burning discomfort-interested in excision. Denies any change in size or character since first noticing these some time ago. PAST MEDICAL HISTORY PAST MEDICAL HISTORY Diagnosis Date Asthma with chronic obstructive pulmonary disease (COPD) ([facility]) 04/15/2005 Benign neoplasm of colon Dysplasia of cervix, unspecified mild in past GERD (gastroesophageal reflux disease) 12/02/2010 IBS (irritable bowel syndrome) 10/31/2010 Interstitial cystitis 01/29/2010 PMH - PAST MEDICAL HISTORY OF GASTRITIS PMH - PAST MEDICAL HISTORY OF BILIARY DYSKINESIA PMH - PAST MEDICAL HISTORY OF POST TRAUMATIC STRESS DISORDER PMH - PAST MEDICAL HISTORY OF OSTEOPOROSIS Unspecified hemorrhoids without mention of complication Hemorrhoids PAST SURGICAL HISTORY PAST SURGICAL HISTORY Procedure Laterality Date BX OF BREAST; INCISIONAL Bx of breast, incisional CERVIX UTERI CAUTER CRYOCAUTER Done in 1988 and paps since DELIVERY ONLY , low cervical COLONOS W/REM POLYP SNARE 11/12/09 COLONOSCOP W/ OR W/O [facility] SPEC 07/20/2000 Colonoscopy COLONOSCOP W/ OR W/O BRS SPEC 09/15/12 Colonoscopy COLONOSCOP W/ OR W/O [facility] SPEC 12/04/15 Colonoscopy (MAC) COLPOSCOPY (VAGINOSCOPY) 1988 Colposcopy CORRECT BUNION,SIMPLE Bunion CYSTO.PANENDO Cystoscopy/BLADDER STRETCHING CYSTO.PANENDO [address] Stout [facility] EGD 12/21/08 EGD W/O OR W/BRUSH/WASH 09/15/12 EGD EGD W/O OR W/BRUSH/WASH 12/04/15 EGD (MAC) LAPAROSCOPIC CHOLEYCYSTECTOMY Cholecystectomy, lap - before 2007 LIGATE FALLOPIAN TUBE Tubal ligation PAST SURGICAL HISTORY OF Hernia repair, umbilical PAST SURGICAL HISTORY OF sinus surgery x 2 PAST SURGICAL HISTORY OF wisdom teeth extraction SIGMOIDOSCOPY FLEX DIAG 10/08/06 with sedation VAGINAL HYSTERECTOMY 07/2005 Hysterectomy, vaginal/ovaries remain CURRENT MEDICATIONS Current Outpatient Medications Medication Sig rizatriptan (MAXALT) 10 mg tablet Take 1 tablet by mouth as needed (for headaches). May repeat in 2 hours if needed dicyclomine (BENTYL) 10 mg capsule Take one(1) tablet three(3) times daily before meals and Take one(1) tablet daily at bedtime. albuterol HFA (PROVENTIL HFA) 90 mcg/actuation inhaler Inhale 2 Puffs as instructed five times daily. and q2hour prn wheezing FREDI with Proventil HFA DO NOT DISPENSE GENERIC temazepam (RESTORIL) 7.5 mg capsule Take 1 capsule by mouth daily at bedtime for 180 days. Do not start before October 14, 2020. ALPRAZolam (XANAX) 0.5 mg tablet Take 1 tablet by mouth twice daily as needed for anxiety for up to 90 days. ipratropium (ATROVENT) 0.02 % nebulizer solution Inhale by nebulizer over 5-15 minutes four (4) times a day as needed for wheezing and shortness of breath meclizine (ANTIVERT) 12.5 mg tab Take 1 tablet by mouth four times daily as needed. chlordiazePOXIDE-clidinium (LIBRAX) 5-2.5 mg per capsule Take 1 capsule by mouth before meals and at bedtime. acetylcysteine (MUCOMYST) 100 mg/mL (10 %) nebulizer solution Inhale 4 mL as instructed twice daily as needed. predniSONE (DELTASONE) 5 mg tablet Take 2 tablets by mouth once daily. Adjust dose for flare up as needed omeprazole (PRILOSEC) 40 mg capsule Take 1 capsule by mouth once daily. amitriptyline (ELAVIL) 25 mg tablet Take 3 tablets by mouth daily at bedtime. metoprolol succinate ER (TOPROL XL) 25 mg 24 hr tablet Take 1 tablet by mouth once daily. promethazine (PHENERGAN) 25 mg suppository 1 Suppository by RECTAL route every 6 hours as needed. triamcinolone acetonide (NASACORT) 55 mcg nasal inhaler Use 2 Sprays in the nose once daily. albuterol (PROVENTIL) 2.5 mg /3 mL (0.083 %) nebulizer solution Use 3 mL via nebulizer every 4 hours as needed for Wheezing/Shortness of Breath. Use over 5-15minutes. famotidine (PEPCID) 20 mg tablet Take 1 tablet by mouth at bedtime as needed. B1/B2/NIACIN/B12/PROTEASE (VITAMINS [id number] ORAL) Take by mouth. No current facility-administered medications for this visit. ALLERGIES: Trazodone, Augmentin [Amoxicillin-Pot Clavulanate], Doxycycline, Dulera [Mometasone-Formoterol], Dust, Erythromycin, Fosamax [Alendronate Sodium], Iodine, Levaquin [Levofloxacin], Lipitor [Atorvastatin], Metamucil [Psyllium], Qvar [Beclomethasone Dipropionate], Sulfa (Sulfonamide Antibiotics), Xolair [Omalizumab], and Epinephrine PERSONAL HISTORY: SOCIAL HISTORY Social History Tobacco Use Smoking status: Never Smoker Smokeless tobacco: Never Used Tobacco comment: Father used pipe in childhood home. Spouse does not smoke. Substance Use Topics Alcohol use: No Drug use: No FAMILY HISTORY: FAMILY HISTORY FAMILY HISTORY Problem Relation Age of Onset Hypertension Mother Heart Mother atrial fib/CHF COPD Mother Emphysema Mother other (KIDNEY STONES) Mother other (PAH) Mother Heart Father CO at age 35 Hypertension Father Diabetes Father Seizures Father Alzheimer's Disease Father Hypertension Brother other (Still Born) Brother Cancer Maternal Grandmother COLON Cancer Maternal Grandfather COLON Seizures Maternal Grandfather Heart Maternal Grandfather 2- CO's Heart Paternal Grandmother CO Heart Paternal Grandfather CO REVIEW OF SYMPTOMS: The review of systems data was entered by the nurse and reviewed by ne Nursing Notes: Karen Grover 04/02/2021 8:08 AM Signed REVIEW OF SYSTEMS: General: The patient denies fatigue, denies weight loss, NOTES weight gain, denies feeling hot, and denies feelings of cold. Eyes: The patient denies glaucoma, denies eye injury/surgery, wears glasses or contacts. Ear/Nose/Throat: The patient NOTES allergies, denies hayfever, denies ear infections, and denies bloody noses. Cardiovascular: The patient denies chest pain, denies heart disease, NOTES high blood pressure,denies cardiac stent, denies prior heart attack, denies irregular heart beat, NOTES high cholesterol, denies poor circulation, denies heart failure, other cardiac issues, denies claudication, denies cold feet, denies peripheral arterial stent. Respiratory: The patient denies tuberculosis, denies pneumonia, denies frequent cough, denies pulmonary embolism, NOTES shortness of breath, and denies coughing up blood. Gastrointestinal: The patient denies difficulty swallowing, NOTES acid reflux, denies ulcers, denies vomiting, denies jaundice/hepatitis, denies gallbladder problems, denies black or tarry stools, denies hemorrhoids, denies bleeding from rectum, denies diverticulitis, denies constipation, NOTES diarrhea, denies loss of stool control, and denies hernias. Kidney/Bladder: The patient denies kidney stones, denies urine infections, and denies bloody urine. Skin: The patient denies a history of skin cancer, denies bleeding/changing moles, and denies a history of skin rash. Neurologic: The patient denies a history of epilepsy/convulsions, NOTES headaches, denies head/spinal injuries, and denies stroke/TIA. Psychiatric: The patient denies psychiatric medications, denies depression, and denies voices, denies substance abuse. Endocrine: The patient denies thyroid disorders, denies diabetes, and denies hormonal problems. Hematologic: The patient NOTES a history of bruising, denies bleeding, and denies anemia, denies blood clots. Infections: The patient denies a history of measles and mumps, denies rheumatic fever, and denies sexually transmitted diseases. Musculoskeletal: The patient denies back pain/injury, denies back problems, denies sciatica, denies knee/foot trouble, denies arthritis, or denies gout. When was patient's last Mammogram screening? 09/2020 Last Colonoscopy: 12/04/2015 Karen Grover I have confirmed and edited as necessary, the PFSH and ROS obtained by others. Jailyn Lubin PA-C PHYSICAL EXAMINATION: General: The patient is 55 year old female, well nourished, well hydrated in no acute distress. The patient is oriented to time, place, and person. VITALS: Blood pressure 130/85, pulse 110, temperature 36.8 C (98.2 F), height 154.9 cm (5' 1 ), weight 62.6 kg (138 lb), last menstrual period 05/04/2005, SpO2 94 %. Body mass index is 26.07 kg/m . HEENT: Normal cephalic, ataumatic, pupils are equally round, sclera are anicteric, mucous membranes are moist, oropharynx is clear. Neck has no masses, asymmetry or lymphadenopathy. Respiratory: Clear to auscultation and percussion. Normal respiratory excursion and pattern. Cardiac: Examination is regular rate and rhythm. Normal S1/S2 Abdominal exam: Soft, nontender, with no palpable masses. No hepatosplenomegaly. No palpable hernias. Extremities: no clubbing, cyanosis or edema. No adenopathy. Other: +small area of fatty fullness overlying right lower back/hip area, minimal tenderness to palpation of this area. No other palpable masses noted LABORATORY VALUES: As Noted RADIOLOGIC STUDIES: As Noted Assessment IMPRESSION: encounter for screening colonoscopy. probable small lower back lipoma-patient interested in possible excision d/t discomfort of this area, will have Dr. Neri evaluate this as well PLAN: I have reviewed my findings with the surgeon. Will plan for lower endoscopy. We discussed the risks and benefits of the planned endoscopy. I have informed the patient that complications can occur including failure to complete the endoscopy and perforation. The patient had the opportunity to ask questions concerning the planned endoscopy. My staff has also explained the procedure to the patient in understandable terms and has given the patient printed material concerning the procedure. The patient freely consents to surgery. The patient was offered a surgery/procedure at a [facility] facility. I have counseled the patient regarding the risk of exposure to and/or potential harm posed by the COVID-19 virus with having a surgery/procedure at this time versus the risk of delaying the surgery/procedure. It is not possible to know either the risk of delaying the surgery or procedure or chance of getting an infection with perfect accuracy, but a joint decision was made between the patient and myself to proceed at this time with endoscopy. I plan to use miralax/dulcolax bowel preparation The patient has recall from their previous endoscopy performed under conscious sedation, therfore we will plan for procedure to be performed under Monitored Anesthetic Care. The patient takes prescription medications which I feel decrease the chance of successful sedation, therefore we will plan for procedure to be done under Monitored Anesthetic Care. Diagnoses: (Z12.11) Encounter for screening for malignant neoplasm of colon (primary encounter diagnosis) (R22.9) Subcutaneous nodule Jailyn Lubin PA-C Images from the original note were not included. HISTORY AND PHYSICAL Mallory Macdonald 1965 REFERRING PHYSICIAN: Self CHIEF COMPLAINT: Consult (colonoscopy) HPI: The patient is a 55 year old female referred for endoscopy. Mallory notes no colon complaints. Patient denies any change in bowel habits, weight changes, blood in stools, black tarry stools or abdominal pain. Notes family history of colon cancer in second-degree relatives on mother's side. The patient notes no upper GI complaints. Mallory has undergone prior endoscopy. Most recent colonoscopy 12/04/[address] Forde under Monitored Anesthetic Care with removal of adenomatous polyp, 5 year follow-up recommended. Patient's past medical history is significant for asthma, IBS, depression, anxiety. Patient follows with Dr. Owens in primary care for her chronic medical conditions. Patient notes separate issue today of feeling small lumps in lower back area, states these give her some burning discomfort-interested in excision. Denies any change in size or character since first noticing these some time ago. PAST MEDICAL HISTORY PAST MEDICAL HISTORY Diagnosis Date Asthma with chronic obstructive pulmonary disease (COPD) ([facility]) 04/15/2005 Benign neoplasm of colon Dysplasia of cervix, unspecified mild in past GERD (gastroesophageal reflux disease) 12/02/2010 IBS (irritable bowel syndrome) 10/31/2010 Interstitial cystitis 01/29/2010 PMH - PAST MEDICAL HISTORY OF GASTRITIS PMH - PAST MEDICAL HISTORY OF BILIARY DYSKINESIA PMH - PAST MEDICAL HISTORY OF POST TRAUMATIC STRESS DISORDER PMH - PAST MEDICAL HISTORY OF OSTEOPOROSIS Unspecified hemorrhoids without mention of complication Hemorrhoids PAST SURGICAL HISTORY PAST SURGICAL HISTORY Procedure Laterality Date BX OF BREAST; INCISIONAL Bx of breast, incisional CERVIX UTERI CAUTER CRYOCAUTER Done in 1988 and paps since DELIVERY ONLY , low cervical COLONOS W/REM POLYP SNARE 11/12/09 COLONOSCOP W/ OR W/O [facility] SPEC 07/20/2000 Colonoscopy COLONOSCOP W/ OR W/O [facility] SPEC 09/15/12 Colonoscopy COLONOSCOP W/ OR W/O [facility] SPEC 12/04/15 Colonoscopy (MAC) COLPOSCOPY (VAGINOSCOPY) 1988 Colposcopy CORRECT BUNION,SIMPLE Bunion CYSTO.PANENDO Cystoscopy/BLADDER STRETCHING CYSTO.PANENDO [address] Stout [facility] EGD 12/21/08 EGD W/O OR W/BRUSH/WASH 09/15/12 EGD EGD W/O OR W/BRUSH/WASH 12/04/15 EGD (MAC) LAPAROSCOPIC CHOLEYCYSTECTOMY Cholecystectomy, lap - before 2007 LIGATE FALLOPIAN TUBE Tubal ligation PAST SURGICAL HISTORY OF Hernia repair, umbilical PAST SURGICAL HISTORY OF sinus surgery x 2 PAST SURGICAL HISTORY OF wisdom teeth extraction SIGMOIDOSCOPY FLEX DIAG 10/08/06 with sedation VAGINAL HYSTERECTOMY 07/2005 Hysterectomy, vaginal/ovaries remain CURRENT MEDICATIONS Current Outpatient Medications Medication Sig rizatriptan (MAXALT) 10 mg tablet Take 1 tablet by mouth as needed (for headaches). May repeat in 2 hours if needed dicyclomine (BENTYL) 10 mg capsule Take one(1) tablet three(3) times daily before meals and Take one(1) tablet daily at bedtime. albuterol HFA (PROVENTIL HFA) 90 mcg/actuation inhaler Inhale 2 Puffs as instructed five times daily. and q2hour prn wheezing FREDI with Proventil HFA DO NOT DISPENSE GENERIC temazepam (RESTORIL) 7.5 mg capsule Take 1 capsule by mouth daily at bedtime for 180 days. Do not start before October 14, 2020. ALPRAZolam (XANAX) 0.5 mg tablet Take 1 tablet by mouth twice daily as needed for anxiety for up to 90 days. ipratropium (ATROVENT) 0.02 % nebulizer solution Inhale by nebulizer over 5-15 minutes four (4) times a day as needed for wheezing and shortness of breath meclizine (ANTIVERT) 12.5 mg tab Take 1 tablet by mouth four times daily as needed. chlordiazePOXIDE-clidinium (LIBRAX) 5-2.5 mg per capsule Take 1 capsule by mouth before meals and at bedtime. acetylcysteine (MUCOMYST) 100 mg/mL (10 %) nebulizer solution Inhale 4 mL as instructed twice daily as needed. predniSONE (DELTASONE) 5 mg tablet Take 2 tablets by mouth once daily. Adjust dose for flare up as needed omeprazole (PRILOSEC) 40 mg capsule Take 1 capsule by mouth once daily. amitriptyline (ELAVIL) 25 mg tablet Take 3 tablets by mouth daily at bedtime. metoprolol succinate ER (TOPROL XL) 25 mg 24 hr tablet Take 1 tablet by mouth once daily. promethazine (PHENERGAN) 25 mg suppository 1 Suppository by RECTAL route every 6 hours as needed. triamcinolone acetonide (NASACORT) 55 mcg nasal inhaler Use 2 Sprays in the nose once daily. albuterol (PROVENTIL) 2.5 mg /3 mL (0.083 %) nebulizer solution Use 3 mL via nebulizer every 4 hours as needed for Wheezing/Shortness of Breath. Use over 5-15minutes. famotidine (PEPCID) 20 mg tablet Take 1 tablet by mouth at bedtime as needed. B1/B2/NIACIN/B12/PROTEASE (VITAMINS [id number] ORAL) Take by mouth. No current facility-administered medications for this visit. ALLERGIES: Trazodone, Augmentin [Amoxicillin-Pot Clavulanate], Doxycycline, Dulera [Mometasone-Formoterol], Dust, Erythromycin, Fosamax [Alendronate Sodium], Iodine, Levaquin [Levofloxacin], Lipitor [Atorvastatin], Metamucil [Psyllium], Qvar [Beclomethasone Dipropionate], Sulfa (Sulfonamide Antibiotics), Xolair [Omalizumab], and Epinephrine PERSONAL HISTORY: SOCIAL HISTORY Social History Tobacco Use Smoking status: Never Smoker Smokeless tobacco: Never Used Tobacco comment: Father used pipe in childhood home. Spouse does not smoke. Substance Use Topics Alcohol use: No Drug use: No FAMILY HISTORY: FAMILY HISTORY FAMILY HISTORY Problem Relation Age of Onset Hypertension Mother Heart Mother atrial fib/CHF COPD Mother Emphysema Mother other (KIDNEY STONES) Mother other (PAH) Mother Heart Father CO at age 35 Hypertension Father Diabetes Father Seizures Father Alzheimer's Disease Father Hypertension Brother other (Still Born) Brother Cancer Maternal Grandmother COLON Cancer Maternal Grandfather COLON Seizures Maternal Grandfather Heart Maternal Grandfather 2- CO's Heart Paternal Grandmother CO Heart Paternal Grandfather CO REVIEW OF SYMPTOMS: The review of systems data was entered by the nurse and reviewed by me Nursing Notes: Karen Grover 04/02/2021 8:08 AM Signed REVIEW OF SYSTEMS: General: The patient denies fatigue, denies weight loss, NOTES weight gain, denies feeling hot, and denies feelings of cold. Eyes: The patient denies glaucoma, denies eye injury/surgery, wears glasses or contacts. Ear/Nose/Throat: The patient NOTES allergies, denies hayfever, denies ear infections, and denies bloody noses. Cardiovascular: The patient denies chest pain, denies heart disease, NOTES high blood pressure,denies cardiac stent, denies prior heart attack, denies irregular heart beat, NOTES high cholesterol, denies poor circulation, denies heart failure, other cardiac issues, denies claudication, denies cold feet, denies peripheral arterial stent. Respiratory: The patient denies tuberculosis, denies pneumonia, denies frequent cough, denies pulmonary embolism, NOTES shortness of breath, and denies coughing up blood. Gastrointestinal: The patient denies difficulty swallowing, NOTES acid reflux, denies ulcers, denies vomiting, denies jaundice/hepatitis, denies gallbladder problems, denies black or tarry stools, denies hemorrhoids, denies bleeding from rectum, denies diverticulitis, denies constipation, NOTES diarrhea, denies loss of stool control, and denies hernias. Kidney/Bladder: The patient denies kidney stones, denies urine infections, and denies bloody urine. Skin: The patient denies a history of skin cancer, denies bleeding/changing moles, and denies a history of skin rash. Neurologic: The patient denies a history of epilepsy/convulsions, NOTES headaches, denies head/spinal injuries, and denies stroke/TIA. Psychiatric: The patient denies psychiatric medications, denies depression, and denies voices, denies substance abuse. Endocrine: The patient denies thyroid disorders, denies diabetes, and denies hormonal problems. Hematologic: The patient NOTES a history of bruising, denies bleeding, and denies anemia, denies blood clots. Infections: The patient denies a history of measles and mumps, denies rheumatic fever, and denies sexually transmitted diseases. Musculoskeletal: The patient denies back pain/injury, denies back problems, denies sciatica, denies knee/foot trouble, denies arthritis, or denies gout. When was patient's last Mammogram screening? 09/2020 Last Colonoscopy: 12/04/2015 Karen Grover I have confirmed and edited as necessary, the PFSH and ROS obtained by others. Jailyn Lubin PA-C PHYSICAL EXAMINATION: General: The patient is 55 year old female, well nourished, well hydrated in no acute distress. The patient is oriented to time, place, and person. VITALS: Blood pressure 130/85, pulse 110, temperature 36.8 C (98.2 F), height 154.9 cm (5' 1 ), weight 62.6 kg (138 lb), last menstrual period 05/04/2005, SpO2 94 %. Body mass index is 26.07 kg/m . HEENT: Normal cephalic, ataumatic, pupils are equally round, sclera are anicteric, mucous membranes are moist, oropharynx is clear. Neck has no masses, asymmetry or lymphadenopathy. Respiratory: Clear to auscultation and percussion. Normal respiratory excursion and pattern. Cardiac: Examination is regular rate and rhythm. Normal S1/S2 Abdominal exam: Soft, nontender, with no palpable masses. No hepatosplenomegaly. No palpable hernias. Extremities: no clubbing, cyanosis or edema. No adenopathy. Other: +small area of fatty fullness overlying right lower back/hip area, minimal tenderness to palpation of this area. No other palpable masses noted LABORATORY VALUES: As Noted RADIOLOGIC STUDIES: As Noted Assessment IMPRESSION: encounter for screening colonoscopy. probable small lower back lipoma-patient interested in possible excision d/t discomfort of this area, will have Dr. Neri evaluate this as well PLAN: I have reviewed my findings with the surgeon. Will plan for lower endoscopy. We discussed the risks and benefits of the planned endoscopy. I have informed the patient that complications can occur including failure to complete the endoscopy and perforation. The patient had the opportunity to ask questions concerning the planned endoscopy. My staff has also explained the procedure to the patient in understandable terms and has given the patient printed material concerning the procedure. The patient freely consents to surgery. The patient was offered a surgery/procedure at a [facility] facility. I have counseled the patient regarding the risk of exposure to and/or potential harm posed by the COVID-19 virus with having a surgery/procedure at this time versus the risk of delaying the surgery/procedure. It is not possible to know either the risk of delaying the surgery or procedure or chance of getting an infection with perfect accuracy, but a joint decision was made between the patient and myself to proceed at this time with endoscopy. I plan to use miralax/dulcolax bowel preparation The patient has recall from their previous endoscopy performed under conscious sedation, therfore we will plan for procedure to be performed under Monitored Anesthetic Care. The patient takes prescription medications which I feel decrease the chance of successful sedation, therefore we will plan for procedure to be done under Monitored Anesthetic Care. Diagnoses: (Z12.11) Encounter for screening for malignant neoplasm of colon (primary encounter diagnosis) (R22.9) Subcutaneous nodule Jailyn Lubin PA-C documented in this encounter [facility] 12-19-2021 History of Present illness Narrative This note was created using PeakStream[employer]. Subjective Mallory Macdonald is a 56 year old female. Patient presents with: 2 month follow up SUBJECTIVE: Mallory Macdonald is a 56 year old year old lady here today for 2 month follow up appointment for review of medical conditions. depression stressors Issues with family [employer] Wants Living Will. Noted cost of Librax. Takes up to 4 times daily and some days only needs 1. Average needs 2 per day or 60 per month. Insurance denying coverage. States can appeal. Form brought in that was addressed to her. $480 out of pocket for 120 with 5RF. Noted that holding off on surgery for foot. Left. Does not have time to be Bunion, second toe and mid foot. Wearing holes in shoes. PAST MEDICAL HISTORY Diagnosis Date Asthma with chronic obstructive pulmonary disease (COPD) ([facility]) 04/15/2005 Benign neoplasm of colon Dysplasia of cervix, unspecified mild in past GERD (gastroesophageal reflux disease) 12/02/2010 IBS (irritable bowel syndrome) 10/31/2010 Interstitial cystitis 01/29/2010 PMH - PAST MEDICAL HISTORY OF GASTRITIS PMH - PAST MEDICAL HISTORY OF BILIARY DYSKINESIA PMH - PAST MEDICAL HISTORY OF POST TRAUMATIC STRESS DISORDER PMH - PAST MEDICAL HISTORY OF OSTEOPOROSIS Unspecified hemorrhoids without mention of complication Hemorrhoids Current Outpatient Medications Medication Sig promethazine (PHENERGAN) 25 mg suppository 1 Suppository by RECTAL route every 6 hours as needed. amLODIPine (NORVASC) 2.5 mg tablet Take 2.5 mg by mouth once daily. predniSONE (DELTASONE) 5 mg tablet Take 2 tablets by mouth once daily. Adjust dose for flare up as needed meclizine (ANTIVERT) 12.5 mg tab Take 1 tablet by mouth four times daily as needed. temazepam (RESTORIL) 7.5 mg capsule Take 1 capsule by mouth daily at bedtime for 90 days. Do not start before October 08, 2021. albuterol HFA (PROVENTIL HFA) 90 mcg/actuation inhaler Inhale 2 Puffs as instructed five times daily. and q2hour prn wheezing FREDI with Proventil HFA DO NOT DISPENSE GENERIC omeprazole (PRILOSEC) 40 mg capsule Take 1 capsule by mouth once daily. ipratropium (ATROVENT) 0.02 % nebulizer solution Inhale by nebulizer over 5-15 minutes four (4) times a day as needed for wheezing and shortness of breath metoprolol succinate ER (TOPROL XL) 25 mg 24 hr tablet Take 1 tablet by mouth once daily. albuterol (PROVENTIL) 2.5 mg /3 mL (0.083 %) nebulizer solution Use 3 mL via nebulizer every 4 hours as needed for wheezing/shortness of breath. Use over 5-15minutes. acetylcysteine (MUCOMYST) 100 mg/mL (10 %) nebulizer solution Inhale 4 mL as instructed twice daily as needed. rizatriptan (MAXALT) 10 mg tablet Take 1 tablet by mouth as needed (for headaches). May repeat in 2 hours if needed dicyclomine (BENTYL) 10 mg capsule Take one(1) tablet three(3) times daily before meals and Take one(1) tablet daily at bedtime. triamcinolone acetonide (NASACORT) 55 mcg nasal inhaler Use 2 Sprays in the nose once daily. famotidine (PEPCID) 20 mg tablet Take 1 tablet by mouth at bedtime as needed. ALPRAZolam (XANAX) 0.5 mg tablet Take 1 tablet by mouth twice daily as needed for anxiety for up to 90 days. Do not start before September 14, 2021. amitriptyline (ELAVIL) 25 mg tablet Take 3 tablets by mouth daily at bedtime. chlordiazePOXIDE-clidinium (LIBRAX) 5-2.5 mg per capsule Take 1 capsule by mouth before meals and at bedtime. B1/B2/NIACIN/B12/PROTEASE (VITAMINS A1-X1-O0-B80-[id number] ORAL) Take by mouth. No current facility-administered medications for this visit. Review of Systems Objective BP 146/80 Pulse 104 Temp 36.4 C (97.6 F) (Temporal) Resp 16 Wt 56.4 kg (124 lb 6.4 oz) LMP 05/04/2005 SpO2 97% BMI 23.90 kg/m Last 5 Encounter Wt Readings: Date: Wt: 12/19/2021 56.4 kg (124 lb 6.4 oz) 10/20/2021 58.1 kg (128 lb) 08/18/2021 59.9 kg (132 lb) 08/09/2021 61.9 kg (136 lb 6.4 oz) 04/15/2021 62.1 kg (137 lb) Last 1 Waist Readings: Date: Waist: 08/28/11 34 (86 cm.) Estimated body mass index is 23.9 kg/m as calculated from the following: Height as of 10/20/21: 153.7 cm (5' 0.5 ). Weight as of this encounter: 56.4 kg (124 lb 6.4 oz). Last 5 Encounter BP Readings: Date: BP: 12/19/2021 146/80 10/20/2021 128/78 08/18/2021 150/92 08/09/2021 136/84 06/16/2021 138/84 Physical Exam Constitutional: Appearance: Normal appearance. HENT: Head: Normocephalic. Eyes: Conjunctiva/sclera: Conjunctivae normal. Cardiovascular: Rate and Rhythm: Normal rate and regular rhythm. Heart sounds: Normal heart sounds. Pulmonary: Effort: Pulmonary effort is normal. Breath sounds: Normal breath sounds. Musculoskeletal: General: Tenderness (left greater trochanter) present. Skin: General: Skin is warm and dry. Neurological: General: No focal deficit present. Mental Status: She is alert and oriented to person, place, and time. Psychiatric: Mood and Affect: Mood normal. Behavior: Behavior normal. Thought Content: Thought content normal. Judgment: Judgment normal. Assessment and Plan Encounter Diagnosis ICD-10-CM 1. Tendinitis M77.9 2. Greater trochanteric bursitis of left hip M70.62 3. Recurrent major depressive disorder, in partial remission (HCC) F33.41 4. Irritable bowel syndrome with diarrhea K58.0 5. Anxiety F41.9 Above issues addressed with patient. Emotional support given. Patient involved in shared decision making for management of medical issues. Continue present meds. Further evaluation and treatment as indicated. History and medications reviewed. Epic updated as needed Refills and/or prescriptions taken care of and meds adjusted as indicated after reviewed history, exam and labs. Health Maintenance reviewed. Updated record and/or ordered tests as recorded. Encouraged on efforts at healthy diet and regular exercise and adequate sleep. Brian Owens MD documented in this encounter [facility] 12-10-2021 Miscellaneous Notes Response is qty limited. So It looks like this is covered just not 120 capsule. There is a stop date on this rx so even if she didn't use all the refills she would need a new rx. Can you send again with lower qty? It doesn't look like she uses it this much anyway. Unable to complete electronic PA. Did review via covermymeds. MALLORY MACDONALD Rawls: [id number] help? Call us at Status Additional Information Required Drug chlordiazePOXIDE-Clidinium 5-2.5MG capsules Form [employer] [place] Prescription Drug Authorization Form documented in this encounter [facility] 11-25-2021 Miscellaneous Notes Patient notified of providers message and verbalized understanding. Symptoms are likely due to Covid19. Since breathing not affected would recommend pushing fluids, taking Tylenol or ibuprofen for fever and aches and pains consistently for the next couple of days. Continue to hold prednisone while taking paxlovid. Use inhalers as necessary to help with breathing. Can have recheck - on demand virtual visit with UC or other provider via video if needed. ER for any severe or concern symp[toms. Pt had a VV yesterday with [employer]LEGR[employer] & was treated with paxlovid for covid19. Pt states she is feeling much worse today, reports the pain in her back, legs, throat & head is worse. Does not have difficulty breathing, only has cough when up & about. T: 101.8 currently Pt is asking if she is feeling worse d/t discontinuing prednisone while taking paxlovid & what she should do? Please advise. Luna Rodriguez LPN documented in this encounter [facility] 11-24-2021 Instructions Jose Luis Carnes APRN.DIMITRIOS - 11/24/2021 10:11 AM EDT Beginning Home Isolation Isolation is used to separate people infected with SARS-CoV-2, the virus that causes COVID-19, from people who are not infected. People who are in isolation should stay home until it s safe for them to be around others. In the home, anyone sick or infected should separate themselves from others by staying in a specific sick room or area and using a separate bathroom (if available). Isolation or Quarantine: What's the difference? Quarantine keeps someone who might have been exposed to the virus away from others. Isolation keeps someone who is infected with the virus away from others, even in their home. Who needs to isolate People who have COVID-19 People who have symptoms of COVID-19 and are able to recover at home People who have no symptoms (are asymptomatic) but have tested positive for infection with SARS-CoV-2 Steps to take Stay home except to get medical care Monitor your symptoms. Stay in a separate room from other household members, if possible Use a separate bathroom, if possible Avoid contact with other members of the household and pets Don t share personal household items, like cups, towels, and utensils Wear a mask when around other people, if you are able to When to seek emergency medical attention Look for emergency warning signs* for COVID-19. If someone is showing any of these signs, seek emergency medical care immediately: Trouble breathing Persistent pain or pressure in the chest New confusion Inability to wake or stay awake Bluish lips or face *This list is not all possible symptoms. Please call your medical provider for any other symptoms that are severe or concerning to you. Call 911 or call ahead to your local emergency facility: Notify the shirring machine operator that you are seeking care for someone who has or may have COVID-19. Ending Home Isolation - When you can be around others after you had or likely had COVID-19 When you can be around others after you had or likely had COVID-19 If You Test Positive for COVID-19 (Isolation) Everyone, regardless of vaccination status: Stay home for 5 days. Note: Day 0 is your first day of symptoms or the date of collection of a positive viral test if no symptoms. Day 1 is the first full day after symptoms developed or test specimen was collected. If you have no symptoms or your symptoms are resolving after 5 days, you can leave your house. Continue to wear a mask around others for 5 additional days. If you have a fever, continue to stay home until your fever resolves, even if it is longer than 5 days. If You Were Exposed to Someone with COVID-19 (Quarantine) If you: 1. Have been boosted OR 2. Completed the primary series of Pfizer or Moderna vaccine within the last 6 months OR 3. Completed the primary series of J&J vaccine within the last 2 months THEN: 1. Wear a mask around others for 10 days. 2. Test on day 5, if possible. If you develop symptoms get a test and stay home. If You Were Exposed to Someone with COVID-19 (Quarantine) If you: 1. Completed the primary series of Pfizer or Moderna vaccine over 6 months ago and are not boosted OR 2. Completed the primary series of J&J over 2 months ago and are not boosted OR 3. Are unvaccinated THEN: 1. Stay home for 5 days. After that continue to wear a mask around others for 5 additional days. 2. If you can't quarantine you must wear a mask for 10 days. 3. Test on day 5 if possible. If you develop symptoms get a test and stay home. I had COVID-19 or I tested positive for COVID-19 and I have a weakened immune system If you have a weakened immune system (immunocompromised) due to a health condition or medication, you might need to stay home and isolate longer than 10 days. Talk to your healthcare provider for more information. Your doctor may work with an infectious disease expert at your local health department to determine when you can be around others. How to Manage Common Symptoms Associated with COVID for Adults Fever- Fever is a temperature over 100.4 F and can occur when the body is fighting an infection. To help treat a fever: Drink plenty of fluids and stay well hydrated. Eat small amounts of easy to digest food. Rest. Your body needs rest to recover, but getting up and moving around the house frequently is a good idea. You should try to continue doing your normal daily activities (bathing, toileting, grooming, cooking), though you will probably feel tired, and need to rest often. Avoid any heavy activity or exercise, as this will increase your body temperature. Dress in light clothing and stay covered in a light sheet. Keep the room temperature cool. Take a slightly warm (not cold or cool) bath, or apply damp washcloths to the forehead and wrists. Cough- Cough is a common symptom associated with COVID and can be bothersome. To help treat a cough: Stay well hydrated. Try warm water or tea with lemon and/or honey to help soothe the cough. Use a humidifier to add moisture to the air. Try a product with menthol, like a cough drop or a rub for your chest such as Vicks, which can help reduce cough. Try cough drops. Avoid smoking and other strong odors or perfumes. Try breathing exercises to keep your lungs open and clear. Take a big deep breath through your nose and hold for 5 seconds before slowly releasing. Repeat frequently, while you are awake. Congestion- Runny nose or nasal congestion can occur with COVID. Treatment can help relieve symptoms: Try OTC nasal saline spray, or nasal saline rinse to relieve mucus congestion. Nasal strips can help keep nasal passages open, to increase airflow. Elevating your head with an extra pillow in bed can help reduce congestion. Using a humidifier can increase moisture in the air, and make breathing easier. Sore Throat- Another common symptom with COVID, can be managed at home by: Stay well hydrated. Gargle with salt water - mix teaspoon salt with 1 cup of warm water and gargle. This helps to loosen mucus in the back of the throat and may reduce discomfort. Try ice chips, popsicles or lozenges to soothe the throat. Nausea/Vomiting/Diarrhea- These are common symptoms, and staying hydrated is most important. If you are nauseous or vomiting, start with small sips of water every 10-15 minutes and increase as tolerated. You can try sucking an ice cube too. If tolerating, you can try pedialyte or Gatorade, or flat sprite or ganesh-rajinder. Start slowly and increase as you are able to. Instead of meals, try smaller, more frequent snacks. Try eating bland foods like crackers, toast, rice, and applesauce. Avoid spicy, greasy or fried foods and dairy containing foods. Even if you aren't feeling hungry due to lack of smell or taste, it is important to try to take in some food when you are able. After drinking and eating, rest in an upright position for up to two hours as needed to help decrease nauseous feelings. Try closing your eyes, avoid moving and watching TV. Avoid strong odors that can make you feel more nauseated. When to seek emergency medical attention Look for emergency warning signs for COVID-19. If having any of these symptoms, seek emergency medical care immediately: Trouble breathing Persistent pain or pressure in the chest New confusion Inability to wake or stay awake Bluish lips or face *This list is not all possible symptoms. Please call your medical provider for any other symptoms that are severe or concerning to you. FACT SHEET FOR PATIENTS, PARENTS, AND CAREGIVERS EMERGENCY USE AUTHORIZATION (EUA) OF PAXLOVID FOR CORONAVIRUS DISEASE 2019 (COVID-19) You are being given this Fact Sheet because your healthcare provider believes it is necessary to provide you with PAXLOVID for the treatment of etzc-pv-jnfiteqj coronavirus disease (COVID-19) caused by the SARS-CoV-2 virus. This Fact Sheet contains information to help you understand the risks and benefits of taking the PAXLOVID you have received or may receive. The [place].S. Food and Drug Administration (FDA) has issued an Emergency Use Authorization (EUA) to make PAXLOVID available during the COVID-19 pandemic (for more details about an EUA please see What is an Emergency Use Authorization? at the end of this document). PAXLOVID is not an FDA-approved medicine in the [place]. Read this Fact Sheet for information about PAXLOVID. Talk to your healthcare provider about your options or if you have any questions. It is your choice to take PAXLOVID. What is COVID-19? COVID-19 is caused by a virus called a coronavirus. You can get COVID-19 through close contact with another person who has the virus. COVID-19 illnesses have ranged from very dmmu-xd-uabjwl, including illness resulting in . While information so far suggests that most COVID-19 illness is mild, serious illness can happen and may cause some of your other medical conditions to become worse. Older people and people of all ages with severe, long lasting (chronic) medical conditions like heart disease, lung disease, and diabetes, for example seem to be at higher risk of being hospitalized for COVID-19. What is PAXLOVID? PAXLOVID is an investigational medicine used to treat gcev-us-djkfzyol COVID-19 in adults and children [12 years of age and older weighing at least 88 pounds (40 kg)] with positive results of direct SARS-CoV-2 viral testing, and who are at high risk for progression to severe COVID-19, including hospitalization or . PAXLOVID is investigational because it is still being studied. There is limited information about the safety and effectiveness of using PAXLOVID to treat people with owmm-un-uvoywbvq COVID-19. The FDA has authorized the emergency use of PAXLOVID for the treatment of ezil-fr-zmwiskqn COVID-19 in adults and children [12 years of age and older weighing at least 88 pounds (40 kg)] with a positive test for the virus that causes COVID-19, and who are at high risk for progression to severe COVID-19, including hospitalization or , under an EUA. 1 Revised: 13 June 2021 What should I tell my healthcare provider before I take PAXLOVID? Tell your healthcare provider if you: Have any allergies Have liver or kidney disease Are or plan to become Are a child Have any serious illnesses Tell your healthcare provider about all the medicines you take, including prescription and agev-tmt-asvbved medicines, vitamins, and herbal supplements. Some medicines may interact with PAXLOVID and may cause serious side effects. Keep a list of your medicines to show your healthcare provider and pharmacist when you get a new medicine. You can ask your healthcare provider or pharmacist for a list of medicines that interact with PAXLOVID. Do not start taking a new medicine without telling your healthcare provider. Your healthcare provider can tell you if it is safe to take PAXLOVID with other medicines. Tell your healthcare provider if you are taking combined hormonal contraceptive. PAXLOVID may affect how your control pills work. Females who are able to become should use another effective alternative form of contraception or an additional barrier method of contraception. Talk to your healthcare provider if you have any questions about contraceptive methods that might be right for you. How do I take PAXLOVID? PAXLOVID consists of 2 medicines: nirmatrelvir and ritonavir. Take 2 pink tablets of nirmatrelvir with 1 white tablet of ritonavir by mouth 2 times each day (in the morning and in the evening) for 5 days. For each dose, take all 3 tablets at the same time. If you have kidney disease, talk to your healthcare provider. You may need a different dose. Swallow the tablets whole. Do not chew, break, or crush the tablets. Take PAXLOVID with or without food. Do not stop taking PAXLOVID without talking to your healthcare provider, even if you feel better. If you miss a dose of PAXLOVID within 8 hours of the time it is usually taken, take it as soon as you remember. If you miss a dose by more than 8 hours, skip the missed dose and take the next dose at your regular time. Do not take 2 doses of PAXLOVID at the same time. If you take too much PAXLOVID, call your healthcare provider or go to the nearest hospital emergency room right away. If you are taking a ritonavir-or cobicistat-containing medicine to treat hepatitis C or Human Immunodeficiency Virus (HIV), you should continue to take your medicine as prescribed by your healthcare provider. Talk to your healthcare provider if you do not feel better or if you feel worse after 5 days. Who should generally not take PAXLOVID? Do not take PAXLOVID if: You are allergic to nirmatrelvir, ritonavir, or any of the ingredients in PAXLOVID You are taking any of the following medicines: Alfuzosin Pethidine, propoxyphene Ranolazine Amiodarone, dronedarone, flecainide, propafenone, quinidine Colchicine Lurasidone, pimozide, clozapine Dihydroergotamine, ergotamine, methylergonovine Lovastatin, simvastatin Sildenafil (Revatio ) for pulmonary arterial hypertension (PAH) Triazolam, oral midazolam Apalutamide Carbamazepine, phenobarbital, phenytoin Rifampin Minesh s Wort (hypericum perforatum) Taking PAXLOVID with these medicines may cause serious or life-threatening side effects or affect how PAXLOVID works. These are not the only medicines that may cause serious side effects if taken with PAXLOVID. PAXLOVID may increase or decrease the levels of multiple other medicines. It is very important to tell your healthcare provider about all of the medicines you are taking because additional laboratory tests or changes in the dose of your other medicines may be necessary while you are taking PAXLOVID. Your healthcare provider may also tell you about specific symptoms to watch out for that may indicate that you need to stop or decrease the dose of some of your other medicines. What are the important possible side effects of PAXLOVID? Possible side effects of PAXLOVID are: Allergic Reactions. Allergic reactions can happen in people taking PAXLOVID, even after only 1 dose. Stop taking PAXLOVID and call your healthcare provider right away if you get any of the following symptoms of an allergic reaction: hives trouble swallowing or breathing swelling of the mouth, lips, or face throat tightness hoarseness skin rash Liver Problems. Tell your healthcare provider right away if you have any of these signs and symptoms of liver problems: loss of appetite, yellowing of your skin and the whites of eyes (jaundice), dark-colored urine, pale colored stools and itchy skin, stomach area (abdominal) pain. Resistance to HIV Medicines. If you have untreated HIV infection, PAXLOVID may lead to some HIV medicines not working as well in the future. Other possible side effects include: altered sense of taste diarrhea high blood pressure muscle aches These are not all the possible side effects of PAXLOVID. Not many people have taken PAXLOVID. Serious and unexpected side effects may happen. PAXLOVID is still being studied, so it is possible that all of the risks are not known at this time. What other treatment choices are there? Veklury (remdesivir) is FDA-approved for the treatment of olue-cm-radufous COVID-19 in certain adults and children. Talk with your doctor to see if Veklury is appropriate for you. Like PAXLOVID, FDA may also allow for the emergency use of other medicines to treat people with COVID-19. Go to https://www.fda.gov/emergency-prep aredness-andresponse/btd-vpkef-lfx lssrwzx-ulc-jxfgdy-framework/emerg srif-ach-nqjpapyfmsifv for information on the emergency use of other medicines that are authorized by FDA to treat people with COVID-19. Your healthcare provider may talk with you about clinical trials for which you may be eligible. It is your choice to be treated or not to be treated with PAXLOVID. Should you decide not to receive it or for your child not to receive it, it will not change your standard medical care. What if I am or ? There is information technology coordinator treating women or mothers with PAXLOVID. For a mother and unborn baby, the benefit of taking PAXLOVID may be greater than the risk from the treatment. If you are , discuss your options and specific situation with your healthcare provider. It is recommended that you use effective barrier contraception or do not have sexual activity while taking PAXLOVID. If you are , discuss your options and specific situation with your healthcare provider. How do I report side effects with PAXLOVID? Contact your healthcare provider if you have any side effects that bother you or do not go away. Report side effects to FDA [employer] at www.fda.gov/medCodbod Technologiestch or call 3-311-HPB4517 or you can report side effects to [employer]. at the contact information provided below. Website Fax number Telephone number [employer] How should I store PAXLOVID? Store PAXLOVID tablets at room temperature, between 68?F to 77?F (20?C to 25?C). How can I learn more about COVID-19? Ask your healthcare provider. Visit https://www.cdc.gov/COVID19. Contact your local or state public health department. What is an Emergency Use Authorization (EUA)? The [place] FDA has made PAXLOVID available under an emergency access mechanism called an Emergency Use Authorization (EUA). The EUA is supported by a [place] of Health and Human Service (HHS) declaration that circumstances exist to justify the emergency use of drugs and biological products during the COVID-19 pandemic. PAXLOVID for the treatment of lxpw-dl-qqrboyzk COVID-19 in adults and children [12 years of age and older weighing at least 88 pounds (40 kg)] with positive results of direct SARS-CoV-2 viral testing, and who are at high risk for progression to severe COVID-19, including hospitalization or , has not undergone the same type of review as an FDA-approved product. In issuing an EUA under the COVID-19 public health emergency, the FDA has determined, among other things, that based on the total amount of scientific evidence available including data from adequate and well-controlled clinical trials, if available, it is reasonable to believe that the product may be effective for diagnosing, treating, or preventing COVID-19, or a serious or life-threatening disease or condition caused by COVID-19; that the known and potential benefits of the product, when used to diagnose, treat, or prevent such disease or condition, outweigh the known and potential risks of such product; and that there are no adequate, approved, and available alternatives. All of these criteria must be met to allow for the product to be used in the treatment of patients during the COVID-19 pandemic. The EUA for PAXLOVID is in effect for the duration of the COVID-19 declaration justifying emergency use of this product, unless terminated or revoked (after which the products may no longer be used under the EUA). Additional Information For general questions, visit the website or call the telephone number provided below. Website Telephone number [employer] (0-514-U15-FANU) You can also go to www.MeeDoc or call for more information. Pfizer Distributed by [employer] [place] [address] [id number] Revised: 13 June 2021 documented in this encounter [facility] 11-24-2021 History of Present illness Narrative Telemedicine Evaluation for COVID-19 Infection MyChart video visit was used for evaluation of this patient. Location of patient: [facility] today excerpted: Patient calling to state she tested positive using home covid teste yesterday. Symptoms began yesterday and include fever or 102.5 (currently), sore throat, back pain and nausea. Denies shortness of breath or other symptoms. Has been vaccinated. Patient interested in discussing treatment options best for her health history. VV made with Jose Luis Carnes for 10am today. Red flag symptoms reviewed as to when to seek ER. CDC isolation guidelines reviewed. SUBJECTIVE Mallory Macdonald is a 56 year old female who presents with 1 day of symptoms that are worsening. Symptoms started yesterday. Notes sorte throat, aches and pains. Symptoms include: Fever (?100.4F): Yes or Chills: Yes Cough: Yes, not productive Shortness of breath: No or Difficulty breathing: No Fatigue: Yes Muscle aches: Yes Headache: Yes New loss of smell or taste: No Sore throat: Yes Nasal congestion: Yes or Rhinorrhea: Yes Nausea: Yes or Vomiting: No Diarrhea: No OTC meds/remedies that patient has tried: NSAIDs and meclizine. High risk category assessment Chronic lung disease Exposures: Sick contacts? No Family or close contacts with confirmed/probable COVID-19 in last 14 days? No She reports that she has never smoked. She has never used smokeless tobacco. OBJECTIVE VIDEO EXAM (if available) VS at home: BP 140/87, P 93 T 102.3 GENERAL: Ill-appearing, but non-toxic HEENT: no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 evaluation and treatment as indicated. 4. Psychophysiological insomnia - ICD9: 307.42, ICD10: F51.04 Stable with control of insomnia. No signs of diversion or abuse of medication(s); no adverse effects. Continue present management. - TEMAZEPAM 7.5 MG CAPSULE 5. Vitamin D deficiency - ICD9: 268.9, ICD10: E55.9 Further evaluation and treatment as indicated. 6. Asthma with COPD with exacerbation (HCC) - ICD9: 493.22, ICD10: J44.1, J45.901 - Continue current meds - Avoidance of triggers recommended 7. Dermatitis due to plant - ICD9: 692.6, ICD10: L25.5 - discussed skin care of rash - follow up if symptoms persist or worsen. 8. Colon cancer screening - ICD9: V76.51, ICD10: Z12.11 - CONSULT TO GASTROENTEROLOGY Brian Owens MD documented in this encounter [facility] 08-12-2021 Miscellaneous Notes Pt picked up Patient requesting to roll picker disk and report for 08/09 xrays. She needs to roll picker today around 1:30 prior to Orth appt. documented in this encounter [facility] 08-09-2021 Instructions Lisette Raza APRN.MIGUELINA - 08/09/2021 12:46 PM EDT documented in this encounter [facility] 08-09-2021 History of Present illness Narrative Images from the original note were not included. Subjective Patient came in with complains of pain in the upper left side patient does have tingling and burning radiating down her arm. Patient said this has been going on several weeks and seems to be worsening. patient is on prednisone daily for 10 days. denies any other symptoms at this time. The history is provided by the patient. No language assistant was used. Review of Systems Constitutional: Negative. Skin: Negative. Objective Physical Exam Constitutional: Appearance: Normal appearance. Pulmonary: Effort: Pulmonary effort is normal. Musculoskeletal: Arms: Comments: patient experiencing the pain and tingling in the areas marked above. When palpated made the tingling worse. Neurological: Mental Status: She is alert. PAST MEDICAL HISTORY Diagnosis Date Asthma with chronic obstructive pulmonary disease (COPD) ([facility]) 04/15/2005 Benign neoplasm of colon Dysplasia of cervix, unspecified mild in past GERD (gastroesophageal reflux disease) 12/02/2010 IBS (irritable bowel syndrome) 10/31/2010 Interstitial cystitis 01/29/2010 PMH - PAST MEDICAL HISTORY OF GASTRITIS PMH - PAST MEDICAL HISTORY OF BILIARY DYSKINESIA PMH - PAST MEDICAL HISTORY OF POST TRAUMATIC STRESS DISORDER PMH - PAST MEDICAL HISTORY OF OSTEOPOROSIS Unspecified hemorrhoids without mention of complication Hemorrhoids PAST SURGICAL HISTORY Procedure Laterality Date BIOPSY BREAST OPEN INCISIONAL Bx of breast, incisional CAUTERY CERVIX CRYOCAUTERY INITIAL/REPEAT Done in 1988 and paps since DELIVERY ONLY , low cervical COLONOSCOPY FLX DX W/COLLJ SPEC WHEN PFRMD 07/20/2000 Colonoscopy COLONOSCOPY FLX DX W/COLLJ SPEC WHEN PFRMD 09/15/12 Colonoscopy COLONOSCOPY FLX DX W/COLLJ SPEC WHEN PFRMD 12/04/15 Colonoscopy (MAC) COLPOSCOPY CERVIX UPPER/ADJACENT VAGINA 1988 Colposcopy COLSC FLX W/RMVL OF TUMOR POLYP LESION SNARE TQ 11/12/09 CORRECT BUNION,SIMPLE Bunion CYSTOURETHROSCOPY Cystoscopy/BLADDER STRETCHING CYSTOURETHROSCOPY [address] Stout [facility] EGD 12/21/08 ESOPHAGOGASTRODUODENOSCOPY TRANSORAL DIAGNOSTIC 09/15/12 EGD ESOPHAGOGASTRODUODENOSCOPY TRANSORAL DIAGNOSTIC 12/04/15 EGD (MAC) LAPAROSCOPY SURG CHOLECYSTECTOMY Cholecystectomy, lap - before 2007 LIG/TRNSXJ FLP TUBE ABDL/VAG APPR UNI/BI Tubal ligation PAST SURGICAL HISTORY OF Hernia repair, umbilical PAST SURGICAL HISTORY OF sinus surgery x 2 PAST SURGICAL HISTORY OF wisdom teeth extraction SIGMOIDOSCOPY FLX DX W/COLLJ SPEC BR/WA IF PFRMD 10/08/06 with sedation VAGINAL HYSTERECTOMY UTERUS 250 GM/< 07/2005 Hysterectomy, vaginal/ovaries remain ALLERGIES Trazodone, Augmentin [Amoxicillin-Pot Clavulanate], Doxycycline, Dulera [Mometasone-Formoterol], Dust, Erythromycin, Fosamax [Alendronate Sodium], Iodine, Levaquin [Levofloxacin], Lipitor [Atorvastatin], Metamucil [Psyllium], Qvar [Beclomethasone Dipropionate], Sulfa (Sulfonamide Antibiotics), Xolair [Omalizumab], and Epinephrine MEDICATIONS amitriptyline (ELAVIL) 25 mg tablet Take 3 tablets by mouth daily at bedtime. albuterol HFA (PROVENTIL HFA) 90 mcg/actuation inhaler Inhale 2 Puffs as instructed five times daily. and q2hour prn wheezing FREDI with Proventil HFA DO NOT DISPENSE GENERIC ALPRAZolam (XANAX) 0.5 mg tablet Take 1 tablet by mouth twice daily as needed for anxiety for up to 90 days. omeprazole (PRILOSEC) 40 mg capsule Take 1 capsule by mouth once daily. ipratropium (ATROVENT) 0.02 % nebulizer solution Inhale by nebulizer over 5-15 minutes four (4) times a day as needed for wheezing and shortness of breath metoprolol succinate ER (TOPROL XL) 25 mg 24 hr tablet Take 1 tablet by mouth once daily. albuterol (PROVENTIL) 2.5 mg /3 mL (0.083 %) nebulizer solution Use 3 mL via nebulizer every 4 hours as needed for wheezing/shortness of breath. Use over 5-15minutes. chlordiazePOXIDE-clidinium (LIBRAX) 5-2.5 mg per capsule Take 1 capsule by mouth before meals and at bedtime. temazepam (RESTORIL) 7.5 mg capsule Take 1 capsule by mouth daily at bedtime for 180 days. acetylcysteine (MUCOMYST) 100 mg/mL (10 %) nebulizer solution Inhale 4 mL as instructed twice daily as needed. rizatriptan (MAXALT) 10 mg tablet Take 1 tablet by mouth as needed (for headaches). May repeat in 2 hours if needed dicyclomine (BENTYL) 10 mg capsule Take one(1) tablet three(3) times daily before meals and Take one(1) tablet daily at bedtime. meclizine (ANTIVERT) 12.5 mg tab Take 1 tablet by mouth four times daily as needed. predniSONE (DELTASONE) 5 mg tablet Take 2 tablets by mouth once daily. Adjust dose for flare up as needed promethazine (PHENERGAN) 25 mg suppository 1 Suppository by RECTAL route every 6 hours as needed. triamcinolone acetonide (NASACORT) 55 mcg nasal inhaler Use 2 Sprays in the nose once daily. famotidine (PEPCID) 20 mg tablet Take 1 tablet by mouth at bedtime as needed. B1/B2/NIACIN/B12/PROTEASE (VITAMINS [id number] ORAL) Take by mouth. FAMILY HISTORY Problem Relation Age of Onset Hypertension Mother Heart Mother atrial fib/CHF COPD Mother Emphysema Mother other (KIDNEY STONES) Mother other (PAH) Mother Heart Father CO at age 35 Hypertension Father Diabetes Father Seizures Father Alzheimer's Disease Father Hypertension Brother other (Still Born) Brother Cancer Maternal Grandmother COLON Cancer Maternal Grandfather COLON Seizures Maternal Grandfather Heart Maternal Grandfather 2- CO's Heart Paternal Grandmother CO Heart Paternal Grandfather CO Social History Tobacco Use Smoking status: Never Smoker Smokeless tobacco: Never Used Tobacco comment: Father used pipe in childhood home. Spouse does not smoke. Substance Use Topics Alcohol use: No Drug use: No ASSESSMENT/PLAN: 1. Pain - ICD9: 780.96, ICD10: R52 - XR THORACIC GENERAL 3V AP/LAT/SWIMMERS - XR CERV GENERAL 2V AP/LAT RESULT: Cervical spine: Counting reference: Craniocervical junction. Anatomic Variants: None. Post-op assessment: N/A Alignment: Normal cervical lordosis. Vertebral bodies: Vertebral body heights are maintained. Spine articulations: Multilevel degenerative disc disease with endplate degenerative changes, most significant at C5-C6. Multilevel facet and uncovertebral degenerative change. Thoracic Spine: Counting reference: 12 paired ribs with vertebral body articulating with first set of ribs designated as T1. Post-op assessment: N/A Alignment: Alignment is satisfactory. Vertebral bodies: Vertebral body heights are maintained. Spine articulations: Mild endplate degenerative changes in the thoracic spine. Other: Cholecystectomy clips. IMPRESSION IMPRESSION: Degenerative changes as described. Trapeze Performer: JHONNY Transcribe Date/Time: Aug 09 2021 12:33P Dictated by : MERYL BACH DO At this time placed on low dose flexeril PRN instructed about medication making patient drossiness not to drive or operate heavy machinery on medication. Lidoderm patch prescribed as well. 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 Orthopedic consult placed. Patient will follow up with ortho for further testing. Patient was okay with this care plan. Lisette Raza APRN.CUSTODIAN MANAGER documented in this encounter [facility] 08-08-2021 Miscellaneous Notes Patient calls and notified of provider response and voices understanding. Bozena Hardin RN Left message for patient to call office Since she was treated with the antibiotic, she should not need to work about Lyme's from just having part of the mouth and leg having been stuck till social welfare clerk removed those parts. The Borrelia burgdorferi gets transmitted from the tick being attached and the spirochete gets into the blood stream because the blood goes back and forth from the tick. Since the rest of the tick was no longer attached, just the mouth part and leg part cannot transmit any illness. Can discuss at upcoming appointment if wants to Patient reports she found a tick on the back of her neck in December. Her pulled it off with a tick rawls. The next morning went to and was prescribed amoxicillin as preventative. No issues since. Today, 7 months later, was seen at Dermatology office for routine visit. Asked the social welfare clerk to check that area. Np cut out part of the tick mouth and a leg. Patient now worried, since they never got it all out. Asking if she should have a blood test done to rule out lyme disease or anything else? Please advise patient. Patient reports she does have a picture of the tick removed 7 mths ago. documented in this encounter [facility] 07-28-2021 Miscellaneous Notes Pt reports she is out of medication, thought you had refilled at last appointment. Patient has been identified by name and date of : Yes Patient phones for refill(s): Pending Prescriptions Disp Refills AMITRIPTYLINE 25 MG TABLET 270 tablet 3 Sig: Take 3 tablets by mouth daily at bedtime. FREDI: No Date of last office visit in primary care: 06/16/21 Future visit: 08/18/21 Last 2 Encounter Wt Readings: Date: Wt: 04/15/2021 62.1 kg (137 lb) 04/02/2021 62.6 kg (138 lb) Previous labs/tests for medication: Blood Pressure: BUN (mg/dL) Date Value 06/27/2021 19 10/02/2020 15 Sodium (mmol/L) Date Value 06/27/2021 141 10/02/2020 140 Last 1 Encounter BP Readings: Date: BP: 06/16/2021 138/84 Liver Function: ALT (U/L) Date Value 06/27/2021 17 10/02/2020 13 AST (U/L) Date Value 06/27/2021 17 10/02/2020 20 Please advise. Thank you. Jailyn Hernandez RN documented in this encounter [facility] 07-15-2021 Miscellaneous Notes MALLORY MACDONALD Rawls: [id number] Rx #: [id number] Need help? Call us at Outcome Approvedtoday Effective from 07/15/2021 through 07/15/2022. DrugProventil HFA 108 (90 Base)MCG/ACT aerosol Pharmacy notified. Unable to complete electronic PA. completed via covermymeds. MALLORY MACDONALD Rawls: [id number] Rx #: [id number] Need help? Call us at Status Sent to [facility] DrugProventil HFA 108 (90 Base)MCG/ACT [facility] Original Claim Info70 BRAND PRODUCT NOT COVEREDRX NOT [id number] Patient calling and states she was told by her pharmacy that she needs a Prior Authorization for her Proventil HFA inhaler as ordered on 07/14/21. Informed patient that a PA would be sent to PA dept. Patient states she needs this inhaler by tomorrow if possible. Please update patient as able. Thank you. documented in this encounter [facility] 07-14-2021 Miscellaneous Notes Patient has been identified by name and date of : Yes Patient phones for refill(s): Pending Prescriptions Disp Refills ALBUTEROL SULFATE HFA 90 MCG/ACTUATION AEROSOL INHALER 2 Each 11 Sig: Inhale 2 Puffs as instructed five times daily. and q2hour prn wheezing FREDI with Proventil HFA DO NOT DISPENSE GENERIC FREDI: No Date of last office visit in primary care: OV on 06/16/2021 Appointment scheduled for 08/18/2021 Last 2 Encounter Wt Readings: Date: Wt: 04/15/2021 62.1 kg (137 lb) 04/02/2021 62.6 kg (138 lb) Please advise. Thank you. SHIVAM Ram documented in this encounter [facility] 06-30-2021 Miscellaneous Notes Patient notified of below, she is drinking 60 ounces of water daily. She will repeat in 3-4 months. Vitamin D still in process. Result note added. Make sure she was able to view it. Has standing orders so may due in next 3 to 4 months. Encourage to stay hydrated. At least 6 cups of noncaffeinated fluids daily Patient calls in to discuss labs completed yesterday. Patient reviewed on and noted abnormal values. Patient asking provider to review and advise on Wednesday. Vitamin D in process. Abi Berger RN documented in this encounter [facility] 06-16-2021 History of Present illness Narrative This note was created using [employer]. Subjective Mallory Macdonald is a 55 year old female. Patient presents with: Follow Up SUBJECTIVE: Mallory Macdonald is a 55 year old year old lady here today for follow up appointment for review of medical conditions. Doing better now. Did get seen at [facility] pulmonology. Ended up seeing CUSTODIAN MANAGER. Was wheezing then and was given kenalog shot. Helped but not back to baseline. Will have follow up with dump grader. Following with Dr. Nesbitt for right foot. Pain was severe so could not walk. Has to wear a thinner boot at night. For plantar fasciitis with a tear. Had felt the snap when going up steps at the library. Has to wear boot when walks. Follow up in 2 week. Treatment offered not covered--$500. Considering PT. Still with heal pain despite wearing boot. has not been taking anything for pain. CP noted. Not cardiac type. Substernal and just hurts. Sometimes tnigling. Resolves spontaneously. Varies with triggers, including anxiety. PAST MEDICAL HISTORY Diagnosis Date Asthma with chronic obstructive pulmonary disease (COPD) ([facility]) 04/15/2005 Benign neoplasm of colon Dysplasia of cervix, unspecified mild in past GERD (gastroesophageal reflux disease) 12/02/2010 IBS (irritable bowel syndrome) 10/31/2010 Interstitial cystitis 01/29/2010 PMH - PAST MEDICAL HISTORY OF GASTRITIS PMH - PAST MEDICAL HISTORY OF BILIARY DYSKINESIA PMH - PAST MEDICAL HISTORY OF POST TRAUMATIC STRESS DISORDER PMH - PAST MEDICAL HISTORY OF OSTEOPOROSIS Unspecified hemorrhoids without mention of complication Hemorrhoids Current Outpatient Medications Medication Sig ipratropium (ATROVENT) 0.02 % nebulizer solution Inhale by nebulizer over 5-15 minutes four (4) times a day as needed for wheezing and shortness of breath metoprolol succinate ER (TOPROL XL) 25 mg 24 hr tablet Take 1 tablet by mouth once daily. chlordiazePOXIDE-clidinium (LIBRAX) 5-2.5 mg per capsule Take 1 capsule by mouth before meals and at bedtime. temazepam (RESTORIL) 7.5 mg capsule Take 1 capsule by mouth daily at bedtime for 180 days. rizatriptan (MAXALT) 10 mg tablet Take 1 tablet by mouth as needed (for headaches). May repeat in 2 hours if needed dicyclomine (BENTYL) 10 mg capsule Take one(1) tablet three(3) times daily before meals and Take one(1) tablet daily at bedtime. albuterol HFA (PROVENTIL HFA) 90 mcg/actuation inhaler Inhale 2 Puffs as instructed five times daily. and q2hour prn wheezing FREDI with Proventil HFA DO NOT DISPENSE GENERIC ALPRAZolam (XANAX) 0.5 mg tablet Take 1 tablet by mouth twice daily as needed for anxiety for up to 90 days. meclizine (ANTIVERT) 12.5 mg tab Take 1 tablet by mouth four times daily as needed. predniSONE (DELTASONE) 5 mg tablet Take 2 tablets by mouth once daily. Adjust dose for flare up as needed omeprazole (PRILOSEC) 40 mg capsule Take 1 capsule by mouth once daily. amitriptyline (ELAVIL) 25 mg tablet Take 3 tablets by mouth daily at bedtime. promethazine (PHENERGAN) 25 mg suppository 1 Suppository by RECTAL route every 6 hours as needed. triamcinolone acetonide (NASACORT) 55 mcg nasal inhaler Use 2 Sprays in the nose once daily. albuterol (PROVENTIL) 2.5 mg /3 mL (0.083 %) nebulizer solution Use 3 mL via nebulizer every 4 hours as needed for wheezing/shortness of breath. Use over 5-15minutes. acetylcysteine (MUCOMYST) 100 mg/mL (10 %) nebulizer solution Inhale 4 mL as instructed twice daily as needed. famotidine (PEPCID) 20 mg tablet Take 1 tablet by mouth at bedtime as needed. (Patient not taking: Reported on 06/16/2021 ) B1/B2/NIACIN/B12/PROTEASE (VITAMINS [id number] ORAL) Take by mouth. No current facility-administered medications for this visit. Review of Systems Objective BP 138/84 Pulse 100 LMP 05/04/2005 Last 5 Encounter Wt Readings: Date: Wt: 04/15/2021 62.1 kg (137 lb) 04/02/2021 62.6 kg (138 lb) 01/28/2021 61.7 kg (136 lb) 01/21/2021 62 kg (136 lb 9.6 oz) 12/06/2020 60.3 kg (133 lb) Last 1 Waist Readings: Date: Waist: 08/28/11 34 (86 cm.) Estimated body mass index is 25.89 kg/m as calculated from the following: Height as of 04/02/21: 154.9 cm (5' 1 ). Weight as of 04/15/21: 62.1 kg (137 lb). Last 5 Encounter BP Readings: Date: BP: 06/16/2021 138/84 04/15/2021 138/88 04/02/2021 130/85 01/28/2021 128/82 01/21/2021 162/90 Physical Exam Constitutional: Appearance: Normal appearance. HENT: Head: Normocephalic. Eyes: Conjunctiva/sclera: Conjunctivae normal. Cardiovascular: Rate and Rhythm: Normal rate and regular rhythm. Heart sounds: Normal heart sounds. Pulmonary: Effort: Pulmonary effort is normal. Breath sounds: Wheezing present. Musculoskeletal: Comments: Right foot in walking boot Skin: General: Skin is warm and dry. Neurological: General: No focal deficit present. Mental Status: She is alert and oriented to person, place, and time. Psychiatric: Mood and Affect: Mood normal. Behavior: Behavior normal. Thought Content: Thought content normal. Judgment: Judgment normal. Component Latest Ref Rng & Units 10/02/2020 02/05/2021 Vitamin D 25 Hydroxy 31.0 - 80.0 ng/mL 23.2 (L) 20.8 (L) Prior labs reviewed. Assessment and Plan Encounter Diagnosis ICD-10-CM 1. Anxiety F41.9 ALPRAZolam (XANAX) 0.5 mg tablet 2. Gastroesophageal reflux disease without esophagitis K21.9 omeprazole (PRILOSEC) 40 mg capsule 3. Vitamin D deficiency E55.9 VITAMIN D 25 HYDROXY 4. Mixed hyperlipidemia E78.2 LIPID PANEL, NONFASTING 5. Asthma with COPD with exacerbation (HCC) J44.1 J45.901 6. Irritable bowel syndrome with diarrhea K58.0 7. Encounter for long-term current use of medication Z79.899 COMP METABOLIC PANEL CBC MAGNESIUM BLD 8. Plantar fasciitis of right foot M72.2 ASSESSMENT/PLAN: 1. Anxiety - ICD9: 300.00, ICD10: F41.9 (primary diagnosis) Did well overall while was away; was able to reason her way through feelings of anxiety. Stable with control of anxiety with alprazolam just as needed. No signs of diversion or abuse of medication(s); no adverse effects. Continue present management. - ALPRAZOLAM 0.5 MG TABLET 2. Gastroesophageal reflux disease without esophagitis - ICD9: 530.81, ICD10: K21.9 - Continue treatment with PPI QD - OMEPRAZOLE 40 MG CAPSULE,DELAYED RELEASE 3. Vitamin D deficiency - ICD9: 268.9, ICD10: E55.9 Check level and adjust replacement as indicated - VITAMIN D 25 HYDROXY 4. Mixed hyperlipidemia - ICD9: 272.2, ICD10: E78.2 - to be determined upon return of lab results - Encouraged following a low fat, low cholesterol diet. - Discussed the benefits of regular aerobic exercise and weight loss. - Encouraged following a low carbohydrate, healthy oil intake diet. - LIPID PANEL, NONFASTING 5. Asthma with COPD with exacerbation (HCC) - ICD9: 493.22, ICD10: J44.1, J45.901 Continue present management. Kenalog given recently was effective and tolerated. Not afraid to use instead of solumedrol now. 6. Irritable bowel syndrome with diarrhea - ICD9: 564.1, ICD10: K58.0 Chronic, ongoing issues. Meds overall effective though stressors and anxiety still trigger problems Continue present meds. 7. Encounter for long-term current use of medication - ICD9: V58.69, ICD10: Z79.899 - COMP METABOLIC PANEL - CBC - MAGNESIUM BLD 8. Plantar fasciitis of right foot - ICD9: 728.71, ICD10: M72.2 Discussed management. Follow up with community health director as needed. Discussed COVID vaccine booster dose recommendations. Brian Owens MD Medical Decision Making: Problems: Moderate: 2+ stable chronic illnesses Data: Unique test(s) ordered: 3+ Risk: Moderate: Drug management Medical Decision Making Level: 4 - Moderate documented in this encounter [facility] 04-02-2021 Miscellaneous Notes 08/18/[address] Neri @ [facility] Sedation Mirlax/Dulcolax prep documented in this encounter [facility] documented as of this encounter (statuses as of 06/29/2021) [facility] History of Past illness Narrative* Problem Noted Date Resolved Date Health maintenance examination 01/09/2015 0 08/10/2016 Environmental allergies 05/31/2014 08/11/19 17 Chronic sinusitis 03/25/2014 08/10/2016 Other and unspecified hyperlipidemia 11/07/2012 08/10/2016 Overview: LDL 144, (10/2012) - Diet measures recommended Allergy to environmental factors 08/12/2012 08/10/2016 Cutaneous skin tags 10/20/2011 08/10/2016 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 Continues with librax, dicyclomine with mild relief. Having anywhere from 2-3 stools on the average with flares- daily to few times per week. She has tried to avoid cheeses, added yougurt and made worse, eats meat. States having much difficulty in her diet in trying to control her sx- she is interested in seeing a receiving coordinator and this I feel would greatly benefit the pt. Consult will be requested. Uses carafate prn at [facility] for epigastric pain/indigestion at [facility]. Lump or mass in breast 05/27/2010 5 Abnormal mammogram, unspecified 05/27/2010 08/10/2016 Interstitial cystitis 01/29/2010 08/10/2016 Benign neoplasm of colon 11/12/2009 017 Overview: 10/2009 with polypectomy- repeat in 3yrs. Last Assessment & Plan: Strong fam hx colon ca on maternal side. Due for repeat exam 2012; last completed 10/2009. 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 08/11/19 17 Female stress incontinence 12/12/200704/26 Urethrocele(618.03) 12/12/2007 08/10/2016 Closed fracture of metatarsal bone(s) 12/02/2007 08/10/2016 Pain in limb 11/25/2007 12/18/2010 Vestibular neuronitis 01/07/2006 08/10/2016 Anemia, unspecified 04/08/2005 12/18/2010 Nausea 12/18/2010 documented as of this encounter (statuses as of 06/30/2021) [facility] History of Past illness Narrative* Problem Noted Date Resolved Date Health maintenance examination 01/09/2015 0 08/10/2016 Environmental allergies 05/31/2014 08/11/19 17 Chronic sinusitis 03/25/2014 08/10/2016 Other and unspecified hyperlipidemia 11/07/2012 08/10/2016 Overview: LDL 144, (10/2012) - Diet measures recommended Allergy to environmental factors 08/12/2012 08/10/2016 Cutaneous skin tags 10/20/2011 08/10/2016 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 Continues with librax, dicyclomine with mild relief. Having anywhere from 2-3 stools on the average with flares- daily to few times per week. She has tried to avoid cheeses, added yougurt and made worse, eats meat. States having much difficulty in her diet in trying to control her sx- she is interested in seeing a receiving coordinator and this I feel would greatly benefit the pt. Consult will be requested. Uses carafate prn at [facility] for epigastric pain/indigestion at [facility]. Lump or mass in breast 05/27/2010 5 Abnormal mammogram, unspecified 05/27/2010 08/10/2016 Interstitial cystitis 01/29/2010 08/10/2016 Benign neoplasm of colon 11/12/2009 017 Overview: 10/2009 with polypectomy- repeat in 3yrs. Last Assessment & Plan: Strong fam hx colon ca on maternal side. Due for repeat exam 2012; last completed 10/2009. 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 08/11/19 17 Female stress incontinence 12/12/200704/26 Urethrocele(618.03) 12/12/2007 08/10/2016 Closed fracture of metatarsal bone(s) 12/02/2007 08/10/2016 Pain in limb 11/25/2007 12/18/2010 Vestibular neuronitis 01/07/2006 08/10/2016 Anemia, unspecified 04/08/2005 12/18/2010 Nausea 12/18/2010 documented as of this encounter (statuses as of 07/14/2021) [facility] History of Past illness Narrative* Problem Noted Date Resolved Date Health maintenance examination 01/09/2015 0 08/10/2016 Environmental allergies 05/31/2014 08/11/19 17 Chronic sinusitis 03/25/2014 08/10/2016 Other and unspecified hyperlipidemia 11/07/2012 08/10/2016 Overview: LDL 144, (10/2012) - Diet measures recommended Allergy to environmental factors 08/12/2012 08/10/2016 Cutaneous skin tags 10/20/2011 08/10/2016 Psoriasiform dermatitis 10/20/2011 08/11/19 17 Xerosis cutis 10/20/2011 08/10/2016 Postinflammatory skin changes 10/20/2011 Melanocytic Nevi of trunk: b ack: Junctional types, appear banal//innocent 10/20/2011 08/10/2016 Abdominal pain, left lower quadrant 08/18/2011 08/10/2016 Capsulitis 05/25/2011 08/10/2016 GERD (gastroesophageal reflux disease) 08/10/2016 Last Assessment & Plan: Currently taking prilosec; had tried prevacid in past that she stopped due to nausea. Continues with librax, dicyclomine with mild relief. Having anywhere from 2-3 stools on the average with flares- daily to few times per week. She has tried to avoid cheeses, added yougurt and made worse, eats meat. States having much difficulty in her diet in trying to control her sx- she is interested in seeing a receiving coordinator and this I feel would greatly benefit the pt. Consult will be requested. Uses carafate prn at [facility] for epigastric pain/indigestion at [facility]. Lump or mass in breast 05/27/2010 5 Abnormal mammogram, unspecified 05/27/2010 08/10/2016 Interstitial cystitis 01/29/2010 08/10/2016 Benign neoplasm of colon 11/12/2009 017 Overview: 10/2009 with polypectomy- repeat in 3yrs. Last Assessment & Plan: Strong fam hx colon ca on maternal side. Due for repeat exam 2012; last completed 10/2009. 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 08/11/19 17 Female stress incontinence 12/12/200704/26 Urethrocele(618.03) 12/12/2007 08/10/2016 Closed fracture of metatarsal bone(s) 12/02/2007 08/10/2016 Pain in limb 11/25/2007 12/18/2010 Vestibular neuronitis 01/07/2006 08/10/2016 Anemia, unspecified 04/08/2005 12/18/2010 Nausea 12/18/2010 documented as of this encounter (statuses as of 07/15/2021) [facility] History of Past illness Narrative* Problem Noted Date Resolved Date Health maintenance examination 01/09/2015 0 08/10/2016 Environmental allergies 05/31/2014 08/11/19 17 Chronic sinusitis 03/25/2014 08/10/2016 Other and unspecified hyperlipidemia 11/07/2012 08/10/2016 Overview: LDL 144, (10/2012) - Diet measures recommended Allergy to environmental factors 08/12/2012 08/10/2016 Cutaneous skin tags 10/20/2011 08/10/2016 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 Continues with librax, dicyclomine with mild relief. Having anywhere from 2-3 stools on the average with flares- daily to few times per week. She has tried to avoid cheeses, added yougurt and made worse, eats meat. States having much difficulty in her diet in trying to control her sx- she is interested in seeing a receiving coordinator and this I feel would greatly benefit the pt. Consult will be requested. Uses carafate prn at [facility] for epigastric pain/indigestion at [facility]. Lump or mass in breast 05/27/2010 5 Abnormal mammogram, unspecified 05/27/2010 08/10/2016 Interstitial cystitis 01/29/2010 08/10/2016 Benign neoplasm of colon 11/12/2009 017 Overview: 10/2009 with polypectomy- repeat in 3yrs. Last Assessment & Plan: Strong fam hx colon ca on maternal side. Due for repeat exam 2012; last completed 10/2009. 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 08/11/19 17 Female stress incontinence 12/12/200704/26 Urethrocele(618.03) 12/12/2007 08/10/2016 Closed fracture of metatarsal bone(s) 12/02/2007 08/10/2016 Pain in limb 11/25/2007 12/18/2010 Vestibular neuronitis 01/07/2006 08/10/2016 Anemia, unspecified 04/08/2005 12/18/2010 Nausea 12/18/2010 documented as of this encounter (statuses as of 07/28/2021) [facility] History of Past illness Narrative* Problem Noted Date Resolved Date Health maintenance examination 01/09/2015 0 08/10/2016 Environmental allergies 05/31/2014 08/11/19 17 Chronic sinusitis 03/25/2014 08/10/2016 Other and unspecified hyperlipidemia 11/07/2012 08/10/2016 Overview: LDL 144, (10/2012) - Diet measures recommended Allergy to environmental factors 08/12/2012 08/10/2016 Cutaneous skin tags 10/20/2011 08/10/2016 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 Continues with librax, dicyclomine with mild relief. Having anywhere from 2-3 stools on the average with flares- daily to few times per week. She has tried to avoid cheeses, added yougurt and made worse, eats meat. States having much difficulty in her diet in trying to control her sx- she is interested in seeing a receiving coordinator and this I feel would greatly benefit the pt. Consult will be requested. Uses carafate prn at [facility] for epigastric pain/indigestion at [facility]. Lump or mass in breast 05/27/2010 5 Abnormal mammogram, unspecified 05/27/2010 08/10/2016 Interstitial cystitis 01/29/2010 08/10/2016 Benign neoplasm of colon 11/12/2009 017 Overview: 10/2009 with polypectomy- repeat in 3yrs. Last Assessment & Plan: Strong fam hx colon ca on maternal side. Due for repeat exam 2012; last completed 10/2009. 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 08/11/19 17 Female stress incontinence 12/12/200704/26 Urethrocele(618.03) 12/12/2007 08/10/2016 Closed fracture of metatarsal bone(s) 12/02/2007 08/10/2016 Pain in limb 11/25/2007 12/18/2010 Vestibular neuronitis 01/07/2006 08/10/2016 Anemia, unspecified 04/08/2005 12/18/2010 Nausea 12/18/2010 documented as of this encounter (statuses as of 07/30/2021) [facility] History of Past illness Narrative* Problem Noted Date Resolved Date Health maintenance examination 01/09/2015 0 08/10/2016 Environmental allergies 05/31/2014 08/11/19 17 Chronic sinusitis 03/25/2014 08/10/2016 Other and unspecified hyperlipidemia 11/07/2012 08/10/2016 Overview: LDL 144, (10/2012) - Diet measures recommended Allergy to environmental factors 08/12/2012 08/10/2016 Cutaneous skin tags 10/20/2011 08/10/2016 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 Continues with librax, dicyclomine with mild relief. Having anywhere from 2-3 stools on the average with flares- daily to few times per week. She has tried to avoid cheeses, added yougurt and made worse, eats meat. States having much difficulty in her diet in trying to control her sx- she is interested in seeing a receiving coordinator and this I feel would greatly benefit the pt. Consult will be requested. Uses carafate prn at [facility] for epigastric pain/indigestion at [facility]. Lump or mass in breast 05/27/2010 5 Abnormal mammogram, unspecified 05/27/2010 08/10/2016 Interstitial cystitis 01/29/2010 08/10/2016 Benign neoplasm of colon 11/12/2009 017 Overview: 10/2009 with polypectomy- repeat in 3yrs. Last Assessment & Plan: Strong fam hx colon ca on maternal side. Due for repeat exam 2012; last completed 10/2009. 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 08/11/19 17 Female stress incontinence 12/12/200704/26 Urethrocele(618.03) 12/12/2007 08/10/2016 Closed fracture of metatarsal bone(s) 12/02/2007 08/10/2016 Pain in limb 11/25/2007 12/18/2010 Vestibular neuronitis 01/07/2006 08/10/2016 Anemia, unspecified 04/08/2005 12/18/2010 Nausea 12/18/2010 documented as of this encounter (statuses as of 08/04/2021) [facility] History of Past illness Narrative* Problem Noted Date Resolved Date Health maintenance examination 01/09/2015 0 08/10/2016 Environmental allergies 05/31/2014 08/11/19 17 Chronic sinusitis 03/25/2014 08/10/2016 Other and unspecified hyperlipidemia 11/07/2012 08/10/2016 Overview: LDL 144, (10/2012) - Diet measures recommended Allergy to environmental factors 08/12/2012 08/10/2016 Cutaneous skin tags 10/20/2011 08/10/2016 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 Continues with librax, dicyclomine with mild relief. Having anywhere from 2-3 stools on the average with flares- daily to few times per week. She has tried to avoid cheeses, added yougurt and made worse, eats meat. States having much difficulty in her diet in trying to control her sx- she is interested in seeing a receiving coordinator and this I feel would greatly benefit the pt. Consult will be requested. Uses carafate prn at [facility] for epigastric pain/indigestion at [facility]. Lump or mass in breast 05/27/2010 5 Abnormal mammogram, unspecified 05/27/2010 08/10/2016 Interstitial cystitis 01/29/2010 08/10/2016 Benign neoplasm of colon 11/12/2009 017 Overview: 10/2009 with polypectomy- repeat in 3yrs. Last Assessment & Plan: Strong fam hx colon ca on maternal side. Due for repeat exam 2012; last completed 10/2009. 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 08/11/19 17 Female stress incontinence 12/12/200704/26 Urethrocele(618.03) 12/12/2007 08/10/2016 Closed fracture of metatarsal bone(s) 12/02/2007 08/10/2016 Pain in limb 11/25/2007 12/18/2010 Vestibular neuronitis 01/07/2006 08/10/2016 Anemia, unspecified 04/08/2005 12/18/2010 Nausea 12/18/2010 documented as of this encounter (statuses as of 08/08/2021) [facility] History of Past illness Narrative* Problem Noted Date Resolved Date Health maintenance examination 01/09/2015 0 08/10/2016 Environmental allergies 05/31/2014 08/11/19 17 Chronic sinusitis 03/25/2014 08/10/2016 Other and unspecified hyperlipidemia 11/07/2012 08/10/2016 Overview: LDL 144, (10/2012) - Diet measures recommended Allergy to environmental factors 08/12/2012 08/10/2016 Cutaneous skin tags 10/20/2011 08/10/2016 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 Continues with librax, dicyclomine with mild relief. Having anywhere from 2-3 stools on the average with flares- daily to few times per week. She has tried to avoid cheeses, added yougurt and made worse, eats meat. States having much difficulty in her diet in trying to control her sx- she is interested in seeing a receiving coordinator and this I feel would greatly benefit the pt. Consult will be requested. Uses carafate prn at [facility] for epigastric pain/indigestion at [facility]. Lump or mass in breast 05/27/2010 5 Abnormal mammogram, unspecified 05/27/2010 08/10/2016 Interstitial cystitis 01/29/2010 08/10/2016 Benign neoplasm of colon 11/12/2009 017 Overview: 10/2009 with polypectomy- repeat in 3yrs. Last Assessment & Plan: Strong fam hx colon ca on maternal side. Due for repeat exam 2012; last completed 10/2009. 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 08/11/19 17 Female stress incontinence 12/12/200704/26 Urethrocele(618.03) 12/12/2007 08/10/2016 Closed fracture of metatarsal bone(s) 12/02/2007 08/10/2016 Pain in limb 11/25/2007 12/18/2010 Vestibular neuronitis 01/07/2006 08/10/2016 Anemia, unspecified 04/08/2005 12/18/2010 Nausea 12/18/2010 documented as of this encounter (statuses as of 08/09/2021) [facility] History of Past illness Narrative* Problem Noted Date Resolved Date Health maintenance examination 01/09/2015 0 08/10/2016 Environmental allergies 05/31/2014 08/11/19 17 Chronic sinusitis 03/25/2014 08/10/2016 Other and unspecified hyperlipidemia 11/07/2012 08/10/2016 Overview: LDL 144, (10/2012) - Diet measures recommended Allergy to environmental factors 08/12/2012 08/10/2016 Cutaneous skin tags 10/20/2011 08/10/2016 Psoriasiform dermatitis 10/20/2011 08/11/19 17 Xerosis cutis 10/20/2011 08/10/2016 Postinflammatory skin changes 10/20/2011 Melanocytic Nevi of trunk: b ack: Junctional types, appear banal//innocent 10/20/2011 08/10/2016 Abdominal pain, left lower quadrant 08/18/2011 08/10/2016 Capsulitis 05/25/2011 08/10/2016 GERD (gastroesophageal reflux disease) 08/10/2016 Last Assessment & Plan: Currently taking prilosec; had tried prevacid in past that she stopped due to nausea. Continues with librax, dicyclomine with mild relief. Having anywhere from 2-3 stools on the average with flares- daily to few times per week. She has tried to avoid cheeses, added yougurt and made worse, eats meat. States having much difficulty in her diet in trying to control her sx- she is interested in seeing a receiving coordinator and this I feel would greatly benefit the pt. Consult will be requested. Uses carafate prn at [facility] for epigastric pain/indigestion at [facility]. Lump or mass in breast 05/27/2010 5 Abnormal mammogram, unspecified 05/27/2010 08/10/2016 Interstitial cystitis 01/29/2010 08/10/2016 Benign neoplasm of colon 11/12/2009 017 Overview: 10/2009 with polypectomy- repeat in 3yrs. Last Assessment & Plan: Strong fam hx colon ca on maternal side. Due for repeat exam 2012; last completed 10/2009. 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 08/11/19 17 Female stress incontinence 12/12/200704/26 Urethrocele(618.03) 12/12/2007 08/10/2016 Closed fracture of metatarsal bone(s) 12/02/2007 08/10/2016 Pain in limb 11/25/2007 12/18/2010 Vestibular neuronitis 01/07/2006 08/10/2016 Anemia, unspecified 04/08/2005 12/18/2010 Nausea 12/18/2010 documented as of this encounter (statuses as of 08/11/2021) [facility] History of Past illness Narrative* Problem Noted Date Resolved Date Health maintenance examination 01/09/2015 0 08/10/2016 Environmental allergies 05/31/2014 08/11/19 17 Chronic sinusitis 03/25/2014 08/10/2016 Other and unspecified hyperlipidemia 11/07/2012 08/10/2016 Overview: LDL 144, (10/2012) - Diet measures recommended Allergy to environmental factors 08/12/2012 08/10/2016 Cutaneous skin tags 10/20/2011 08/10/2016 Psoriasiform dermatitis 10/20/2011 08/11/19 17 Xerosis cutis 10/20/2011 08/10/2016 Postinflammatory skin changes 10/20/2011 Melanocytic Nevi of trunk: b ack: Junctional types, appear banal//innocent 10/20/2011 08/10/2016 Abdominal pain, left lower quadrant 08/18/2011 08/10/2016 Capsulitis 05/25/2011 08/10/2016 GERD (gastroesophageal reflux disease) 08/10/2016 Last Assessment & Plan: Currently taking prilosec; had tried prevacid in past that she stopped due to nausea. Continues with librax, dicyclomine with mild relief. Having anywhere from 2-3 stools on the average with flares- daily to few times per week. She has tried to avoid cheeses, added yougurt and made worse, eats meat. States having much difficulty in her diet in trying to control her sx- she is interested in seeing a receiving coordinator and this I feel would greatly benefit the pt. Consult will be requested. Uses carafate prn at [facility] for epigastric pain/indigestion at [facility]. Lump or mass in breast 05/27/2010 5 Abnormal mammogram, unspecified 05/27/2010 08/10/2016 Interstitial cystitis 01/29/2010 08/10/2016 Benign neoplasm of colon 11/12/2009 017 Overview: 10/2009 with polypectomy- repeat in 3yrs. Last Assessment & Plan: Strong fam hx colon ca on maternal side. Due for repeat exam 2012; last completed 10/2009. 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 08/11/19 17 Female stress incontinence 12/12/200704/26 Urethrocele(618.03) 12/12/2007 08/10/2016 Closed fracture of metatarsal bone(s) 12/02/2007 08/10/2016 Pain in limb 11/25/2007 12/18/2010 Vestibular neuronitis 01/07/2006 08/10/2016 Anemia, unspecified 04/08/2005 12/18/2010 Nausea 12/18/2010 documented as of this encounter (statuses as of 08/13/2021) [facility] History of Past illness Narrative* Problem Noted Date Resolved Date Health maintenance examination 01/09/2015 0 08/10/2016 Environmental allergies 05/31/2014 08/11/19 17 Chronic sinusitis 03/25/2014 08/10/2016 Other and unspecified hyperlipidemia 11/07/2012 08/10/2016 Overview: LDL 144, (10/2012) - Diet measures recommended Allergy to environmental factors 08/12/2012 08/10/2016 Cutaneous skin tags 10/20/2011 08/10/2016 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 Continues with librax, dicyclomine with mild relief. Having anywhere from 2-3 stools on the average with flares- daily to few times per week. She has tried to avoid cheeses, added yougurt and made worse, eats meat. States having much difficulty in her diet in trying to control her sx- she is interested in seeing a receiving coordinator and this I feel would greatly benefit the pt. Consult will be requested. Uses carafate prn at [facility] for epigastric pain/indigestion at [facility]. Lump or mass in breast 05/27/2010 5 Abnormal mammogram, unspecified 05/27/2010 08/10/2016 Interstitial cystitis 01/29/2010 08/10/2016 Benign neoplasm of colon 11/12/2009 017 Overview: 10/2009 with polypectomy- repeat in 3yrs. Last Assessment & Plan: Strong fam hx colon ca on maternal side. Due for repeat exam 2012; last completed 10/2009. 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 08/11/19 17 Female stress incontinence 12/12/200704/26 Urethrocele(618.03) 12/12/2007 08/10/2016 Closed fracture of metatarsal bone(s) 12/02/2007 08/10/2016 Pain in limb 11/25/2007 12/18/2010 Vestibular neuronitis 01/07/2006 08/10/2016 Anemia, unspecified 04/08/2005 12/18/2010 Nausea 12/18/2010 documented as of this encounter (statuses as of 08/27/2021) [facility] History of Past illness Narrative* Problem Noted Date Resolved Date Health maintenance examination 01/09/2015 0 08/10/2016 Environmental allergies 05/31/2014 08/11/19 17 Chronic sinusitis 03/25/2014 08/10/2016 Other and unspecified hyperlipidemia 11/07/2012 08/10/2016 Overview: LDL 144, (10/2012) - Diet measures recommended Allergy to environmental factors 08/12/2012 08/10/2016 Cutaneous skin tags 10/20/2011 08/10/2016 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 Continues with librax, dicyclomine with mild relief. Having anywhere from 2-3 stools on the average with flares- daily to few times per week. She has tried to avoid cheeses, added yougurt and made worse, eats meat. States having much difficulty in her diet in trying to control her sx- she is interested in seeing a receiving coordinator and this I feel would greatly benefit the pt. Consult will be requested. Uses carafate prn at [facility] for epigastric pain/indigestion at [facility]. Lump or mass in breast 05/27/2010 5 Abnormal mammogram, unspecified 05/27/2010 08/10/2016 Interstitial cystitis 01/29/2010 08/10/2016 Benign neoplasm of colon 11/12/2009 017 Overview: 10/2009 with polypectomy- repeat in 3yrs. Last Assessment & Plan: Strong fam hx colon ca on maternal side. Due for repeat exam 2012; last completed 10/2009. 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 08/11/19 17 Female stress incontinence 12/12/200704/26 Urethrocele(618.03) 12/12/2007 08/10/2016 Closed fracture of metatarsal bone(s) 12/02/2007 08/10/2016 Pain in limb 11/25/2007 12/18/2010 Vestibular neuronitis 01/07/2006 08/10/2016 Anemia, unspecified 04/08/2005 12/18/2010 Nausea 12/18/2010 documented as of this encounter (statuses as of 10/03/2021) [facility] History of Past illness Narrative* Problem Noted Date Resolved Date Health maintenance examination 01/09/2015 0 08/10/2016 Environmental allergies 05/31/2014 08/11/19 17 Chronic sinusitis 03/25/2014 08/10/2016 Other and unspecified hyperlipidemia 11/07/2012 08/10/2016 Overview: LDL 144, (10/2012) - Diet measures recommended Allergy to environmental factors 08/12/2012 08/10/2016 Cutaneous skin tags 10/20/2011 08/10/2016 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 Continues with librax, dicyclomine with mild relief. Having anywhere from 2-3 stools on the average with flares- daily to few times per week. She has tried to avoid cheeses, added yougurt and made worse, eats meat. States having much difficulty in her diet in trying to control her sx- she is interested in seeing a receiving coordinator and this I feel would greatly benefit the pt. Consult will be requested. Uses carafate prn at [facility] for epigastric pain/indigestion at [facility]. Lump or mass in breast 05/27/2010 5 Abnormal mammogram, unspecified 05/27/2010 08/10/2016 Interstitial cystitis 01/29/2010 08/10/2016 Benign neoplasm of colon 11/12/2009 017 Overview: 10/2009 with polypectomy- repeat in 3yrs. Last Assessment & Plan: Strong fam hx colon ca on maternal side. Due for repeat exam 2012; last completed 10/2009. 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 08/11/19 17 Female stress incontinence 12/12/200704/26 Urethrocele(618.03) 12/12/2007 08/10/2016 Closed fracture of metatarsal bone(s) 12/02/2007 08/10/2016 Pain in limb 11/25/2007 12/18/2010 Vestibular neuronitis 01/07/2006 08/10/2016 Anemia, unspecified 04/08/2005 12/18/2010 Nausea 12/18/2010 documented as of this encounter (statuses as of 10/08/2021) [facility] History of Past illness Narrative* Problem Noted Date Resolved Date Health maintenance examination 01/09/2015 0 08/10/2016 Environmental allergies 05/31/2014 08/11/19 17 Chronic sinusitis 03/25/2014 08/10/2016 Other and unspecified hyperlipidemia 11/07/2012 08/10/2016 Overview: LDL 144, (10/2012) - Diet measures recommended Allergy to environmental factors 08/12/2012 08/10/2016 Cutaneous skin tags 10/20/2011 08/10/2016 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 Continues with librax, dicyclomine with mild relief. Having anywhere from 2-3 stools on the average with flares- daily to few times per week. She has tried to avoid cheeses, added yougurt and made worse, eats meat. States having much difficulty in her diet in trying to control her sx- she is interested in seeing a receiving coordinator and this I feel would greatly benefit the pt. Consult will be requested. Uses carafate prn at [facility] for epigastric pain/indigestion at [facility]. Lump or mass in breast 05/27/2010 5 Abnormal mammogram, unspecified 05/27/2010 08/10/2016 Interstitial cystitis 01/29/2010 08/10/2016 Benign neoplasm of colon 11/12/2009 017 Overview: 10/2009 with polypectomy- repeat in 3yrs. Last Assessment & Plan: Strong fam hx colon ca on maternal side. Due for repeat exam 2012; last completed 10/2009. 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 08/11/19 17 Female stress incontinence 12/12/200704/26 Urethrocele(618.03) 12/12/2007 08/10/2016 Closed fracture of metatarsal bone(s) 12/02/2007 08/10/2016 Pain in limb 11/25/2007 12/18/2010 Vestibular neuronitis 01/07/2006 08/10/2016 Anemia, unspecified 04/08/2005 12/18/2010 Nausea 12/18/2010 documented as of this encounter (statuses as of 10/14/2021) [facility] History of Past illness Narrative* Problem Noted Date Resolved Date Health maintenance examination 01/09/2015 0 08/10/2016 Environmental allergies 05/31/2014 08/11/19 17 Chronic sinusitis 03/25/2014 08/10/2016 Other and unspecified hyperlipidemia 11/07/2012 08/10/2016 Overview: LDL 144, (10/2012) - Diet measures recommended Allergy to environmental factors 08/12/2012 08/10/2016 Cutaneous skin tags 10/20/2011 08/10/2016 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 Continues with librax, dicyclomine with mild relief. Having anywhere from 2-3 stools on the average with flares- daily to few times per week. She has tried to avoid cheeses, added yougurt and made worse, eats meat. States having much difficulty in her diet in trying to control her sx- she is interested in seeing a receiving coordinator and this I feel would greatly benefit the pt. Consult will be requested. Uses carafate prn at [facility] for epigastric pain/indigestion at [facility]. Lump or mass in breast 05/27/2010 5 Abnormal mammogram, unspecified 05/27/2010 08/10/2016 Interstitial cystitis 01/29/2010 08/10/2016 Benign neoplasm of colon 11/12/2009 017 Overview: 10/2009 with polypectomy- repeat in 3yrs. Last Assessment & Plan: Strong fam hx colon ca on maternal side. Due for repeat exam 2012; last completed 10/2009. 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 08/11/19 17 Female stress incontinence 12/12/200704/26 Urethrocele(618.03) 12/12/2007 08/10/2016 Closed fracture of metatarsal bone(s) 12/02/2007 08/10/2016 Pain in limb 11/25/2007 12/18/2010 Vestibular neuronitis 01/07/2006 08/10/2016 Anemia, unspecified 04/08/2005 12/18/2010 Nausea 12/18/2010 documented as of this encounter (statuses as of 11/24/2021) [facility] History of Past illness Narrative* Problem Noted Date Resolved Date Health maintenance examination 01/09/2015 0 08/10/2016 Environmental allergies 05/31/2014 08/11/19 17 Chronic sinusitis 03/25/2014 08/10/2016 Other and unspecified hyperlipidemia 11/07/2012 08/10/2016 Overview: LDL 144, (10/2012) - Diet measures recommended Allergy to environmental factors 08/12/2012 08/10/2016 Cutaneous skin tags 10/20/2011 08/10/2016 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 Continues with librax, dicyclomine with mild relief. Having anywhere from 2-3 stools on the average with flares- daily to few times per week. She has tried to avoid cheeses, added yougurt and made worse, eats meat. States having much difficulty in her diet in trying to control her sx- she is interested in seeing a receiving coordinator and this I feel would greatly benefit the pt. Consult will be requested. Uses carafate prn at [facility] for epigastric pain/indigestion at [facility]. Lump or mass in breast 05/27/2010 5 Abnormal mammogram, unspecified 05/27/2010 08/10/2016 Interstitial cystitis 01/29/2010 08/10/2016 Benign neoplasm of colon 11/12/2009 017 Overview: 10/2009 with polypectomy- repeat in 3yrs. Last Assessment & Plan: Strong fam hx colon ca on maternal side. Due for repeat exam 2012; last completed 10/2009. 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 08/11/19 17 Female stress incontinence 12/12/200704/26 Urethrocele(618.03) 12/12/2007 08/10/2016 Closed fracture of metatarsal bone(s) 12/02/2007 08/10/2016 Pain in limb 11/25/2007 12/18/2010 Vestibular neuronitis 01/07/2006 08/10/2016 Anemia, unspecified 04/08/2005 12/18/2010 Nausea 12/18/2010 documented as of this encounter (statuses as of 11/24/2021) [facility] History of Past illness Narrative* Problem Noted Date Resolved Date Health maintenance examination 01/09/2015 0 08/10/2016 Environmental allergies 05/31/2014 08/11/19 17 Chronic sinusitis 03/25/2014 08/10/2016 Other and unspecified hyperlipidemia 11/07/2012 08/10/2016 Overview: LDL 144, (10/2012) - Diet measures recommended Allergy to environmental factors 08/12/2012 08/10/2016 Cutaneous skin tags 10/20/2011 08/10/2016 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 Continues with librax, dicyclomine with mild relief. Having anywhere from 2-3 stools on the average with flares- daily to few times per week. She has tried to avoid cheeses, added yougurt and made worse, eats meat. States having much difficulty in her diet in trying to control her sx- she is interested in seeing a receiving coordinator and this I feel would greatly benefit the pt. Consult will be requested. Uses carafate prn at [facility] for epigastric pain/indigestion at [facility]. Lump or mass in breast 05/27/2010 5 Abnormal mammogram, unspecified 05/27/2010 08/10/2016 Interstitial cystitis 01/29/2010 08/10/2016 Benign neoplasm of colon 11/12/2009 017 Overview: 10/2009 with polypectomy- repeat in 3yrs. Last Assessment & Plan: Strong fam hx colon ca on maternal side. Due for repeat exam 2012; last completed 10/2009. 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 08/11/19 17 Female stress incontinence 12/12/200704/26 Urethrocele(618.03) 12/12/2007 08/10/2016 Closed fracture of metatarsal bone(s) 12/02/2007 08/10/2016 Pain in limb 11/25/2007 12/18/2010 Vestibular neuronitis 01/07/2006 08/10/2016 Anemia, unspecified 04/08/2005 12/18/2010 Nausea 12/18/2010 documented as of this encounter (statuses as of 11/25/2021) [facility] History of Past illness Narrative* Problem Noted Date Resolved Date Health maintenance examination 01/09/2015 0 08/10/2016 Environmental allergies 05/31/2014 08/11/19 17 Chronic sinusitis 03/25/2014 08/10/2016 Other and unspecified hyperlipidemia 11/07/2012 08/10/2016 Overview: LDL 144, (10/2012) - Diet measures recommended Allergy to environmental factors 08/12/2012 08/10/2016 Cutaneous skin tags 10/20/2011 08/10/2016 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 Continues with librax, dicyclomine with mild relief. Having anywhere from 2-3 stools on the average with flares- daily to few times per week. She has tried to avoid cheeses, added yougurt and made worse, eats meat. States having much difficulty in her diet in trying to control her sx- she is interested in seeing a receiving coordinator and this I feel would greatly benefit the pt. Consult will be requested. Uses carafate prn at [facility] for epigastric pain/indigestion at [facility]. Lump or mass in breast 05/27/2010 5 Abnormal mammogram, unspecified 05/27/2010 08/10/2016 Interstitial cystitis 01/29/2010 08/10/2016 Benign neoplasm of colon 11/12/2009 017 Overview: 10/2009 with polypectomy- repeat in 3yrs. Last Assessment & Plan: Strong fam hx colon ca on maternal side. Due for repeat exam 2012; last completed 10/2009. 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 08/11/19 17 Female stress incontinence 12/12/200704/26 Urethrocele(618.03) 12/12/2007 08/10/2016 Closed fracture of metatarsal bone(s) 12/02/2007 08/10/2016 Pain in limb 11/25/2007 12/18/2010 Vestibular neuronitis 01/07/2006 08/10/2016 Anemia, unspecified 04/08/2005 12/18/2010 Nausea 12/18/2010 documented as of this encounter (statuses as of 11/26/2021) [facility] History of Past illness Narrative* Problem Noted Date Resolved Date Health maintenance examination 01/09/2015 0 08/10/2016 Environmental allergies 05/31/2014 08/11/19 17 Chronic sinusitis 03/25/2014 08/10/2016 Other and unspecified hyperlipidemia 11/07/2012 08/10/2016 Overview: LDL 144, (10/2012) - Diet measures recommended Allergy to environmental factors 08/12/2012 08/10/2016 Cutaneous skin tags 10/20/2011 08/10/2016 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 Continues with librax, dicyclomine with mild relief. Having anywhere from 2-3 stools on the average with flares- daily to few times per week. She has tried to avoid cheeses, added yougurt and made worse, eats meat. States having much difficulty in her diet in trying to control her sx- she is interested in seeing a receiving coordinator and this I feel would greatly benefit the pt. Consult will be requested. Uses carafate prn at [facility] for epigastric pain/indigestion at [facility]. Lump or mass in breast 05/27/2010 5 Abnormal mammogram, unspecified 05/27/2010 08/10/2016 Interstitial cystitis 01/29/2010 08/10/2016 Benign neoplasm of colon 11/12/2009 017 Overview: 10/2009 with polypectomy- repeat in 3yrs. Last Assessment & Plan: Strong fam hx colon ca on maternal side. Due for repeat exam 2012; last completed 10/2009. 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 08/11/19 17 Female stress incontinence 12/12/200704/26 Urethrocele(618.03) 12/12/2007 08/10/2016 Closed fracture of metatarsal bone(s) 12/02/2007 08/10/2016 Pain in limb 11/25/2007 12/18/2010 Vestibular neuronitis 01/07/2006 08/10/2016 Anemia, unspecified 04/08/2005 12/18/2010 Nausea 12/18/2010 documented as of this encounter (statuses as of 12/12/2021) [facility] History of Past illness Narrative* Problem Noted Date Resolved Date Health maintenance examination 01/09/2015 0 08/10/2016 Environmental allergies 05/31/2014 08/11/19 17 Chronic sinusitis 03/25/2014 08/10/2016 Other and unspecified hyperlipidemia 11/07/2012 08/10/2016 Overview: LDL 144, (10/2012) - Diet measures recommended Allergy to environmental factors 08/12/2012 08/10/2016 Cutaneous skin tags 10/20/2011 08/10/2016 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 Continues with librax, dicyclomine with mild relief. Having anywhere from 2-3 stools on the average with flares- daily to few times per week. She has tried to avoid cheeses, added yougurt and made worse, eats meat. States having much difficulty in her diet in trying to control her sx- she is interested in seeing a receiving coordinator and this I feel would greatly benefit the pt. Consult will be requested. Uses carafate prn at [facility] for epigastric pain/indigestion at [facility]. Lump or mass in breast 05/27/2010 5 Abnormal mammogram, unspecified 05/27/2010 08/10/2016 Interstitial cystitis 01/29/2010 08/10/2016 Benign neoplasm of colon 11/12/2009 017 Overview: 10/2009 with polypectomy- repeat in 3yrs. Last Assessment & Plan: Strong fam hx colon ca on maternal side. Due for repeat exam 2012; last completed 10/2009. 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 08/11/19 17 Female stress incontinence 12/12/200704/26 Urethrocele(618.03) 12/12/2007 08/10/2016 Closed fracture of metatarsal bone(s) 12/02/2007 08/10/2016 Pain in limb 11/25/2007 12/18/2010 Vestibular neuronitis 01/07/2006 08/10/2016 Anemia, unspecified 04/08/2005 12/18/2010 Nausea 12/18/2010 documented as of this encounter (statuses as of 12/17/2021) [facility] History of Past illness Narrative* Problem Noted Date Resolved Date Health maintenance examination 01/09/2015 0 08/10/2016 Environmental allergies 05/31/2014 08/11/19 17 Chronic sinusitis 03/25/2014 08/10/2016 Other and unspecified hyperlipidemia 11/07/2012 08/10/2016 Overview: LDL 144, (10/2012) - Diet measures recommended Allergy to environmental factors 08/12/2012 08/10/2016 Cutaneous skin tags 10/20/2011 08/10/2016 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 Continues with librax, dicyclomine with mild relief. Having anywhere from 2-3 stools on the average with flares- daily to few times per week. She has tried to avoid cheeses, added yougurt and made worse, eats meat. States having much difficulty in her diet in trying to control her sx- she is interested in seeing a receiving coordinator and this I feel would greatly benefit the pt. Consult will be requested. Uses carafate prn at [facility] for epigastric pain/indigestion at [facility]. Lump or mass in breast 05/27/2010 06/01/201 5 Abnormal mammogram, unspecified 05/27/2010 08/10/2016 Interstitial cystitis 01/29/2010 08/10/2016 Benign neoplasm of colon 11/12/2009 017 Overview: 10/2009 with polypectomy- repeat in 3yrs. Last Assessment & Plan: Strong fam hx colon ca on maternal side. Due for repeat exam 2012; last completed 10/2009. 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 08/11/19 17 Female stress incontinence 12/12/200704/26 Urethrocele(618.03) 12/12/2007 08/10/2016 Closed fracture of metatarsal bone(s) 12/02/2007 08/10/2016 Pain in limb 11/25/2007 12/18/2010 Vestibular neuronitis 01/07/2006 08/10/2016 Anemia, unspecified 04/08/2005 12/18/2010 Nausea 12/18/2010 documented as of this encounter (statuses as of 01/05/2022) [facility] History of Past illness Narrative* Problem Noted Date Resolved Date Health maintenance examination 01/09/2015 0 08/10/2016 Environmental allergies 05/31/2014 08/11/19 17 Chronic sinusitis 03/25/2014 08/10/2016 Other and unspecified hyperlipidemia 11/07/2012 08/10/2016 Overview: LDL 144, (10/2012) - Diet measures recommended Allergy to environmental factors 08/12/2012 08/10/2016 Cutaneous skin tags 10/20/2011 08/10/2016 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 Continues with librax, dicyclomine with mild relief. Having anywhere from 2-3 stools on the average with flares- daily to few times per week. She has tried to avoid cheeses, added yougurt and made worse, eats meat. States having much difficulty in her diet in trying to control her sx- she is interested in seeing a receiving coordinator and this I feel would greatly benefit the pt. Consult will be requested. Uses carafate prn at [facility] for epigastric pain/indigestion at [facility]. Lump or mass in breast 05/27/2010 5 Abnormal mammogram, unspecified 05/27/2010 08/10/2016 Interstitial cystitis 01/29/2010 08/10/2016 Benign neoplasm of colon 11/12/2009 017 Overview: 10/2009 with polypectomy- repeat in 3yrs. Last Assessment & Plan: Strong fam hx colon ca on maternal side. Due for repeat exam 2012; last completed 10/2009. 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 08/11/19 17 Female stress incontinence 12/12/200704/26 Urethrocele(618.03) 12/12/2007 08/10/2016 Closed fracture of metatarsal bone(s) 12/02/2007 08/10/2016 Pain in limb 11/25/2007 12/18/2010 Vestibular neuronitis 01/07/2006 08/10/2016 Anemia, unspecified 04/08/2005 12/18/2010 Nausea 12/18/2010 documented as of this encounter (statuses as of 01/06/2022) [facility] History of Past illness Narrative* Problem Noted Date Resolved Date Health maintenance examination 01/09/2015 0 08/10/2016 Environmental allergies 05/31/2014 08/11/19 17 Chronic sinusitis 03/25/2014 08/10/2016 Other and unspecified hyperlipidemia 11/07/2012 08/10/2016 Overview: LDL 144, (10/2012) - Diet measures recommended Allergy to environmental factors 08/12/2012 08/10/2016 Cutaneous skin tags 10/20/2011 08/10/2016 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 Continues with librax, dicyclomine with mild relief. Having anywhere from 2-3 stools on the average with flares- daily to few times per week. She has tried to avoid cheeses, added yougurt and made worse, eats meat. States having much difficulty in her diet in trying to control her sx- she is interested in seeing a receiving coordinator and this I feel would greatly benefit the pt. Consult will be requested. Uses carafate prn at [facility] for epigastric pain/indigestion at [facility]. Lump or mass in breast 05/27/2010 5 Abnormal mammogram, unspecified 05/27/2010 08/10/2016 Interstitial cystitis 01/29/2010 08/10/2016 Benign neoplasm of colon 11/12/2009 017 Overview: 10/2009 with polypectomy- repeat in 3yrs. Last Assessment & Plan: Strong fam hx colon ca on maternal side. Due for repeat exam 2012; last completed 10/2009. 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 08/11/19 17 Female stress incontinence 12/12/200704/26 Urethrocele(618.03) 12/12/2007 08/10/2016 Closed fracture of metatarsal bone(s) 12/02/2007 08/10/2016 Pain in limb 11/25/2007 12/18/2010 Vestibular neuronitis 01/07/2006 08/10/2016 Anemia, unspecified 04/08/2005 12/18/2010 Nausea 12/18/2010 documented as of this encounter (statuses as of 01/06/2022) [facility] History of Past illness Narrative* Problem Noted Date Resolved Date Health maintenance examination 01/09/2015 0 08/10/2016 Environmental allergies 05/31/2014 08/11/19 17 Chronic sinusitis 03/25/2014 08/10/2016 Other and unspecified hyperlipidemia 11/07/2012 08/10/2016 Overview: LDL 144, (10/2012) - Diet measures recommended Allergy to environmental factors 08/12/2012 08/10/2016 Cutaneous skin tags 10/20/2011 08/10/2016 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 Continues with librax, dicyclomine with mild relief. Having anywhere from 2-3 stools on the average with flares- daily to few times per week. She has tried to avoid cheeses, added yougurt and made worse, eats meat. States having much difficulty in her diet in trying to control her sx- she is interested in seeing a receiving coordinator and this I feel would greatly benefit the pt. Consult will be requested. Uses carafate prn at [facility] for epigastric pain/indigestion at [facility]. Lump or mass in breast 05/27/2010 5 Abnormal mammogram, unspecified 05/27/2010 08/10/2016 Interstitial cystitis 01/29/2010 08/10/2016 Benign neoplasm of colon 11/12/2009 017 Overview: 10/2009 with polypectomy- repeat in 3yrs. Last Assessment & Plan: Strong fam hx colon ca on maternal side. Due for repeat exam 2012; last completed 10/2009. 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 08/11/19 17 Female stress incontinence 12/12/200704/26 Urethrocele(618.03) 12/12/2007 08/10/2016 Closed fracture of metatarsal bone(s) 12/02/2007 08/10/2016 Pain in limb 11/25/2007 12/18/2010 Vestibular neuronitis 01/07/2006 08/10/2016 Anemia, unspecified 04/08/2005 12/18/2010 Nausea 12/18/2010 documented as of this encounter (statuses as of 01/07/2022) [facility] History of Past illness Narrative* Problem Noted Date Resolved Date Health maintenance examination 01/09/2015 0 08/10/2016 Environmental allergies 05/31/2014 08/11/19 17 Chronic sinusitis 03/25/2014 08/10/2016 Other and unspecified hyperlipidemia 11/07/2012 08/10/2016 Overview: LDL 144, (10/2012) - Diet measures recommended Allergy to environmental factors 08/12/2012 08/10/2016 Cutaneous skin tags 10/20/2011 08/10/2016 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 Continues with librax, dicyclomine with mild relief. Having anywhere from 2-3 stools on the average with flares- daily to few times per week. She has tried to avoid cheeses, added yougurt and made worse, eats meat. States having much difficulty in her diet in trying to control her sx- she is interested in seeing a receiving coordinator and this I feel would greatly benefit the pt. Consult will be requested. Uses carafate prn at [facility] for epigastric pain/indigestion at [facility]. Lump or mass in breast 05/27/2010 5 Abnormal mammogram, unspecified 05/27/2010 08/10/2016 Interstitial cystitis 01/29/2010 08/10/2016 Benign neoplasm of colon 11/12/2009 017 Overview: 10/2009 with polypectomy- repeat in 3yrs. Last Assessment & Plan: Strong fam hx colon ca on maternal side. Due for repeat exam 2012; last completed 10/2009. 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 08/11/19 17 Female stress incontinence 12/12/200704/26 Urethrocele(618.03) 12/12/2007 08/10/2016 Closed fracture of metatarsal bone(s) 12/02/2007 08/10/2016 Pain in limb 11/25/2007 12/18/2010 Vestibular neuronitis 01/07/2006 08/10/2016 Anemia, unspecified 04/08/2005 12/18/2010 Nausea 12/18/2010 documented as of this encounter (statuses as of 01/07/2022) [facility] History of Past illness Narrative* Problem Noted Date Resolved Date Health maintenance examination 01/09/2015 0 08/10/2016 Environmental allergies 05/31/2014 08/11/19 17 Chronic sinusitis 03/25/2014 08/10/2016 Other and unspecified hyperlipidemia 11/07/2012 08/10/2016 Overview: LDL 144, (10/2012) - Diet measures recommended Allergy to environmental factors 08/12/2012 08/10/2016 Cutaneous skin tags 10/20/2011 08/10/2016 Psoriasiform dermatitis 10/20/2011 08/11/19 17 Xerosis cutis 10/20/2011 08/10/2016 Postinflammatory skin changes 10/20/2011 Melanocytic Nevi of trunk: b ack: Junctional types, appear banal//innocent 10/20/2011 08/10/2016 Abdominal pain, left lower quadrant 08/18/2011 08/10/2016 Capsulitis 05/25/2011 08/10/2016 GERD (gastroesophageal reflux disease) 08/10/2016 Last Assessment & Plan: Currently taking prilosec; had tried prevacid in past that she stopped due to nausea. Continues with librax, dicyclomine with mild relief. Having anywhere from 2-3 stools on the average with flares- daily to few times per week. She has tried to avoid cheeses, added yougurt and made worse, eats meat. States having much difficulty in her diet in trying to control her sx- she is interested in seeing a receiving coordinator and this I feel would greatly benefit the pt. Consult will be requested. Uses carafate prn at [facility] for epigastric pain/indigestion at [facility]. Lump or mass in breast 05/27/2010 5 Abnormal mammogram, unspecified 05/27/2010 08/10/2016 Interstitial cystitis 01/29/2010 08/10/2016 Benign neoplasm of colon 11/12/2009 017 Overview: 10/2009 with polypectomy- repeat in 3yrs. Last Assessment & Plan: Strong fam hx colon ca on maternal side. Due for repeat exam 2012; last completed 10/2009. 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 08/11/19 17 Female stress incontinence 12/12/200704/26 Urethrocele(618.03) 12/12/2007 08/10/2016 Closed fracture of metatarsal bone(s) 12/02/2007 08/10/2016 Pain in limb 11/25/2007 12/18/2010 Vestibular neuronitis 01/07/2006 08/10/2016 Anemia, unspecified 04/08/2005 12/18/2010 Nausea 12/18/2010 documented as of this encounter (statuses as of 01/14/2022) [facility] History of Past illness Narrative* Problem Noted Date Resolved Date Health maintenance examination 01/09/2015 0 08/10/2016 Environmental allergies 05/31/2014 08/11/19 17 Chronic sinusitis 03/25/2014 08/10/2016 Other and unspecified hyperlipidemia 11/07/2012 08/10/2016 Overview: LDL 144, (10/2012) - Diet measures recommended Allergy to environmental factors 08/12/2012 08/10/2016 Cutaneous skin tags 10/20/2011 08/10/2016 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 Continues with librax, dicyclomine with mild relief. Having anywhere from 2-3 stools on the average with flares- daily to few times per week. She has tried to avoid cheeses, added yougurt and made worse, eats meat. States having much difficulty in her diet in trying to control her sx- she is interested in seeing a receiving coordinator and this I feel would greatly benefit the pt. Consult will be requested. Uses carafate prn at [facility] for epigastric pain/indigestion at [facility]. Lump or mass in breast 05/27/2010 5 Abnormal mammogram, unspecified 05/27/2010 08/10/2016 Interstitial cystitis 01/29/2010 08/10/2016 Benign neoplasm of colon 11/12/2009 017 Overview: 10/2009 with polypectomy- repeat in 3yrs. Last Assessment & Plan: Strong fam hx colon ca on maternal side. Due for repeat exam 2012; last completed 10/2009. 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 08/11/19 17 Female stress incontinence 12/12/200704/26 Urethrocele(618.03) 12/12/2007 08/10/2016 Closed fracture of metatarsal bone(s) 12/02/2007 08/10/2016 Pain in limb 11/25/2007 12/18/2010 Vestibular neuronitis 01/07/2006 08/10/2016 Anemia, unspecified 04/08/2005 12/18/2010 Nausea 12/18/2010 documented as of this encounter (statuses as of 01/15/2022) [facility] History of Past illness Narrative* Problem Noted Date Resolved Date Health maintenance examination 01/09/2015 0 08/10/2016 Environmental allergies 05/31/2014 08/11/19 17 Chronic sinusitis 03/25/2014 08/10/2016 Other and unspecified hyperlipidemia 11/07/2012 08/10/2016 Overview: LDL 144, (10/2012) - Diet measures recommended Allergy to environmental factors 08/12/2012 08/10/2016 Cutaneous skin tags 10/20/2011 08/10/2016 Psoriasiform dermatitis 10/20/2011 08/11/19 17 Xerosis cutis 10/20/2011 08/10/2016 Postinflammatory skin changes 10/20/2011 Melanocytic Nevi of trunk: b ack: Junctional types, appear banal//innocent 10/20/2011 08/10/2016 Abdominal pain, left lower quadrant 08/18/2011 08/10/2016 Capsulitis 05/25/2011 08/10/2016 GERD (gastroesophageal reflux disease) 08/10/2016 Last Assessment & Plan: Currently taking prilosec; had tried prevacid in past that she stopped due to nausea. Continues with librax, dicyclomine with mild relief. Having anywhere from 2-3 stools on the average with flares- daily to few times per week. She has tried to avoid cheeses, added yougurt and made worse, eats meat. States having much difficulty in her diet in trying to control her sx- she is interested in seeing a receiving coordinator and this I feel would greatly benefit the pt. Consult will be requested. Uses carafate prn at [facility] for epigastric pain/indigestion at [facility]. Lump or mass in breast 05/27/2010 5 Abnormal mammogram, unspecified 05/27/2010 08/10/2016 Interstitial cystitis 01/29/2010 08/10/2016 Benign neoplasm of colon 11/12/2009 017 Overview: 10/2009 with polypectomy- repeat in 3yrs. Last Assessment & Plan: Strong fam hx colon ca on maternal side. Due for repeat exam 2012; last completed 10/2009. 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 08/11/19 17 Female stress incontinence 12/12/200704/26 Urethrocele(618.03) 12/12/2007 08/10/2016 Closed fracture of metatarsal bone(s) 12/02/2007 08/10/2016 Pain in limb 11/25/2007 12/18/2010 Vestibular neuronitis 01/07/2006 08/10/2016 Anemia, unspecified 04/08/2005 12/18/2010 Nausea 12/18/2010 documented as of this encounter (statuses as of 01/21/2022) [facility] History of Past illness Narrative* Problem Noted Date Resolved Date Health maintenance examination 01/09/2015 0 08/10/2016 Environmental allergies 05/31/2014 08/11/19 17 Chronic sinusitis 03/25/2014 08/10/2016 Other and unspecified hyperlipidemia 11/07/2012 08/10/2016 Overview: LDL 144, (10/2012) - Diet measures recommended Allergy to environmental factors 08/12/2012 08/10/2016 Cutaneous skin tags 10/20/2011 08/10/2016 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 Continues with librax, dicyclomine with mild relief. Having anywhere from 2-3 stools on the average with flares- daily to few times per week. She has tried to avoid cheeses, added yougurt and made worse, eats meat. States having much difficulty in her diet in trying to control her sx- she is interested in seeing a receiving coordinator and this I feel would greatly benefit the pt. Consult will be requested. Uses carafate prn at [facility] for epigastric pain/indigestion at [facility]. Lump or mass in breast 05/27/2010 5 Abnormal mammogram, unspecified 05/27/2010 08/10/2016 Interstitial cystitis 01/29/2010 08/10/2016 Benign neoplasm of colon 11/12/2009 017 Overview: 10/2009 with polypectomy- repeat in 3yrs. Last Assessment & Plan: Strong fam hx colon ca on maternal side. Due for repeat exam 2012; last completed 10/2009. 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 08/11/19 17 Female stress incontinence 12/12/200704/26 Urethrocele(618.03) 12/12/2007 08/10/2016 Closed fracture of metatarsal bone(s) 12/02/2007 08/10/2016 Pain in limb 11/25/2007 12/18/2010 Vestibular neuronitis 01/07/2006 08/10/2016 Anemia, unspecified 04/08/2005 12/18/2010 Nausea 12/18/2010 documented as of this encounter (statuses as of 01/22/2022) [facility] History of Past illness Narrative* Problem Noted Date Resolved Date Health maintenance examination 01/09/2015 0 08/10/2016 Environmental allergies 05/31/2014 08/11/19 17 Chronic sinusitis 03/25/2014 08/10/2016 Other and unspecified hyperlipidemia 11/07/2012 08/10/2016 Overview: LDL 144, (10/2012) - Diet measures recommended Allergy to environmental factors 08/12/2012 08/10/2016 Cutaneous skin tags 10/20/2011 08/10/2016 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 Continues with librax, dicyclomine with mild relief. Having anywhere from 2-3 stools on the average with flares- daily to few times per week. She has tried to avoid cheeses, added yougurt and made worse, eats meat. States having much difficulty in her diet in trying to control her sx- she is interested in seeing a receiving coordinator and this I feel would greatly benefit the pt. Consult will be requested. Uses carafate prn at [facility] for epigastric pain/indigestion at [facility]. Lump or mass in breast 05/27/2010 5 Abnormal mammogram, unspecified 05/27/2010 08/10/2016 Interstitial cystitis 01/29/2010 08/10/2016 Benign neoplasm of colon 11/12/2009 017 Overview: 10/2009 with polypectomy- repeat in 3yrs. Last Assessment & Plan: Strong fam hx colon ca on maternal side. Due for repeat exam 2012; last completed 10/2009. 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 08/11/19 17 Female stress incontinence 12/12/200704/26 Urethrocele(618.03) 12/12/2007 08/10/2016 Closed fracture of metatarsal bone(s) 12/02/2007 08/10/2016 Pain in limb 11/25/2007 12/18/2010 Vestibular neuronitis 01/07/2006 08/10/2016 Anemia, unspecified 04/08/2005 12/18/2010 Nausea 12/18/2010 documented as of this encounter (statuses as of 01/23/2022) [facility] History of Past illness Narrative* Problem Noted Date Resolved Date Health maintenance examination 01/09/2015 0 08/10/2016 Environmental allergies 05/31/2014 08/11/19 17 Chronic sinusitis 03/25/2014 08/10/2016 Other and unspecified hyperlipidemia 11/07/2012 08/10/2016 Overview: LDL 144, (10/2012) - Diet measures recommended Allergy to environmental factors 08/12/2012 08/10/2016 Cutaneous skin tags 10/20/2011 08/10/2016 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 Continues with librax, dicyclomine with mild relief. Having anywhere from 2-3 stools on the average with flares- daily to few times per week. She has tried to avoid cheeses, added yougurt and made worse, eats meat. States having much difficulty in her diet in trying to control her sx- she is interested in seeing a receiving coordinator and this I feel would greatly benefit the pt. Consult will be requested. Uses carafate prn at [facility] for epigastric pain/indigestion at [facility]. Lump or mass in breast 05/27/2010 5 Abnormal mammogram, unspecified 05/27/2010 08/10/2016 Interstitial cystitis 01/29/2010 08/10/2016 Benign neoplasm of colon 11/12/2009 017 Overview: 10/2009 with polypectomy- repeat in 3yrs. Last Assessment & Plan: Strong fam hx colon ca on maternal side. Due for repeat exam 2012; last completed 10/2009. 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 08/11/19 17 Female stress incontinence 12/12/200704/26 Urethrocele(618.03) 12/12/2007 08/10/2016 Closed fracture of metatarsal bone(s) 12/02/2007 08/10/2016 Pain in limb 11/25/2007 12/18/2010 Vestibular neuronitis 01/07/2006 08/10/2016 Anemia, unspecified 04/08/2005 12/18/2010 Nausea 12/18/2010 documented as of this encounter (statuses as of 02/11/2022) [facility] History of Past illness Narrative* Problem Noted Date Resolved Date Health maintenance examination 01/09/2015 0 08/10/2016 Environmental allergies 05/31/2014 08/11/19 17 Chronic sinusitis 03/25/2014 08/10/2016 Other and unspecified hyperlipidemia 11/07/2012 08/10/2016 Overview: LDL 144, (10/2012) - Diet measures recommended Allergy to environmental factors 08/12/2012 08/10/2016 Cutaneous skin tags 10/20/2011 08/10/2016 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 Continues with librax, dicyclomine with mild relief. Having anywhere from 2-3 stools on the average with flares- daily to few times per week. She has tried to avoid cheeses, added yougurt and made worse, eats meat. States having much difficulty in her diet in trying to control her sx- she is interested in seeing a receiving coordinator and this I feel would greatly benefit the pt. Consult will be requested. Uses carafate prn at [facility] for epigastric pain/indigestion at [facility]. Lump or mass in breast 05/27/2010 5 Abnormal mammogram, unspecified 05/27/2010 08/10/2016 Interstitial cystitis 01/29/2010 08/10/2016 Benign neoplasm of colon 11/12/2009 017 Overview: 10/2009 with polypectomy- repeat in 3yrs. Last Assessment & Plan: Strong fam hx colon ca on maternal side. Due for repeat exam 2012; last completed 10/2009. 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 08/11/19 17 Female stress incontinence 12/12/200704/26 Urethrocele(618.03) 12/12/2007 08/10/2016 Closed fracture of metatarsal bone(s) 12/02/2007 08/10/2016 Pain in limb 11/25/2007 12/18/2010 Vestibular neuronitis 01/07/2006 08/10/2016 Anemia, unspecified 04/08/2005 12/18/2010 Nausea 12/18/2010 documented as of this encounter (statuses as of 02/12/2022) [facility] History of Past illness Narrative* Problem Noted Date Resolved Date Health maintenance examination 01/09/2015 0 08/10/2016 Environmental allergies 05/31/2014 08/11/19 17 Chronic sinusitis 03/25/2014 08/10/2016 Other and unspecified hyperlipidemia 11/07/2012 08/10/2016 Overview: LDL 144, (10/2012) - Diet measures recommended Allergy to environmental factors 08/12/2012 08/10/2016 Cutaneous skin tags 10/20/2011 08/10/2016 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 Continues with librax, dicyclomine with mild relief. Having anywhere from 2-3 stools on the average with flares- daily to few times per week. She has tried to avoid cheeses, added yougurt and made worse, eats meat. States having much difficulty in her diet in trying to control her sx- she is interested in seeing a receiving coordinator and this I feel would greatly benefit the pt. Consult will be requested. Uses carafate prn at [facility] for epigastric pain/indigestion at [facility]. Lump or mass in breast 05/27/2010 5 Abnormal mammogram, unspecified 05/27/2010 08/10/2016 Interstitial cystitis 01/29/2010 08/10/2016 Benign neoplasm of colon 11/12/2009 017 Overview: 10/2009 with polypectomy- repeat in 3yrs. Last Assessment & Plan: Strong fam hx colon ca on maternal side. Due for repeat exam 2012; last completed 10/2009. 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 08/11/19 17 Female stress incontinence 12/12/200704/26 Urethrocele(618.03) 12/12/2007 08/10/2016 Closed fracture of metatarsal bone(s) 12/02/2007 08/10/2016 Pain in limb 11/25/2007 12/18/2010 Vestibular neuronitis 01/07/2006 08/10/2016 Anemia, unspecified 04/08/2005 12/18/2010 Nausea 12/18/2010 documented as of this encounter (statuses as of 03/15/2022) [facility] History of Past illness Narrative* Problem Noted Date Resolved Date Health maintenance examination 01/09/2015 0 08/10/2016 Environmental allergies 05/31/2014 08/11/19 17 Chronic sinusitis 03/25/2014 08/10/2016 Other and unspecified hyperlipidemia 11/07/2012 08/10/2016 Overview: LDL 144, (10/2012) - Diet measures recommended Allergy to environmental factors 08/12/2012 08/10/2016 Cutaneous skin tags 10/20/2011 08/10/2016 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 Continues with librax, dicyclomine with mild relief. Having anywhere from 2-3 stools on the average with flares- daily to few times per week. She has tried to avoid cheeses, added yougurt and made worse, eats meat. States having much difficulty in her diet in trying to control her sx- she is interested in seeing a receiving coordinator and this I feel would greatly benefit the pt. Consult will be requested. Uses carafate prn at [facility] for epigastric pain/indigestion at [facility]. Lump or mass in breast 05/27/2010 5 Abnormal mammogram, unspecified 05/27/2010 08/10/2016 Interstitial cystitis 01/29/2010 08/10/2016 Benign neoplasm of colon 11/12/2009 017 Overview: 10/2009 with polypectomy- repeat in 3yrs. Last Assessment & Plan: Strong fam hx colon ca on maternal side. Due for repeat exam 2012; last completed 10/2009. 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 08/11/19 17 Female stress incontinence 12/12/200704/26 Urethrocele(618.03) 12/12/2007 08/10/2016 Closed fracture of metatarsal bone(s) 12/02/2007 08/10/2016 Pain in limb 11/25/2007 12/18/2010 Vestibular neuronitis 01/07/2006 08/10/2016 Anemia, unspecified 04/08/2005 12/18/2010 Nausea 12/18/2010 documented as of this encounter (statuses as of 04/08/2022) [facility] History of Past illness Narrative* Problem Noted Date Resolved Date Health maintenance examination 01/09/2015 0 08/10/2016 Environmental allergies 05/31/2014 08/11/19 17 Chronic sinusitis 03/25/2014 08/10/2016 Other and unspecified hyperlipidemia 11/07/2012 08/10/2016 Overview: LDL 144, (10/2012) - Diet measures recommended Allergy to environmental factors 08/12/2012 08/10/2016 Cutaneous skin tags 10/20/2011 08/10/2016 Psoriasiform dermatitis 10/20/2011 08/11/19 17 Xerosis cutis 10/20/2011 08/10/2016 Postinflammatory skin changes 10/20/2011 Melanocytic Nevi of trunk: b ack: Junctional types, appear banal//innocent 10/20/2011 08/10/2016 Abdominal pain, left lower quadrant 08/18/2011 08/10/2016 Capsulitis 05/25/2011 08/10/2016 GERD (gastroesophageal reflux disease) 08/10/2016 Last Assessment & Plan: Currently taking prilosec; had tried prevacid in past that she stopped due to nausea. Continues with librax, dicyclomine with mild relief. Having anywhere from 2-3 stools on the average with flares- daily to few times per week. She has tried to avoid cheeses, added yougurt and made worse, eats meat. States having much difficulty in her diet in trying to control her sx- she is interested in seeing a receiving coordinator and this I feel would greatly benefit the pt. Consult will be requested. Uses carafate prn at [facility] for epigastric pain/indigestion at [facility]. Lump or mass in breast 05/27/2010 5 Abnormal mammogram, unspecified 05/27/2010 08/10/2016 Interstitial cystitis 01/29/2010 08/10/2016 Benign neoplasm of colon 11/12/2009 017 Overview: 10/2009 with polypectomy- repeat in 3yrs. Last Assessment & Plan: Strong fam hx colon ca on maternal side. Due for repeat exam 2012; last completed 10/2009. 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 08/11/19 17 Female stress incontinence 12/12/200704/26 Urethrocele(618.03) 12/12/2007 08/10/2016 Closed fracture of metatarsal bone(s) 12/02/2007 08/10/2016 Pain in limb 11/25/2007 12/18/2010 Vestibular neuronitis 01/07/2006 08/10/2016 Anemia, unspecified 04/08/2005 12/18/2010 Nausea 12/18/2010 documented as of this encounter (statuses as of 04/22/2022) [facility] History of Past illness Narrative* Problem Noted Date Resolved Date Health maintenance examination 01/09/2015 0 08/10/2016 Environmental allergies 05/31/2014 08/11/19 17 Chronic sinusitis 03/25/2014 08/10/2016 Other and unspecified hyperlipidemia 11/07/2012 08/10/2016 Overview: LDL 144, (10/2012) - Diet measures recommended Allergy to environmental factors 08/12/2012 08/10/2016 Cutaneous skin tags 10/20/2011 08/10/2016 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 Continues with librax, dicyclomine with mild relief. Having anywhere from 2-3 stools on the average with flares- daily to few times per week. She has tried to avoid cheeses, added yougurt and made worse, eats meat. States having much difficulty in her diet in trying to control her sx- she is interested in seeing a receiving coordinator and this I feel would greatly benefit the pt. Consult will be requested. Uses carafate prn at [facility] for epigastric pain/indigestion at [facility]. Lump or mass in breast 05/27/2010 5 Abnormal mammogram, unspecified 05/27/2010 08/10/2016 Interstitial cystitis 01/29/2010 08/10/2016 Benign neoplasm of colon 11/12/2009 017 Overview: 10/2009 with polypectomy- repeat in 3yrs. Last Assessment & Plan: Strong fam hx colon ca on maternal side. Due for repeat exam 2012; last completed 10/2009. 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 08/11/19 17 Female stress incontinence 12/12/200704/26 Urethrocele(618.03) 12/12/2007 08/10/2016 Closed fracture of metatarsal bone(s) 12/02/2007 08/10/2016 Pain in limb 11/25/2007 12/18/2010 Vestibular neuronitis 01/07/2006 08/10/2016 Anemia, unspecified 04/08/2005 12/18/2010 Nausea 12/18/2010 documented as of this encounter (statuses as of 04/24/2022) [facility] History of Past illness Narrative* Problem Noted Date Resolved Date Health maintenance examination 01/09/2015 0 08/10/2016 Environmental allergies 05/31/2014 08/11/19 17 Chronic sinusitis 03/25/2014 08/10/2016 Other and unspecified hyperlipidemia 11/07/2012 08/10/2016 Overview: LDL 144, (10/2012) - Diet measures recommended Allergy to environmental factors 08/12/2012 08/10/2016 Cutaneous skin tags 10/20/2011 08/10/2016 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 Continues with librax, dicyclomine with mild relief. Having anywhere from 2-3 stools on the average with flares- daily to few times per week. She has tried to avoid cheeses, added yougurt and made worse, eats meat. States having much difficulty in her diet in trying to control her sx- she is interested in seeing a receiving coordinator and this I feel would greatly benefit the pt. Consult will be requested. Uses carafate prn at [facility] for epigastric pain/indigestion at [facility]. Lump or mass in breast 05/27/2010 5 Abnormal mammogram, unspecified 05/27/2010 08/10/2016 Interstitial cystitis 01/29/2010 08/10/2016 Benign neoplasm of colon 11/12/2009 017 Overview: 10/2009 with polypectomy- repeat in 3yrs. Last Assessment & Plan: Strong fam hx colon ca on maternal side. Due for repeat exam 2012; last completed 10/2009. 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 08/11/19 17 Female stress incontinence 12/12/200704/26 Urethrocele(618.03) 12/12/2007 08/10/2016 Closed fracture of metatarsal bone(s) 12/02/2007 08/10/2016 Pain in limb 11/25/2007 12/18/2010 Vestibular neuronitis 01/07/2006 08/10/2016 Anemia, unspecified 04/08/2005 12/18/2010 Nausea 12/18/2010 documented as of this encounter (statuses as of 06/03/2022) [facility] History of Past illness Narrative* Problem Noted Date Resolved Date Health maintenance examination 01/09/2015 0 08/10/2016 Environmental allergies 05/31/2014 08/11/19 17 Chronic sinusitis 03/25/2014 08/10/2016 Other and unspecified hyperlipidemia 11/07/2012 08/10/2016 Overview: LDL 144, (10/2012) - Diet measures recommended Allergy to environmental factors 08/12/2012 08/10/2016 Cutaneous skin tags 10/20/2011 08/10/2016 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 Continues with librax, dicyclomine with mild relief. Having anywhere from 2-3 stools on the average with flares- daily to few times per week. She has tried to avoid cheeses, added yougurt and made worse, eats meat. States having much difficulty in her diet in trying to control her sx- she is interested in seeing a receiving coordinator and this I feel would greatly benefit the pt. Consult will be requested. Uses carafate prn at [facility] for epigastric pain/indigestion at [facility]. Lump or mass in breast 05/27/2010 5 Abnormal mammogram, unspecified 05/27/2010 08/10/2016 Interstitial cystitis 01/29/2010 08/10/2016 Benign neoplasm of colon 11/12/2009 017 Overview: 10/2009 with polypectomy- repeat in 3yrs. Last Assessment & Plan: Strong fam hx colon ca on maternal side. Due for repeat exam 2012; last completed 10/2009. 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 08/11/19 17 Female stress incontinence 12/12/200704/26 Urethrocele(618.03) 12/12/2007 08/10/2016 Closed fracture of metatarsal bone(s) 12/02/2007 08/10/2016 Pain in limb 11/25/2007 12/18/2010 Vestibular neuronitis 01/07/2006 08/10/2016 Anemia, unspecified 04/08/2005 12/18/2010 Nausea 12/18/2010 documented as of this encounter (statuses as of 07/03/2022) [facility] History of Past illness Narrative* Problem Noted Date Resolved Date Health maintenance examination 01/09/2015 0 08/10/2016 Environmental allergies 05/31/2014 08/11/19 17 Chronic sinusitis 03/25/2014 08/10/2016 Other and unspecified hyperlipidemia 11/07/2012 08/10/2016 Overview: LDL 144, (10/2012) - Diet measures recommended Allergy to environmental factors 08/12/2012 08/10/2016 Cutaneous skin tags 10/20/2011 08/10/2016 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 Continues with librax, dicyclomine with mild relief. Having anywhere from 2-3 stools on the average with flares- daily to few times per week. She has tried to avoid cheeses, added yougurt and made worse, eats meat. States having much difficulty in her diet in trying to control her sx- she is interested in seeing a receiving coordinator and this I feel would greatly benefit the pt. Consult will be requested. Uses carafate prn at [facility] for epigastric pain/indigestion at [facility]. Lump or mass in breast 05/27/2010 5 Abnormal mammogram, unspecified 05/27/2010 08/10/2016 Interstitial cystitis 01/29/2010 08/10/2016 Benign neoplasm of colon 11/12/2009 017 Overview: 10/2009 with polypectomy- repeat in 3yrs. Last Assessment & Plan: Strong fam hx colon ca on maternal side. Due for repeat exam 2012; last completed 10/2009. 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 08/11/19 17 Female stress incontinence 12/12/200704/26 Urethrocele(618.03) 12/12/2007 08/10/2016 Closed fracture of metatarsal bone(s) 12/02/2007 08/10/2016 Pain in limb 11/25/2007 12/18/2010 Vestibular neuronitis 01/07/2006 08/10/2016 Anemia, unspecified 04/08/2005 12/18/2010 Nausea 12/18/2010 documented as of this encounter (statuses as of 07/10/2022) [facility] History of Past illness Narrative* Problem Noted Date Resolved Date Health maintenance examination 01/09/2015 0 08/10/2016 Environmental allergies 05/31/2014 08/11/19 17 Chronic sinusitis 03/25/2014 08/10/2016 Other and unspecified hyperlipidemia 11/07/2012 08/10/2016 Overview: LDL 144, (10/2012) - Diet measures recommended Allergy to environmental factors 08/12/2012 08/10/2016 Cutaneous skin tags 10/20/2011 08/10/2016 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 Continues with librax, dicyclomine with mild relief. Having anywhere from 2-3 stools on the average with flares- daily to few times per week. She has tried to avoid cheeses, added yougurt and made worse, eats meat. States having much difficulty in her diet in trying to control her sx- she is interested in seeing a receiving coordinator and this I feel would greatly benefit the pt. Consult will be requested. Uses carafate prn at [facility] for epigastric pain/indigestion at [facility]. Lump or mass in breast 05/27/2010 5 Abnormal mammogram, unspecified 05/27/2010 08/10/2016 Interstitial cystitis 01/29/2010 08/10/2016 Benign neoplasm of colon 11/12/2009 017 Overview: 10/2009 with polypectomy- repeat in 3yrs. Last Assessment & Plan: Strong fam hx colon ca on maternal side. Due for repeat exam 2012; last completed 10/2009. 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 08/11/19 17 Female stress incontinence 12/12/200704/26 Urethrocele(618.03) 12/12/2007 08/10/2016 Closed fracture of metatarsal bone(s) 12/02/2007 08/10/2016 Pain in limb 11/25/2007 12/18/2010 Vestibular neuronitis 01/07/2006 08/10/2016 Anemia, unspecified 04/08/2005 12/18/2010 Nausea 12/18/2010 documented as of this encounter (statuses as of 07/17/2022) [facility] History of Past illness Narrative* Problem Noted Date Resolved Date Health maintenance examination 01/09/2015 0 08/10/2016 Environmental allergies 05/31/2014 08/11/19 17 Chronic sinusitis 03/25/2014 08/10/2016 Other and unspecified hyperlipidemia 11/07/2012 08/10/2016 Overview: LDL 144, (10/2012) - Diet measures recommended Allergy to environmental factors 08/12/2012 08/10/2016 Cutaneous skin tags 10/20/2011 08/10/2016 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 Continues with librax, dicyclomine with mild relief. Having anywhere from 2-3 stools on the average with flares- daily to few times per week. She has tried to avoid cheeses, added yougurt and made worse, eats meat. States having much difficulty in her diet in trying to control her sx- she is interested in seeing a receiving coordinator and this I feel would greatly benefit the pt. Consult will be requested. Uses carafate prn at [facility] for epigastric pain/indigestion at [facility]. Lump or mass in breast 05/27/2010 5 Abnormal mammogram, unspecified 05/27/2010 08/10/2016 Interstitial cystitis 01/29/2010 08/10/2016 Benign neoplasm of colon 11/12/2009 017 Overview: 10/2009 with polypectomy- repeat in 3yrs. Last Assessment & Plan: Strong fam hx colon ca on maternal side. Due for repeat exam 2012; last completed 10/2009. 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 08/11/19 17 Female stress incontinence 12/12/200704/26 Urethrocele(618.03) 12/12/2007 08/10/2016 Closed fracture of metatarsal bone(s) 12/02/2007 08/10/2016 Pain in limb 11/25/2007 12/18/2010 Vestibular neuronitis 01/07/2006 08/10/2016 Anemia, unspecified 04/08/2005 12/18/2010 Nausea 12/18/2010 documented as of this encounter (statuses as of 08/06/2022) [facility] History of Past illness Narrative* Problem Noted Date Resolved Date Health maintenance examination 01/09/2015 0 08/10/2016 Environmental allergies 05/31/2014 08/11/19 17 Chronic sinusitis 03/25/2014 08/10/2016 Other and unspecified hyperlipidemia 11/07/2012 08/10/2016 Overview: LDL 144, (10/2012) - Diet measures recommended Allergy to environmental factors 08/12/2012 08/10/2016 Cutaneous skin tags 10/20/2011 08/10/2016 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 Continues with librax, dicyclomine with mild relief. Having anywhere from 2-3 stools on the average with flares- daily to few times per week. She has tried to avoid cheeses, added yougurt and made worse, eats meat. States having much difficulty in her diet in trying to control her sx- she is interested in seeing a receiving coordinator and this I feel would greatly benefit the pt. Consult will be requested. Uses carafate prn at [facility] for epigastric pain/indigestion at [facility]. Lump or mass in breast 05/27/2010 5 Abnormal mammogram, unspecified 05/27/2010 08/10/2016 Interstitial cystitis 01/29/2010 08/10/2016 Benign neoplasm of colon 11/12/2009 017 Overview: 10/2009 with polypectomy- repeat in 3yrs. Last Assessment & Plan: Strong fam hx colon ca on maternal side. Due for repeat exam 2012; last completed 10/2009. 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 08/11/19 17 Female stress incontinence 12/12/200704/26 Urethrocele(618.03) 12/12/2007 08/10/2016 Closed fracture of metatarsal bone(s) 12/02/2007 08/10/2016 Pain in limb 11/25/2007 12/18/2010 Vestibular neuronitis 01/07/2006 08/10/2016 Anemia, unspecified 04/08/2005 12/18/2010 Nausea 12/18/2010 documented as of this encounter (statuses as of 09/14/2022) [facility] History of Past illness Narrative* Problem Noted Date Resolved Date Health maintenance examination 01/09/2015 0 08/10/2016 Environmental allergies 05/31/2014 08/11/19 17 Chronic sinusitis 03/25/2014 08/10/2016 Other and unspecified hyperlipidemia 11/07/2012 08/10/2016 Overview: LDL 144, (10/2012) - Diet measures recommended Allergy to environmental factors 08/12/2012 08/10/2016 Cutaneous skin tags 10/20/2011 08/10/2016 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 Continues with librax, dicyclomine with mild relief. Having anywhere from 2-3 stools on the average with flares- daily to few times per week. She has tried to avoid cheeses, added yougurt and made worse, eats meat. States having much difficulty in her diet in trying to control her sx- she is interested in seeing a receiving coordinator and this I feel would greatly benefit the pt. Consult will be requested. Uses carafate prn at [facility] for epigastric pain/indigestion at [facility]. Lump or mass in breast 05/27/2010 5 Abnormal mammogram, unspecified 05/27/2010 08/10/2016 Interstitial cystitis 01/29/2010 08/10/2016 Benign neoplasm of colon 11/12/2009 017 Overview: 10/2009 with polypectomy- repeat in 3yrs. Last Assessment & Plan: Strong fam hx colon ca on maternal side. Due for repeat exam 2012; last completed 10/2009. 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 08/11/19 17 Female stress incontinence 12/12/200704/26 Urethrocele(618.03) 12/12/2007 08/10/2016 Closed fracture of metatarsal bone(s) 12/02/2007 08/10/2016 Pain in limb 11/25/2007 12/18/2010 Vestibular neuronitis 01/07/2006 08/10/2016 Anemia, unspecified 04/08/2005 12/18/2010 Nausea 12/18/2010 documented as of this encounter (statuses as of 09/15/2022) [facility] History of Past illness Narrative* Problem Noted Date Resolved Date Health maintenance examination 01/09/2015 0 08/10/2016 Environmental allergies 05/31/2014 08/11/19 17 Chronic sinusitis 03/25/2014 08/10/2016 Other and unspecified hyperlipidemia 11/07/2012 08/10/2016 Overview: LDL 144, (10/2012) - Diet measures recommended Allergy to environmental factors 08/12/2012 08/10/2016 Cutaneous skin tags 10/20/2011 08/10/2016 Psoriasiform dermatitis 10/20/2011 08/11/19 17 Xerosis cutis 10/20/2011 08/10/2016 Postinflammatory skin changes 10/20/2011 Melanocytic Nevi of trunk: b ack: Junctional types, appear banal//innocent 10/20/2011 08/10/2016 Abdominal pain, left lower quadrant 08/18/2011 08/10/2016 Capsulitis 05/25/2011 08/10/2016 GERD (gastroesophageal reflux disease) 08/10/2016 Last Assessment & Plan: Currently taking prilosec; had tried prevacid in past that she stopped due to nausea. Continues with librax, dicyclomine with mild relief. Having anywhere from 2-3 stools on the average with flares- daily to few times per week. She has tried to avoid cheeses, added yougurt and made worse, eats meat. States having much difficulty in her diet in trying to control her sx- she is interested in seeing a receiving coordinator and this I feel would greatly benefit the pt. Consult will be requested. Uses carafate prn at [facility] for epigastric pain/indigestion at [facility]. Lump or mass in breast 05/27/2010 5 Abnormal mammogram, unspecified 05/27/2010 08/10/2016 Interstitial cystitis 01/29/2010 08/10/2016 Benign neoplasm of colon 11/12/2009 017 Overview: 10/2009 with polypectomy- repeat in 3yrs. Last Assessment & Plan: Strong fam hx colon ca on maternal side. Due for repeat exam 2012; last completed 10/2009. 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 08/11/19 17 Female stress incontinence 12/12/200704/26 Urethrocele(618.03) 12/12/2007 08/10/2016 Closed fracture of metatarsal bone(s) 12/02/2007 08/10/2016 Pain in limb 11/25/2007 12/18/2010 Vestibular neuronitis 01/07/2006 08/10/2016 Anemia, unspecified 04/08/2005 12/18/2010 Nausea 12/18/2010 documented as of this encounter (statuses as of 09/16/2022) [facility] History of Past illness Narrative* Problem Noted Date Resolved Date Health maintenance examination 01/09/2015 0 08/10/2016 Environmental allergies 05/31/2014 08/11/19 17 Chronic sinusitis 03/25/2014 08/10/2016 Other and unspecified hyperlipidemia 11/07/2012 08/10/2016 Overview: LDL 144, (10/2012) - Diet measures recommended Allergy to environmental factors 08/12/2012 08/10/2016 Cutaneous skin tags 10/20/2011 08/10/2016 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 Continues with librax, dicyclomine with mild relief. Having anywhere from 2-3 stools on the average with flares- daily to few times per week. She has tried to avoid cheeses, added yougurt and made worse, eats meat. States having much difficulty in her diet in trying to control her sx- she is interested in seeing a receiving coordinator and this I feel would greatly benefit the pt. Consult will be requested. Uses carafate prn at [facility] for epigastric pain/indigestion at [facility]. Lump or mass in breast 05/27/2010 5 Abnormal mammogram, unspecified 05/27/2010 08/10/2016 Interstitial cystitis 01/29/2010 08/10/2016 Benign neoplasm of colon 11/12/2009 017 Overview: 10/2009 with polypectomy- repeat in 3yrs. Last Assessment & Plan: Strong fam hx colon ca on maternal side. Due for repeat exam 2012; last completed 10/2009. 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 08/11/19 17 Female stress incontinence 12/12/200704/26 Urethrocele(618.03) 12/12/2007 08/10/2016 Closed fracture of metatarsal bone(s) 12/02/2007 08/10/2016 Pain in limb 11/25/2007 12/18/2010 Vestibular neuronitis 01/07/2006 08/10/2016 Anemia, unspecified 04/08/2005 12/18/2010 Nausea 12/18/2010 documented as of this encounter (statuses as of 09/17/2022) [facility] History of Past illness Narrative* Problem Noted Date Resolved Date Health maintenance examination 01/09/2015 0 08/10/2016 Environmental allergies 05/31/2014 08/11/19 17 Chronic sinusitis 03/25/2014 08/10/2016 Other and unspecified hyperlipidemia 11/07/2012 08/10/2016 Overview: LDL 144, (10/2012) - Diet measures recommended Allergy to environmental factors 08/12/2012 08/10/2016 Cutaneous skin tags 10/20/2011 08/10/2016 Psoriasiform dermatitis 10/20/2011 08/11/19 17 Xerosis cutis 10/20/2011 08/10/2016 Postinflammatory skin changes 10/20/2011 Melanocytic Nevi of trunk: b ack: Junctional types, appear banal//innocent 10/20/2011 08/10/2016 Abdominal pain, left lower quadrant 08/18/2011 08/10/2016 Capsulitis 05/25/2011 08/10/2016 GERD (gastroesophageal reflux disease) 08/10/2016 Last Assessment & Plan: Currently taking prilosec; had tried prevacid in past that she stopped due to nausea. Continues with librax, dicyclomine with mild relief. Having anywhere from 2-3 stools on the average with flares- daily to few times per week. She has tried to avoid cheeses, added yougurt and made worse, eats meat. States having much difficulty in her diet in trying to control her sx- she is interested in seeing a receiving coordinator and this I feel would greatly benefit the pt. Consult will be requested. Uses carafate prn at [facility] for epigastric pain/indigestion at [facility]. Lump or mass in breast 05/27/2010 5 Abnormal mammogram, unspecified 05/27/2010 08/10/2016 Interstitial cystitis 01/29/2010 08/10/2016 Benign neoplasm of colon 11/12/2009 017 Overview: 10/2009 with polypectomy- repeat in 3yrs. Last Assessment & Plan: Strong fam hx colon ca on maternal side. Due for repeat exam 2012; last completed 10/2009. 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 08/11/19 17 Female stress incontinence 12/12/200704/26 Urethrocele(618.03) 12/12/2007 08/10/2016 Closed fracture of metatarsal bone(s) 12/02/2007 08/10/2016 Pain in limb 11/25/2007 12/18/2010 Vestibular neuronitis 01/07/2006 08/10/2016 Anemia, unspecified 04/08/2005 12/18/2010 Nausea 12/18/2010 documented as of this encounter (statuses as of 09/22/2022) [facility] History of Past illness Narrative* Problem Noted Date Resolved Date Health maintenance examination 01/09/2015 0 08/10/2016 Environmental allergies 05/31/2014 08/11/19 17 Chronic sinusitis 03/25/2014 08/10/2016 Other and unspecified hyperlipidemia 11/07/2012 08/10/2016 Overview: LDL 144, (10/2012) - Diet measures recommended Allergy to environmental factors 08/12/2012 08/10/2016 Cutaneous skin tags 10/20/2011 08/10/2016 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 Continues with librax, dicyclomine with mild relief. Having anywhere from 2-3 stools on the average with flares- daily to few times per week. She has tried to avoid cheeses, added yougurt and made worse, eats meat. States having much difficulty in her diet in trying to control her sx- she is interested in seeing a receiving coordinator and this I feel would greatly benefit the pt. Consult will be requested. Uses carafate prn at [facility] for epigastric pain/indigestion at [facility]. Lump or mass in breast 05/27/2010 5 Abnormal mammogram, unspecified 05/27/2010 08/10/2016 Interstitial cystitis 01/29/2010 08/10/2016 Benign neoplasm of colon 11/12/2009 017 Overview: 10/2009 with polypectomy- repeat in 3yrs. Last Assessment & Plan: Strong fam hx colon ca on maternal side. Due for repeat exam 2012; last completed 10/2009. 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 08/11/19 17 Female stress incontinence 12/12/200704/26 Urethrocele(618.03) 12/12/2007 08/10/2016 Closed fracture of metatarsal bone(s) 12/02/2007 08/10/2016 Pain in limb 11/25/2007 12/18/2010 Vestibular neuronitis 01/07/2006 08/10/2016 Anemia, unspecified 04/08/2005 12/18/2010 Nausea 12/18/2010 documented as of this encounter (statuses as of 09/23/2022) [facility] History of Past illness Narrative* Problem Noted Date Diagnosed Date Resolved Date Health maintenance examination 01/09/2015 08/10/2016 Environmental allergies 05/31/201407/27 Chronic sinusitis 03/25/2014 08/10/2016 Other and unspecified hyperlipidemia 11/07/2012 08/10/2016 Overview: LDL 144, (10/2012) - Diet measures recommended Allergy to environmental factors 08/12/2012 08/10/2016 Cutaneous skin tags 10/20/2011 08/11/19 Psoriasiform dermatitis 10/20/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 Continues with librax, dicyclomine with mild relief. Having anywhere from 2-3 stools on the average with flares- daily to few times per week. She has tried to avoid cheeses, added yougurt and made worse, eats meat. States having much difficulty in her diet in trying to control her sx- she is interested in seeing a receiving coordinator and this I feel would greatly benefit the pt. Consult will be requested. Uses carafate prn at [facility] for epigastric pain/indigestion at [facility]. Lump or mass in breast 05/27/201008/27 Abnormal mammogram, unspecified 05/27/2010 08/10/2016 Interstitial cystitis 01/29/20102016 Benign neoplasm of colon 11/12/2009 Overview: 10/2009 with polypectomy- repeat in 3yrs. Last Assessment & Plan: Strong fam hx colon ca on maternal side. Due for repeat exam 2012; last completed 10/2009. 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/27 Female stress incontinence 12/12/2007 0 04/26/2009 Urethrocele(618.03) 12/12/2007 08/11/19 17 Closed fracture of metatarsal bone(s) 12/02/2007 08/10/2016 Pain in limb 11/25/2007 12/18/2010 Vestibular neuronitis 01/07/20062016 Anemia, unspecified 04/08/2005 12/19/19 11 Nausea 12/18/2010 documented as of this encounter (statuses as of 10/13/2022) [facility] History of Past illness Narrative* Problem Noted Date Diagnosed Date Resolved Date Health maintenance examination 01/09/2015 08/10/2016 Environmental allergies 05/31/201407/27 Chronic sinusitis 03/25/2014 08/10/2016 Other and unspecified hyperlipidemia 11/07/2012 08/10/2016 Overview: LDL 144, (10/2012) - Diet measures recommended Allergy to environmental factors 08/12/2012 08/10/2016 Cutaneous skin tags 10/20/2011 08/11/19 17 Psoriasiform dermatitis 10/20/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 Continues with librax, dicyclomine with mild relief. Having anywhere from 2-3 stools on the average with flares- daily to few times per week. She has tried to avoid cheeses, added yougurt and made worse, eats meat. States having much difficulty in her diet in trying to control her sx- she is interested in seeing a receiving coordinator and this I feel would greatly benefit the pt. Consult will be requested. Uses carafate prn at [facility] for epigastric pain/indigestion at [facility]. Lump or mass in breast 05/27/201008/27 Abnormal mammogram, unspecified 05/27/2010 08/10/2016 Interstitial cystitis 01/29/20102016 Benign neoplasm of colon 11/12/2009 Overview: 10/2009 with polypectomy- repeat in 3yrs. Last Assessment & Plan: Strong fam hx colon ca on maternal side. Due for repeat exam 2012; last completed 10/2009. 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/27 Female stress incontinence 12/12/2007 0 04/26/2009 Urethrocele(618.03) 12/12/2007 08/11/19 17 Closed fracture of metatarsal bone(s) 12/02/2007 08/10/2016 Pain in limb 11/25/2007 12/18/2010 Vestibular neuronitis 01/07/20062016 Anemia, unspecified 04/08/2005 12/19/19 11 Nausea 12/18/2010 documented as of this encounter (statuses as of 11/02/2022) [facility] History of Past illness Narrative* Problem Noted Date Diagnosed Date Resolved Date Health maintenance examination 01/09/2015 08/10/2016 Environmental allergies 05/31/201407/27 Chronic sinusitis 03/25/2014 08/10/2016 Other and unspecified hyperlipidemia 11/07/2012 08/10/2016 Overview: LDL 144, (10/2012) - Diet measures recommended Allergy to environmental factors 08/12/2012 08/10/2016 Cutaneous skin tags 10/20/2011 08/11/19 17 Psoriasiform dermatitis 10/20/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 Continues with librax, dicyclomine with mild relief. Having anywhere from 2-3 stools on the average with flares- daily to few times per week. She has tried to avoid cheeses, added yougurt and made worse, eats meat. States having much difficulty in her diet in trying to control her sx- she is interested in seeing a receiving coordinator and this I feel would greatly benefit the pt. Consult will be requested. Uses carafate prn at hs for epigastric pain/indigestion at hs. Lump or mass in breast 05/27/201008/27 Abnormal mammogram, unspecified 05/27/2010 08/10/2016 Interstitial cystitis 01/29/20102016 Benign neoplasm of colon 11/12/2009 Overview: 10/2009 with polypectomy- repeat in 3yrs. Last Assessment & Plan: Strong fam hx colon ca on maternal side. Due for repeat exam 2012; last completed 10/2009. 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/27 Female stress incontinence 12/12/2007 0 04/26/2009 Urethrocele(618.03) 12/12/2007 08/11/19 17 Closed fracture of metatarsal bone(s) 12/02/2007 08/10/2016 Pain in limb 11/25/2007 12/18/2010 Vestibular neuronitis 01/07/20062016 Anemia, unspecified 04/08/2005 12/19/19 11 Nausea 12/18/2010 documented as of this encounter (statuses as of 11/26/2022) [facility] History of Past illness Narrative* Problem Noted Date Diagnosed Date Resolved Date Health maintenance examination 01/09/2015 08/10/2016 Environmental allergies 05/31/201407/27 Chronic sinusitis 03/25/2014 08/10/2016 Other and unspecified hyperlipidemia 11/07/2012 08/10/2016 Overview: LDL 144, (10/2012) - Diet measures recommended Allergy to environmental factors 08/12/2012 08/10/2016 Cutaneous skin tags 10/20/2011 08/11/19 17 Psoriasiform dermatitis 10/20/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 Continues with librax, dicyclomine with mild relief. Having anywhere from 2-3 stools on the average with flares- daily to few times per week. She has tried to avoid cheeses, added yougurt and made worse, eats meat. States having much difficulty in her diet in trying to control her sx- she is interested in seeing a receiving coordinator and this I feel would greatly benefit the pt. Consult will be requested. Uses carafate prn at hs for epigastric pain/indigestion at hs. Lump or mass in breast 05/27/201008/27 Abnormal mammogram, unspecified 05/27/2010 08/10/2016 Interstitial cystitis 01/29/20102016 Benign neoplasm of colon 11/12/2009 Overview: 10/2009 with polypectomy- repeat in 3yrs. Last Assessment & Plan: Strong fam hx colon ca on maternal side. Due for repeat exam 2012; last completed 10/2009. 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/27 Female stress incontinence 12/12/2007 0 04/26/2009 Urethrocele(618.03) 12/12/2007 08/11/19 17 Closed fracture of metatarsal bone(s) 12/02/2007 08/10/2016 Pain in limb 11/25/2007 12/18/2010 Vestibular neuronitis 01/07/20062016 Anemia, unspecified 04/08/2005 12/19/19 11 Nausea 12/18/2010 documented as of this encounter (statuses as of 12/21/2022) [facility] History of Past illness Narrative* Problem Noted Date Diagnosed Date Resolved Date Health maintenance examination 01/09/2015 08/10/2016 Environmental allergies 05/31/201407/27 Chronic sinusitis 03/25/2014 08/10/2016 Other and unspecified hyperlipidemia 11/07/2012 08/10/2016 Overview: LDL 144, (10/2012) - Diet measures recommended Allergy to environmental factors 08/12/2012 08/10/2016 Cutaneous skin tags 10/20/2011 08/11/19 17 Psoriasiform dermatitis 10/20/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 Continues with librax, dicyclomine with mild relief. Having anywhere from 2-3 stools on the average with flares- daily to few times per week. She has tried to avoid cheeses, added yougurt and made worse, eats meat. States having much difficulty in her diet in trying to control her sx- she is interested in seeing a receiving coordinator and this I feel would greatly benefit the pt. Consult will be requested. Uses carafate prn at hs for epigastric pain/indigestion at hs. Lump or mass in breast 05/27/201008/27 Abnormal mammogram, unspecified 05/27/2010 08/10/2016 Interstitial cystitis 01/29/20102016 Benign neoplasm of colon 11/12/2009 Overview: 10/2009 with polypectomy- repeat in 3yrs. Last Assessment & Plan: Strong fam hx colon ca on maternal side. Due for repeat exam 2012; last completed 10/2009. 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/27 Female stress incontinence 12/12/2007 0 04/26/2009 Urethrocele(618.03) 12/12/2007 08/11/19 17 Closed fracture of metatarsal bone(s) 12/02/2007 08/10/2016 Pain in limb 11/25/2007 12/18/2010 Vestibular neuronitis 01/07/20062016 Anemia, unspecified 04/08/2005 12/19/19 11 Nausea 12/18/2010 documented as of this encounter (statuses as of 01/05/2023) [facility] History of Past illness Narrative* Problem Noted Date Diagnosed Date Resolved Date Health maintenance examination 01/09/2015 08/10/2016 Environmental allergies 05/31/201407/27 Chronic sinusitis 03/25/2014 08/10/2016 Other and unspecified hyperlipidemia 11/07/2012 08/10/2016 Overview: LDL 144, (10/2012) - Diet measures recommended Allergy to environmental factors 08/12/2012 08/10/2016 Cutaneous skin tags 10/20/2011 08/11/19 17 Psoriasiform dermatitis 10/20/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 Continues with librax, dicyclomine with mild relief. Having anywhere from 2-3 stools on the average with flares- daily to few times per week. She has tried to avoid cheeses, added yougurt and made worse, eats meat. States having much difficulty in her diet in trying to control her sx- she is interested in seeing a receiving coordinator and this I feel would greatly benefit the pt. Consult will be requested. Uses carafate prn at hs for epigastric pain/indigestion at hs. Lump or mass in breast 05/27/201008/27 Abnormal mammogram, unspecified 05/27/2010 08/10/2016 Interstitial cystitis 01/29/20102016 Benign neoplasm of colon 11/12/2009 Overview: 10/2009 with polypectomy- repeat in 3yrs. Last Assessment & Plan: Strong fam hx colon ca on maternal side. Due for repeat exam 2012; last completed 10/2009. 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/27 Female stress incontinence 12/12/2007 0 04/26/2009 Urethrocele(618.03) 12/12/2007 08/11/19 17 Closed fracture of metatarsal bone(s) 12/02/2007 08/10/2016 Pain in limb 11/25/2007 12/18/2010 Vestibular neuronitis 01/07/20062016 Anemia, unspecified 04/08/2005 12/19/19 11 Nausea 12/18/2010 documented as of this encounter (statuses as of 01/13/2023) [facility] History of Past illness Narrative* Problem Noted Date Diagnosed Date Resolved Date Health maintenance examination 01/09/2015 08/10/2016 Environmental allergies 05/31/201407/27 Chronic sinusitis 03/25/2014 08/10/2016 Other and unspecified hyperlipidemia 11/07/2012 08/10/2016 Overview: LDL 144, (10/2012) - Diet measures recommended Allergy to environmental factors 08/12/2012 08/10/2016 Cutaneous skin tags 10/20/2011 08/11/19 Psoriasiform dermatitis 10/20/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 Continues with librax, dicyclomine with mild relief. Having anywhere from 2-3 stools on the average with flares- daily to few times per week. She has tried to avoid cheeses, added yougurt and made worse, eats meat. States having much difficulty in her diet in trying to control her sx- she is interested in seeing a receiving coordinator and this I feel would greatly benefit the pt. Consult will be requested. Uses carafate prn at hs for epigastric pain/indigestion at hs. Lump or mass in breast 05/27/201008/27 Abnormal mammogram, unspecified 05/27/2010 08/10/2016 Interstitial cystitis 01/29/20102016 Benign neoplasm of colon 11/12/2009 Overview: 10/2009 with polypectomy- repeat in 3yrs. Last Assessment & Plan: Strong fam hx colon ca on maternal side. Due for repeat exam 2012; last completed 10/2009. 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/27 Female stress incontinence 12/12/2007 0 04/26/2009 Urethrocele(618.03) 12/12/2007 08/11/19 17 Closed fracture of metatarsal bone(s) 12/02/2007 08/10/2016 Pain in limb 11/25/2007 12/18/2010 Vestibular neuronitis 01/07/20062016 Anemia, unspecified 04/08/2005 12/19/19 11 Nausea 12/18/2010 documented as of this encounter (statuses as of 01/13/2023) [facility] History of Past illness Narrative* Problem Noted Date Diagnosed Date Resolved Date Health maintenance examination 01/09/2015 08/10/2016 Environmental allergies 05/31/201407/27 Chronic sinusitis 03/25/2014 08/10/2016 Other and unspecified hyperlipidemia 11/07/2012 08/10/2016 Overview: LDL 144, (10/2012) - Diet measures recommended Allergy to environmental factors 08/12/2012 08/10/2016 Cutaneous skin tags 10/20/2011 08/11/19 17 Psoriasiform dermatitis 10/20/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 Continues with librax, dicyclomine with mild relief. Having anywhere from 2-3 stools on the average with flares- daily to few times per week. She has tried to avoid cheeses, added yougurt and made worse, eats meat. States having much difficulty in her diet in trying to control her sx- she is interested in seeing a receiving coordinator and this I feel would greatly benefit the pt. Consult will be requested. Uses carafate prn at hs for epigastric pain/indigestion at hs. Lump or mass in breast 05/27/201008/27 Abnormal mammogram, unspecified 05/27/2010 08/10/2016 Interstitial cystitis 01/29/20102016 Benign neoplasm of colon 11/12/2009 Overview: 10/2009 with polypectomy- repeat in 3yrs. Last Assessment & Plan: Strong fam hx colon ca on maternal side. Due for repeat exam 2012; last completed 10/2009. 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/27 Female stress incontinence 12/12/2007 0 04/26/2009 Urethrocele(618.03) 12/12/2007 08/11/19 17 Closed fracture of metatarsal bone(s) 12/02/2007 08/10/2016 Pain in limb 11/25/2007 12/18/2010 Vestibular neuronitis 01/07/20062016 Anemia, unspecified 04/08/2005 12/19/19 11 Nausea 12/18/2010 documented as of this encounter (statuses as of 01/25/2023) [facility] History of Past illness Narrative* Problem Noted Date Diagnosed Date Resolved Date Health maintenance examination 01/09/2015 08/10/2016 Environmental allergies 05/31/201407/27 Chronic sinusitis 03/25/2014 08/10/2016 Other and unspecified hyperlipidemia 11/07/2012 08/10/2016 Overview: LDL 144, (10/2012) - Diet measures recommended Allergy to environmental factors 08/12/2012 08/10/2016 Cutaneous skin tags 10/20/2011 08/11/19 17 Psoriasiform dermatitis 10/20/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 Continues with librax, dicyclomine with mild relief. Having anywhere from 2-3 stools on the average with flares- daily to few times per week. She has tried to avoid cheeses, added yougurt and made worse, eats meat. States having much difficulty in her diet in trying to control her sx- she is interested in seeing a receiving coordinator and this I feel would greatly benefit the pt. Consult will be requested. Uses carafate prn at hs for epigastric pain/indigestion at hs. Lump or mass in breast 05/27/201008/27 Abnormal mammogram, unspecified 05/27/2010 08/10/2016 Interstitial cystitis 01/29/20102016 Benign neoplasm of colon 11/12/2009 Overview: 10/2009 with polypectomy- repeat in 3yrs. Last Assessment & Plan: Strong fam hx colon ca on maternal side. Due for repeat exam 2012; last completed 10/2009. 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/27 Female stress incontinence 12/12/2007 0 04/26/2009 Urethrocele(618.03) 12/12/2007 08/11/19 17 Closed fracture of metatarsal bone(s) 12/02/2007 08/10/2016 Pain in limb 11/25/2007 12/18/2010 Vestibular neuronitis 01/07/20062016 Anemia, unspecified 04/08/2005 12/19/19 11 Nausea 12/18/2010 documented as of this encounter (statuses as of 01/27/2023) [facility] History of Past illness Narrative* Problem Noted Date Diagnosed Date Resolved Date Health maintenance examination 01/09/2015 08/10/2016 Environmental allergies 05/31/201407/27 Chronic sinusitis 03/25/2014 08/10/2016 Other and unspecified hyperlipidemia 11/07/2012 08/10/2016 Overview: LDL 144, (10/2012) - Diet measures recommended Allergy to environmental factors 08/12/2012 08/10/2016 Cutaneous skin tags 10/20/2011 08/11/19 17 Psoriasiform dermatitis 10/20/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 Continues with librax, dicyclomine with mild relief. Having anywhere from 2-3 stools on the average with flares- daily to few times per week. She has tried to avoid cheeses, added yougurt and made worse, eats meat. States having much difficulty in her diet in trying to control her sx- she is interested in seeing a receiving coordinator and this I feel would greatly benefit the pt. Consult will be requested. Uses carafate prn at hs for epigastric pain/indigestion at hs. Lump or mass in breast 05/27/201008/27 Abnormal mammogram, unspecified 05/27/2010 08/10/2016 Interstitial cystitis 01/29/20102016 Benign neoplasm of colon 11/12/2009 Overview: 10/2009 with polypectomy- repeat in 3yrs. Last Assessment & Plan: Strong fam hx colon ca on maternal side. Due for repeat exam 2012; last completed 10/2009. 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/27 Female stress incontinence 12/12/2007 0 04/26/2009 Urethrocele(618.03) 12/12/2007 08/11/19 17 Closed fracture of metatarsal bone(s) 12/02/2007 08/10/2016 Pain in limb 11/25/2007 12/18/2010 Vestibular neuronitis 01/07/20062016 Anemia, unspecified 04/08/2005 12/19/19 11 Nausea 12/18/2010 documented as of this encounter (statuses as of 01/27/2023) [facility] History of Past illness Narrative* Problem Noted Date Diagnosed Date Resolved Date Health maintenance examination 01/09/2015 08/10/2016 Environmental allergies 05/31/201407/27 Chronic sinusitis 03/25/2014 08/10/2016 Other and unspecified hyperlipidemia 11/07/2012 08/10/2016 Overview: LDL 144, (10/2012) - Diet measures recommended Allergy to environmental factors 08/12/2012 08/10/2016 Cutaneous skin tags 10/20/2011 08/11/19 17 Psoriasiform dermatitis 10/20/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 Continues with librax, dicyclomine with mild relief. Having anywhere from 2-3 stools on the average with flares- daily to few times per week. She has tried to avoid cheeses, added yougurt and made worse, eats meat. States having much difficulty in her diet in trying to control her sx- she is interested in seeing a receiving coordinator and this I feel would greatly benefit the pt. Consult will be requested. Uses carafate prn at hs for epigastric pain/indigestion at hs. Lump or mass in breast 05/27/201008/27 Abnormal mammogram, unspecified 05/27/2010 08/10/2016 Interstitial cystitis 01/29/20102016 Benign neoplasm of colon 11/12/2009 Overview: 10/2009 with polypectomy- repeat in 3yrs. Last Assessment & Plan: Strong fam hx colon ca on maternal side. Due for repeat exam 2012; last completed 10/2009. 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/27 Female stress incontinence 12/12/2007 0 04/26/2009 Urethrocele(618.03) 12/12/2007 08/11/19 17 Closed fracture of metatarsal bone(s) 12/02/2007 08/10/2016 Pain in limb 11/25/2007 12/18/2010 Vestibular neuronitis 01/07/20062016 Anemia, unspecified 04/08/2005 12/19/19 11 Nausea 12/18/2010 documented as of this encounter (statuses as of 01/27/2023) [facility] History of Past illness Narrative* Problem Noted Date Diagnosed Date Resolved Date Health maintenance examination 01/09/2015 08/10/2016 Environmental allergies 05/31/201407/27 Chronic sinusitis 03/25/2014 08/10/2016 Other and unspecified hyperlipidemia 11/07/2012 08/10/2016 Overview: LDL 144, (10/2012) - Diet measures recommended Allergy to environmental factors 08/12/2012 08/10/2016 Cutaneous skin tags 10/20/2011 08/11/19 17 Psoriasiform dermatitis 10/20/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 Continues with librax, dicyclomine with mild relief. Having anywhere from 2-3 stools on the average with flares- daily to few times per week. She has tried to avoid cheeses, added yougurt and made worse, eats meat. States having much difficulty in her diet in trying to control her sx- she is interested in seeing a receiving coordinator and this I feel would greatly benefit the pt. Consult will be requested. Uses carafate prn at [facility] for epigastric pain/indigestion at [facility]. Lump or mass in breast 05/27/201008/27 Abnormal mammogram, unspecified 05/27/2010 08/10/2016 Interstitial cystitis 01/29/20102016 Benign neoplasm of colon 11/12/2009 Overview: 10/2009 with polypectomy- repeat in 3yrs. Last Assessment & Plan: Strong fam hx colon ca on maternal side. Due for repeat exam 2012; last completed 10/2009. 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/27 Female stress incontinence 12/12/2007 0 04/26/2009 Urethrocele(618.03) 12/12/2007 08/11/19 17 Closed fracture of metatarsal bone(s) 12/02/2007 08/10/2016 Pain in limb 11/25/2007 12/18/2010 Vestibular neuronitis 01/07/20062016 Anemia, unspecified 04/08/2005 12/19/19 11 Nausea 12/18/2010 documented as of this encounter (statuses as of 01/30/2023) [facility] History of Past illness Narrative* Problem Noted Date Diagnosed Date Resolved Date Health maintenance examination 01/09/2015 08/10/2016 Environmental allergies 05/31/201407/27 Chronic sinusitis 03/25/2014 08/10/2016 Other and unspecified hyperlipidemia 11/07/2012 08/10/2016 Overview: LDL 144, (10/2012) - Diet measures recommended Allergy to environmental factors 08/12/2012 08/10/2016 Cutaneous skin tags 10/20/2011 08/11/19 17 Psoriasiform dermatitis 10/20/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 Continues with librax, dicyclomine with mild relief. Having anywhere from 2-3 stools on the average with flares- daily to few times per week. She has tried to avoid cheeses, added yougurt and made worse, eats meat. States having much difficulty in her diet in trying to control her sx- she is interested in seeing a receiving coordinator and this I feel would greatly benefit the pt. Consult will be requested. Uses carafate prn at [facility] for epigastric pain/indigestion at [facility]. Lump or mass in breast 05/27/201008/27 Abnormal mammogram, unspecified 05/27/2010 08/10/2016 Interstitial cystitis 01/29/20102016 Benign neoplasm of colon 11/12/2009 Overview: 10/2009 with polypectomy- repeat in 3yrs. Last Assessment & Plan: Strong fam hx colon ca on maternal side. Due for repeat exam 2012; last completed 10/2009. 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/27 Female stress incontinence 12/12/2007 0 04/26/2009 Urethrocele(618.03) 12/12/2007 08/11/19 17 Closed fracture of metatarsal bone(s) 12/02/2007 08/10/2016 Pain in limb 11/25/2007 12/18/2010 Vestibular neuronitis 01/07/20062016 Anemia, unspecified 04/08/2005 12/19/19 11 Nausea 12/18/2010 documented as of this encounter (statuses as of 02/02/2023) [facility] History of Past illness Narrative* Problem Noted Date Diagnosed Date Resolved Date Health maintenance examination 01/09/2015 08/10/2016 Environmental allergies 05/31/201407/27 Chronic sinusitis 03/25/2014 08/10/2016 Other and unspecified hyperlipidemia 11/07/2012 08/10/2016 Overview: LDL 144, (10/2012) - Diet measures recommended Allergy to environmental factors 08/12/2012 08/10/2016 Cutaneous skin tags 10/20/2011 08/11/19 Psoriasiform dermatitis 10/20/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 Continues with librax, dicyclomine with mild relief. Having anywhere from 2-3 stools on the average with flares- daily to few times per week. She has tried to avoid cheeses, added yougurt and made worse, eats meat. States having much difficulty in her diet in trying to control her sx- she is interested in seeing a receiving coordinator and this I feel would greatly benefit the pt. Consult will be requested. Uses carafate prn at [facility] for epigastric pain/indigestion at [facility]. Lump or mass in breast 05/27/201008/27 Abnormal mammogram, unspecified 05/27/2010 08/10/2016 Interstitial cystitis 01/29/20102016 Benign neoplasm of colon 11/12/2009 Overview: 10/2009 with polypectomy- repeat in 3yrs. Last Assessment & Plan: Strong fam hx colon ca on maternal side. Due for repeat exam 2012; last completed 10/2009. 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/27 Female stress incontinence 12/12/2007 0 04/26/2009 Urethrocele(618.03) 12/12/2007 08/11/19 17 Closed fracture of metatarsal bone(s) 12/02/2007 08/10/2016 Pain in limb 11/25/2007 12/18/2010 Vestibular neuronitis 01/07/20062016 Anemia, unspecified 04/08/2005 12/19/19 11 Nausea 12/18/2010 documented as of this encounter (statuses as of 02/03/2023) [facility] History of Past illness Narrative* Problem Noted Date Diagnosed Date Resolved Date Health maintenance examination 01/09/2015 08/10/2016 Environmental allergies 05/31/201407/27 Chronic sinusitis 03/25/2014 08/10/2016 Other and unspecified hyperlipidemia 11/07/2012 08/10/2016 Overview: LDL 144, (10/2012) - Diet measures recommended Allergy to environmental factors 08/12/2012 08/10/2016 Cutaneous skin tags 10/20/2011 08/11/19 17 Psoriasiform dermatitis 10/20/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 Continues with librax, dicyclomine with mild relief. Having anywhere from 2-3 stools on the average with flares- daily to few times per week. She has tried to avoid cheeses, added yougurt and made worse, eats meat. States having much difficulty in her diet in trying to control her sx- she is interested in seeing a receiving coordinator and this I feel would greatly benefit the pt. Consult will be requested. Uses carafate prn at [facility] for epigastric pain/indigestion at [facility]. Lump or mass in breast 05/27/201008/27 Abnormal mammogram, unspecified 05/27/2010 08/10/2016 Interstitial cystitis 01/29/20102016 Benign neoplasm of colon 11/12/2009 Overview: 10/2009 with polypectomy- repeat in 3yrs. Last Assessment & Plan: Strong fam hx colon ca on maternal side. Due for repeat exam 2012; last completed 10/2009. 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/27 Female stress incontinence 12/12/2007 0 04/26/2009 Urethrocele(618.03) 12/12/2007 08/11/19 17 Closed fracture of metatarsal bone(s) 12/02/2007 08/10/2016 Pain in limb 11/25/2007 12/18/2010 Vestibular neuronitis 01/07/20062016 Anemia, unspecified 04/08/2005 12/19/19 11 Nausea 12/18/2010 documented as of this encounter (statuses as of 02/19/2023) [facility] History of Past illness Narrative* Problem Noted Date Diagnosed Date Resolved Date Health maintenance examination 01/09/2015 08/10/2016 Environmental allergies 05/31/201407/27 Chronic sinusitis 03/25/2014 08/10/2016 Other and unspecified hyperlipidemia 11/07/2012 08/10/2016 Overview: LDL 144, (10/2012) - Diet measures recommended Allergy to environmental factors 08/12/2012 08/10/2016 Cutaneous skin tags 10/20/2011 08/11/19 Psoriasiform dermatitis 10/20/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 Continues with librax, dicyclomine with mild relief. Having anywhere from 2-3 stools on the average with flares- daily to few times per week. She has tried to avoid cheeses, added yougurt and made worse, eats meat. States having much difficulty in her diet in trying to control her sx- she is interested in seeing a receiving coordinator and this I feel would greatly benefit the pt. Consult will be requested. Uses carafate prn at [facility] for epigastric pain/indigestion at [facility]. Lump or mass in breast 05/27/201008/27 Abnormal mammogram, unspecified 05/27/2010 08/10/2016 Interstitial cystitis 01/29/20102016 Benign neoplasm of colon 11/12/2009 Overview: 10/2009 with polypectomy- repeat in 3yrs. Last Assessment & Plan: Strong fam hx colon ca on maternal side. Due for repeat exam 2012; last completed 10/2009. 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/27 Female stress incontinence 12/12/2007 0 04/26/2009 Urethrocele(618.03) 12/12/2007 08/11/19 17 Closed fracture of metatarsal bone(s) 12/02/2007 08/10/2016 Pain in limb 11/25/2007 12/18/2010 Vestibular neuronitis 01/07/20062016 Anemia, unspecified 04/08/2005 12/19/19 11 Nausea 12/18/2010 documented as of this encounter (statuses as of 02/22/2023) [facility] History of Past illness Narrative* Problem Noted Date Diagnosed Date Resolved Date Health maintenance examination 01/09/2015 08/10/2016 Environmental allergies 05/31/201407/27 Chronic sinusitis 03/25/2014 08/10/2016 Other and unspecified hyperlipidemia 11/07/2012 08/10/2016 Overview: LDL 144, (10/2012) - Diet measures recommended Allergy to environmental factors 08/12/2012 08/10/2016 Cutaneous skin tags 10/20/2011 08/11/19 17 Psoriasiform dermatitis 10/20/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 Continues with librax, dicyclomine with mild relief. Having anywhere from 2-3 stools on the average with flares- daily to few times per week. She has tried to avoid cheeses, added yougurt and made worse, eats meat. States having much difficulty in her diet in trying to control her sx- she is interested in seeing a receiving coordinator and this I feel would greatly benefit the pt. Consult will be requested. Uses carafate prn at [facility] for epigastric pain/indigestion at [facility]. Lump or mass in breast 05/27/201008/27 Abnormal mammogram, unspecified 05/27/2010 08/10/2016 Interstitial cystitis 01/29/20102016 Benign neoplasm of colon 11/12/2009 Overview: 10/2009 with polypectomy- repeat in 3yrs. Last Assessment & Plan: Strong fam hx colon ca on maternal side. Due for repeat exam 2012; last completed 10/2009. 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/27 Female stress incontinence 12/12/2007 0 04/26/2009 Urethrocele(618.03) 12/12/2007 08/11/19 17 Closed fracture of metatarsal bone(s) 12/02/2007 08/10/2016 Pain in limb 11/25/2007 12/18/2010 Vestibular neuronitis 01/07/20062016 Anemia, unspecified 04/08/2005 12/19/19 11 Nausea 12/18/2010 documented as of this encounter (statuses as of 02/22/2023) [facility] History of Past illness Narrative* Problem Noted Date Diagnosed Date Resolved Date Health maintenance examination 01/09/2015 08/10/2016 Environmental allergies 05/31/201407/27 Chronic sinusitis 03/25/2014 08/10/2016 Other and unspecified hyperlipidemia 11/07/2012 08/10/2016 Overview: LDL 144, (10/2012) - Diet measures recommended Allergy to environmental factors 08/12/2012 08/10/2016 Cutaneous skin tags 10/20/2011 08/11/19 17 Psoriasiform dermatitis 10/20/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 Continues with librax, dicyclomine with mild relief. Having anywhere from 2-3 stools on the average with flares- daily to few times per week. She has tried to avoid cheeses, added yougurt and made worse, eats meat. States having much difficulty in her diet in trying to control her sx- she is interested in seeing a receiving coordinator and this I feel would greatly benefit the pt. Consult will be requested. Uses carafate prn at [facility] for epigastric pain/indigestion at [facility]. Lump or mass in breast 05/27/201008/27 Abnormal mammogram, unspecified 05/27/2010 08/10/2016 Interstitial cystitis 01/29/20102016 Benign neoplasm of colon 11/12/2009 Overview: 10/2009 with polypectomy- repeat in 3yrs. Last Assessment & Plan: Strong fam hx colon ca on maternal side. Due for repeat exam 2012; last completed 10/2009. 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/27 Female stress incontinence 12/12/2007 0 04/26/2009 Urethrocele(618.03) 12/12/2007 08/11/19 17 Closed fracture of metatarsal bone(s) 12/02/2007 08/10/2016 Pain in limb 11/25/2007 12/18/2010 Vestibular neuronitis 01/07/20062016 Anemia, unspecified 04/08/2005 12/19/19 11 Nausea 12/18/2010 documented as of this encounter (statuses as of 03/01/2023) [facility] History of Past illness Narrative* Problem Noted Date Diagnosed Date Resolved Date Health maintenance examination 01/09/2015 08/10/2016 Environmental allergies 05/31/201407/27 Chronic sinusitis 03/25/2014 08/10/2016 Other and unspecified hyperlipidemia 11/07/2012 08/10/2016 Overview: LDL 144, (10/2012) - Diet measures recommended Allergy to environmental factors 08/12/2012 08/10/2016 Cutaneous skin tags 10/20/2011 08/11/19 17 Psoriasiform dermatitis 10/20/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 Continues with librax, dicyclomine with mild relief. Having anywhere from 2-3 stools on the average with flares- daily to few times per week. She has tried to avoid cheeses, added yougurt and made worse, eats meat. States having much difficulty in her diet in trying to control her sx- she is interested in seeing a receiving coordinator and this I feel would greatly benefit the pt. Consult will be requested. Uses carafate prn at [facility] for epigastric pain/indigestion at [facility]. Lump or mass in breast 05/27/201008/27 Abnormal mammogram, unspecified 05/27/2010 08/10/2016 Interstitial cystitis 01/29/20102016 Benign neoplasm of colon 11/12/2009 Overview: 10/2009 with polypectomy- repeat in 3yrs. Last Assessment & Plan: Strong fam hx colon ca on maternal side. Due for repeat exam 2012; last completed 10/2009. 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/27 Female stress incontinence 12/12/2007 0 04/26/2009 Urethrocele(618.03) 12/12/2007 08/11/19 17 Closed fracture of metatarsal bone(s) 12/02/2007 08/10/2016 Pain in limb 11/25/2007 12/18/2010 Vestibular neuronitis 01/07/20062016 Anemia, unspecified 04/08/2005 12/19/19 11 Nausea 12/18/2010 documented as of this encounter (statuses as of 03/03/2023) [facility] History of Past illness Narrative* Problem Noted Date Diagnosed Date Resolved Date Health maintenance examination 01/09/2015 08/10/2016 Environmental allergies 05/31/201407/27 Chronic sinusitis 03/25/2014 08/10/2016 Other and unspecified hyperlipidemia 11/07/2012 08/10/2016 Overview: LDL 144, (10/2012) - Diet measures recommended Allergy to environmental factors 08/12/2012 08/10/2016 Cutaneous skin tags 10/20/2011 08/11/19 17 Psoriasiform dermatitis 10/20/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 Continues with librax, dicyclomine with mild relief. Having anywhere from 2-3 stools on the average with flares- daily to few times per week. She has tried to avoid cheeses, added yougurt and made worse, eats meat. States having much difficulty in her diet in trying to control her sx- she is interested in seeing a receiving coordinator and this I feel would greatly benefit the pt. Consult will be requested. Uses carafate prn at [facility] for epigastric pain/indigestion at [facility]. Lump or mass in breast 05/27/201008/27 Abnormal mammogram, unspecified 05/27/2010 08/10/2016 Interstitial cystitis 01/29/20102016 Benign neoplasm of colon 11/12/2009 Overview: 10/2009 with polypectomy- repeat in 3yrs. Last Assessment & Plan: Strong fam hx colon ca on maternal side. Due for repeat exam 2012; last completed 10/2009. 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/27 Female stress incontinence 12/12/2007 0 04/26/2009 Urethrocele(618.03) 12/12/2007 08/11/19 17 Closed fracture of metatarsal bone(s) 12/02/2007 08/10/2016 Pain in limb 11/25/2007 12/18/2010 Vestibular neuronitis 01/07/20062016 Anemia, unspecified 04/08/2005 12/19/19 11 Nausea 12/18/2010 documented as of this encounter (statuses as of 05/06/2023) [facility] History of Past illness Narrative* Problem Noted Date Diagnosed Date Resolved Date Health maintenance examination 01/09/2015 08/10/2016 Environmental allergies 05/31/201407/27 Chronic sinusitis 03/25/2014 08/10/2016 Other and unspecified hyperlipidemia 11/07/2012 08/10/2016 Overview: LDL 144, (10/2012) - Diet measures recommended Allergy to environmental factors 08/12/2012 08/10/2016 Cutaneous skin tags 10/20/2011 08/11/19 17 Psoriasiform dermatitis 10/20/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 Continues with librax, dicyclomine with mild relief. Having anywhere from 2-3 stools on the average with flares- daily to few times per week. She has tried to avoid cheeses, added yougurt and made worse, eats meat. States having much difficulty in her diet in trying to control her sx- she is interested in seeing a receiving coordinator and this I feel would greatly benefit the pt. Consult will be requested. Uses carafate prn at [facility] for epigastric pain/indigestion at [facility]. Lump or mass in breast 05/27/201008/27 Abnormal mammogram, unspecified 05/27/2010 08/10/2016 Interstitial cystitis 01/29/20102016 Benign neoplasm of colon 11/12/2009 Overview: 10/2009 with polypectomy- repeat in 3yrs. Last Assessment & Plan: Strong fam hx colon ca on maternal side. Due for repeat exam 2012; last completed 10/2009. 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/27 Female stress incontinence 12/12/2007 0 04/26/2009 Urethrocele(618.03) 12/12/2007 08/11/19 17 Closed fracture of metatarsal bone(s) 12/02/2007 08/10/2016 Pain in limb 11/25/2007 12/18/2010 Vestibular neuronitis 01/07/20062016 Anemia, unspecified 04/08/2005 12/19/19 11 Nausea 12/18/2010 documented as of this encounter (statuses as of 05/06/2023) [facility] History of Past illness Narrative* Problem Noted Date Diagnosed Date Resolved Date Health maintenance examination 01/09/2015 08/10/2016 Environmental allergies 05/31/201407/27 Chronic sinusitis 03/25/2014 08/10/2016 Other and unspecified hyperlipidemia 11/07/2012 08/10/2016 Overview: LDL 144, (10/2012) - Diet measures recommended Allergy to environmental factors 08/12/2012 08/10/2016 Cutaneous skin tags 10/20/2011 08/11/19 17 Psoriasiform dermatitis 10/20/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 Continues with librax, dicyclomine with mild relief. Having anywhere from 2-3 stools on the average with flares- daily to few times per week. She has tried to avoid cheeses, added yougurt and made worse, eats meat. States having much difficulty in her diet in trying to control her sx- she is interested in seeing a receiving coordinator and this I feel would greatly benefit the pt. Consult will be requested. Uses carafate prn at [facility] for epigastric pain/indigestion at [facility]. Lump or mass in breast 05/27/201008/27 Abnormal mammogram, unspecified 05/27/2010 08/10/2016 Interstitial cystitis 01/29/20102016 Benign neoplasm of colon 11/12/2009 Overview: 10/2009 with polypectomy- repeat in 3yrs. Last Assessment & Plan: Strong fam hx colon ca on maternal side. Due for repeat exam 2012; last completed 10/2009. 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/27 Female stress incontinence 12/12/2007 0 04/26/2009 Urethrocele(618.03) 12/12/2007 08/11/19 17 Closed fracture of metatarsal bone(s) 12/02/2007 08/10/2016 Pain in limb 11/25/2007 12/18/2010 Vestibular neuronitis 01/07/20062016 Anemia, unspecified 04/08/2005 12/19/19 11 Nausea 12/18/2010 documented as of this encounter (statuses as of 05/07/2023) [facility] Anxiety- Primary Anxiety state, unspecified Gastroesophageal reflux disease without esophagitis Esophageal reflux Vitamin D deficiency Unspecified vitamin D deficiency Mixed hyperlipidemia Asthma with COPD with exacerbation (HCC) Chronic obstructive asthma with exacerbation Irritable bowel syndrome with diarrhea Irritable bowel syndrome Encounter for long-term current use of medication Plantar fasciitis of right foot Plantar fascial fibromatosis [facility] Diagnosis Asthma with chronic obstructive pulmonary disease (COPD) (HCC) Chronic obstructive asthma, unspecified [facility] Diagnosis Irritable bowel syndrome with diarrhea Irritable bowel syndrome Recurrent major depressive disorder, in partial remission (HCC) [facility] Diagnosis Gastroesophageal reflux disease without esophagitis Esophageal reflux [facility] Diagnosis Pain- Primary Generalized pain [facility]* Diagnosis Personal history of colonic polyps- Primary Pre-op testing Preoperative examination, unspecified [facility] Diagnosis Psychophysiological insomnia Persistent disorder of initiating or maintaining sleep [facility] Diagnosis Anxiety- Primary Anxiety state, unspecified Left arm pain Pain in limb Plantar fasciitis, bilateral Plantar fascial fibromatosis Psychophysiological insomnia Persistent disorder of initiating or maintaining sleep Vitamin D deficiency Unspecified vitamin D deficiency Asthma with COPD with exacerbation (HCC) Chronic obstructive asthma with exacerbation Dermatitis due to plant Contact dermatitis and other eczema due to plants (except food) Colon cancer screening Special screening for malignant neoplasms, [facility] COVID-[facility] virus infection- [facility] Diagnosis Irritable bowel syndrome with diarrhea Irritable bowel syndrome [facility] Diagnosis Routine medical exam- Primary Routine general medical examination at a health care facility Vitamin D deficiency Unspecified vitamin D deficiency Primary hypertension Unspecified essential hypertension Irritable bowel syndrome with diarrhea Irritable bowel syndrome Mixed hyperlipidemia Recurrent major depressive disorder, in partial remission (HCC) Anxiety Anxiety state, unspecified Dysuria Palpitations [facility] Irritable bowel syndrome with diarrhea Irritable bowel syndrome [facility] Diagnosis Special screening for malignant neoplasms, colon- Primary Personal history of colonic polyps [facility] Diagnosis Psychophysiological insomnia Persistent disorder of initiating or maintaining sleep Irritable bowel syndrome with diarrhea Irritable bowel syndrome [facility] Diagnosis Irritable bowel syndrome with diarrhea Irritable bowel syndrome [facility] Diagnosis Lipoma of torso- Primary [facility] Diagnosis Tendinitis- Primary Enthesopathy of unspecified site Greater trochanteric bursitis of left hip Enthesopathy of hip region Recurrent major depressive disorder, in partial remission ([facility]) Irritable bowel syndrome with diarrhea Irritable bowel syndrome Anxiety Anxiety state, unspecified [facility] Diagnosis Irritable bowel syndrome with diarrhea- Primary Irritable bowel syndrome Primary hypertension Unspecified essential hypertension Vitamin D deficiency Unspecified vitamin D deficiency [facility] Diagnosis Psychophysiological insomnia Persistent disorder of initiating or maintaining sleep [facility] Diagnosis Asthma with chronic obstructive pulmonary disease (COPD) ([facility])- Primary Chronic obstructive asthma, unspecified [facility] Diagnosis Irritable bowel syndrome with diarrhea Irritable bowel syndrome [facility] Diagnosis PSVT (paroxysmal supraventricular tachycardia) ([facility])- Primary Paroxysmal supraventricular tachycardia Age-related osteoporosis without current pathological fracture Senile osteoporosis Vitamin D deficiency Unspecified vitamin D deficiency Primary hypertension Unspecified essential hypertension Mixed hyperlipidemia Dry mouth Disturbance of salivary secretion Asthma with chronic obstructive pulmonary disease (COPD) ([facility]) Chronic obstructive asthma, unspecified [facility] Diagnosis UTI symptoms- Primary Other symptoms involving urinary system Microscopic hematuria [facility] Diagnosis Gastroesophageal reflux disease without esophagitis Esophageal reflux [facility] Diagnosis Anxiety- Primary Anxiety state, unspecified Dyshidrotic hand dermatitis Dyshidrosis Vitamin D deficiency Unspecified vitamin D deficiency Primary hypertension Unspecified essential hypertension Mixed hyperlipidemia [facility] Diagnosis Asthma with chronic obstructive pulmonary disease (COPD) ([facility]) Chronic obstructive asthma, unspecified [facility] Diagnosis Insect bite of other part of neck, initial encounter- Primary Tick bite of other part of neck, initial encounter [facility] Diagnosis Irritable bowel syndrome with diarrhea Irritable bowel syndrome documented in [facility]* Diagnosis Psychophysiological insomnia Persistent disorder of initiating or maintaining sleep [facility] Diagnosis Skin lesion- Primary Unspecified disorder of skin and subcutaneous tissue documented in this encounter [facility]* Diagnosis Encounter for screening mammogram for breast cancer documented in this encounter [facility]* Diagnosis Irritable bowel syndrome with diarrhea Irritable bowel syndrome documented in this encounter [facility]* Diagnosis Encounter for wellness examination- Primary documented in this encounter [facility]* Diagnosis Psychophysiological insomnia- Primary Persistent disorder of initiating or maintaining sleep Irritable bowel syndrome with diarrhea Irritable bowel syndrome Viral syndrome Unspecified viral infection, in conditions classified elsewhere and of unspecified site Recurrent major depressive disorder, in partial remission (HCC) Anxiety Anxiety state, unspecified Asthma with chronic obstructive pulmonary disease (COPD) Chronic obstructive asthma, unspecified Primary hypertension Unspecified essential hypertension documented in this encounter [facility]* Diagnosis Asthma with chronic obstructive pulmonary disease (COPD) Chronic obstructive asthma, unspecified Asthma with COPD with exacerbation (HCC) Chronic obstructive asthma with exacerbation documented in this encounter [facility]* Diagnosis Asthma with chronic obstructive pulmonary disease (COPD) Chronic obstructive asthma, unspecified documented in this encounter [facility]* Diagnosis Asymptomatic postmenopausal status documented in this encounter [facility]* Diagnosis Cough in adult- Primary Asthma with COPD with exacerbation (HCC) Chronic obstructive asthma with exacerbation documented in this encounter [facility]* Diagnosis Asthma with chronic obstructive pulmonary disease (COPD) Chronic obstructive asthma, unspecified documented in this encounter [facility]* Diagnosis Disseminated herpes zoster- Primary Herpes zoster with other specified complications documented in this encounter [facility]* Diagnosis Herpes zoster without complication Herpes zoster without mention of complication documented in this encounter [facility]* Diagnosis Bronchitis- Primary Bronchitis, not specified as acute or chronic documented in this encounter [facility]* Diagnosis Primary hypertension Unspecified essential hypertension documented in this encounter [facility] for referral (narrative)* Outpatient Procedure (Routine) - Pending Review Specialty Diagnoses / Procedures Referred By Kiesha t Referred To Contact [facility] Diagnoses Personal history of colonic polyps Procedures COLONOSCOPY SCREENING COLONOSCOP W/ OR W/O [facility] SPEC Jailyn Lubin PA-C [address] [place] [address] [facility] [place] [address] [place] [address] Referral ID Status Reason Start Date Expiration Date Visits Requested Visits Authorized [id number] Pending Review Auto-Generat ed Referral 04/02/2021 04/02/2022 1 1 [facility] for referral (narrative)* Outpatient Procedure (Routine) - Closed Specialty Diagnoses / Procedures Referred By Kiesha virk Referred To Contact Diagnoses Personal history of colonic polyps Procedures COLONOSCOPY SCREENING COLONOSCOP W/ OR W/O [facility] SPEC Jailyn Lubin PA-C [address] [place] [address] Spencer Neri MD [address] [facility] [place] [address] Referral ID Status Reason Start Date Expiration Date V isits Requested Visits Authorized [id number] Closed Auto-Generate d Referral 04/02/2021 03/28/2022 1 1 [facility] for referral (narrative)* Diagnostic Procedure Only (Routine) - Pending Review Specialty Diagnoses / Procedures Referred By Kiesha virk Referred To Contact [facility] Diagnoses Encounter for screening mammogram for breast cancer Procedures MINNA SCREENING W NICK SCREENING DIGITAL BREAST TOMOSYNTHESIS BI SCREENING MAMMOGRAPHY BI 2-VIEW BREAST INC CAD Brian Owens MD [address] [place] [address] [facility] [address] [place] [address] Referral ID Status Reason Start Date Expiration Date Visits Requested Visits Authorized [id number] Pending Review Auto-Generat ed Referral 10/28/2022 11/27/2023 1 1 [facility] for visit Narrative* Outpatient Procedure (Routine) - Closed Specialty Diagnoses / Procedures Referred By Contac t Referred To Contact Diagnoses Personal history of colonic polyps Procedures COLONOSCOPY SCREENING COLONOSCOP W/ OR W/O [facility] SPEC Jailyn Lubin PA-C [address] 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 Advance Directive(s) 12/04/2015 10:58 AM Documents on File Type Date Recorded 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 Time 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 Engineer Expl anation Advance Directive(s) 12/04/2015 10:58 AM Reason for Referral Specialty Diagnoses / Procedures Referred By Contac t Referred To Contact [facility] [place] Diagnoses Pain Procedures CONSULT TO ORTHOPAEDICS OFFICE/OUTPATIENT [facility] MDM 60-74 MINUTES Lisette Raza APRN.CUSTODIAN MANAGER [address] [phone] Referral ID Status Reason Start Date Expiration Date Visits Requested Visits Authorized [id number] Authorized PCP Requested Referral 08/09/2021 08/09/2022 1 1 Specialty Diagnoses / Procedures Referred By Contac t Referred To Contact Lisette Raza APRN.CUSTODIAN MANAGER [address] [phone] Referral ID Status Reason Start Date Expiration Date Visits Re quested Visits Authorized [id number] Closed 1 1 Specialty Diagnoses / Procedures Referred By Contac t Referred To Contact [facility] Diagnoses Pain Procedures XR CERV GENERAL 2V AP/LAT RADEX SPINE CERVICAL 2 OR 3 VIEWS Lisette Raza APRN.CUSTODIAN MANAGER [address] [place] [address] Xr Imaging Referral ID Status Reason Start Date Expiration Date V isits Requested Visits Authorized [id number] Closed Auto-Generate d Referral 08/09/2021 09/08/2022 1 1 Specialty Diagnoses / Procedures Referred By Contac t Referred To Contact [facility] IMAGING Diagnoses Pain Procedures XR THORACIC GENERAL 3V AP/LAT/SWIMMERS RADEX SPINE THORACIC 3 VIEWS Lisette Raza APRN.CUSTODIAN MANAGER [address] [place] [address] Xr Imaging Referral ID Status Reason Start Date Expiration Date V isits Requested Visits Authorized [id number] Closed Auto-Generate d Referral 08/09/2021 09/08/2022 1 1 Specialty Diagnoses / Procedures Referred By Contac t Referred To Contact Gastroenterology Diagnoses Colon cancer screening Procedures CONSULT TO GASTROENTEROLOGY Brian Owens MD [address] [place] [address] Eduardo Arnett [facility] [address] [place] [address] Referral ID Status Reason Start Date Expiration Date Visits Requested Visits Authorized [id number] Ref Not Required PCP Requested Referral 08/18/2021 08/18/2022 1 1 Medications Administered Section Inactive Administered Medications - up to 3 most recent administrations Medication Order MAR Action Action Date Dose Rate Site lactated ringers iv infusion 30 mL/hr, INTRAVENOUS, CONTINUOUS, Starting on Wed01/05/22 at 0630, Until Wed01/05/22 at 0800, Preprocedure Rate/Dose Change 01/05/2022 7:48 AM EDT 150 mL/hr Additional Source Comments INFORMATION SOURCE (unrecogn ized section and content) DATE CREATED AUTHOR AUTHOR'S ORGANIZ ATION 01/19/2022 [facility] DATE CREATED AUTHOR AUTHOR'S ORGANIZ ATION 05/09/2023 [facility] Source Comments (unrecognize d section and content) In the event this informatio n is protected by the Federal Confidentiality of Alcohol and Drug Abuse Patient Records regulations: The Federal rules restrict any use of the information to criminally investigate or prosecute any alcohol or drug abuse patient.[facility] the event this information is protected by the Federal Confidentiality of Alcohol and Drug Abuse Patient Records regulations: The Federal rules restrict any use of the information to criminally investigate or prosecute any alcohol or drug abuse patient.[facility] Foundation[facility] the event this information is protected by the Federal Confidentiality of Alcohol and Drug Abuse Patient Records regulations: The Federal rules restrict any use of the information to criminally investigate or prosecute any alcohol or drug abuse patient.[facility] FoundationIn the event this information is protected by the Federal Confidentiality of Alcohol and Drug Abuse Patient Records regulations: The Federal rules restrict any use of the information to criminally investigate or prosecute any alcohol or drug abuse patient.[facility] the event this information is protected by the Federal Confidentiality of Alcohol and Drug Abuse Patient Records regulations: The Federal rules restrict any use of the information to criminally investigate or prosecute any alcohol or drug abuse patient.[facility] FoundationIn the event this information is protected by the Federal Confidentiality of Alcohol and Drug Abuse Patient Records regulations: The Federal rules restrict any use of the information to criminally investigate or prosecute any alcohol or drug abuse patient.[facility] FoundationIn the event this information is protected by the Federal Confidentiality of Alcohol and Drug Abuse Patient Records regulations: The Federal rules restrict any use of the information to criminally investigate or prosecute any alcohol or drug abuse patient.[facility] FoundationIn the event this information is protected by the Federal Confidentiality of Alcohol and Drug Abuse Patient Records regulations: The Federal rules restrict any use of the information to criminally investigate or prosecute any alcohol or drug abuse patient.[facility] FoundationIn the event this information is protected by the Federal Confidentiality of Alcohol and Drug Abuse Patient Records regulations: The Federal rules restrict any use of the information to criminally investigate or prosecute any alcohol or drug abuse patient.[facility] FoundationIn the event this information is protected by the Federal Confidentiality of Alcohol and Drug Abuse Patient Records regulations: The Federal rules restrict any use of the information to criminally investigate or prosecute any alcohol or drug abuse patient.[facility] FoundationIn the event this information is protected by the Federal Confidentiality of Alcohol and Drug Abuse Patient Records regulations: The Federal rules restrict any use of the information to criminally investigate or prosecute any alcohol or drug abuse patient.[facility] FoundationIn the event this information is protected by the Federal Confidentiality of Alcohol and Drug Abuse Patient Records regulations: The Federal rules restrict any use of the information to criminally investigate or prosecute any alcohol or drug abuse patient.[facility] FoundationIn the event this information is protected by the Federal Confidentiality of Alcohol and Drug Abuse Patient Records regulations: The Federal rules restrict any use of the information to criminally investigate or prosecute any alcohol or drug abuse patient.[facility] FoundationIn the event this information is protected by the Federal Confidentiality of Alcohol and Drug Abuse Patient Records regulations: The Federal rules restrict any use of the information to criminally investigate or prosecute any alcohol or drug abuse patient.[facility] FoundationIn the event this information is protected by the Federal Confidentiality of Alcohol and Drug Abuse Patient Records regulations: The Federal rules restrict any use of the information to criminally investigate or prosecute any alcohol or drug abuse patient.[facility] FoundationIn the event this information is protected by the Federal Confidentiality of Alcohol and Drug Abuse Patient Records regulations: The Federal rules restrict any use of the information to criminally investigate or prosecute any alcohol or drug abuse patient.[facility] FoundationIn the event this information is protected by the Federal Confidentiality of Alcohol and Drug Abuse Patient Records regulations: The Federal rules restrict any use of the information to criminally investigate or prosecute any alcohol or drug abuse patient.[facility] FoundationIn the event this information is protected by the Federal Confidentiality of Alcohol and Drug Abuse Patient Records regulations: The Federal rules restrict any use of the information to criminally investigate or prosecute any alcohol or drug abuse patient.[facility] FoundationIn the event this information is protected by the Federal Confidentiality of Alcohol and Drug Abuse Patient Records regulations: The Federal rules restrict any use of the information to criminally investigate or prosecute any alcohol or drug abuse patient.[facility] FoundationIn the event this information is protected by the Federal Confidentiality of Alcohol and Drug Abuse Patient Records regulations: The Federal rules restrict any use of the information to criminally investigate or prosecute any alcohol or drug abuse patient.[facility] FoundationIn the event this information is protected by the Federal Confidentiality of Alcohol and Drug Abuse Patient Records regulations: The Federal rules restrict any use of the information to criminally investigate or prosecute any alcohol or drug abuse patient.[facility] FoundationIn the event this information is protected by the Federal Confidentiality of Alcohol and Drug Abuse Patient Records regulations: The Federal rules restrict any use of the information to criminally investigate or prosecute any alcohol or drug abuse patient.[facility] FoundationIn the event this information is protected by the Federal Confidentiality of Alcohol and Drug Abuse Patient Records regulations: The Federal rules restrict any use of the information to criminally investigate or prosecute any alcohol or drug abuse patient.[facility] FoundationIn the event this information is protected by the Federal Confidentiality of Alcohol and Drug Abuse Patient Records regulations: The Federal rules restrict any use of the information to criminally investigate or prosecute any alcohol or drug abuse patient.[facility] FoundationIn the event this information is protected by the Federal Confidentiality of Alcohol and Drug Abuse Patient Records regulations: The Federal rules restrict any use of the information to criminally investigate or prosecute any alcohol or drug abuse patient.[facility] FoundationIn the event this information is protected by the Federal Confidentiality of Alcohol and Drug Abuse Patient Records regulations: The Federal rules restrict any use of the information to criminally investigate or prosecute any alcohol or drug abuse patient.[facility] FoundationIn the event this information is protected by the Federal Confidentiality of Alcohol and Drug Abuse Patient Records regulations: The Federal rules restrict any use of the information to criminally investigate or prosecute any alcohol or drug abuse patient.[facility] FoundationIn the event this information is protected by the Federal Confidentiality of Alcohol and Drug Abuse Patient Records regulations: The Federal rules restrict any use of the information to criminally investigate or prosecute any alcohol or drug abuse patient.[facility] FoundationIn the event this information is protected by the Federal Confidentiality of Alcohol and Drug Abuse Patient Records regulations: The Federal rules restrict any use of the information to criminally investigate or prosecute any alcohol or drug abuse patient.[facility] FoundationIn the event this information is protected by the Federal Confidentiality of Alcohol and Drug Abuse Patient Records regulations: The Federal rules restrict any use of the information to criminally investigate or prosecute any alcohol or drug abuse patient.[facility] FoundationIn the event this information is protected by the Federal Confidentiality of Alcohol and Drug Abuse Patient Records regulations: The Federal rules restrict any use of the information to criminally investigate or prosecute any alcohol or drug abuse patient.[facility] FoundationIn the event this information is protected by the Federal Confidentiality of Alcohol and Drug Abuse Patient Records regulations: The Federal rules restrict any use of the information to criminally investigate or prosecute any alcohol or drug abuse patient.[facility] the event this information is protected by the Federal Confidentiality of Alcohol and Drug Abuse Patient Records regulations: The Federal rules restrict any use of the information to criminally investigate or prosecute any alcohol or drug abuse patient.[facility] FoundationIn the event this information is protected by the Federal Confidentiality of Alcohol and Drug Abuse Patient Records regulations: The Federal rules restrict any use of the information to criminally investigate or prosecute any alcohol or drug abuse patient.[facility] FoundationIn the event this information is protected by the Federal Confidentiality of Alcohol and Drug Abuse Patient Records regulations: The Federal rules restrict any use of the information to criminally investigate or prosecute any alcohol or drug abuse patient.[facility] FoundationIn the event this information is protected by the Federal Confidentiality of Alcohol and Drug Abuse Patient Records regulations: The Federal rules restrict any use of the information to criminally investigate or prosecute any alcohol or drug abuse patient.[facility] FoundationIn the event this information is protected by the Federal Confidentiality of Alcohol and Drug Abuse Patient Records regulations: The Federal rules restrict any use of the information to criminally investigate or prosecute any alcohol or drug abuse patient.[facility] FoundationIn the event this information is protected by the Federal Confidentiality of Alcohol and Drug Abuse Patient Records regulations: The Federal rules restrict any use of the information to criminally investigate or prosecute any alcohol or drug abuse patient.[facility] FoundationIn the event this information is protected by the Federal Confidentiality of Alcohol and Drug Abuse Patient Records regulations: The Federal rules restrict any use of the information to criminally investigate or prosecute any alcohol or drug abuse patient.[facility] FoundationIn the event this information is protected by the Federal Confidentiality of Alcohol and Drug Abuse Patient Records regulations: The Federal rules restrict any use of the information to criminally investigate or prosecute any alcohol or drug abuse patient.[facility] FoundationIn the event this information is protected by the Federal Confidentiality of Alcohol and Drug Abuse Patient Records regulations: The Federal rules restrict any use of the information to criminally investigate or prosecute any alcohol or drug abuse patient.[facility] FoundationIn the event this information is protected by the Federal Confidentiality of Alcohol and Drug Abuse Patient Records regulations: The Federal rules restrict any use of the information to criminally investigate or prosecute any alcohol or drug abuse patient.[facility] FoundationIn the event this information is protected by the Federal Confidentiality of Alcohol and Drug Abuse Patient Records regulations: The Federal rules restrict any use of the information to criminally investigate or prosecute any alcohol or drug abuse patient.[facility] FoundationIn the event this information is protected by the Federal Confidentiality of Alcohol and Drug Abuse Patient Records regulations: The Federal rules restrict any use of the information to criminally investigate or prosecute any alcohol or drug abuse patient.[facility] FoundationIn the event this information is protected by the Federal Confidentiality of Alcohol and Drug Abuse Patient Records regulations: The Federal rules restrict any use of the information to criminally investigate or prosecute any alcohol or drug abuse patient.[facility] FoundationIn the event this information is protected by the Federal Confidentiality of Alcohol and Drug Abuse Patient Records regulations: The Federal rules restrict any use of the information to criminally investigate or prosecute any alcohol or drug abuse patient.[facility] FoundationIn the event this information is protected by the Federal Confidentiality of Alcohol and Drug Abuse Patient Records regulations: The Federal rules restrict any use of the information to criminally investigate or prosecute any alcohol or drug abuse patient.[facility] FoundationIn the event this information is protected by the Federal Confidentiality of Alcohol and Drug Abuse Patient Records regulations: The Federal rules restrict any use of the information to criminally investigate or prosecute any alcohol or drug abuse patient.[facility] FoundationIn the event this information is protected by the Federal Confidentiality of Alcohol and Drug Abuse Patient Records regulations: The Federal rules restrict any use of the information to criminally investigate or prosecute any alcohol or drug abuse patient.[facility] FoundationIn the event this information is protected by the Federal Confidentiality of Alcohol and Drug Abuse Patient Records regulations: The Federal rules restrict any use of the information to criminally investigate or prosecute any alcohol or drug abuse patient.[facility] FoundationIn the event this information is protected by the Federal Confidentiality of Alcohol and Drug Abuse Patient Records regulations: The Federal rules restrict any use of the information to criminally investigate or prosecute any alcohol or drug abuse patient.[facility] FoundationIn the event this information is protected by the Federal Confidentiality of Alcohol and Drug Abuse Patient Records regulations: The Federal rules restrict any use of the information to criminally investigate or prosecute any alcohol or drug abuse patient.[facility] FoundationIn the event this information is protected by the Federal Confidentiality of Alcohol and Drug Abuse Patient Records regulations: The Federal rules restrict any use of the information to criminally investigate or prosecute any alcohol or drug abuse patient.[facility] FoundationIn the event this information is protected by the Federal Confidentiality of Alcohol and Drug Abuse Patient Records regulations: The Federal rules restrict any use of the information to criminally investigate or prosecute any alcohol or drug abuse patient.[facility] FoundationIn the event this information is protected by the Federal Confidentiality of Alcohol and Drug Abuse Patient Records regulations: The Federal rules restrict any use of the information to criminally investigate or prosecute any alcohol or drug abuse patient.[facility] FoundationIn the event this information is protected by the Federal Confidentiality of Alcohol and Drug Abuse Patient Records regulations: The Federal rules restrict any use of the information to criminally investigate or prosecute any alcohol or drug abuse patient.[facility] FoundationIn the event this information is protected by the Federal Confidentiality of Alcohol and Drug Abuse Patient Records regulations: The Federal rules restrict any use of the information to criminally investigate or prosecute any alcohol or drug abuse patient.[facility] FoundationIn the event this information is protected by the Federal Confidentiality of Alcohol and Drug Abuse Patient Records regulations: The Federal rules restrict any use of the information to criminally investigate or prosecute any alcohol or drug abuse patient.[facility] FoundationIn the event this information is protected by the Federal Confidentiality of Alcohol and Drug Abuse Patient Records regulations: The Federal rules restrict any use of the information to criminally investigate or prosecute any alcohol or drug abuse patient.[facility] FoundationIn the event this information is protected by the Federal Confidentiality of Alcohol and Drug Abuse Patient Records regulations: The Federal rules restrict any use of the information to criminally investigate or prosecute any alcohol or drug abuse patient.[facility] FoundationIn the event this information is protected by the Federal Confidentiality of Alcohol and Drug Abuse Patient Records regulations: The Federal rules restrict any use of the information to criminally investigate or prosecute any alcohol or drug abuse patient.[facility] FoundationIn the event this information is protected by the Federal Confidentiality of Alcohol and Drug Abuse Patient Records regulations: The Federal rules restrict any use of the information to criminally investigate or prosecute any alcohol or drug abuse patient.[facility] FoundationIn the event this information is protected by the Federal Confidentiality of Alcohol and Drug Abuse Patient Records regulations: The Federal rules restrict any use of the information to criminally investigate or prosecute any alcohol or drug abuse patient.[facility] FoundationIn the event this information is protected by the Federal Confidentiality of Alcohol and Drug Abuse Patient Records regulations: The Federal rules restrict any use of the information to criminally investigate or prosecute any alcohol or drug abuse patient.[facility] FoundationIn the event this information is protected by the Federal Confidentiality of Alcohol and Drug Abuse Patient Records regulations: The Federal rules restrict any use of the information to criminally investigate or prosecute any alcohol or drug abuse patient.[facility] FoundationIn the event this information is protected by the Federal Confidentiality of Alcohol and Drug Abuse Patient Records regulations: The Federal rules restrict any use of the information to criminally investigate or prosecute any alcohol or drug abuse patient.[facility] FoundationIn the event this information is protected by the Federal Confidentiality of Alcohol and Drug Abuse Patient Records regulations: The Federal rules restrict any use of the information to criminally investigate or prosecute any alcohol or drug abuse patient.[facility] FoundationIn the event this information is protected by the Federal Confidentiality of Alcohol and Drug Abuse Patient Records regulations: The Federal rules restrict any use of the information to criminally investigate or prosecute any alcohol or drug abuse patient.[facility] FoundationIn the event this information is protected by the Federal Confidentiality of Alcohol and Drug Abuse Patient Records regulations: The Federal rules restrict any use of the information to criminally investigate or prosecute any alcohol or drug abuse patient.[facility] FoundationIn the event this information is protected by the Federal Confidentiality of Alcohol and Drug Abuse Patient Records regulations: The Federal rules restrict any use of the information to criminally investigate or prosecute any alcohol or drug abuse patient.[facility] FoundationIn the event this information is protected by the Federal Confidentiality of Alcohol and Drug Abuse Patient Records regulations: The Federal rules restrict any use of the information to criminally investigate or prosecute any alcohol or drug abuse patient.[facility] FoundationIn the event this information is protected by the Federal Confidentiality of Alcohol and Drug Abuse Patient Records regulations: The Federal rules restrict any use of the information to criminally investigate or prosecute any alcohol or drug abuse patient.[facility] FoundationIn the event this information is protected by the Federal Confidentiality of Alcohol and Drug Abuse Patient Records regulations: The Federal rules restrict any use of the information to criminally investigate or prosecute any alcohol or drug abuse patient.[facility] Reason for Visit (unrecogniz ed section and content) Reason Comments Results Reason Onset Date Comments Refill Request 07/14/2021 Reason Comments Insurance Authorization Reason Onset Date Comments Refill Request 07/28/2021 Reason Onset Date Comments Refill Request 08/04/2021 Reason Comments Tick bite question Reason Comments pinchec nervr left arm/shoulder and neck x several months-worse last few days Reason Comments 08/18/[address] Neri Reason Comments disk and report Reason Onset Date Comments Refill Request 08/27/2021 Reason Onset Date Comments Refill Request 10/08/2021 Reason Onset Date Comments Refill Request 10/07/2021 Reason Comments Follow Up Reason Comments Covid19 Concern Reason Comments Patient Request Reason Comments Opened In Error Reason Comments Patient Update Covid Reason Comments Yearly Exam Reason Onset Date Comments Refill Request 01/04/2022 Reason Comments PA needed Reason Comments Patient Question Results Reason Comments Consult Lump under skin Reason Comments prior authorization Librax medication. Reason Comments 2 month follow up Reason Onset Date Comments Refill Request 04/07/2022 Reason Comments Zio XT monitor Prior Approval neede d through insurance Reason Onset Date Comments Refill Request 06/02/2022 Reason Comments Medication Problem Reason Comments 2 month F/U Reason Comments UTI Reason Onset Date Comments Refill Request 08/06/2022 Reason Onset Date Comments Refill Request 09/14/2022 Reason Comments tick bite Reason Comments Insurance Authorization Proventil Reason Onset Date Comments Refill Request 09/18/2022 Reason Comments Orders Reason Onset Date Comments Refill Request 11/25/2022 Reason Comments Forms Reason Comments Patient Question Reason Comments waist circumference Reason Onset Date Comments Refill Request 01/27/2023 Reason Comments Cough Chest/head congestio n, sinus issues x 2 weeks Reason Onset Date Comments Refill Request 02/18/2023 Reason Comments Rash lower mid back and p ain that radiated down into left leg symptoms started evening. Reason Comments medication information Reason Comments Cough Nasal congestion, si nus pain and pressure, chest congestion, wheezing x 1 week Reason Onset Date Comments Refill Request 05/06/2023 Care Teams (unrecognized sec tion and content) Group Contract Analyst Relationship Specialty Start Date End Date Brian Owens MD [address] [place], [place] [id number] PCP - General Internal Medicine 06/17/16 Group Contract Analyst Relationship Specialty Start Date End Date Brian Owens MD [address] [place], [place] [address] PCP - General Internal Medicine 06/17/16 Group Contract Analyst Relationship Specialty Start Date End Date Brian Owens MD [facility] [place] [address] PCP - General Internal Medicine 06/17/16 Group Contract Analyst Relationship Specialty Start Date End Date Brian Owens MD [address] [place] [address], [place] [address] PCP - General Internal Medicine 06/17/16 Group Contract Analyst Relationship Specialty Start Date End Date Brian Owens MD [address] [place] [address], [place] [address] PCP - General Internal Medicine 06/17/16 Group Contract Analyst Relationship Specialty Start Date End Date Brian Owens MD [address] [place] [address], [place] [address] PCP - General Internal Medicine 06/17/16 Group Contract Analyst Relationship Specialty Start Date End Date Brian Owens MD [address] [place] [address], [place] [address] PCP - General Internal Medicine 06/17/16 Group Contract Analyst Relationship Specialty Start Date End Date Brian Owens MD [address] [place] [address], [place] [address] PCP - General Internal Medicine 06/17/16 Group Contract Analyst Relationship Specialty Start Date End Date Brian Owens MD [address] [place] [address], [place] [address] PCP - General Internal Medicine 06/17/16 Group Contract Analyst Relationship Specialty Start Date End Date Brian Owens MD [address] [place] [address], [place] [address] PCP - General Internal Medicine 06/17/16 Group Contract Analyst Relationship Specialty Start Date End Date Brian Owens MD [address] [place] [address], [place] [address] PCP - General Internal Medicine 06/17/16 Group Contract Analyst Relationship Specialty Start Date End Date Brian Owens MD [facility] [place] [address] PCP - General Internal Medicine 06/17/16 Group Contract Analyst Relationship Specialty Start Date End Date Brian Owens MD [address] [place] [address], [place] [address] PCP - General Internal Medicine 06/17/16 Group Contract Analyst Relationship Specialty Start Date End Date Brian Owens MD [address] [place] [address], [place] [address] PCP - General Internal Medicine 06/17/16 Group Contract Analyst Relationship Specialty Start Date End Date Brian Owens MD [address] [place] [address], [place] [address] PCP - General Internal Medicine 06/17/16 Group Contract Analyst Relationship Specialty Start Date End Date Brian Owens MD [address] [place] [address], [place] [address] PCP - General Internal Medicine 06/17/16 Group Contract Analyst Relationship Specialty Start Date End Date Brian Owens MD [address] [place] [address], [place] PCP - General Internal Medicine 06/17/16 Group Contract Analyst Relationship Specialty Start Date End Date Brian Owens MD [address] [place] [address], [place] [address] PCP - General Internal Medicine 06/17/16 Group Contract Analyst Relationship Specialty Start Date End Date Brian Owens MD [address] [place] [address], [place] [address] PCP - General Internal Medicine 06/17/16 Group Contract Analyst Relationship Specialty Start Date End Date Brian Owens MD [address] [place] [address] PCP - General Internal Medicine 06/17/16 Group Contract Analyst Relationship Specialty Start Date End Date Brian Owens MD [address] [place] [address] PCP - General Internal Medicine 06/17/16 Group Contract Analyst Relationship Specialty Start Date End Date Brian Owens MD [address] [place] [address] PCP - General Internal Medicine 06/17/16 Group Contract Analyst Relationship Specialty Start Date End Date Brian Owens MD [address] [place] [address] PCP - General Internal Medicine 06/17/16 Group Contract Analyst Relationship Specialty Start Date End Date Brian Owens MD [address] [place] [address] PCP - General Internal Medicine 06/17/16 Group Contract Analyst Relationship Specialty Start Date End Date Brian Owens MD [address] [place] [address] PCP - General Internal Medicine 06/17/16 Group Contract Analyst Relationship Specialty Start Date End Date Brian Owens MD [address] [place] [address] PCP - General Internal Medicine 06/17/16 Group Contract Analyst Relationship Specialty Start Date End Date Brian Owens MD [address] [place] [address] PCP - General Internal Medicine 06/17/16 Group Contract Analyst Relationship Specialty Start Date End Date Brian Owens MD [address] [place] [address] PCP - General Internal Medicine 06/17/16 Group Contract Analyst Relationship Specialty Start Date End Date Brian Owens MD [address] [place] [address] PCP - General Internal Medicine 06/17/16 Group Contract Analyst Relationship Specialty Start Date End Date Brian Owens MD [address] [place] [address] PCP - General Internal Medicine 06/17/16 Group Contract Analyst Relationship Specialty Start Date End Date Brian Owens MD [address] [place] [address] PCP - General Internal Medicine 06/17/16 Group Contract Analyst Relationship Specialty Start Date End Date Brian Owens MD [address] [place] [address] PCP - General Internal Medicine 06/17/16 Group Contract Analyst Relationship Specialty Start Date End Date Brian Owens MD [address] [place] [address] PCP - General Internal Medicine 06/17/16 Group Contract Analyst Relationship Specialty Start Date End Date Brian Owens MD [address] [place] [address] PCP - General Internal Medicine 06/17/16 FOR RECORDS PERTAINING TO PATIENTS WHO ARE OR HAVE BEEN ENROLLED IN A CHEMICAL DEPENDENCY/SUBSTANCEABUSE PROGRAM, SOME INFORMATION MAY BE OMITTED. This clinical summary was aggregated from multiple sources. Caution should be exercised in using it in the provision of clinical care. This summary normalizes information from multiple sources, and as a consequence, information in this document may materially change the coding, format and clinical context of patient data. In addition, data may be omitted in some cases. CLINICAL DECISIONS SHOULD BE BASED ON THE PRIMARY CLINICAL RECORDS. [facility]. provides no warranty or guarantee of the accuracy or completeness of information in this document.
== END | disposition home or self-care (01) ==
LOC: LAB 16:16
PROVIDERS: PCP Internal Medicine; Referring Provider Nurse Practitioner Gerontology; Visit Provider Nurse Practitioner Gerontology
DX: R06.02 Shortness of breath (principal); R53.83 Other fatigue; R00.2 Palpitations
CPT/HCPCS: 36415; 80048; 83735; 83880; 84439; 84443; 84481; 85025

== ENCOUNTER → 2023-07-05 | Outpatient (CLI) | payer BC, SELFPAY ==
--- NOTE | 2023-07-05 06:32 | ECHOD_ITS ---
Reason For Study: CP, SOB Procedure This was a 2D Doppler, Color Flow transthoracic echocardiogram. Exam performed in department. Left Ventricle Normal size and thickness. The left ventricular ejection fraction is 65 %. No evidence for diastolic dysfunction. Right Ventricle Normal right ventricle. Atria The left and right atria are normal. Mitral Valve Mild (1+) mitral valve insufficiency. Tricuspid Valve Mild tricuspid valve insufficiency. Normal pulmonary artery pressure. Aortic Valve Trisinus/trileaflet aortic valve. Pulmonic Valve The pulmonic valve is not well visualized. Great Vessels Normal sized aortic root. Pericardium/Pleural No pericardial effusion. MMode/2D Measurements & Calculations LVIDd: 4.1 cm IVSd: 0.93 cm Ao root diam: 2.7 cm LVIDs: 2.7 cm LVPWd: 0.86 cm LA dimension: 3.1 cm RVDd: 3.0 cm FS: 34.5 % LAV(MOD-bp): 35.1 ml LVAd ap4: 21.3 cm2 SV(MOD-sp4): 37.0 ml LAV(MOD-bp) Indexed: 23.1 ml/m2 LVLd ap4: 6.6 cm LAV(MOD-sp2): 41.6 ml EDV(MOD-sp4): 55.5 ml LAV(MOD-sp4): 26.9 ml EDV(sp4-el): 58.2 ml LVAs ap4: 11.1 cm2 LVLs ap4: 5.6 cm ESV(MOD-sp4): 18.5 ml ESV(sp4-el): 18.5 ml EF(MOD-sp4): 66.6 % EF(sp4-el): 68.2 % SV(sp4-el): 39.7 ml LA A4 area: 12.0 cm2 RA A4 area: 12.4 cm2 TAPSE: 1.7 cm Time Measurements MV dec time: 0.14 sec Doppler Measurements & Calculations MV E max elia: 73.0 cm/sec Lat Peak E' Elia: 8.8 cm/sec Med Peak E' Elia: 8.0 cm/sec MV A max elia: 102.0 cm/sec E/E' lat: 8.3 E/E' med: 9.1 MV E/A: 0.72 MV V2 max: 110.2 cm/sec MV P1/2t max elia: 93.9 cm/sec Ao V2 max: 148.5 cm/sec MV max P.9 mmHg MV P1/2t: 51.4 msec Ao max P.8 mmHg MV V2 mean: 54.0 cm/sec MV dec slope: 535.2 cm/sec2 Ao V2 mean: 99.1 cm/sec MV mean P.4 mmHg Ao mean P.5 mmHg MV V2 VTI: 26.0 cm MVA(P1/2t): 4.3 cm2 Ao V2 VTI: 28.7 cm AV (velocity ratio): 0.78 LV V1 max: 102.2 cm/sec MR max elia: 545.8 cm/sec PA V2 max: 75.3 cm/sec LV V1 max P.2 mmHg MR max P.2 mmHg LV V1 mean P.4 mmHg LV V1 mean: 73.1 cm/sec LV V1 VTI: 22.3 cm TR max elia: 234.8 cm/sec TR max P.0 mmHg ECHO/Echo Complete Interpretation Summary The left ventricular ejection fraction is 65 %. Mild (1+) mitral valve insufficiency. Mild tricuspid valve insufficiency. Ordering Physician: Jacy Thompson Referring Physician: Jacy Thompson Performed By: Javier Garcia RCS
--- NOTE | 2023-07-05 09:45 | STRESSREP_ITS ---
Stress Test Report Date: 07/05/2023 Procedure: Exercise tolerance test/imaging study Indications: Chest pain Consent: Per the patient Procedure: The patient exercised on a Jean-Paul protocol for 7 minutes achieving a peak heart rate of 160 bpm (99% predicted maximal heart rate) with a peak blood pressure 188/82 mmHg and a peak MET capacity of 10.1 METs. The baseline ECG demonstrated sinus rhythm. The peak exercise ECG demonstrated sinus tachycardia with no ischemic changes. Rare PVC noted during recovery. The functional capacity was considered average. There was mild sharp discomfort during recovery. The examination was discontinued secondary to target heart rate being achieved. The patient was injected with 11.6 mCi of technetium 99m Cardiolite and subsequently rest SPECT Cardiolite nuclear imaging was obtained in the horizontal long, vertical long, and short axis views. Post-exercise, the patient was injected with 32.9 mCi of technetium 99m Cardiolite and subsequently stress SPECT Cardiolite nuclear imaging was obtained in the horizontal long, vertical long, and short axis views. A gated Cardiolite study at peak stress was obtained. Rest and stress SPECT Cardiolite nuclear imaging status post realignment, normalization, and attenuation correction, demonstrates the appearance of relative uniform tracer uptake and myocardial perfusion appearing within normal limits. There is end systolic thickening and brightening. The gated Cardiolite study demonstrates myocardial thickening and inward wall motion. The reported LVEF is 74%. Impression: 1. Technically adequate (percent predicted maximal heart rate greater than 85%) exercise tolerance test 2. Peak exercise ECG with no ischemic changes 3. Rare PVC noted in recovery 4. Rest and stress SPECT Cardiolite nuclear imaging demonstrate relative uniform tracer uptake and myocardial perfusion appearing within normal limits. 5. The gated Cardiolite study reports an LVEF of 74%. This note was generated with [employer] software. It may contain incorrect words, spelling, and punctuation that were not noted in checking the note before signing.
== END | disposition home or self-care (01) ==
LOC: CVS 06:31
PROVIDERS: PCP Internal Medicine; Referring Provider Nurse Practitioner Gerontology; Visit Provider Nurse Practitioner Gerontology
DX: R06.02 Shortness of breath (principal); R07.9 Chest pain, unspecified; R53.83 Other fatigue
CPT/HCPCS: 78452; 93017; 93306; A9500; A4216

== ENCOUNTER → 2023-07-27 | Outpatient (CLI) | payer BC, SELFPAY ==
[2023-07-27 09:55] LABS: Absolute Lymphocyte Count 1.33 X10^3/uL (0.83-4.51); Absolute Neutrophil Count 6.7 X10^3/uL (2.0-7.7); Basophil# 0.07 X10^3/uL; Basophil% 0.8 % (0-1); Eosinophil# 0.17 X10^3/uL; Eosinophils% 1.9 % (0-5); Hemoglobin 14.4 g/dL (12.0-15.0); Lymphocyte # 1.33 X10^3/ul (0.83-4.51); Mean Corp Hgb Conc 34.3 g/dL (32-36); Mean Corpuscular Hgb 30.7 pg (27.0-32.0); Mean Corpuscular Volume 89.6 fL (81-99); Mean Platelet Vol. 9.7 fl (6.2-12.0); Monocyte# 0.48 X10^3/uL; Monocyte% 5.4 % (0-10); NRBC Flagged by Analyzer 0 % (0-5); Neutrophil # 6.74 X10^3/uL (2.7-7.7); Platelet Count 278 K/mm3 (150-450); RBC Distribution Width CV 12.1 % (11.6-14.6); RBC Distribution Width SD 38.9 fl (35.1-43.9); Red Blood Count 4.69 M/mm3 (4.2-5.4); White Blood Count 8.9 K/mm3 (4.4-11.0)
== END | disposition home or self-care (01) ==
LOC: MTLAB 08:46
PROVIDERS: PCP Internal Medicine; Referring Provider Internal Medicine Pulmonary Disease; Visit Provider Internal Medicine Pulmonary Disease
DX: R06.02 Shortness of breath (principal); R05.9 Cough, unspecified
CPT/HCPCS: 36415; 85025

== ENCOUNTER → 2023-11-08 | Outpatient (CLI) | payer BC, SELFPAY ==
--- NOTE | 2023-11-08 10:45 | BI_ITS ---
MAMMOGRAPHY - BILATERAL SCREENING REASON FOR EXAM: Female, 58 years old. Routine annual screening examination. PERTINENT HISTORY: Mother with breast cancer. History of prior excisional and aspiration of the left breast. TECHNIQUE: Digital bilateral breast nick (3D mammographic acquisition) in the CC and MLO projections. 2-D mediolateral oblique (MLO) and craniocaudad (CC) views of both breasts were obtained. CAD: Full Field Digital Mammography with Computer Added Detection was performed. COMPARISON: Comparison is made with prior study dated November 04, 2022 and October 17, 2021. FINDINGS: Breast Composition: The breasts are heterogeneously dense, which may obscure small masses. There are no dominant masses or suspicious calcifications. No other significant abnormalities are identified. There has been no significant change since the prior study. BI/SCRN MAMM (CAD)W/NICK BILAT IMPRESSION: Stable bilateral screening mammogram. Yearly follow-up mammogram recommended. (A) ASSESSMENT CATEGORY: BIRADS Category 1: Negative. A letter regarding these results will be sent to the patient by the facility within 30 days. Approximately 10% of breast cancers are not detected by mammography. A normal mammogram should not delay biopsy of a clinically suspicious abnormality. [id number] Electronically Signed: Sam Gomez MD at 13:51 EDT ,
== END | disposition home or self-care (01) ==
LOC: OPBI 10:45
PROVIDERS: PCP Internal Medicine; Referring Provider Obstetrics & Gynecology; Visit Provider Obstetrics & Gynecology
DX: Z12.31 Encounter for screening mammogram for malignant neoplasm of breast (principal); Z80.3 Family history of malignant neoplasm of breast
CPT/HCPCS: 77063; 77067

== ENCOUNTER 2024-07-14 05:58 | Day surgery (SDC) | payer BC, SELFPAY ==
--- NOTE | 2024-06-30 17:19 | PAT.ANE_ITS ---
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 When Was Last Pacemaker Check QUESTION #4 FULL TEXT: You/Your Family Experience fever (hyperthermia) with Anesthesia Last Oral Intake Last Oral intake: Last Oral Intake NPO since Meds taken in AM with sips of water? Meds patient instructed to take am of surgery PONV PONV - splicing machine operator: PONV - splicing machine operator Female Yes 06/30/24 09:16 HX of Motion Sickness No 06/30/24 09:16 HX of N/V After Surgery Yes 06/30/24 09:16 Non-Smoker Yes 06/30/24 09:16 Duration of Surgery greater Yes 06/30/24 09:16 than 60 minutes Number of Risk Factors 4 06/30/24 09:16 PONV Score Severe Risk 06/30/24 09:16 Height & Weight Height & Weight: Anesthesia: Height & Weight Height 5 ft 1 in 12/28/23 07:58 Respiratory Assessment Respiratory Assessment - splicing machine operator: Respiratory Tract Infection Hx - splicing machine operator Hx Respiratory Tract Infection No 06/30/24 09:16 STOP Sleep Apnea STOP Sleep Apnea - splicing machine operator: STOP Sleep Apnea - splicing machine operator Hx Hypertension Yes: CONTROLLED ON MED 06/30/24 09:16 Hx Sleep Apnea No 06/30/24 09:16 CPAP BIPAP Do you snore loudly (louder No 06/30/24 09:16 than talking or can be heard Do you often feel tired/ No 06/30/24 09:16 fatigued/ sleepy during daytime? Has anyone observed you stop No 06/30/24 09:16 breathing during sleep? STOP Results Negative 06/30/24 09:16 QUESTION #5 FULL TEXT : Do you snore loudly (louder than talking or can be heard through closed doors)? 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 machine operator: Tobacco Use History - splicing machine operator Tobacco Use Smoking Status Never smoker 06/30/24 09:16 Hx Tobacco Use No 06/30/24 09:16 Years Smoking Packs Smoked per Day Smoking Cessation Date was within the last 15 years Hx Smoking Cessation Date Hx Smoking Cessation Counseling Hematologic Medial History Hematologic Hx - splicing machine operator: Hematologic Medical Hx - handkerchief folder Hx of Blood Transfusion No 06/30/24 09:16 Hx of Transfusion in last 3 No 06/30/24 09:16 Months Date of Last Transfusion (if within last 3 months) Ever experience any problems No 06/30/24 09:16 with transfusion(s)? Specify any problems Hx of Preganancy in last 3 No 06/30/24 09:16 Months Nurse Filling Out Transfusion VCHRISTIN 06/30/24 09:16 & Questions: Date: 06/30/24 06/30/24 09:16 Time: 09:17 06/30/24 09:16 Patient unable to answer at this time (ie. confused, unrespo /Reproduction History /Reproductive History - splicing machine operator: /Reproductive Hx- splicing machine operator Hx Now No 06/30/24 09:16 Gestational Age (in weeks): EDC: Hx Hx Para Hx Section SAB No 06/30/24 09:16 [facility] Medical History (Updated 06/30/24 @ 09:16 by Brenda Kwon) Wears glasses History of Clostridium difficile infection Post-menopausal Depression History of steroid therapy Migraine headache History of IBS Gastric reflux Hypertension Normal Holter exam History of stress test History of echocardiogram Cardiology follow-up encounter Plantar fasciitis Ectopic cardiac beats Lactose intolerance PTSD (post-traumatic stress disorder) Asthma with COPD Vestibular neuronitis Lesion of plantar nerve Urethrocele Lumbago Osteopenia Diarrhea Interstitial cystitis Anxiety Abnormal mammogram IBS (irritable bowel syndrome) GERD (gastroesophageal reflux disease) Capsulitis Intermittent left lower quadrant abdominal pain Xerosis cutis Hypolipidemia Chronic sinusitis Steroid long-term use Home Medications ?Medication ?Instructions ?Recorded ?Last Taken ?Type albuterol sulfate 90 mcg/actuation 2 puff inhalation Q 2H PRN 04/19/17 Unknown History aerosol inhaler (Proventil HFA) shortness of breath or wheezing alprazolam 0.5 mg tablet 0.5 mg PO BID PRN anxiety Unknown History temazepam 7.5 mg capsule (Restoril) 7.5 mg PO QHS 03/30 05/16 Unknown History triamcinolone acetonide 55 mcg 2 spray intranasal QDAY allergy 04/19/17 Unknown History nasal spray aerosol (Nasacort) albuterol sulfate 2.5 mg/3 mL 2.5 mg (3 mL) inhalation Q4H PRN 05/03/17 Unknown Rx (0.083 %) solution for nebulization shortness of breat h or wheezing #180 vials chlordiazepoxide-clidinium 5 1 cap PO QACHS 11/18/17 U nknown History mg-2.5 mg capsule (Librax (with clidinium)) omeprazole 40 mg capsule,delayed 40 mg PO DAILY Unknown History release meclizine 25 mg tablet 12.5 mg PO Q6H PRN PRN dizzi ness 10/07/20 Unknown History promethazine 12.5 mg rectal 12.5 mg IL Q6H PRN nausea and 10/07/20 Unknown History suppository vomiting acetylcysteine 100 mg/mL (10 %) 2 ml inhalation BID IL N SOB 06/11/21 Unknown H istory solution amitriptyline 25 mg tablet 75 mg PO QHS depression 02/17 Unknown History prednisone 10 mg tablet 10 mg PO DAILY PRN ASTHMA Unknown History albuterol sulfate 90 mcg/actuation 1 inh inhalation ON CE PRN 01/07/23 Unknown History aerosol inhaler (Ventolin HFA) shortness of breath or wheezing metoprolol succinate 25 mg 25 mg PO .QOD 01/07/23 Unkn own History tablet,extended release 24 hr desoximetasone 0.05 % topical cream 1 applic topical Q HS PRN skin 06/20/24 Unknown History irritation amlodipine 2.5 mg tablet 2.5 mg PO .QOD 06/30/24 Unkn own History Allergy/AdvReac Type Severity Reaction Status Date / Time alendronate sodium (From Allergy Mild Unknown Verified 06/30/24 08:59 Fosamax) beclomethasone (From Qvar) Allergy Mild Unknown Verified 06/30/24 08:59 doxycycline Allergy Mild unknown Verified 06/30/24 08:59 epinephrine Allergy Mild unknown Verified 06/30/24 08:59 erythromycin base Allergy Mild Unknown Verified 06/30/24 08:59 formoterol (From Dulera) Allergy Mild Unknown Verified 06/30/24 08:59 levofloxacin (From Levaquin) Allergy Mild Unknown Verified 06/30/24 08:59 mometasone furoate (From Allergy Mild Unknown Verified 06/30/24 08:59 Dulera) omalizumab (From Xolair) Allergy Mild Unknown Verified 06/30/24 08:59 psyllium (From Metamucil) Allergy Mild Unknown Verified 06/30/24 08:59 sulfasalazine (From Allergy Mild Unknown Verified 06/30/24 08:59 Sulfazine) amoxicillin trihydrate (From Allergy Swelling Verified 06/30/24 08:59 Augmentin) potassium clavulanate (From Allergy Swelling Verified 06/30/24 08:59 Augmentin) Sulfa (Sulfonamide Allergy Hives Verified 06/30/24 08:59 Antibiotics) Gadolinium-MRI Contrast AdvReac Vomiting Verified 06/30/24 08:59 Medium Family History Father Hypertension Diabetes Seizures Alzheimer disease CAD (coronary artery disease) Myocardial infarction, Onset Age: 35 Mother Hypertension Atrial fibrillation CHF (congestive heart failure) Breast cancer Grandfather CAD (coronary artery disease) Myocardial infarction Colon cancer Grandmother CAD (coronary artery disease) Myocardial infarction Grandfather CAD (coronary artery disease) Myocardial infarction Surgical History (Updated 06/30/24 @ 09:16 by Brenda Kwon) Dysplasia, cervix uteri History of breast biopsy H/O section History of bunionectomy History of colonoscopy History of cystoscopy History of esophagogastroduodenoscopy History of cholecystectomy History of tubal ligation History of hernia repair History of sinus surgery History of wisdom tooth extraction History of sigmoidoscopy History of vaginal hysterectomy Social History Smoking Status: Never smoker second hand exposure: No alcohol intake: never substance use type: does not use caffeine: Yes what type of physical activity do you participate in: walking frequency: daily seatbelt use: always do you feel safe at home: Yes additional social history: RamiroKamilla Matthias 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 Sinus rhythm. Left atrial enlargement. Stress test pertinent findings: July 05, 2023. Ejection fraction 74%. No ischemic changes. No infarct noted Echo (EF%) pertinent findings: July 05, 2023. Ejection fraction 65%. No aortic stenosis noted. Consult pertinent findings: 1. Nonsustained paroxysmal supraventricular ocular [id number] symptoms are controlled at this time. Continue metoprolol. 2. Hypertension?chronic-elevated in office today. Patient is to monitor at home and report back. 3. Chest pain?chronic-most recent echo and stress are negative for ischemia. Previous coronary angiography CT negative for significant stenosis. Symptoms are not associated with exertion. Continue to monitor for now. 4. Patient is cardiac cleared for foot surgery 07/14/2024. Additional pertinent findings: Holter monitor April 16, 2022. Predominant rhythm was sinus rhythm. 5 supraventricular tachycardia runs occurred. Ventricular ectopics were rare. No atrial fibrillation was found. Recommendation Anesthesia Recommendation Anesthesia recommendation: OPTIMIZED for anesthesia
[2024-07-14] VITALS (11 sets, daily range): BP systolic 126–170; BP diastolic 75–95; PULSE 72–97; RESP 16; TEMP 36.1–37.2; O2SAT 95–100; BMI 21.9
--- NOTE | 2024-07-14 06:30 | RAD_ITS ---
EXAM: Intraoperative fluoroscopic services provided for fusion of the 1st metatarsophalangeal joint and right toe. CLINICAL HISTORY: Arthrodesis and bunionectomy of the 1st metatarsophalangeal joint. COMPARISON: None TECHNIQUE: Intraoperative fluoroscopic services provided. Fluoroscopy: 1 minute and 52 seconds. 0.53 mGy. 5 spot images were obtained. FINDINGS: Intraoperative imaging provided for arthrodesis of the 1st metatarsophalangeal joint and fixation of the 2nd toe. RAD/Foot 2 Views IMPRESSION: Intraoperative fluoroscopic services provided as described. Reading Location: [facility]
--- NOTE | 2024-07-14 06:47 | PCM.PRE.AN2 ---
ASA Classification* ASA Classification ASA Classification: 2 Assessment & Plan Anesthesia* Anesthesia Assessment Anesthesia Assessment: Discussed sedation and/or anesthesia options, risks, benefits, and alternatives with patient/parents/legal guardian/POA. Questions invited. The patient/parents/legal guardian/POA seems to understand and agrees to proceed with anesthesia plan. Reviewed the physical assessment, medical history, allergy history and patient home medications list prior to surgery/procedure/anesthetic and documented any changes. Performed airway and anesthesia risk assessments. Anesthesia Type Anesthesia Type: MAC Anesthesia Focused Assessment* Temperature: 98.7 F Pulse Rate: 89 Blood Pressure: 151/92 Respiratory Rate: 16 Pulse Ox: 100 Airway Assessment Mouth opens: >3 cm Mallampati Score: II Focused Labs Anesthesia Preop lab: CBC WBC 8.9 K/mm3 (4.4-11.0) 07/27/23 08:58 07/27/23 RBC 4.69 M/mm3 (4.2-5.4) 07/27/23 08:58 07/27/23 Hgb 14.4 g/dL (12.0-15.0) 07/27/23 08:58 07/27/23 Hct 42.0 % (37-47) 07/27/23 08:58 07/27/23 Plt Count 278 K/mm3 (150-450) 07/27/23 08:58 07/27/23 CHEMISTRY Potassium 3.9 mmol/L (3.5-5.1) 05/11/23 16:19 05/11/23 Sodium 146 mmol/L (136-145) H 05/11/23 16:19 05/11/23 Magnesium 2.7 mg/dL (1.6-2.6) H 05/11/23 16:19 05/11/23 BUN 14 mg/dL (7-18) 05/11/23 16:19 05/11/23 Creatinine 0.90 mg/dL (0.55-1.02) 05/11/23 16:19 05/11/23 Glucose 104 mg/dL (74-106) 05/11/23 16:19 05/11/23 TSH 0.60 uIU/mL (0.358-3.74) 05/11/23 16:19 05/11/23 COAG Pre-Assessment Diagnosis/Proposed Procedure Planned Operative Procedure(s): (L) Arthrodesis/Bunionectomy of the first metatarsal phalangeal joint and arthroplasty/arthrodesis of the second hammer toe Anesthesia History Anesthesia History - sourcing associate: Anesthesia History - sourcing associate Hx Hospitalization No 06/30/24 09:16 Any Problems With Anesthesia Yes: N&V 06/30/24 09:16 Cholinesterase deficiency No 06/30/24 09:16 You/Your Family Experience No 06/30/24 09:16 fever (hyperthermia) with Relationship Recent Exposure to Contagious No 07/14/24 06:25 Disease Does patient have nerve No 06/30/24 09:16 stimulator Patient instructed to have device shut off --Does patient have Pacemaker No 07/14/24 06:27 or ICD? When Was Last Pacemaker Check QUESTION #4 FULL TEXT: You/Your Family Experience fever (hyperthermia) with Anesthesia Last Oral Intake Last Oral intake: Last Oral Intake NPO since 00:00 07/14/24 06:27 Meds taken in AM with sips of Yes 07/14/24 06:27 water? Meds patient instructed to prilosec 07/14/24 06:27 take am of surgery prednisone PONV PONV - sourcing associate: PONV - sourcing associate Female Yes 06/30/24 09:16 HX of Motion Sickness No 06/30/24 09:16 HX of N/V After Surgery Yes 06/30/24 09:16 Non-Smoker Yes 06/30/24 09:16 Duration of Surgery greater Yes 06/30/24 09:16 than 60 minutes Number of Risk Factors 4 06/30/24 09:16 PONV Score Severe Risk 06/30/24 09:16 Height & Weight Height & Weight: Anesthesia: Height & Weight Height 5 ft 07/14/24 06:27 Weight: 51 kg 07/14/24 06:27 Body Mass Index (BMI) 21.9 07/14/24 06:27 Respiratory Assessment Respiratory Assessment - sourcing associate: Respiratory Tract Infection Hx - sourcing associate Hx Respiratory Tract Infection No 06/30/24 09:16 STOP Sleep Apnea STOP Sleep Apnea - sourcing associate: STOP Sleep Apnea - sourcing associate Hx Hypertension Yes: CONTROLLED ON MED 06/30/24 09:16 Hx Sleep Apnea No 06/30/24 09:16 CPAP BIPAP Do you snore loudly (louder No 06/30/24 09:16 than talking or can be heard Do you often feel tired/ No 06/30/24 09:16 fatigued/ sleepy during daytime? Has anyone observed you stop No 06/30/24 09:16 breathing during sleep? STOP Results Negative 06/30/24 09:16 QUESTION #5 FULL TEXT : Do you snore loudly (louder than talking or can be heard through closed doors)? 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 Specify any problems Hx of Preganancy in last 3 No 06/30/24 09:16 Months Nurse Filling Out Transfusion VCHRISTIN 06/30/24 09:16 & Questions: Date: 06/30/24 06/30/24 09:16 Time: 09:17 06/30/24 09:16 Patient unable to answer at this time (ie. confused, unrespo /Reproduction History /Reproductive History - sourcing associate: /Reproductive Hx- sourcing associate Hx Now No 06/30/24 09:16 Gestational Age (in weeks): EDC: Hx Hx Para Hx Section SAB No 06/30/24 09:16 Active Medications Active Medications: Current Medications Generic Name Dose Route Start Last Admin Trade Name Freq PRN Reason Stop Dose Admin Clindamycin Phosphate 900 mg in 50 mls @ 75 mls/hr 07/14/24 07:30 Cleocin IV 07/14/24 08:09 INTRAOP ONE PFSH Medical History Wears glasses History of Clostridium difficile infection Post-menopausal Depression History of steroid therapy Migraine headache History of IBS Gastric reflux Hypertension Normal Holter exam History of stress test History of echocardiogram Cardiology follow-up encounter Plantar fasciitis Ectopic cardiac beats Lactose intolerance PTSD (post-traumatic stress disorder) Asthma with COPD Vestibular neuronitis Lesion of plantar nerve Urethrocele Lumbago Osteopenia Diarrhea Interstitial cystitis Anxiety Abnormal mammogram IBS (irritable bowel syndrome) GERD (gastroesophageal reflux disease) Capsulitis Intermittent left lower quadrant abdominal pain Xerosis cutis Hypolipidemia Chronic sinusitis Steroid long-term use Home Medications ?Medication ?Instructions ?Recorded ?Last Taken ?Type albuterol sulfate 90 mcg/actuation 2 puff inhalation Q2H PRN 04/19/17 07/14/24 History aerosol inhaler (Proventil HFA) shortness of breath or wheezing alprazolam 0.5 mg tablet 0.5 mg PO BID PRN anxiety 04/19/17 07/13/24 History temazepam 7.5 mg capsule (Restoril) 7.5 mg PO QHS 04/19/17 07/13/24 History triamcinolone acetonide 55 mcg 2 spray intranasal QDAY allergy 04/19/17 07/13/24 History nasal spray aerosol (Nasacort) albuterol sulfate 2.5 mg/3 mL 2.5 mg (3 mL) inhalation Q4H PRN 05/03/17 07/13/24 Rx (0.083 %) solution for nebulization shortness of breath or wheezing #180 vials chlordiazepoxide-clidinium 5 1 cap PO QACHS 11/18/17 07/13/24 History mg-2.5 mg capsule (Librax (with clidinium)) omeprazole 40 mg capsule,delayed 40 mg PO DAILY 11/22/18 07/14/24 History release meclizine 25 mg tablet 12.5 mg PO Q6H PRN PRN dizziness 10/07/20 Unknown History promethazine 12.5 mg rectal 12.5 mg PA Q6H PRN nausea and 10/07/20 Unknown History suppository vomiting acetylcysteine 100 mg/mL (10 %) 2 ml inhalation BID PRN SOB 06/11/21 07/13/24 History solution amitriptyline 25 mg tablet 75 mg PO QHS depression 10/06/21 07/13/24 History prednisone 10 mg tablet 10 mg PO DAILY PRN ASTHMA 10/29/22 07/14/24 History albuterol sulfate 90 mcg/actuation 1 inh inhalation ONCE PRN 01/07/23 07/14/24 History aerosol inhaler (Ventolin HFA) shortness of breath or wheezing metoprolol succinate 25 mg 25 mg PO .QOD 01/07/23 07/12/24 History tablet,extended release 24 hr desoximetasone 0.05 % topical cream 1 applic topical QHS PRN skin 06/20/24 07/12/24 History irritation amlodipine 2.5 mg tablet 2.5 mg PO .QOD 06/30/24 07/12/24 History budesonide-formoterol HFA 160 2 puff inhalation BID #10.2 grams 07/04/24 Unknown Rx mcg-4.5 mcg/actuation aerosol inhaler (Symbicort) Allergy/AdvReac Type Severity Reaction Status Date / Time alendronate sodium (From Allergy Mild Unknown Verified 07/04/24 11:11 Fosamax) beclomethasone (From Qvar) Allergy Mild Unknown Verified 07/04/24 11:11 doxycycline Allergy Mild unknown Verified 07/04/24 11:11 epinephrine Allergy Mild unknown Verified 07/04/24 11:11 erythromycin base Allergy Mild Unknown Verified 07/04/24 11:11 formoterol (From Dulera) Allergy Mild Unknown Verified 07/04/24 11:11 levofloxacin (From Levaquin) Allergy Mild Unknown Verified 07/04/24 11:11 mometasone furoate (From Allergy Mild Unknown Verified 07/04/24 11:11 Dulera) omalizumab (From Xolair) Allergy Mild Unknown Verified 07/04/24 11:11 psyllium (From Metamucil) Allergy Mild Unknown Verified 07/04/24 11:11 sulfasalazine (From Allergy Mild Unknown Verified 07/04/24 11:11 Sulfazine) amoxicillin trihydrate (From Allergy Swelling Verified 07/04/24 11:11 Augmentin) potassium clavulanate (From Allergy Swelling Verified 07/04/24 11:11 Augmentin) Sulfa (Sulfonamide Allergy Hives Verified 07/04/24 11:11 Antibiotics) Gadolinium-MRI Contrast AdvReac Vomiting Verified 07/04/24 11:11 Medium Family History Father Hypertension Diabetes Seizures Alzheimer disease CAD (coronary artery disease) Myocardial infarction, Onset Age: 35 Mother Hypertension Atrial fibrillation CHF (congestive heart failure) Breast cancer Grandfather CAD (coronary artery disease) Myocardial infarction Colon cancer Grandmother CAD (coronary artery disease) Myocardial infarction Grandfather CAD (coronary artery disease) Myocardial infarction Surgical History Dysplasia, cervix uteri History of breast biopsy H/O section History of bunionectomy History of colonoscopy History of cystoscopy History of esophagogastroduodenoscopy History of cholecystectomy History of tubal ligation History of hernia repair History of sinus surgery History of wisdom tooth extraction History of sigmoidoscopy History of vaginal hysterectomy Social History Smoking Status: Never smoker second hand exposure: No alcohol intake: never substance use type: does not use caffeine: Yes what type of physical activity do you participate in: walking frequency: daily seatbelt use: always do you feel safe at home: Yes additional social history: RamiroKamilla Matthias 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
[2024-07-14] MEDS: Clindamycin 900 MG/50 ML BAG 75 MG IV (07:30)
--- NOTE | 2024-07-14 07:30 | LES_PTH ---
PATIENT: JOSE HOOD LOC: [facility] – [place], [place] U#:[id number] AGE/SX: 58/F ROOM: RE07/14/[address]: Dr. Emigdio Nesbitt DPM : 1965 BED: DIS: 07/14/2024 SPEC #: [id number] RECD: 07/14/24 13:47 STATUS: DONNA REBennie #: [id number] ELIO: 07/14/24 07:[address]: Emigdio Nesbitt DEPT: SURGICAL PATHOLOGY RECD BY: Chadwick Bill ENTERED: 07/14/24 13:49 SP TYPE: Lesion OTHR DR: Dr. Cecilia Potter MD Tissues: A - Bone of foot, NOS B - Bone of foot, NOS C - Skin of foot, NOS Procedures: Decalcification bone/plaque Surgery Specimen Level III Surgery Specimen Level IV HEADER OPERATION: Arthrodesis/bunionectomy of first metatarsal phalangeal PRE-OP DIAGNOSIS: Left foot first metatarsal phalangeal joint bunion and hammer toe second metatarsal TISSUE SUBMITTED: A- Left foot first metatarsal- phalangeal joint, B- Left foot 2nd hammer toe, C- Left foot 2nd toe skin lesion MICROSCOPIC DIAGNOSIS A. Left foot, metatarsal-phalangeal joint first toe joint, bunionectomy: * Fragments of cartilage and bone with reactive/degenerative changes. B. Left foot, second toe, hammertoe, excision: * Articular bone with reactive/degenerative changes. C. Skin, left foot, second toe, lesion, excision: * Skin with hyperkeratosis/parakeratosis consistent with clavus (corn). MICROSCOPIC DESCRIPTION Slides are reviewed. GROSS DESCRIPTION A. Received in formalin in a container labeled with the patient's name, date of , and first metatarsal-phalangeal joint of left foot are multiple white-pink fragments of possible bone and soft tissue measuring 1.5 x 1.0 x 0.2 cm in aggregate. Submitted entirely in A1 following decalcification. B. Received in formalin in a container labeled with the patient's name, date of , and left second hammertoe is a 0.9 x 0.6 x 0.3 cm fragment of white-gallegos, firm bone. 1 side is roughened, and the opposing is smooth and soft. Submitted entirely in B1 following decalcification. C. Received in formalin in a container labeled with the patient's name, date of , and left foot second toe skin lesion is an irregular fragment of white-zuñiga skin measuring 1.0 x 0.5 x 0.4 cm. The possible skin exhibits a 0.2 x 0.2 x 0.2 cm zuñiga nodule which is easily removed from the outer surface. The opposing possible margin is inked green, and sectioning reveals white-gallegos surfaces. Submitted entirely in C1. [facility] 07-14-2024 CPT:[id number]
[2024-07-14] MEDS: Bupivacaine Mpf 0.5% 30 ML VIAL (07:50)
--- NOTE | 2024-07-14 09:56 | PCM.POST.ANE ---
Anesthesia: Postop Eval I Current Vital Signs Temperature: 97.0 F Pulse Rate: 97 Blood Pressure: 139/87 Respiratory Rate: 16 Pulse Ox: 98 Oxygen Delivery Method: Room Air Assessment Airway patent: Yes Spontaneous unlabored respirations: Yes Mental status: Awake and Calm nausea: No Vomiting: No Anesthesia Complication: No Fluid Hydration Crystalloid volume administer (ml): 1,100 Total IV fluid infused: 1,100 Progress Note Anesthesia document: Postop Eval 1 completed: Yes
--- NOTE | 2024-07-14 10:31 | DCINST_ITS ---
Discharge Instructions Diet Discharge Diet: Light diet - advance as tolerated DC O2, CPAP, BIPAP needs Home O2 Discharge instructions: No Dressing / Incision Discharge Activity: Use Walker and - Weight Bearing Status: No weight bearing (No weightbearing left foot) Keep extremity elevated above heart level: Operative Extremity and Left Leg (Keep left foot elevated for at least 50 minutes of every hour) Dressing / Incision Call your doctor if your incision/area has: Sudden Increased Bleeding and Foul Smelling Discharge Call your doctor if you observe: Fever of 101 or Higher, Shortness of breath, Chest pain, Increased palpitations (irregular heartbeat), Calf discomfort and Uncontrolled pain Change Dressing in: do not change dressing Remove Dressing in: do not remove dressing Cleanse incision/area with: Keep Dressing Clean & Dry Follow Up Care Please Follow Up With: Emigdio Nesbitt DPM When: Next week in office, sooner if needed Call Dr. Nesbitt if needed at [phone] (cell) Test Results: Test results from this visit will be discussed in further detail at your follow- up appointment, if applicable. Discharge Plan Admission Attending Provider: Emigdio Nesbitt Primary Care Provider: Cecilia Potter Instructions Print Language: Croatian Discharge Orders/Prescriptions Prescriptions: New hydrocodone-acetaminophen 5-325 mg tablet 1 tab PO Q6H PRN (Reason: pain) 4 Days Qty: 24 0RF No Action temazepam [Restoril] 7.5 mg capsule 7.5 mg PO QHS albuterol sulfate [Proventil HFA] 90 mcg/actuation HFA aerosol inhaler 2 puff INHALATION Q2H PRN (Reason: shortness of breath or wheezing) alprazolam 0.5 mg tablet 0.5 mg PO BID PRN (Reason: anxiety) triamcinolone acetonide [Nasacort] 55 mcg aerosol,spray 2 spray INTRANASAL QDAY chlordiazepoxide-clidinium [Librax (with clidinium)] 5-2.5 mg capsule 1 cap PO QACHS omeprazole 40 mg capsule,delayed release(DR/EC) 40 mg PO DAILY amitriptyline 25 mg tablet 75 mg PO QHS prednisone 10 mg tablet 10 mg PO DAILY PRN (Reason: ASTHMA) meclizine 25 mg tablet 12.5 mg PO Q6H PRN PRN (Reason: dizziness) promethazine 12.5 mg suppository 12.5 mg UT Q6H PRN (Reason: nausea and vomiting) acetylcysteine 100 mg/mL (10 %) solution 2 ml inhalation BID PRN (Reason: SOB) albuterol sulfate [Ventolin HFA] 90 mcg/actuation HFA aerosol inhaler 1 inh inhalation ONCE PRN (Reason: shortness of breath or wheezing) budesonide-formoterol [Symbicort] 160-4.5 mcg/actuation HFA aerosol inhaler 2 puff inhalation BID Qty: 10.2 3RF desoximetasone 0.05 % cream 1 applic topical QHS PRN (Reason: skin irritation) amlodipine 2.5 mg tablet 2.5 mg PO .QOD albuterol sulfate 2.5 mg /3 mL (0.083 %) solution for nebulization 2.5 mg INHALATION Q4H PRN (Reason: shortness of breath or wheezing) Qty: 180 3RF metoprolol succinate 25 mg tablet extended release 24 hr 25 mg PO .QOD Referrals / Follow Up: Cecilia Potter MD [Primary Care Provider] - Disposition Disposition (needs filled in before D/C Order can be placed): Home, Self Care
--- NOTE | 2024-07-14 10:33 | OP.PCM_ITS ---
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, left foot Hammer toe left 2nd toe Post-Operative Diagnosis: Same Surgery/Procedure Performed: 1st metatarsal phalangeal joint arthrodesis bunionectomy, left Arthrodesis 2nd toe, left Extensor Hallux Longus tendon lengthening, left control systems eng: Yes Recreation Therapy Teacher: Piyush Tasks completed by first assistant: Opening & closing, Implanting device and Retracting Type of Anesthesia: General and Local RN Documented Start/Stop Times: Operation Date: 07/14/24 07:30 Case Time Into Pre-Op 07/14/24 06:02 Out of Pre-Op 07/14/24 07:25 Anesthesia Start 07/14/24 07:30 Into Room 07/14/24 07:30 Procedure Start 07/14/24 07:50 Procedure End 07/14/24 10:27 Anesthesia End 07/14/24 10:30 Out of Room 07/14/24 10:30 Into Recovery 07/14/24 10:31 Out of Recovery 07/14/24 11:17 Into Phase II Recovery 07/14/24 11:18 Out of Phase II 07/14/24 12:37 Procedure Start Time: 07:50 Procedure Stop Time: 10:27 Select all DRAINS/GRAFTS/IMPLANTS that apply: None Estimated Blood Loss: 20mL Specimen collected: Yes Description of specimen(s) removed: 1st metatarsal phalangeal joint left foot sent to pathology 2nd digit hammer toe, left sent to pathology Skin lesion left 2nd toe sent to pathology Description of surgery: Indications: 58 year old female with significant painful left foot bunion deformity with degenerative changes and left 2nd toe hammer toe deformity, she has had multiple surgeries on this in the past however overall symptoms are worsening and she is having great difficulty with shoes and activities due to deformity and pain. She has tried many nonsurgical treatments for many years which have included but not limited to changes in shoes, padding, offloading, trimming the callus on left 2nd toe, custom foot orthotics, rest, activity modifications as well. Despite this symptoms are worsening and she has elected to proceed with surgical intervention. The procedures were discussed with her in detail, reviewed possible benefits vs risks, goals, expectations, alternative options, and estimated healing time. The consent form was reviewed with her and she freely signed it. No guarantees were given nor implied, no warranties were given nor implied. The patient has been medically cleared to proceed with surgical intervention. Operative Procedure: The patient was brought back to the operating room and was placed on the operating room table in the supine position. The patient was carefully secured to the operating room table with a safety belt around her waist. The patient received 900mg of IV Clindamycin for antibiotic prophylaxis. A well pad pneumatic tourniquet was applied around her left ankle. The patient received MAC anesthesia per the anesthesia team. The patient's left foot was scrubbed, prepped, and draped in the usual aseptic fashion. A timeout was performed and the patient was properly identified and surgical plan was confirmed. Further attention was directed to the left foot where there was noted to be significant hallux valgus deformity, and 2nd digit hammer toe. There was a significant skin lesion to the medial 2nd toe where the 1st and 2nd toes were rubbing, this is consistent with a pressure callus with porokeratosis at level of the proximal interphalangeal joint of the 2nd toe. There was severe lateral deviation of the 1st toe into the 2nd toe. There was decreased 1st metatarsal phalangeal joint range of motion. The patient's left foot was exsanguinated using an Esmarch bandage and the left ankle pneumatic tourniquet was inflated to 250mmHg. A total of 10mL of 0.5% Bupivacaine plain was given as a local nerve block to the 1st ray and 2nd toe left foot. Left 1st metatarsal phalangeal joint arthrodesis: An incision was made overlying the dorsal 1st metatarsal phalangeal joint medial to the extensor hallucis longus tendon using a 15 blade. Dissection was completed down to the 1st metatarsal phalangeal joint capsule and was incised using a 15 blade, and it was partially reflected to expose the 1st metatarsal head and base of the proximal phalanx. The cartilage was visualized and noted to be degenerative and thin. The cartilage was resected off of the 1st metatarsal head using a fitted cup bone reamer, the cartilage was resected off of the base of the proximal phalanx using a sharp curette, the resected tissue was sent to pathology. The site was flushed with copious amounts of normal saline solution. The 1st metatarsal head and base of the proximal phalanx were fenestrated using a 2mm drill. It was noted the bone was a bit softer than normal. It was noted a very tight extensor hallucis longus tendon was preventing proper reduction of the 1st toe, so a extensor hallucis longus tendon lengthening had to be completed, this was completed by incising the tendon in Z fashion using a 15 blade. Now the prepped 1st metatarsal head and base of the proximal phalanx were able to be brought together and placed into rectus position but slight toe valgus and slight dorsiflexion. The fusion site was fixated with the toe in this position using a 3.0mm partially threaded suly screw which provided stability and compression. Further fixation was placed which consisted of 1 suly ortholoc 1st metatarsal phalangeal joint plate and a total of 5 locking screws and 1 cortical screw. There was excellent stability and fixation of the fusion site with good bone to bone contact but there was noted to be a small void present due to the degenerative changes and soft bone, and this site was packed with cancellous bone allograft. The site was flushed with copious amounts of normal saline solu tion. The lengthened extensor hallucis longus tendon was repaired to the proper tension using 4-0 Vicryl. The capsule of the joint was reapproximated using 3-0 Vicryl, the subcutaneous tissue was reapproximated using 3-0 Vicryl, and the skin was reapproximated using 3-0 Monocryl. Left 2nd toe arthrodesis: Two converging semi-elliptical skin incisions were made overlying the proximal interphalangeal joint using a 15 blade and the skin was excised. The extensor digitorum longus tendon was visualized and was incised transversely, it was reflected off of the head of the proximal phalanx and base of the middle phalanx. The collateral ligament of the proximal interphalangeal joint were released using a 15 blade. The cartilage on the head of the proximal phalanx and base of the middle phalanx was visualized and appeared white but cartilage was thin, this cartilage was resected using a powered sagittal saw and also a bone cutting rongeur - the resected tissue was sent to pathology. The site was fixated using a 2.5mm suly cannulated screw placed down the middle of the distal, middle and proximal phalanges of the toe using rigid open reduction internal fixation technique. There was good bone to bone contact at the fusion site. Intra operative fluoroscopy confirmed proper placement of the screw, as well as proper alignment of the toe and good bone to bone contact of the fusion site. The skin lesion on the medial aspect of the toe was excised using a 15 blade - this was sent to pathology for further evaluation - it appears consistent with a porokeratosis callus. The site was flushed with copious amounts of normal saline solution. The extensor digitorum longus tendon was reapproximated using 4-0 Vicryl and the skin was reapproximated using 3-0 Monocryl. Another 10mL of 0.5% Bupivacaine plain was given as a local nerve block to the 1st ray and 2nd toe. A dressing was applied consisting of steri strips over the 1st metatarsal phalangeal joint fusion site, then adaptic over incisions, then overlying gauze, kerlix and john dressing. The pneumatic tourniquet was deflated at 120 minutes, there was immediate return of blood flow to the foot. The tourniquet was deflated prior to tissue closure. Hemostasis was achieved using pressure and gauze. CFT < 2 seconds to all toes at end of case, as well as there was normal temperature and no evidence of ischemia. The patient tolerated the procedure and anesthesia well with no complication, and was transported from the operating room to the recovery room with vital signs stable and in good condition. Post operative orders were placed. Post operative instructions were written down and dispensed to patient, which were reviewed with patient pre operatively, and also with her who was with her today. Patient is going to follow up in 1 week in office, sooner if needed. Surgical Findings: See above Complications Complications: No
--- NOTE | 2024-07-14 11:04 | POSTOPAN2_ITS ---
Anesthesia Postop Eval I Sum Postop Eval Completion status Anesthesia document: Postop Eval 1 completed: Yes Anesthesia Postop Eval I Summary Anesthesia Postop Eval I Summary: Anesthesia Postop Eval I: Assessment Summary Airway patent Yes 07/14/24 09:58 HOMICIDE [email or web address] Spontaneous unlabored Yes 07/14/24 09:58 HOMICIDE SQU[email or web address] respirations Mental status Awake,Calm 07/14/24 09:58 HOMICIDE [email or web address] nausea No 07/14/24 09:58 HOMICIDE SQU[email or web address] Vomiting No 07/14/24 09:58 HOMICIDE SQU[email or web address] Anesthesia Postop Eval I: Fluid Summary Crystalloid volume administer 1,100 07/14/24 10:34 HOMICIDE SQU[email or web address] (ml) Colloids volume administered ( ml) Blood Product volume administered (ml) Total IV fluid infused 1,100 07/14/24 10:34 HOMICIDE SQUAD [employer]ENANT.ACAR Anesthesia Postop Eval I: Summary Notes Anesthesia Complication No 07/14/24 09:58 HOMICIDE SQU[employer].ACAR Anesthesia Complication Comment: Post-operative progress note Anesthesia: Postop Eval II Evaluation Mental status: Awake Pain Level: 2 nausea: No Vomiting: No
--- NOTE | 2024-07-14 11:04 | PCM.POSTANE2 ---
Anesthesia Postop Eval I Sum Postop Eval Completion status Anesthesia document: Postop Eval 1 completed: Yes Anesthesia Postop Eval I Summary Anesthesia Postop Eval I Summary: Anesthesia Postop Eval I: Assessment Summary Airway patent Yes 07/14/24 09:58 [email or web address] [email or web address] Spontaneous unlabored Yes 07/14/24 09:58 RADIOSONDE SPECIALIST.ACAR respirations Mental status Awake,Calm 07/14/24 09:58 RADIOSONDE [email or web address].ACAR nausea No 07/14/24 09:58 RADIOSONDE SPECIALIST.ACAR Vomiting No 07/14/24 09:58 RADIOSONDE [email or web address].ACAR Anesthesia Postop Eval I: Fluid Summary Crystalloid volume administer 1,100 07/14/24 10:34 RADIOSONDE [email or web address].ACAR (ml) Colloids volume administered ( ml) Blood Product volume administered (ml) Total IV fluid infused 1,100 07/14/24 10:34 RADIOSONDE [email or web address].ACAR Anesthesia Postop Eval I: Summary Notes Anesthesia Complication No 07/14/24 09:58 RADIOSONDE [email or web address].ACAR Anesthesia Complication Comment: Post-operative progress note Anesthesia: Postop Eval II Evaluation Mental status: Awake Pain Level: 2 nausea: No Vomiting: No
--- NOTE | 2024-07-14 11:22 | RAD_ITS ---
EXAM: Left foot. CLINICAL HISTORY: Status post arthrodesis and bunionectomy. COMPARISON: Comparison is made with prior examination done earlier in the day. TECHNIQUE: Three views were obtained. FINDINGS: The patient is status post fusion at the 1st metatarsophalangeal joint with screws and plate fixation device. Postop soft tissue changes are seen. Metallic screw is seen in the 2nd toe. RAD/Foot min 3 Views IMPRESSION: Status post arthrodesis at the 1st metatarsophalangeal joint and bunionectomy w ith fixation of the 2nd toe. Postoperative soft tissue changes. Reading Location: [facility]
== END 2024-07-14 12:38 | disposition home or self-care (01) ==
LOC: SDC 05:59 → AC 06:02
PROVIDERS: PCP Internal Medicine; Referring Provider Podiatrist; Visit Provider Podiatrist
PROC: (CPT 28750; principal; 2024-07-14 07:15)
DX: M20.42 Other hammer toe(s) (acquired), left foot (principal); J44.9 Chronic obstructive pulmonary disease, unspecified; M19.072 Primary osteoarthritis, left ankle and foot; M21.612 Bunion of left foot; L85.9 Epidermal thickening, unspecified; I10 Essential (primary) hypertension; K21.9 Gastro-esophageal reflux disease without esophagitis; F41.9 Anxiety disorder, unspecified; F32.A Depression, unspecified; F43.10 Post-traumatic stress disorder, unspecified; Z79.899 Other long term (current) drug therapy
CPT/HCPCS: 28750; 28285; 01480; 73620; 73630; 76000; 88304; 88305; 88311; C1713; A4216; J2405

== ENCOUNTER 2024-10-09 09:43 | Emergency (ER) | payer BC, SELFPAY ==
[2024-10-09 09:43] VITALS: BP 182/91; PULSE 79; RESP 14; TEMP 36.6; O2SAT 98; BMI 21.7
--- NOTE | 2024-10-09 10:13 | EX.ED.DYSGE1 ---
HPI History of Present Illness Chief Complaint: Abd Pain Informant: patient and spouse/S.O. Narrative Narrative: Presents for evaluation of intermittent right flank pain for the past month worsening over the last 2 days pain rating to her abdomen. No fevers. No urinary symptoms. No nausea or vomiting. No history of kidney stones. Reports she had shingles on the left side 1 and half years ago had more significant pain has been on gabapentin at that time. No current rash noted. Pain was more severe over the last 2 days. Hysterectomy in the past and cholecystectomy. Prior similar symptoms: Yes PFSH PFSH Medical History Wears glasses History of Clostridium difficile infection Post-menopausal Depression History of steroid therapy Migraine headache History of IBS Gastric reflux Hypertension Normal Holter exam History of stress test History of echocardiogram Cardiology follow-up encounter Plantar fasciitis Ectopic cardiac beats Lactose intolerance PTSD (post-traumatic stress disorder) Asthma with COPD Vestibular neuronitis Lesion of plantar nerve Urethrocele Lumbago Osteopenia Diarrhea Interstitial cystitis Anxiety Abnormal mammogram IBS (irritable bowel syndrome) GERD (gastroesophageal reflux disease) Capsulitis Intermittent left lower quadrant abdominal pain Xerosis cutis Hypolipidemia Chronic sinusitis Steroid long-term use Home Medications ?Medication ?Instructions ?Recorded ?Last Taken ?Type albuterol sulfate 90 mcg/actuation 2 puff inhalation Q2H PRN 04/19/17 10/08/24 History aerosol inhaler (Proventil HFA) shortness of breath or wheezing alprazolam 0.5 mg tablet 0.5 mg PO BID PRN anxiety 04/19/17 10/08/24 History temazepam 7.5 mg capsule (Restoril) 7.5 mg PO QHS 04/19/17 10/08/24 History triamcinolone acetonide 55 mcg 2 spray intranasal QDAY allergy 04/19/17 10/08/24 History nasal spray aerosol (Nasacort) albuterol sulfate 2.5 mg/3 mL 2.5 mg (3 mL) inhalation Q4H PRN 05/03/17 10/06/24 Rx (0.083 %) solution for nebulization shortness of breath or wheezing #180 vials chlordiazepoxide-clidinium 5 1 cap PO QACHS 11/18/17 10/08/24 History mg-2.5 mg capsule (Librax (with clidinium)) omeprazole 40 mg capsule,delayed 40 mg PO DAILY 11/22/18 10/09/24 History release acetylcysteine 100 mg/mL (10 %) 2 ml inhalation BID PRN SOB 06/11/21 10/06/24 History solution amitriptyline 25 mg tablet 75 mg PO QHS depression 10/06/21 10/08/24 History desoximetasone 0.05 % topical cream 1 applic topical QHS PRN skin 06/20/24 07/12/24 History irritation amlodipine 2.5 mg tablet 2.5 mg PO .COMPLEX 06/30/24 10/07/24 History gabapentin 300 mg capsule 300 mg PO QHS #30 caps 10/09/24 Unknown Rx prednisone 5 mg tablet 10 mg PO DAILY 10/09/24 10/09/24 History Allergy/AdvReac Type Severity Reaction Status Date / Time alendronate sodium (From Allergy Mild Unknown Verified 10/09/24 09:44 Fosamax) beclomethasone (From Qvar) Allergy Mild Unknown Verified 10/09/24 09:44 doxycycline Allergy Mild unknown Verified 10/09/24 09:44 epinephrine Allergy Mild unknown Verified 10/09/24 09:44 erythromycin base Allergy Mild Unknown Verified 10/09/24 09:44 formoterol (From Dulera) Allergy Mild Unknown Verified 10/09/24 09:44 levofloxacin (From Levaquin) Allergy Mild Unknown Verified 10/09/24 09:44 mometasone furoate (From Allergy Mild Unknown Verified 10/09/24 09:44 Dulera) omalizumab (From Xolair) Allergy Mild Unknown Verified 10/09/24 09:44 psyllium (From Metamucil) Allergy Mild Unknown Verified 10/09/24 09:44 sulfasalazine (From Allergy Mild Unknown Verified 10/09/24 09:44 Sulfazine) amoxicillin trihydrate (From Allergy Swelling Verified 10/09/24 09:44 Augmentin) potassium clavulanate (From Allergy Swelling Verified 10/09/24 09:44 Augmentin) Sulfa (Sulfonamide Allergy Hives Verified 10/09/24 09:44 Antibiotics) Gadolinium-MRI Contrast AdvReac Vomiting Verified 10/09/24 09:44 Medium Family History Father Hypertension Diabetes Seizures Alzheimer disease CAD (coronary artery disease) Myocardial infarction, Onset Age: 35 Mother Hypertension Atrial fibrillation CHF (congestive heart failure) Breast cancer Grandfather CAD (coronary artery disease) Myocardial infarction Colon cancer Grandmother CAD (coronary artery disease) Myocardial infarction Grandfather CAD (coronary artery disease) Myocardial infarction Surgical History Dysplasia, cervix uteri History of breast biopsy H/O section History of bunionectomy History of colonoscopy History of cystoscopy History of esophagogastroduodenoscopy History of cholecystectomy History of tubal ligation History of hernia repair History of sinus surgery History of wisdom tooth extraction History of sigmoidoscopy History of vaginal hysterectomy Social History Smoking Status: Never smoker second hand exposure: No alcohol intake: never substance use type: does not use caffeine: Yes what type of physical activity do you participate in: walking frequency: daily seatbelt use: always do you feel safe at home: Yes additional social history: 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 ROS ED Constitutional Constitutional ED: Denies chills, fever(s) or sweats ENT ENT ED: Denies sore throat Cardiovascular Cardiovascular: Denies chest pain, leg edema, palpitations or racing heartbeat Respiratory/Chest Respiratory/Chest: Denies cough, dyspnea or dyspnea on exertion Gastrointestinal Gastrointestinal: Reports abdominal pain; Denies diarrhea, nausea or vomiting Genitourinary Genitourinary ED: Denies dysuria, hematuria or urinary frequency Musculoskeletal Musculoskeletal: Reports back pain; Denies extremity pain or neck pain Integumentary Denies rash or wounds Neurologic Neurologic: Denies headache(s), paresthesias or weakness EXAM Physical Exam Const Vital Signs: 10/09/24 09:43 10/09/24 11:43 10/09/24 12:03 Temperature 98 F 98.3 F Temperature Source Temporal Pulse Rate 79 88 88 Respiratory Rate 14 18 Blood Pressure 182/91 H 130/70 H 130/70 H Blood Pressure Mean 121 90 90 Pulse Ox 98 99 99 Oxygen Delivery Method Room Air Positive well nourished and well developed General Appearance ED: well developed and NAD HEENT Reports moist mucous membranes normocephalic and atraumatic Eyes General Eye ED: Yes normal appearance of both eyes Neck full ROM Chest Wall Chest: Negative for tenderness Resp normal respiratory effort and normal air movement Effort and Inspection: symmetric chest movement; Negative for respiratory distress Cardio regular rate, regular rhythm and no murmurs Peripheral Pulses: pulses 2+ throughout GI normal to inspection, nondistended, normoactive bowel sounds and non-tender GI Narrative: Negative Rose's or McBurney's tenderness. Palpation: Negative for guarding or rebound tenderness present Back/Spine Back/Spine Narrative: No rash the flank region. General Back: Negative for CVA tenderness Extremity normal to inspection General Extremety ED: Negative for edema or tenderness General Extremity: Negative for edema Neuro oriented x3 and no sensory deficits noted Sensorium / Orientation: awake and alert Skin no rashes or lesions noted and no wounds MDM MDM MDM Narrative Medical decision making narrative: Interventions / MDM: Differential diagnosis: Flank pain, shingles, musculoskeletal pain Diagnosis considered but do not suspect: kidney stone howeverCT negative. My EKG interpretation: N/A Imaging independently reviewed and interpreted by myself: CT abdomen pelvis: kidney stones. Uncomplicated right inguinal hernia fat-containing. No obstructions. External documents reviewed: N/A Test considered but not ordered:N/A ED course: Intermittent right flank pain rating to right abdomen. No current rash. Symptoms were for last 2 days. She is concerned of kidney stones however does have history of shingles with similar presentation on the opposite side previously. She declines any medications. IV established basic labs urine. Noncontrast CT abdomen pelvis for further evaluation. Labs stable urine small amount hematuria, per shortness of breath patient history of this. CT with no kidney stones. Right inguinal hernia fat-containing. She has no pain in this area. History of shingles similar presentation more severe at that time. Discussed treatment options. She is on 10 mg of prednisone for asthma, she will increase this to 40 mg for next 5 days. I will spare her gabapentin for nighttime use. She will monitor for rash. Outpatient follow-up with her doctors. All questions were answered. Re-evaluation: stable Disposition discussed with patient/family/significant other: Patient and spouse Case discussed with consulting clinician: N/A This note was generated with [employer] dictation software. It may contain incorrect words, spelling, and punctuation that were not noted in checking the note before signing. Lab Data Attestation: I reviewed the patient's lab results. Labs: Laboratory Results - last 24 hr 10/09/24 10/09/24 09:55 10:43 WBC 10.8 RBC 4.81 Hgb 15.1 H Hct 43.2 MCV 89.8 MCH 31.4 MCHC 35.0 RDW Std Deviation 40.2 RDW Coeff of Suresh 12.2 Plt Count 303 MPV 9.6 Immature Gran % (Auto) 0.500 Neut % (Auto) 85.1 H Lymph % (Auto) 8.1 L [place] % (Auto) 4.5 Eos % (Auto) 1.1 Baso % (Auto) 0.7 Absolute Neuts (auto) 9.2 H Absolute Lymphs (auto) 0.87 Sodium 142 Potassium 3.4 Chloride 106 Carbon Dioxide 24.6 Anion Gap 11 BUN 14 Creatinine 0.80 Estim Creat Clear Calc 55.73 Est GFR (MDRD) Non-Af 84 BUN/Creatinine Ratio 17.2 Glucose 104 H Calcium 9.2 Urine Color Yellow Urine Clarity Sl. Cloudy Urine pH 6.0 Ur Specific [place] 1.010 Urine Protein 15 H Urine Glucose (UA) Normal Urine Ketones Negative Urine Occult Blood 50 H Urine Nitrite Negative Urine Bilirubin Negative Urine Urobilinogen Normal Ur Leukocyte Esterase Negative Urine RBC 0 SEEN Urine WBC 0 SEEN Ur Squamous Epith Cells 0 SEEN Urine Bacteria 0 SEEN Urine Mucus 0 SEEN Radiography Diagnostic Testing: Clinical Impression(s) from Imaging Studies Abdomen/Pelvis CT 10/09/24 10:20 IMPRESSION: There is a 1.2 cm uncomplicated fat containing right inguinal hernia. There is no renal stone or hydronephrosis. Reading [facility] Discharge Plan Triage Chief Complaint: Abd Pain ED Provider: Octavio Toscano Dx/Rx/DC Orders Clinical Impression: Flank pain, Hematuria Instructions: ED Flank Pain, Uncertain Cause Prescriptions: New gabapentin 300 mg capsule 300 mg PO QHS Qty: 30 0RF No Action temazepam [Restoril] 7.5 mg capsule 7.5 mg PO QHS albuterol sulfate [Proventil HFA] 90 mcg/actuation HFA aerosol inhaler 2 puff INHALATION Q2H PRN (Reason: shortness of breath or wheezing) alprazolam 0.5 mg tablet 0.5 mg PO BID PRN (Reason: anxiety) Patient Comments: pt states usually takes hs triamcinolone acetonide [Nasacort] 55 mcg aerosol,spray 2 spray INTRANASAL QDAY chlordiazepoxide-clidinium [Librax (with clidinium)] 5-2.5 mg capsule 1 cap PO QACHS omeprazole 40 mg capsule,delayed release(DR/EC) 40 mg PO DAILY amitriptyline 25 mg tablet 75 mg PO QHS Patient Comments: pt states takes one tab acetylcysteine 100 mg/mL (10 %) solution 2 ml inhalation BID PRN (Reason: SOB) desoximetasone 0.05 % cream 1 applic topical QHS PRN (Reason: skin irritation) amlodipine 2.5 mg tablet 2.5 mg PO .COMPLEX Rx Instructions: 2.5 mg orally qod; prednisone 5 mg tablet 10 mg PO DAILY Rx Instructions: adjust dose for flare up prn albuterol sulfate 2.5 mg /3 mL (0.083 %) solution for nebulization 2.5 mg INHALATION Q4H PRN (Reason: shortness of breath or wheezing) Qty: 180 3RF Primary Care Provider: Cecilia Potter Referrals: Cecilia Potter MD [Primary Care Provider] - 1-2 Weeks Activity Restrictions/Additional Instructions: CT scan with incidental small right inguinal hernia fat-containing. No kidney stones. No abnormal structures.Labs creatinine 0.8. Hemoglobin 15, white count 10. Urine with small hematuria. You have had shingles in the past there is no current rash. You are prescribed gabapentin take at night to help with pain. Increase your prednisone to 40 mg for the next 5 days then go back to 10. If you notice any rash discussed with your PCP for additional medications if needed. Print Language: Latvian Disposition Disposition: Home, Self Care Discharge Date/Time: 10/09/24 12:13
--- NOTE | 2024-10-09 10:20 | CT_ITS ---
PROCEDURE: ABDOMEN/PELVIS WITHOUT CONT 10/09/2024 REASON FOR EXAM: KIDNEY STONE TECHNIQUE: ABDOMEN/PELVIS WITHOUT CONT Noncontrast technique limits evaluation of the abdominal and pelvic viscera. Coronal and Sagittal reconstruction series were provided. One or more dose reduction techniques were used (e.g., Automated exposure control, adjustment of the mA and/or kV according to patient size, use of iterative reconstruction technique). RADIATION DOSE SUMMARY: DLP: 271.80 mGycm COMPARISON: November 13, 2018 FINDINGS: Lung bases: There is minimal atelectasis or scar at the right and left lung base. There is no free air. Liver: Unremarkable Gallbladder: Surgically absent Spleen: Unremarkable Pancreas: Unremarkable Adrenals: Unremarkable Kidneys: Unremarkable Bladder: Unremarkable Reproductive Organs: Unremarkable Bowel: There is a moderate stool load. The small-bowel loops are not distended. Appendix: Unremarkable Lymph nodes: There is no pathologic adenopathy by size criteria. Vasculature: Atherosclerotic calcifications are noted. Peritoneum / Retroperitoneum: There is a 1.2 cm uncomplicated fat containing right inguinal hernia. There is no free air or free fluid. Phleboliths are noted. Bones: There is no acute bony abnormality. CT/Abdomen/Pelvis without Cont IMPRESSION: There is a 1.2 cm uncomplicated fat containing right inguinal hernia. There is no renal stone or hydronephrosis. Reading Location: [facility]
[2024-10-09 10:32] LABS: Hematocrit 43.2 % (37-47); Hemoglobin 15.1 g/dL (12.0-15.0); Mean Corp Hgb Conc 35.0 g/dL (32-36); Mean Corpuscular Volume 89.8 fL (81-99); Mean Platelet Vol. 9.6 fl (6.2-12.0); Platelet Count 303 K/mm3 (150-450); RBC Distribution Width CV 12.2 % (11.6-14.6); RBC Distribution Width SD 40.2 fl (35.1-43.9); Red Blood Count 4.81 M/mm3 (4.2-5.4); White Blood Count 10.8 K/mm3 (4.4-11.0)
[2024-10-09 10:34] LABS: Immature Granulocytes Count 0.050 X10^3/uL (0.0-0.0)
[2024-10-09 10:52] LABS: Mucous, Urine 0 SEEN /hpf (<or=2+); Red Blood Cells-Urine 0 SEEN /hpf (0-5); Squamous Epithelial Cells - UA 0 SEEN /hpf (5-10)
[2024-10-09 11:01] LABS: Color, Urine Yellow (Yellow); Glucose, Dipstick Normal (Normal); Ketone-Dipstick Negative (Negative); Leukocyte Esterase-Dipstick Negative /ul (Negative); Nitrite-Dipstick Negative (Negative); Occult Blood-Urine 50 /ul (Negative); Protein-Dipstick 15 mg/dl (Negative); Specific Gravity, Urine 1.010 (1.002-1.030); Urine Bilirubin Dipstick Negative (Negative)
[2024-10-09 11:08] LABS: Anion Gap 11 (5-15); BUN 14 mg/dL (4-19); BUN/Creat Ratio 17.2 RATIO (10-20); Calcium,Total 9.2 mg/dL (7.6-11.0); Carbon Dioxide 24.6 mmol/L (21.0-32.0); Chloride 106 mmol/L (98-108); Estimated Creatinine Clearance 55.73 ml/min (50-250); Glucose 104 mg/dL (70-99); Potassium 3.4 mmol/L (3.3-5.1)
[2024-10-09 11:43] VITALS: BP 130/70; PULSE 88; O2SAT 99
[2024-10-09 12:03] VITALS: BP 130/70; PULSE 88; RESP 18; TEMP 36.8; O2SAT 99
== END 2024-10-09 12:13 | disposition home or self-care (01) ==
PROVIDERS: Emergency Provider Emergency Medicine; PCP Internal Medicine; Visit Provider Emergency Medicine
DX: R10.9 Unspecified abdominal pain (principal); J44.9 Chronic obstructive pulmonary disease, unspecified; K40.90 Unilateral inguinal hernia, without obstruction or gangrene, not specified as recurrent; I10 Essential (primary) hypertension; R21 Rash and other nonspecific skin eruption; N20.0 Calculus of kidney; Z90.49 Acquired absence of other specified parts of digestive tract; K21.9 Gastro-esophageal reflux disease without esophagitis; E78.5 Hyperlipidemia, unspecified; Z79.899 Other long term (current) drug therapy; R31.9 Hematuria, unspecified
CPT/HCPCS: 74176; 80048; 81001; 85025; 99283; A4216